=== PATIENT | male | born 1985 | race Caucasian/White ===

== ENCOUNTER 2016-11-11 21:36 | Emergency (ER) | payer OTHER ==
[~2016-11-11] VITALS: Ht 188 cm; Wt 77.1 kg
[~2016-11-11 21:36] MED LIST: ATIVAN 2 MG. TAB2 MG PO; ATIVAN1 M1 PO; ATIVAN1 MG PO; CHLORDIAZEPOXID25 M3 PO; CORGARD 40MG TA40 MG PO; DAILY VALUE1 EACH PO; ENULOSE 2020 GM/30 M PO; FOLIC ACID 1 MG PO; FOLIC ACID1 M1 PO; HUMALOG 100U100 U/ML; HUMALOG 100U100 U/ML SC; HYDROXYZINE HCL25 MG PO; INDERAL LA60 M1 PO; INDERAL PO; KEFLEX500 MG PO; LANTUS SOL100 UNIT/1 SC; LEVOTHYROXIN0.025 M1 PO; LEVOTHYROXINE25 MCG PO; LORAZEPAM1 MG PO; LYRICA50 MG PO; MAG-OX 400400 MG PO; MULTIVITAMIN1 TAB PO; NICOTINE T21 MG/24 H TOP; ONDANSETRON HYDR4 MG PO; PANTOPRAZOLE SO40 M1 PO; PANTOPRAZOLE SO40 MG PO; POTASSIUM CHLO10 MEQ PO; PRILOSEC 20MG C20 MG PO; PROPRANOLOL HCL60 MG PO; PROTONIX 20MG T20 MG PO; THIAMINE HCL100 M1 PO; THIAMINE-100100 MG PO; TRAZODO50 MG PO; TRAZODONE HCL100 M1 PO; Theragran Vitamins PO; VICODIN 300 MG-1 TAB PO; VICODIN5-300 PO; VITAMIN D250000 UNIT PO; XIFAXAN550 MG PO
--- NOTE | 2016-11-11 22:10 | ED PSYCHIATRIC COMPLAINT ---
History of Present Illness General Chief Complaint: ETOH/Drug Related Complaint Stated Complaint: +SI/ETOH Source: patient, old records Exam Limitations: intoxication Vital Signs & Intake/Output Vital Signs & Intake/Output Vital Signs Date Time Temp Pulse Resp B/P Pulse O2 O2 Flow FiO2 Ox Delivery Rate 11/12 0230 98.3 102 18 122/73 11/12 0229 98.3 102 18 122/73 99 Room Air 11/12 0021 97.8 96 18 101/67 11/12 0021 97.8 96 18 10167 96 Room Air 11/11 2213 100 Room Air 11/11 214 97.3 104 18 112/85 11/11 2146 97.3 104 18 94 Room Air ED Intake and Output 11/12 0000 11/11 1200 Intake Total Output Total Balance Patient 170 lb Weight Allergies Coded Allergies: NO KNOWN ALLERGIES (04/10/16) Reconcile Medications ERGOCALCIFEROL (VITAMIN D2) (Vitamin D2) 50,000 UNIT CAPSULE 50,000 IU PO Q30D VITAMIN D SUPPLEMENT (Reported) Folic Acid 1 MG TABLET 1 TAB PO DAILY ALCOHOL USE Insulin Glargine, Recombinan (Lantus) 100 U/ML SAMI 15 UNITS SC QAM DIABETES ( Reported) Insulin Lispro (Humalog) 100 UNIT/ML VIAL 1 UNITS SC TID AC/HS DIABETES Please dose your Humalog according to carbohydrates counting (one unit for every 15 grams of carbohydrates; insulin sensitivity 50 mg/dl; target of glucose 150 mg/dl) Levothyroxine Sodium 0.025 MG TAB 0.025 MG PO DAILY AC THYROID (Reported) Lorazepam (Ativan) 1 MG TABLET 1 TAB PO SEE ADMIN CRITERIA ETOH DETOX TAKE 1 TAB THREE TIME FOR 1 DAY 06/24 TAKE 1 TAB TWICE DAILY FOR 1 DAY 06/25 TAKE 1 TAB ONCE FOR 1 DAY THEN STOP 06/26. Multivitamin (Daily Value) 1 EACH TABLET 1 TAB PO DAILY OTHER Pantoprazole Sodium 40 MG TABLET.DR 1 TAB PO DAILY REFLUX (Reported) Pregabalin (Lyrica) 50 MG CAP 1 CAP PO BID PAIN (Reported) Propranolol LA (Inderal LA) 60 MG CAP.SA.24H 1 CAP PO DAILY LIVER (Reported) Thiamine HCl 100 MG TABLET 1 TAB PO DAILY OTHER Trazodone HCl 50 MG TABLET 2 TAB PO QPM SLEEP (Reported) Triage Note: RECEIVED 31 YO MALE WITH HX OF ETOH C/O "I HAVE A ALCOHOL PROBLEM AND I WANT TO STOP" PT REPORTS HX OF WITHDRAWL SEIZURES" PT REPORTS SI, STATES TO THIS RN "I WANT TO END MY LIFE" PT WITH HX OF PANCREATITIS, C/O ABDOMINAL AND BACK PAIN WITH VOMITING EVERY DAY. Triage Nurses Notes Reviewed? yes HPI: Patient presents for evaluation of chronic alcoholism with associated abdominal and back pain secondary to episodic pancreatitis. He wishes to be placed in an inpatient detox program where he can be "cared for". He states he needs "attention". He has had prior detox but seems to return to drinking. He states he has also been treated for pancreatitis and admits to liver disease as well. He states that if we were to check his labs that they would "be off the wall". Past History Travel History Traveled to [place] past 21 day No Medical History Any Pertinent Medical History? see below for history Neurological: delerium tremens EENT: NONE Cardiovascular: NONE Respiratory: NONE Gastrointestinal: L INGUINAL HERNIA REPAIR PANCREATITIS Hepatic: cholelithiasis, cirrhosis, hepatic encephalopathy (previously), jaundice, alcoholic liver disease Renal: NONE Musculoskeletal: 03/20/2014: L WRIST FX Psychiatric: alcohol dependence, anxiety, depression, substance abuse Endocrine: hypothyroidism, type 1 diabetes Blood Disorders: coagulopathy, pancytopenia Cancer(s): NONE LEG MAN/Reproductive: NONE History of MRSA: No History of VRE: No History of CDIFF: No Influenza Vaccine: 05/21/16 Surgical History Surgical History: hernia repair-inguinal (03/12/2007: Lap LIH with mesh), 2013: L wrist surgery Psychosocial History Who do you live with Family Services at Home None What is your primary language Austrian Tobacco Use: Current Daily Use Daily Tobacco Use Amount/Type: => 5 Cigarettes daily Family History Family History, If Any: FATHER (Stroke at the age of 47HTN). MOTHER (HTN). FH: alcoholism Hx Contributory? No Review of Systems Review of Systems Constitutional: Reports: no symptoms. EENTM: Reports: no symptoms. Respiratory: Reports: no symptoms. Cardiovascular: Reports: no symptoms. GI: Reports: no symptoms. Genitourinary: Reports: no symptoms. Musculoskeletal: Reports: no symptoms. Skin: Reports: no symptoms. Neurological/Psychological: Reports: see HPI. Hematologic/Endocrine: Reports: no symptoms. Immunologic/Allergic: Reports: no symptoms. All Other Systems: Reviewed and Negative Physical Exam Physical Exam General Appearance: SEE BELOW Neurological/Psychiatric: SEE BELOW Comments: General: Alert, calm, cooperative Head: Normocephalic, atraumatic Eyes: Normal inspection, no nystagmus, EOMI, sclera yellow Ears: Normal inspection Nose: Normal inspection Throat: Moist mucosa Neck: Supple, no goiter Heart: Regular rate and rhythm, no murmurs rubs or gallops Lungs: Clear to auscultation bilaterally with good air entry Abdomen: Soft nontender nondistended, normal bowel sounds Chest: Nontender Extremities: Normal range of motion grossly, mild tremors present, no cyanosis clubbing or edema of the upper extremities Neurologic: cranial nerves II through XII grossly intact, speech clear, gait normal Psychiatric: No apparent delusions or hallucinations, no pressured speech or thought blocking Skin: Jaundice present SAD PERSONS Done? patient not suicidal Progress Differential Diagnosis: drug intoxication, drug withdrawal, LIVER DISEASE Plan of Care: Orders Procedure Date/time Status [facility] 11/11 2208 Active URINE DRUGS OF ABUSE 11/11 2156 Complete LIPASE 11/11 2156 Complete ETHANOL 11/11 2156 Complete COMPREHENSIVE METABOLIC PANEL 11/11 2156 Complete CBC WITHOUT DIFFERENTIAL 11/11 2156 Complete AMYLASE 11/11 2156 Complete Laboratory Tests 11/12/16 0100: Urine Opiates Screen < 100.00, Methadone Screen < 40, Barbiturate Screen < 60, Ur Phencyclidine Scrn < 6.00, Amphetamines Screen < 100, U Benzodiazepines Scrn > 800 H, Urine Cocaine Screen < 50, Urine Cannabis Screen > 80.00 H 11/11/162257: Anion Gap 19 H, Estimated GFR > 60, BUN/Creatinine Ratio 12.9, Glucose 213 H, Calcium 9.2, Total Bilirubin 12.6 H, AST 322 H, ALT 72, Alkaline Phosphatase 243 H, Total Protein 7.1, Albumin 3.7, Globulin 3.4, Albumin/Globulin Ratio 1.1 , Amylase 76, Lipase 79, Serum Alcohol 319.0 11/11/162217: CBC w Diff MAN DIFF ORDERED, RBC 3.89 L, MCV 98.8 H, MCH 33.4 H, RDW 20.9 H, MPV 8.9, Gran % 61.6, Lymphocytes % 32.4, Monocytes % 5.9, Eosinophils % 0.1, Basophils % 0 L, Absolute Granulocytes 3.0, Segmented Neutrophils 66, Band Neutrophils 1, Absolute Lymphocytes 1.6, Lymphocytes 24, Monocytes 4, Absolute Monocytes 0.3, Eosinophils 2, Absolute Eosinophils 0, Basophils 3 H, Absolute Basophils 0, Platelet Estimate VERIFIED BY SMEAR, Poikilocytosis 2+, Anisocytosis 1+, Macrocytic Cells 1+, Target Cells 2+, PUBS MCHC 33.8, Fld Total RBCs Counted 100 Comments: 11/12/2016 3:21:18 AM I have had a lengthy discussion with Jerad regarding the [facility] emergency medicine alcohol detoxification protocol. He is unwilling to wait to fulfill the criteria of the protocol. He currently denies active suicide ideation. His mother has come to the emergency department and she is willing to take him home and watch him. His most recent CIWA score was 0. Departure Departure Disposition: HOME OR SELF CARE Condition: Stable Clinical Impression Primary Impression: Alcoholism Secondary Impressions: Liver failure Qualifiers: Liver failure chronicity: chronic Hepatic coma status: without hepatic coma Qualified Code: K72.10 - Chronic hepatic failure without coma Referrals: JOANNA SANCHEZ MD (PCP/Family) Additional Instructions: Slowly wean your alcohol intake. Follow-up with your primary care doctor on Monday. Consider an outpatient detox program. Return if any concerns or sudden worsening. Departure Forms: Customer Survey General Discharge Information
[2016-11-11 22:29] LABS: ABSOLUTE BASOPHIL COUNT 0 /CUMM (0.0-0.2); ABSOLUTE EOSINOPHIL COUNT 0 /CUMM (0.0-0.7); ABSOLUTE LYMPH COUNT 1.6 /CUMM (1.2-3.4); ABSOLUTE MONOCYTE COUNT 0.3 /CUMM (0.10-0.60); BASOPHIL % 0 % (0.0-2.0); EOSINOPHIL % 0.1 % (0-5); GRANULOCYTE % 61.6 % (42.2-75.2); HEMATOCRIT 38.4 % (42-52); MEAN CORPUSCULAR HGB 33.4 PG (27.0-31.0); MEAN CORPUSCULAR HGB CONC 33.8 G/DL (33.0-37.0); MEAN CORPUSCULAR VOLUME 98.8 FL (80.0-94.0); MEAN PLATELET VOLUME 8.9 FL (7.4-10.4); RBC DISTRIBUTION WIDTH 20.9 % (11.5-14.5); RED BLOOD CELL CT 3.89 /CUMM (4.70-6.10); WHITE BLOOD CELL COUNT 4.9 /CUMM (4.8-10.8)
[2016-11-11 22:45] LABS: PLATELET COUNT 43 /CUMM (130-400)
[2016-11-12 03:50] VITALS: BP 112/79
== END 2016-11-12 03:51 ==
LOC: ERH 21:36
PROVIDERS: Emergency Medicine
DX: F10.20 Alcohol dependence, uncomplicated (principal); K72.90 Hepatic failure, unspecified without coma
CPT/HCPCS: 80307; 96374; G0480

== ENCOUNTER 2017-01-09 10:49 | Emergency (ER) | payer OTHER ==
[~2017-01-09] VITALS: Ht 188 cm; Wt 79.4 kg
--- NOTE | 2017-01-09 11:27 | ED GI/GU/ABDOMINAL COMPLAINT ---
History of Present Illness General Chief Complaint: General Adult Stated Complaint: ABDOMINAL DISTENTION Source: patient, family, old records Exam Limitations: no limitations Vital Signs & Intake/Output Vital Signs & Intake/Output Vital Signs Date Time Temp Pulse Resp B/P B/P Pulse O2 O2 Flow FiO2 Mean Ox Delivery Rate 01/09 1909 60 99/52 01/09 1749 96.2 62 16 104/58 99 Room Air 01/09 1548 102/72 01/09 1546 96.7 66 18 92/54 97 Room Air 01/09 1340 98.0 68 20 105/64 98 Room Air 01/09 1056 97.9 76 20 110/68 95 Room Air Allergies Coded Allergies: NO KNOWN ALLERGIES (04/10/16) Reconcile Medications Ergocalciferol (Vitamin D2) (Vitamin D2) 50,000 UNIT CAPSULE 1 CAP PO Q 2 WEEKS VITAMIN SUPPORT (Reported) Folic Acid 1 MG TABLET 1 TAB PO DAILY ALCOHOL USE Furosemide 20 MG TABLET 1 TAB PO DAILY WATER PILL (Reported) Gabapentin 400 MG CAPSULE 2 CAP PO TID UNKNOWN (Reported) Hydromorphone HCl (Dilaudid) 2 MG TABLET 1 TAB PO BIDP PRN PAIN Insulin Glargine,Hum.rec.anlog (Lantus Solostar) 100 UNIT/ML (3 ML) INSULN.PEN 15 UNIT SC QPM DIABETES (Reported) Insulin Lispro (Humalog) (Unknown Strength) VIAL (Unknown Dose) SC SEE SLIDING SCALE DIABETES (Reported) Lactulose 10 GRAM/15 ML SOLUTION 30 ML PO TID PRN GI (Reported) Levothyroxine Sodium 25 MCG TABLET 1 TAB PO DAILY AC THYROID (Reported) Multivitamin (Daily Value) 1 EACH TABLET 1 TAB PO DAILY OTHER Pantoprazole Sodium 40 MG TABLET.DR 1 TAB PO DAILY REFLUX (Reported) Propranolol LA (Inderal LA) 60 MG CAP.SA.24H 1 CAP PO DAILY LIVER (Reported) Spironolactone 50 MG TABLET 1 TAB PO DAILY UNKNOWN (Reported) Thiamine HCl 100 MG TABLET 1 TAB PO DAILY OTHER Trazodone HCl 100 MG TABLET 2 TAB PO QPM SLEEP (Reported) Ursodiol 250 MG TABLET 1 TAB PO TID UNKNOWN (Reported) Vit B Cmplx 3/FA/Vit C/Biotin (Rebecca-Kate Rx Tablet) 1 MG-60 MG-300 MCG TABLET 1 TAB PO DAILY VITAMIN SUPPORT (Reported) Triage Note: PT C/O ABDOMINAL DISTENTION AND PAIN. PT WAS D/C FROM [facility] ON THE AND TAPPED AT THAT TIME. PT APPEARS JAUNDICED Triage Nurses Notes Reviewed? yes Onset: Gradual Duration: getting worse Timing: recent history Quality/Severity: severe, stabbing, throbbing Severity Numbers: 10 Location: generalized abdomen Radiation: no radiation HPI: patient is 31 y/o male with PMH of hypothyroidism, type 1 diabetes, cholelithiasis, cirrhosis, substance abuse,alcoholic liver disease, alcohol dependence, multiple failure alcohol detox program,anxiety, depression who presents emergency room with father in which they were recently admitted to [facility] and discharged 2 days ago for concerns of a ascites and abdominal pain where he states that he had a paracentesis performed with no concern of infection patient states that since his discharge he's been complaining of worsening abdominal pain and distention. Patient also complains of persistent nausea decreased appetite and by mouth intake no vomiting has occurred denies any fevers chest pain shortness of breath cough. Patient denies any recent alcohol use or illicit drug use. (CAROLINA AMADOR) Past History Travel History Traveled to [place] past 21 day No Medical History Any Pertinent Medical History? see below for history Neurological: delerium tremens EENT: NONE Cardiovascular: NONE Respiratory: NONE Gastrointestinal: L INGUINAL HERNIA REPAIR PANCREATITIS Hepatic: cholelithiasis, cirrhosis, hepatic encephalopathy (previously), jaundice, alcoholic liver disease Renal: NONE Musculoskeletal: 03/20/2014: L WRIST FX Psychiatric: alcohol dependence, anxiety, depression, substance abuse Endocrine: hypothyroidism, type 1 diabetes Blood Disorders: coagulopathy, pancytopenia Cancer(s): NONE RELAY MAN/Reproductive: NONE History of MRSA: No History of VRE: No History of CDIFF: No Surgical History Surgical History: hernia repair-inguinal (03/12/2007: Lap LIH with mesh), 2013: L wrist surgery Psychosocial History Who do you live with Family Services at Home None What is your primary language Hebrew Tobacco Use: Current Daily Use Daily Tobacco Use Amount/Type: => 5 Cigarettes daily ETOH Use: denies use Illicit Drug Use: denies illicit drug use Family History Family History, If Any: FATHER (Stroke at the age of 47HTN). MOTHER (HTN). FH: alcoholism Hx Contributory? No (CAROLINA AMADOR) Review of Systems Review of Systems Constitutional: Reports: see HPI, chills. EENTM: Reports: see HPI. Respiratory: Reports: see HPI. Cardiovascular: Reports: see HPI. GI: Reports: see HPI, abdominal pain, distention. Genitourinary: Reports: no symptoms. Musculoskeletal: Reports: no symptoms. Skin: Reports: see HPI. Neurological/Psychological: Reports: no symptoms. Hematologic/Endocrine: Reports: see HPI. Immunologic/Allergic: Reports: see HPI. All Other Systems: Reviewed and Negative (CAROLINA AMADOR) Physical Exam Physical Exam General Appearance: moderate distress Gastrointestinal: normal bowel sounds, distention, tenderness Comments: HEENT: Noted bilateral icterus extraocular motion intact, no nystagmus. Pupils equally round and reactive to light and accommodation. Nose is atraumatic. External auditory canal and Tympanic membranes clear. Pharynx normal. No swelling or edema. Neck: Supple, no lymphadenopathy, normal range of motion without pain or tenderness Back: Nontender, no CVA tenderness. Cardiovascular: Regular rate and rhythms no murmurs rubs or gallops, normal JVP Respiratory: Chest nontender. No respiratory distress.breath sounds clear to auscultation bilaterally Extremity: No edema, no calf tenderness to palpation, normal and equal pulses. Neuro: Alert oriented x3, motor sensory normal, Skin: Jaundiced noted skin is warm and dry. Psych: Mood and affect is normal, memory and judgment is normal. Core Measures ACS in differential dx? No Severe Sepsis Present: No Septic Shock Present: No (CAROILNA AMADOR) Progress Differential Diagnosis: AAA, AMI, appendicitis, biliary colic, bowel obstruction , colon cancer, cholecystitis, diverticulitis, esophageal varices, gastritis, hepatitis, hernia, hemorrhoids, ischemic bowel, inflamm bowel dis, Angelina-Juliana tear, orchitis, pancreatitis, prostatitis, peptic ulcer, PUD/GERD, perforated viscous, pyelonephritis, SBO, testicular torsion, ureterolithiasis, urinary retention, urethritis, UTI/pyelo, spontaneous bacterial peritonitis DKA Plan of Care: Orders Procedure Date/time Status Add-on Test (ER Only) 01/09 1309 Active DIRECT BILIRUBIN 01/09 1205 Complete EKG 01/09 1147 Active FingerStick- Glucose 01/09 1139 Active MIXED VENOUS BLOOD GAS (GEN) 01/09 1136 Complete URINE DRUG SCREEN FOR ER ONLY 01/09 1136 Complete THYROID STIMULATING HORMONE 01/09 113 Complete PARTIAL THROMBOPLASTIN TIME 01/09 113 Complete PROTHROMBIN TIME 01/09 113 Complete MAGNESIUM 01/10 1136 Complete LACTIC ACID 01/10 1136 Complete FREE T4 01/10 1136 Complete ETHANOL 01/10 1136 Complete COMPREHENSIVE METABOLIC PANEL 01/10 1136 Complete CBC WITHOUT DIFFERENTIAL 01/10 1136 Complete ACETONE 01/10 1136 Complete DIRECT ANTI-GLOBULIN TEST 01/10 1136 Complete Laboratory Tests 01/09/17 1540: Urine Opiates Screen < 700.00, Methadone Screen > 735 H, Barbiturate Screen < 60, Ur Phencyclidine Scrn < 6.00, Amphetamines Screen 103, U Benzodiazepines Scrn < 85, Urine Cocaine Screen < 50, Urine Cannabis Screen > 80.00 H 01/09/17 1436: Lactic Acid Cancelled 01/09/17 1210: Bicarbonate Actual 25, Mixed VBG pH 7.39, Mixed VBG pCO2 42, Mixed VBG O2 Saturation 24 L, P-50 (Temp Corrected) N, Carboxyhemoglobin 2.2, O2 Concentration % .21, Temperature 97.9, O2 Delivery Method RA, Phlebotomy Draw Site RAC 01/09/17 1205: Anion Gap 10, Estimated GFR > 60, BUN/Creatinine Ratio 22.2, Glucose 188 H, Lactic Acid 1.6, Calcium 8.3 L, Magnesium 1.4 L, Total Bilirubin 12.2 H, Direct Bilirubin 10.6 H, AST 113 H, ALT 35, Alkaline Phosphatase 147 H, Total Protein 6.6, Albumin 2.6 L, Globulin 4.0, Albumin/Globulin Ratio 0.7 L, TSH 5.080 H, Free T4 2.18, PT 20.2 H, INR 1.94 H, APTT 33, CBC w Diff MAN DIFF ORDERED, RBC 3.45 L, MCV 107.1 H, MCH 36.3 H, RDW 16.1 H, MPV 12.4 H, Segmented Neutrophils 67, Band Neutrophils 4, Lymphocytes 22, Monocytes 3, Eosinophils 3, Basophils 1, Platelet Estimate DECREASED, Poikilocytosis 2+, Anisocytosis 1+, Macrocytic Cells 2+, PUBS MCHC 33.9, Serum Alcohol < 10.0, Acetone Level NEGATIVE 01/09/17 1148: Magnesium Cancelled, TSH Cancelled, Free T4 Cancelled Deborah FIELDS PA-C from the [facility] liver specialist [phone] I discussed with patient's provider of patient's current lab values which she cross- reference this from previous admission at [facility] which there is no changes Patient at this time has no concerns of spontaneous bacterial peritonitis CT scan was remarkable for significant ascites and cirrhosis. Patient also has significant resolution of pain with medications administered in the emergency room. When discussing patient's disposition and plan with her liver specialist she agrees in which the plan will be to perform a therapeutic paracentesis which was performed with no complications patient has significant resolution of distention and symptoms upon presentation. I strongly advised patient to follow up with his liver specialist for routine therapeutic paracentesis. Upon discharge patient looks well no apparent distress and will comply with discharge instructions and had no questions Please note dictation for paracentesis. I discussed risks and benefits with patient and patient signed consent form. Using ultrasound to the left quadrant on the monitor there was noted significant ascites where using sterile technique I used 10 mL of 1% lidocaine for local anesthesia than placing a AMISH with the scalpel I then inserted the trocar and using before meals technique the peritoneal cavity was ascertained and total 5 L of ascites was removed without complications patient tolerated well had significant resolution of distention. Bandage was applied after trocar was safely removed. Patient tolerated well the procedure albumin 1 now be replenished UPON D/C PT LOOKS WELL NAD, AFEBRILE AND WAS ABLE TO TOLERATE PO. DISCUSSED DISPOSITION AND PLAN WITH DR HATCH WHO AGREES (BRIAN PALMA,[place]) Diagnostic Imaging: Viewed by Me: CT Scan. Radiology Impression: SEE COMMENTS Initial ED EKG: normal intervals, normal p-waves, normal QRS complex, SINUS RHYTHM NOTED AT 68 BPM Comments: PATIENT: EDY AVILES III PRESENT AGE: 31 PATIENT ACCOUNT NO: [id number] : 87 LOCATION: [facility] ORDERING PHYSICIAN: CAROLINA PALMA SERVICE DATE: 01/09/17 EXAM TYPE: CAT - CT ABD & PELVIS W IV CONTRAST EXAMINATION: CT ABDOMEN AND PELVIS WITH CONTRAST CLINICAL INFORMATION: 31-year-old male patient with abdominal pain and distention. COMPARISON: CT of the abdomen and pelvis on 07/01/2014. TECHNIQUE: Multidetector volumetric imaging was performed of the abdomen and pelvis before and after the IV administration of 95 mL of Optiray 320 intravenous contrast. Sagittal and coronal reformatted images were obtained on the technologist's workstation. DLP: 500 mGy-cm FINDINGS: DIRECTOR OF LEARNING: The significant volume of ascites is apparent on the plain film. The spleen is enlarged. LUNG BASES: Segmental consolidation is present in the right lower lobe and there is a small right pleural effusion. Esophageal varices are apparent. LIVER, GALLBLADDER, AND BILIARY TREE: The liver is grossly cirrhotic with extensive surface nodularity. Due to the diffuse heterogeneity of the liver parenchyma, it is difficult to exclude underlying neoplasm. Numerous gallstones are seen in the gallbladder which is otherwise normal. PANCREAS: Cystic alterations and punctate calcification are seen in the head of the pancreas. The rest of the pancreas is atrophic. One might suspect some degree of chronic calcific pancreatitis. SPLEEN: The spleen is quite large measuring 20.4 cm in oblique diameter. ADRENAL GLANDS: Unremarkable. KIDNEYS AND URETERS: The kidneys are normal in size, shape, and attenuation. No hydronephrosis, hydroureter, or calculi seen. No perinephric stranding. BLADDER: The bladder is compressed by the ascites and is otherwise normal. GASTROINTESTINAL TRACT: The small and large bowel are unremarkable. The appendix is unremarkable. There is prominent omental edema/infiltration in the anterior midline of the abdomen characteristic of an omental "cake". ABDOMINAL WALL: No significant hernia is appreciated. LYMPH NODES: Normal. VASCULAR: Perisplenic/retroperitoneal and esophageal varices are identified. The medical vein is recanalized. PELVIC VISCERA: Unremarkable. OSSEOUS STRUCTURES: Unremarkable. IMPRESSION: 1. Large volume ascites. Omental edema/infiltration. 2. Grossly cirrhotic liver. Difficult to exclude focal disease. 3. Splenomegaly and multiple portosystemic collaterals. 4. Right lower lobe segmental consolidation and a small right pleural effusion. 5. Cholelithiasis. 6. Focal chronic calcific pancreatitis. (BRIAN PALMA,[place]) Departure Departure Disposition: HOME OR SELF CARE Condition: Stable Clinical Impression Primary Impression: Ascites Secondary Impressions: Cirrhosis Referrals: DANIEL NERI,JOANNA Silver (PCP/Family) Additional Instructions: As discussed tomorrow please follow-up with your [facility] liver specialist to set up an appointment for outpatient paracentesis and for further evaluation symptoms. Begin the prescription of Dilaudid for breakthrough pain relief. Please continue to not drink alcohol. If symptoms worsen return to THE emergency room Departure Forms: Customer Survey General Discharge Information Prescriptions: Current Visit Scripts Hydromorphone HCl (Dilaudid) 1 TAB PO BIDP PRN PAIN #8 TAB (CAROLINA AMADOR) PA/CRA OFFICER Co-Sign Statement Statement: ED Attending supervision documentation- [X] I saw and evaluated the patient. I have also reviewed all the pertinent lab results and diagnostic results. I agree with the findings and the plan of care as documented in the PA's/CRA OFFICER's documentation. [X] I have reviewed the ED Record and agree with the PA's/CRA OFFICER's documentation. [] Additions or exceptions (if any) to the PAs/CRA OFFICER's note and plan are summarized below: [] (MAMIE NERI,WILLIS) Critical Care Note Critical Care Note Critical Care Time: 30-74 min (CAROLINA AMADOR)
[2017-01-09] MEDS ORDERED: SPIRONOLACTONE50 M1 PO (11:42)
[2017-01-09] MEDS ORDERED: GABAPENTIN400 M2 PO (11:43)
[2017-01-09] MEDS ORDERED: FUROSEMIDE20 M1 PO (11:43)
[2017-01-09] MEDS ORDERED: LACTULOSE10 GM/153 PO (11:45)
[2017-01-09] MEDS ORDERED: HUMALOG100 UNIT/2 SC (11:45)
[2017-01-09] MEDS ORDERED: RENA-VITE RX T1 EACH PO (11:47)
[2017-01-09] MEDS ORDERED: URSODIOL PO (11:49)
[2017-01-09 12:24] LABS: MEAN CORPUSCULAR HGB 36.3 PG (27.0-31.0); MEAN CORPUSCULAR HGB CONC 33.9 G/DL (33.0-37.0); MEAN CORPUSCULAR VOLUME 107.1 FL (80.0-94.0); MEAN PLATELET VOLUME 12.4 FL (7.4-10.4); PLATELET COUNT 63 /CUMM (130-400); RBC DISTRIBUTION WIDTH 16.1 % (11.5-14.5); RED BLOOD CELL CT 3.45 /CUMM (4.70-6.10); WHITE BLOOD CELL COUNT 3.2 /CUMM (4.8-10.8)
[2017-01-09 12:32] LABS: PT 20.2 SEC (9.4-12.5); PTT 33 SEC (25-37)
--- NOTE | 2017-01-09 15:06 | CT SCAN REPORT ---
EXAMINATION: CT ABDOMEN AND PELVIS WITH CONTRAST CLINICAL INFORMATION: 31-year-old male patient with abdominal pain and distention. COMPARISON: CT of the abdomen and pelvis on 07/01/2014. TECHNIQUE: Multidetector volumetric imaging was performed of the abdomen and pelvis before and after the IV administration of 95 mL of Optiray 320 intravenous contrast. Sagittal and coronal reformatted images were obtained on the technologist's workstation. DLP: 500 mGy-cm FINDINGS: CHERRY PITTER: The significant volume of ascites is apparent on the plain film. The spleen is enlarged. LUNG BASES: Segmental consolidation is present in the right lower lobe and there is a small right pleural effusion. Esophageal varices are apparent. LIVER, GALLBLADDER, AND BILIARY TREE: The liver is grossly cirrhotic with extensive surface nodularity. Due to the diffuse heterogeneity of the liver parenchyma, it is difficult to exclude underlying neoplasm. Numerous gallstones are seen in the gallbladder which is otherwise normal. PANCREAS: Cystic alterations and punctate calcification are seen in the head of the pancreas. The rest of the pancreas is atrophic. One might suspect some degree of chronic calcific pancreatitis. SPLEEN: The spleen is quite large measuring 20.4 cm in oblique diameter. ADRENAL GLANDS: Unremarkable. KIDNEYS AND URETERS: The kidneys are normal in size, shape, and attenuation. No hydronephrosis, hydroureter, or calculi seen. No perinephric stranding. BLADDER: The bladder is compressed by the ascites and is otherwise normal. GASTROINTESTINAL TRACT: The small and large bowel are unremarkable. The appendix is unremarkable. There is prominent omental edema/infiltration in the anterior midline of the abdomen characteristic of an omental "cake". ABDOMINAL WALL: No significant hernia is appreciated. LYMPH NODES: Normal. VASCULAR: Perisplenic/retroperitoneal and esophageal varices are identified. The medical vein is recanalized. PELVIC VISCERA: Unremarkable. OSSEOUS STRUCTURES: Unremarkable. IMPRESSION: 1. Large volume ascites. Omental edema/infiltration. 2. Grossly cirrhotic liver. Difficult to exclude focal disease. 3. Splenomegaly and multiple portosystemic collaterals. 4. Right lower lobe segmental consolidation and a small right pleural effusion. 5. Cholelithiasis. 6. Focal chronic calcific pancreatitis.
[2017-01-09] MEDS ORDERED: DILAUDID2 M1 PO (17:20)
[2017-01-09 19:09] VITALS: BP 99/52
== END 2017-01-09 19:13 ==
LOC: ERH 10:49
PROVIDERS: Physician Assistant
DX: R18.8 Other ascites (principal); K74.60 Unspecified cirrhosis of liver; F10.20 Alcohol dependence, uncomplicated; F19.10 Other psychoactive substance abuse, uncomplicated; E10.9 Type 1 diabetes mellitus without complications; E03.9 Hypothyroidism, unspecified
CPT/HCPCS: 74177; 80307; 93005; 93010; 96374; 96376; G0480; J3490; P9047

== ENCOUNTER 2017-01-16 22:57 | Emergency (ER) | payer OTHER ==
[~2017-01-16] VITALS: Ht 188 cm; Wt 77.1 kg
[~2017-01-16 22:57] MED LIST changes: +DILAUDID2 M1 PO; +FUROSEMIDE20 M1 PO; +GABAPENTIN400 M2 PO; +HUMALOG100 UNIT/2 SC; +LACTULOSE10 GM/153 PO; +RENA-VITE RX T1 EACH PO; +SPIRONOLACTONE50 M1 PO; +URSODIOL PO
[2017-01-16 23:48] LABS: ABSOLUTE BASOPHIL COUNT 0.1 /CUMM (0.0-0.2); ABSOLUTE EOSINOPHIL COUNT 0.1 /CUMM (0.0-0.7); ABSOLUTE GRANULOCYTE CT 1.9 /CUMM (1.4-6.5); ABSOLUTE MONOCYTE COUNT 0.2 /CUMM (0.10-0.60); BASOPHIL % 1.8 % (0.0-2.0); EOSINOPHIL % 1.9 % (0-5); HEMATOCRIT 37.6 % (42-52); MEAN CORPUSCULAR HGB 35.8 PG (27.0-31.0); MEAN CORPUSCULAR HGB CONC 33.4 G/DL (33.0-37.0); MEAN PLATELET VOLUME 12.1 FL (7.4-10.4); PLATELET COUNT 51 /CUMM (130-400); RBC DISTRIBUTION WIDTH 16.5 % (11.5-14.5); RED BLOOD CELL CT 3.51 /CUMM (4.70-6.10); WHITE BLOOD CELL COUNT 3.3 /CUMM (4.8-10.8)
--- NOTE | 2017-01-17 00:29 | ED GI/GU/ABDOMINAL COMPLAINT ---
History of Present Illness General Chief Complaint: Abdominal Pain/Flank Pain Stated Complaint: JAUNDANCE, PAIN/ABD DISTENTION Source: patient Exam Limitations: no limitations Vital Signs & Intake/Output Vital Signs & Intake/Output Vital Signs Date Time Temp Pulse Resp B/P B/P Pulse O2 O2 Flow FiO2 Mean Ox Delivery Rate 01/17 0527 95.8 66 18 80/44 94 Room Air 01/17 0206 88/52 01/17 0202 68 82/47 97 Room Air 01/16 2310 98.0 73 20 105/70 97 Room Air ED Intake and Output 01/17 0000 01/16 1200 Intake Total 0 Output Total Balance 0 Intake, Oral 0 Patient 170 lb Weight Weight Reported by Patient Measurement Method Allergies Coded Allergies: No Known Allergies (01/16/17) Reconcile Medications Ergocalciferol (Vitamin D2) (Vitamin D2) 50,000 UNIT CAPSULE 1 CAP PO Q 2 WEEKS VITAMIN SUPPORT (Reported) Folic Acid 1 MG TABLET 1 TAB PO DAILY ALCOHOL USE Furosemide 20 MG TABLET 1 TAB PO DAILY WATER PILL (Reported) Gabapentin 400 MG CAPSULE 2 CAP PO TID UNKNOWN (Reported) Hydromorphone HCl (Dilaudid) 2 MG TABLET 1 TAB PO BIDP PRN PAIN Insulin Glargine,Hum.rec.anlog (Lantus Solostar) 100 UNIT/ML (3 ML) INSULN.PEN 15 UNIT SC QPM DIABETES (Reported) Insulin Lispro (Humalog) (Unknown Strength) VIAL (Unknown Dose) SC SEE SLIDING SCALE DIABETES (Reported) Lactulose 10 GRAM/15 ML SOLUTION 30 ML PO TID PRN GI (Reported) Levothyroxine Sodium 25 MCG TABLET 1 TAB PO DAILY AC THYROID (Reported) Multivitamin (Daily Value) 1 EACH TABLET 1 TAB PO DAILY OTHER Oxycodone HCl 5 MG TABLET 1-2 TAB PO TID PRN pain eight...[id number] Pantoprazole Sodium 40 MG TABLET.DR 1 TAB PO DAILY REFLUX (Reported) Propranolol LA (Inderal LA) 60 MG CAP.SA.24H 1 CAP PO DAILY LIVER (Reported) Spironolactone 50 MG TABLET 1 TAB PO DAILY UNKNOWN (Reported) Thiamine HCl 100 MG TABLET 1 TAB PO DAILY OTHER Trazodone HCl 100 MG TABLET 2 TAB PO QPM SLEEP (Reported) Ursodiol 250 MG TABLET 1 TAB PO TID UNKNOWN (Reported) Vit B Cmplx 3/FA/Vit C/Biotin (Rebecca-Kate Rx Tablet) 1 MG-60 MG-300 MCG TABLET 1 TAB PO DAILY VITAMIN SUPPORT (Reported) Triage Note: TRIAGE: PT TO ER C/C PAIN TO BACK AND ABD SINCE "GETTING OUT OF THE HOSPITAL". HAS HX OF ASCITES REQUIRING PERICENTESIS. STATES HAD PERICENTESIS DONE WITH THAT LAST ADMISSION. IS UNSURE HOW LONG AGO HE WAS INPAITENT. -N/V. HAS DIARRHEA AT BASELINE R/T TAKING LACTULOSE. -URINARY S/S. Triage Nurses Notes Reviewed? yes Duration: day(s): Timing: recent history Quality/Severity: cramping Location: generalized abdomen Radiation: no radiation Activities at Onset: none Prior Abdominal Problems: similar symptoms Modifying Factors: Worsens With: palpation. Associated Symptoms: "I need to be tapped again." HPI: 31 yo gentleman h/o liver failure and ascites, presents with increased abdominal distension. My belly is swollen and I need it tapped." He notes no fever, chills, nausea, vomiting, fever. He is otherwise tolerating fluids. He denies alcohol or drugs. He is otherwise well. Past History Travel History Traveled to [place] past 21 day No Medical History Any Pertinent Medical History? 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 MOTHER (HTN). FH: alcoholism Hx Contributory? No Review of Systems Review of Systems Constitutional: Reports: no symptoms. EENTM: Reports: no symptoms. Respiratory: Reports: no symptoms. Cardiovascular: Reports: no symptoms. GI: Reports: no symptoms. Genitourinary: Reports: no symptoms. Musculoskeletal: Reports: no symptoms. Skin: Reports: no symptoms. Neurological/Psychological: Reports: no symptoms. Hematologic/Endocrine: Reports: no symptoms. Immunologic/Allergic: Reports: no symptoms. All Other Systems: Reviewed and Negative Physical Exam Physical Exam General Appearance: well developed/nourished, mild distress Head: atraumatic, normal appearance Eyes: Bilateral: normal appearance. Ears, Nose, Throat, Mouth: hearing grossly normal Neck: normal inspection Respiratory: normal breath sounds, chest non-tender Cardiovascular: regular rate/rhythm Gastrointestinal: tense ascites, minimal tenderness. Back: normal inspection Extremities: normal range of motion Neurologic/Psych: no motor/sensory deficits, awake, alert, oriented x 3 Core Measures ACS in differential dx? No Severe Sepsis Present: No Septic Shock Present: No Progress Differential Diagnosis: SBP versus ascites versus other Plan of Care: Orders Procedure Date/time Status CULTURE,BODY FLUID 01/17 0204 Active BODY FLUID TOTAL PROTEIN 01/17 0204 Complete BODY FLUID CELL COUNT 01/17 0204 Complete BODY FLUID ALBUMIN 01/17 0204 Complete TYPE & SCREEN (NOT X-MATCH) 01/17 0124 Complete LIPASE 01/16 2308 Complete DIRECT BILIRUBIN 01/16 2308 Complete COMPREHENSIVE METABOLIC PANEL 01/16 2308 Complete CBC WITHOUT DIFFERENTIAL 01/16 2308 Complete AMYLASE 01/16 2308 Complete Current Medications Sig/Jose Martin Start time Last Medication Dose Stop Time Status Admin Sodium Chloride 1,000 ML BOLUS ONE 01/17 0545 UNVr 01/17 (Normal Saline 0.9%) 01/17 0644 0539 Laboratory Tests 01/17/17 0250: Fluid WBC 57 H, Fld Mesothelial Cells 42, Fld Total RBCs Counted 920 H 01/17/17 0250: Lymphocytes 46, % Normal PMNs 11, Misc Hematology Test , Fluid Total Protein < 2.0, Fluid Albumin < 1.0 01/16/17 2329: Anion Gap 11, Estimated GFR > 60, BUN/Creatinine Ratio 19.0, Glucose 289 H, Calcium 8.6, Total Bilirubin 11.1 H, Direct Bilirubin 9.5 H, AST 101 H, ALT 42, Alkaline Phosphatase 114, Total Protein 6.5, Albumin 2.8 L, Globulin 3.7, Albumin/Globulin Ratio 0.8 L, Amylase 31, Lipase 40, CBC w Diff MAN DIFF ORDERED, RBC 3.51 L, MCV 107.0 H, MCH 35.8 H, RDW 16.5 H, MPV 12.1 H, Gran % 59.0, Lymphocytes % 31.3, Monocytes % 6.0, Eosinophils % 1.9, Basophils % 1.8, Absolute Granulocytes 1.9, Segmented Neutrophils 57, Band Neutrophils 8 H, Absolute Lymphocytes 1.0 L, Lymphocytes 26, Monocytes 6, Absolute Monocytes 0.2 , Eosinophils 3, Absolute Eosinophils 0.1, Absolute Basophils 0.1, Platelet Estimate DECREASED, Poikilocytosis 1+, Ovalocytes 1+, PUBS MCHC 33.4 Microbiology 01/17 250 BODY FLUID: Body Fluid Culture - RECD 01/17 250 BODY FLUID: Gram Stain - RECD Initial ED EKG: none Departure Departure Disposition: HOME OR SELF CARE Condition: Stable Clinical Impression Primary Impression: Ascites Referrals: DANIEL NERI,JOANNA Silver (PCP/Family) Departure Forms: Customer Survey General Discharge Information Prescriptions: Current Visit Scripts Oxycodone HCl 1-2 TAB PO TID PRN pain #8 TAB eight...[id number] Comments pt with alcohol induced liver failure, chronically elevated bilirubin. He is followed by the [facility]... close follow up encouraged. The paracentesis was successful. He has no sign of SBP. He is stable for discharge. Patient's blood pressure drifted low when he was sleeping. She was given 1 L nasal normal saline. His blood pressure has returned to baseline. She will follow up with his routine. Procedures Additional Procedures Additional Procedures: paracentesis Progress: given his tense ascites, with patient consent, paracentesis performed. 3 liters extracted of clear laura colored fluid. pt tolerated the procedure well.
[2017-01-17] MEDS ORDERED: OXYCODONE HCL5 M1 PO (04:43)
[2017-01-17 06:20] VITALS: BP 92/48
== END 2017-01-17 06:27 ==
LOC: ERH 22:57
PROVIDERS: Physician Assistant
DX: R18.8 Other ascites (principal)
CPT/HCPCS: 87075; 96361; 96374; P9047

== ENCOUNTER 2017-01-19 14:22 | Emergency (ER) | payer OTHER ==
[~2017-01-19] VITALS: Ht 188 cm; Wt 77.1 kg
[~2017-01-19 14:22] MED LIST changes: +OXYCODONE HCL5 M1 PO
--- NOTE | 2017-01-19 17:20 | ED GENERAL ADULT ---
History of Present Illness General Chief Complaint: Abdominal Pain/Flank Pain Stated Complaint: ABD SWELLING Source: patient Exam Limitations: no limitations Vital Signs & Intake/Output Vital Signs & Intake/Output Vital Signs Date Time Temp Pulse Resp B/P B/P Pulse O2 O2 Flow FiO2 Mean Ox Delivery Rate 01/19 1754 70 20 101/67 97 01/19 1433 97.5 80 18 99/63 95 Room Air Allergies Coded Allergies: No Known Allergies (01/16/17) Reconcile Medications Ergocalciferol (Vitamin D2) (Vitamin D2) 50,000 UNIT CAPSULE 1 CAP PO Q 2 WEEKS VITAMIN SUPPORT (Reported) Folic Acid 1 MG TABLET 1 TAB PO DAILY ALCOHOL USE Furosemide 20 MG TABLET 1 TAB PO DAILY WATER PILL (Reported) Gabapentin 400 MG CAPSULE 2 CAP PO TID UNKNOWN (Reported) Insulin Glargine,Hum.rec.anlog (Lantus Solostar) 100 UNIT/ML (3 ML) INSULN.PEN 15 UNIT SC QPM DIABETES (Reported) Insulin Lispro (Humalog) (Unknown Strength) VIAL (Unknown Dose) SC SEE SLIDING SCALE DIABETES (Reported) Lactulose 10 GRAM/15 ML SOLUTION 30 ML PO TID PRN GI (Reported) Levothyroxine Sodium 25 MCG TABLET 1 TAB PO DAILY AC THYROID (Reported) Multivitamin (Daily Value) 1 EACH TABLET 1 TAB PO DAILY OTHER Oxycodone HCl 5 MG TABLET 1-2 TAB PO TID PRN pain eight...[id number] Pantoprazole Sodium 40 MG TABLET.DR 1 TAB PO DAILY REFLUX (Reported) Propranolol LA (Inderal LA) 60 MG CAP.SA.24H 1 CAP PO DAILY LIVER (Reported) Spironolactone 50 MG TABLET 1 TAB PO DAILY UNKNOWN (Reported) Thiamine HCl 100 MG TABLET 1 TAB PO DAILY OTHER Trazodone HCl 100 MG TABLET 2 TAB PO QPM PRN SLEEP (Reported) Ursodiol 300 MG CAPSULE 1 CAP PO TID UNKNOWN (Reported) Vit B Cmplx 3/FA/Vit C/Biotin (Rebecca-Kate Rx Tablet) 1 MG-60 MG-300 MCG TABLET 1 TAB PO DAILY VITAMIN SUPPORT (Reported) Triage Note: PT STATES THAT HE HAS ASCITES AND THAT HE WAS SEEN HERE MONDAY AND DR FIGUEROA REMOVED 2 LITERS OF FLUID FROM HIS ABDOMEN AND SINCE THEN THE SITE HAS BEEN LEAKING SINCE, STATES THAT IT HAS BEEN LEAKING NON STOP, PT NOTED WITH SMALL PUNCTURE TO L SIDE ABD WITH YELLOW FLUID DRAINING FROM THE SITE. CLEAN DRESSING APPLIED AT THIS TIME Triage Nurses Notes Reviewed? yes Onset: Abrupt Duration: day(s): Timing: recent history HPI: 01/19/17 6 pm 31-year-old male presents to the emergency department for ascites leak from paracentesis site. The patient states that he had a paracentesis done on Monday. He says since that he's had an oozing of clear fluid from the site. There is no rash there is no fever there is no intensity of his chronic abdominal pain. The onset of the symptoms were abrupt, the duration has been since the paracentesis on Monday, the severity significant as he required to come to the emergency department for care Past History Travel History Traveled to [place] past 21 day No Medical History Any Pertinent Medical History? 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 MOTHER (HTN). FH: alcoholism Hx Contributory? No Review of Systems Review of Systems Constitutional: Denies: fever. EENTM: Reports: no symptoms. Respiratory: Reports: no symptoms. Cardiovascular: Reports: no symptoms. GI: Denies: abdominal pain. Genitourinary: Reports: no symptoms. Musculoskeletal: Reports: no symptoms. Skin: Denies: rash. Neurological/Psychological: Denies: headache. Hematologic/Endocrine: Denies: bleeding. Physical Exam Physical Exam General Appearance: alert, awake, anxious, mild distress Head: atraumatic, normal appearance Eyes: Bilateral: normal appearance, PERRL, EOMI, other (JAUNDICE). Ears, Nose, Throat: normal pharynx, normal ENT inspection Neck: normal inspection, supple, full range of motion Respiratory: normal breath sounds, chest non-tender, no respiratory distress Cardiovascular: regular rate/rhythm Gastrointestinal: soft, non-tender, OOZING OF CLEAR FLUID LEFT LOWER QUADRANT Back: normal inspection, normal range of motion Extremities: no edema Neurologic/Psych: no motor/sensory deficits, awake, alert, oriented x 3 Skin: jaundice Core Measures ACS in differential dx? No CVA/TIA Diagnosis: No Severe Sepsis Present: No Septic Shock Present: No Progress Differential Diagnoses I considered the following diagnoses in my evaluation of the patient: [ Cellulitis, peritonitis, abscess, procedure related ascites leak] Plan of Care: Procedure Area was cleaned with Chloraseptic. It was dried with gauze. He was put in Trendelenburg. The ascites leak was closed with Dermabond Initial ED EKG: none Departure Departure Disposition: STILL A PATIENT Condition: Stable Clinical Impression Primary Impression: Ascites due to alcoholic hepatitis Referrals: JOANNA SANCHEZ MD (PCP/Family) Departure Forms: Customer Survey General Discharge Information Comments 6:30 PM He was reevaluated. There was no leak at the Dermabond site he was ambulating without any discharge from the site. Sterile dressing was applied. He was instructed to remove the dressing and monitor the site otherwise he will follow- up with the [facility] on the seventh as scheduled Critical Care Note Critical Care Note Critical Care Time: non-applicable
[2017-01-19 17:54] VITALS: BP 101/67
[2017-01-19] MEDS ORDERED: URSODIOL300 M1 PO (18:05)
== END 2017-01-19 18:35 ==
LOC: ERH 14:22
DX: K70.11 Alcoholic hepatitis with ascites (principal)

== ENCOUNTER 2018-01-15 15:43 | Emergency (ER) | payer OTHER ==
[~2018-01-15 15:43] MED LIST changes: +ONDANSETRON HCL4 MG PO; +OXAYDO7.5 MG PO; +REQUIP0.25 MG PO; +ROXICODONE5 M1 PO; +URSODIOL300 M1 PO
--- NOTE | 2018-01-15 16:32 | ED PSYCHIATRIC COMPLAINT ---
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 Source: patient, old records, EMS Exam Limitations: confusion, intoxication Vital Signs & Intake/Output Vital Signs & Intake/Output Vital Signs Date Time Temp Pulse Resp B/P B/P Pulse O2 O2 Flow FiO2 Mean Ox Delivery Rate 01/16 1201 96.6 68 16 111/68 98 Room Air 01/16 0850 98.5 80 20 122/82 98 Room Air 01/15 2222 74 98 Room Air 01/15 2114 97.4 62 18 126/72 98 Room Air 01/15 1833 98.1 74 16 139/84 99 Room Air 01/15 1618 97.5 75 18 142/84 100 Room Air Room Air 01/15 1616 Room Air ED Intake and Output 01/16 0000 01/15 1200 Intake Total 180 Output Total Balance 180 Intake, Oral 180 Allergies Coded Allergies: No Known Allergies (03/23/17) Reconcile Medications Ergocalciferol (Vitamin D2) (Vitamin D2) 50,000 UNIT CAPSULE 1 CAP PO Q 2 WEEKS VITAMIN SUPPORT (Reported) Folic Acid 1 MG TABLET 1 TAB PO DAILY ALCOHOL USE Furosemide 20 MG TABLET 1 TAB PO DAILY WATER PILL (Reported) Gabapentin (Unknown Strength) CAPSULE 2 CAP PO TID UNKNOWN (Reported) Insulin Glargine,Hum.rec.anlog (Lantus Solostar) 100 UNIT/ML (3 ML) INSULN.PEN 15 UNIT SC QPM DIABETES (Reported) Insulin Lispro (Humalog) (Unknown Strength) VIAL (Unknown Dose) SC SEE SLIDING SCALE DIABETES (Reported) Lactulose 10 GRAM/15 ML SOLUTION 30 ML PO TID PRN GI (Reported) Levothyroxine Sodium 25 MCG TABLET 1 TAB PO DAILY AC THYROID (Reported) Multivitamin (Daily Value) 1 EACH TABLET 1 TAB PO DAILY OTHER Ondansetron HCl 4 MG TABLET 1 TAB PO PRN N/V (Reported) Oxycodone HCl (Oxaydo) 7.5 MG TABLET.ORL 1 TAB PO TID PRN ABDOMINAL PAIN Oxycodone HCl (Roxicodone) 5 MG TABLET 1-2 TAB PO Q8 PRN PAIN Pantoprazole Sodium 40 MG TABLET.DR 1 TAB PO DAILY REFLUX (Reported) Propranolol LA (Inderal LA) 60 MG CAP.SA.24H 1 CAP PO DAILY LIVER (Reported) Ropinirole Hydrochloride (Requip) (Unknown Strength) TABLET (Unknown Dose) PO QPM RLS (Reported) Spironolactone (Unknown Strength) TABLET (Unknown Dose) PO DAILY UNKNOWN ( Reported) Thiamine HCl 100 MG TABLET 1 TAB PO DAILY OTHER Trazodone HCl 100 MG TABLET 2 TAB PO QPM PRN SLEEP (Reported) Ursodiol 300 MG CAPSULE 1 CAP PO TID UNKNOWN (Reported) Vit B Cmplx 3/FA/Vit C/Biotin (Rebecca-Kate Rx Tablet) 1 MG-60 MG-300 MCG TABLET 1 TAB PO DAILY VITAMIN SUPPORT (Reported) Triage Note: PT BOYD FROM [facility] WITH PARANOIA. 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 ALL DAY WHEN HE BECAME AGITATED AND RAN FROM THE HOUSE SCREAMING THAT HE IS COVERED IN BUGS. PT EXTRRMELY AGITATED ON EMS ARRIVAL, REFUSING FULL ASSESMENT, REFUSING GLUCOSE TESTING. HYPERTENSIVE EN ROUTE. PT ARRIVES AGITATED, TEARFUL, YELLING THAT THERE ARE BUGS ON HIM. NONE SEEN BY ANY STAFF MEMBER. PT OFFERED SOWER IMMEDIATELY ON ARRIVAL Triage Nurses Notes Reviewed? 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 He subsequently became agitated confused running about the home setting bugs were crawling on his skin. He denies fever chills nausea vomiting diarrhea abdominal pain chest pain shortness breath headache dysuria rash bleeding suicidal ideation homicidal ideation. (Jose NERI,Elijah) Past History Travel History Traveled to [place] past 21 day No Medical History Any Pertinent Medical History? 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 MOTHER (HTN). FH: alcoholism Hx Contributory? No (Elijah Garcia MD) Review of Systems Review of Systems Constitutional: Reports: no symptoms. EENTM: Reports: no symptoms. Respiratory: Reports: no symptoms. Cardiovascular: Reports: no symptoms. GI: Reports: no symptoms. Genitourinary: Reports: no symptoms. Musculoskeletal: Reports: no symptoms. Skin: Reports: no symptoms. Neurological/Psychological: Reports: see HPI, anxiety, cognitive dysfunction, confusion. Hematologic/Endocrine: Reports: no symptoms. Immunologic/Allergic: Reports: no symptoms. All Other Systems: Reviewed and Negative (Elijah Garcia MD) Physical Exam Physical Exam General Appearance: well developed/nourished, mild distress Head: atraumatic Eyes: Bilateral: PERRL, EOMI. Ears, Nose, Throat: normal pharynx, normal ENT inspection, hearing grossly normal Neck: normal inspection, supple Respiratory: normal breath sounds Cardiovascular: regular rate/rhythm Gastrointestinal: soft, non-tender Extremities: normal range of motion Neurological/Psychiatric: no motor/sensory deficits, awake, agitated, alert, anxious, foil operator II-XII nml as tested, oriented x 3 Appearance/Memory/Insight: disheveled, impaired insight Behavoir/Eye Contact/Speech: cooperative Thoughts/Hallucinations: visual hallucinations Skin: intact, normal color, warm/dry SAD PERSONS Done? patient not suicidal (Elijah Garcia MD) Progress Differential Diagnosis: drug intoxication, drug overdose, drug withdrawal, electrolyte abnormality, hypoglycemia Plan of Care: Orders Procedure Date/time Status Regular Diet 01/16 B Active ED CRISIS PSYCH CONSULT 01/15 1829 Active Patient Safety Monitor 01/15 1615 Active URINE DRUG SCREEN FOR ER ONLY 01/15 1556 Complete ETHANOL 01/15 1556 Complete COMPREHENSIVE METABOLIC PANEL 01/15 1556 Complete CBC WITHOUT DIFFERENTIAL 01/15 1556 Complete Current Medications Sig/Jose Martin Start time Last Medication Dose Stop Time Status Admin Insulin Human Regular 0 TIDAC/HS 01/15 2100 AC 01/16 (NovoLIN R) 0819 Laboratory Tests 01/15/18 1739: Urine Opiates Screen < 100, Methadone Screen 209, Barbiturate Screen < 60, Ur Phencyclidine Scrn < 6.00, Amphetamines Screen < 100, U Benzodiazepines Scrn < 85, Urine Cocaine Screen < 50, Urine Cannabis Screen > 80.00 H 01/15/18 1630: Anion Gap 12, Estimated GFR > 60, BUN/Creatinine Ratio 12.5, Glucose 143 H, Calcium 8.6, Total Bilirubin 1.9 H, AST 30, ALT 22, Alkaline Phosphatase 90, Total Protein 6.0 L, Albumin 3.0 L, Globulin 3.0, Albumin/Globulin Ratio 1.0 L, CBC w Diff NO MAN DIFF REQ, RBC 3.21 L, MCV 94.5 H, MCH 32.0 H, MCHC 33.9, RDW 16.4 H, MPV 9.2, Gran % 69.6, Lymphocytes % 21.8, Monocytes % 7.2, Eosinophils % 0.7, Basophils % 0.7, Absolute Granulocytes 1.7, Absolute Lymphocytes 0.5 L, Absolute Monocytes 0.2, Absolute Eosinophils 0, Absolute Basophils 0, Serum Alcohol < 10.0 Hand-Off Endorsed To: Fracisco Hernnadez MD Endorsed Time: 1899 Pending: consult (Elijah Garcia MD) Comments: Patient has been seen and evaluated by light armored vehicle officer. Patient is stable for discharge. Patient has been given a list of detox facilities. (Chris Medina MD) Departure Departure Condition: Stable Clinical Impression Primary Impression: Substance abuse Secondary Impressions: Acute delirium Referrals: Johnny Espitia MD (PCP/Family) Departure Forms: Customer Survey General Discharge Information (Elijah Garcia MD) Departure Comments pt signed out to dr. medina, 01/16/18, 7am. awaiting crises (Fracisco Hernandez MD) Departure Disposition: HOME OR SELF CARE Additional Instructions: Follow-up with the detox facility. Return if symptoms worsen or for any concerns. Call 211 or return immediately to the emergency department for any thoughts of harming yourself or anyone else or for any other concerns. (Adam NERI,Chris Ulrich)
[2018-01-15 16:41] LABS: ABSOLUTE BASOPHIL COUNT 0 /CUMM (0.0-0.2); ABSOLUTE EOSINOPHIL COUNT 0 /CUMM (0.0-0.7); ABSOLUTE GRANULOCYTE CT 1.7 /CUMM (1.4-6.5); ABSOLUTE LYMPH COUNT 0.5 /CUMM (1.2-3.4); ABSOLUTE MONOCYTE COUNT 0.2 /CUMM (0.10-0.60); BASOPHIL % 0.7 % (0.0-2.0); EOSINOPHIL % 0.7 % (0-5); GRANULOCYTE % 69.6 % (42.2-75.2); HEMATOCRIT 30.3 % (42-52); MEAN CORPUSCULAR HGB CONC 33.9 G/DL (33.0-37.0); MEAN CORPUSCULAR VOLUME 94.5 FL (80.0-94.0); MEAN PLATELET VOLUME 9.2 FL (7.4-10.4); RBC DISTRIBUTION WIDTH 16.4 % (11.5-14.5); RED BLOOD CELL CT 3.21 /CUMM (4.70-6.10); WHITE BLOOD CELL COUNT 2.4 /CUMM (4.8-10.8)
[2018-01-15 16:48] LABS: PLATELET COUNT 38 /CUMM (130-400)
--- NOTE | 2018-01-15 20:14 | ED PSYCH CRISIS CONSULTATION ---
See Addendum Crisis Consult Basic Assessment Date of Consult: 01/15/18 Responsible Person/Accompanied By: Brought in by ambulance from home. Insurance Authorization: Insurance #1: Insurance name: AYUSH MOTT Policy number: [id number] ED Provider: Patient's ED Provider: Elijha Garcia MD Primary Care Physician: Patient's PCP: Johnny Espitia MD PCP's Current Psychiatrist: No current psychiatrist. Chief Complaint: ETOH/Drug Related Complaint Patient's Quote: "There's a bug outbreak in my house." Present Illness: Patient is a 32 year old male brought in by ambulance with primary concern of psychosis, likely induced by inhalant abuse. Patient was seen in the emergency department about a week ago after consuming several methadone pills which were prescribed to his father which required narcan intervention. Patient stated "Theres a bug outbreak in my house....felt like bugs on me." He denies this was an experience of a visual / tactile hallucination. Patient denies current or past auditory hallucinations. Patient denies chronic use of inhalants and contradicts mother's report of almost daily use over several weeks. Patient on arrival to the emergency department asked for a "decontamination shower." Patient denies suicidal / homicidal ideation. [place] Suicide Severity Rating Scale (C.-S.S.R.S.) is significant for substance abuse, agitation, and previous psychiatric treatment. Patient presents alert, oriented, with labile mood. Patient was tearful at times and was persistent on being discharged from the emergency department. Patient became agitated when advised about crisis protocol and the potential for being held for further reassessment. Patient has limited insight into the consequences of his inhalant abuse and the secondary risk of harm to himself. Mother, Mary Ann Carolina , stated "he's been huffing & can't stop huffing...he's been hallucinating likey crazy....thinks someone is drilling holes up to his floor from the cellar....ants are falling from the ceiling...bugs everywhere. He put tape across his windows." Mother reports patient has been abusing inhalants (keyboard spinning frame cleaner compressed air cans) for ~2 months. Mother is also concerned by patient's behavior - he fell off his bed recently after inhaling an air can and also punched a wall in his room. Mother states she is concerned about patient and she believes he a risk of harm to himself. Patient has past history of severe alcohol abuse which led to liver complications. Medical and psychiatric records from patient's past admissions note the following conditions: Diabetes mellitus, chronic alcohol abuse, severe liver cirrhosis, hyponatremia , hyperglycemia, jaundice, chronic thrombocytopenia, hypothyroidism, diabetic ketoacidosis, hypokalemia, esophageal varices, seizures, status post hernia repair, status post left wrist fracture and repair. Alcohol abuse, benzodiazepine abuse, opioid abuse, cannabis abuse. many presentations for alcohol detox, [facility] intensive outpatient psychaitric program (I.O.P. ) in 2011. Per ED crisis consultation on 07/2017 - patient had agitation, reported illicit use of street methadone and was agitated to the point of needed chemical sedation / restraints in the ED. Patient has in the past been prescribed psychotropic medications such as trazadone, remeron, and marinol. He denies being in psychiatric treatment currently with a psychiatric medication management provider or therapist. Patient's medication reconciliation history does indicate he may have been prescribed Trazadone in the past month by Dr. Johnny Good MD. Patient sees head greenskeeper Dr. Delmy Burnham who prescribes patient with insulin, Spironolactone, and Lyrica. It does not appear that patient has ever been admitted inpatient for psychiatry and has only had past detox admissions. Patient has achieved sobriety from alcohol for the past year per mother. Patient admits to use of marijuana several times a week. Patient's urine toxicology screening is positive for marijuana and negative for all other substances. Patient's blood alcohol level is zero. 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 Patient cites his mother and father are primary sources of support. He resides with them. He also lists several friends as supports. Patient's brother suddenly in 2012 from a motor vehicle accident. Patient's Address: [address] [place] [address] Who Do You Live With? Family (Mother and Father) Family/Informants Interviewed: Mother Mary Ann Carolina Allergies - Coded Allergies: No Known Allergies (03/23/17) Current Medications - Scheduled Medications Ergocalciferol (Vitamin D2) (Vitamin D2) 50,000 UNIT CAPSULE 1 CAP PO Q 2 WEEKS VITAMIN SUPPORT (Reported) Entered as Reported by Leilani Benavides on 12/23/14 2111 Folic Acid 1 MG TABLET 1 TAB PO DAILY ALCOHOL USE #30 TAB Prescribed by Christie Pineda MD on 05/02/16 Furosemide 20 MG TABLET 1 TAB PO DAILY WATER PILL (Reported) Entered as Reported by Abebe Francisco on 01/09/17 1143 Gabapentin (Unknown Strength) CAPSULE 2 CAP PO TID UNKNOWN #180 (Reported) Entered as Reported by Abebe Francisco on 01/09/17 1143 Insulin Glargine,Hum.rec.anlog (Lantus Solostar) 100 UNIT/ML (3 ML) INSULN.PEN 15 UNIT SC QPM DIABETES (Reported) Entered as Reported by Abebe Francisco on 03/18/14 1031 Insulin Lispro (Humalog) (Unknown Strength) VIAL (Unknown Dose) SC SEE SLIDING SCALE DIABETES (Reported) Entered as Reported by Abebe Francisco on 01/09/17 1145 Levothyroxine Sodium 25 MCG TABLET 1 TAB PO DAILY AC THYROID (Reported) Entered as Reported by Leilani Benavides on 12/23/14 2112 Multivitamin (Daily Value) 1 EACH TABLET 1 TAB PO DAILY OTHER #30 TAB Prescribed by Christie Pineda MD on 05/02/16 Pantoprazole Sodium 40 MG TABLET.DR 1 TAB PO DAILY REFLUX #30 (Reported) Entered as Reported by Katie Adams on 05/02/16 0550 Propranolol LA (Inderal LA) 60 MG CAP.SA.24H 1 CAP PO DAILY LIVER #30 ( Reported) Entered as Reported by Leilani Benavides on 06/21/16 1432 Ropinirole Hydrochloride (Requip) (Unknown Strength) TABLET (Unknown Dose) PO QPM RLS #30 (Reported) Entered as Reported by Leilani Benavides on 03/23/17 1407 Spironolactone (Unknown Strength) TABLET (Unknown Dose) PO DAILY UNKNOWN #180 (Reported) Entered as Reported by Abebe Francisco on 01/09/17 1142 Thiamine HCl 100 MG TABLET 1 TAB PO DAILY OTHER #30 Prescribed by Christie Pienda MD on 05/02/16 Ursodiol 300 MG CAPSULE 1 CAP PO TID UNKNOWN #42 (Reported) Entered as Reported by Leilani Benavides on 01/19/17 1805 Vit B Cmplx 3/FA/Vit C/Biotin (Rebecca-Kate Rx Tablet) 1 MG-60 MG-300 MCG TABLET 1 TAB PO DAILY VITAMIN SUPPORT (Reported) Entered as Reported by Abebe Francisco on 01/09/17 1147 Scheduled PRN Medications Lactulose 10 GRAM/15 ML SOLUTION 30 ML PO TID PRN GI #473 (Reported) Entered as Reported by Abebe Francisco on 01/09/17 1145 Ondansetron HCl 4 MG TABLET 1 TAB PO PRN N/V #12 (Reported) Entered as Reported by Leilani Benavides on 03/23/17 1406 Oxycodone HCl (Oxaydo) 7.5 MG TABLET.ORL 1 TAB PO TID PRN ABDOMINAL PAIN #16 TAB Prescribed by Leo Mondragon MD on 03/23/17 Oxycodone HCl (Roxicodone) 5 MG TABLET 1-2 TAB PO Q8 PRN PAIN #16 TAB Prescribed by Leo Mondragon MD on 03/23/17 Trazodone HCl 100 MG TABLET 2 TAB PO QPM PRN SLEEP (Reported) Entered as Reported by Katie Adams on 04/10/16 6214 Laboratory Results: Laboratory Tests 01/15/18 1739: Urine Opiates Screen < 100, Methadone Screen 209, Barbiturate Screen < 60, Ur Phencyclidine Scrn < 6.00, Amphetamines Screen < 100, U Benzodiazepines Scrn < 85, Urine Cocaine Screen < 50, Urine Cannabis Screen > 80.00 H 01/15/18 1630: Anion Gap 12, Estimated GFR > 60, BUN/Creatinine Ratio 12.5, Glucose 143 H, Calcium 8.6, Total Bilirubin 1.9 H, AST 30, ALT 22, Alkaline Phosphatase 90, Total Protein 6.0 L, Albumin 3.0 L, Globulin 3.0, Albumin/Globulin Ratio 1.0 L, CBC w Diff NO MAN DIFF REQ, RBC 3.21 L, MCV 94.5 H, MCH 32.0 H, MCHC 33.9, RDW 16.4 H, MPV 9.2, Gran % 69.6, Lymphocytes % 21.8, Monocytes % 7.2, Eosinophils % 0.7, Basophils % 0.7, Absolute Granulocytes 1.7, Absolute Lymphocytes 0.5 L, Absolute Monocytes 0.2, Absolute Eosinophils 0, Absolute Basophils 0, Serum Alcohol < 10.0 Past History Past Medical History Neurological: delerium tremens EENT: NONE Cardiovascular: NONE Respiratory: NONE Gastrointestinal: L INGUINAL HERNIA REPAIR PANCREATITIS Hepatic: cholelithiasis, cirrhosis, hepatic encephalopathy (previously), jaundice, alcoholic liver disease Renal: NONE Musculoskeletal: 03/20/2014: L WRIST FX Psychiatric: alcohol dependence, anxiety, depression, substance abuse Endocrine: hypothyroidism, type 1 diabetes Blood Disorders: coagulopathy, pancytopenia Cancer(s): NONE 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 Physical Limitations (Interventions): None identified. Psychiatric Treatment History Psych Treatment Psychiatric Treatment No Inpatient Treatment No Outpatient Treatment No Diagnosis by History: Alcohol use disorder benzodiazapine use disorder opioid agonist abuse Rule - outs for depressive disorder & anxiety disorder Substance Use/Abuse History Drug Use/Abuse 1 Substances Used/Abused Yes Substance Used/Abused Non-Prescribed Opiates (Methadone) First Use 07/2017 Last Used Last week How much used/taken Patient used methadone prescribed to his father How often Unknown For how long History of use at least twice in past year Route of use Ingestion Drug Use/Abuse 2 Substances Used/Abused Yes Substance Used/Abused Marijuana First Use Unknown Last Used Past week How much used/taken Patient states "a blunt here and there" How often Patient reports intermittent use. For how long Longstanding use Route of use Inhalation. Drug Use/Abuse 3 Substances Used/Abused Yes Substance Used/Abused Inhalants First Use ~2 months ago per mother Last Used Today per mother. Patient asserts last use was ~2 days ago. How much used/taken Per mother patient will dispense an entire can of "air" How often Mother indicates daily use. Patient asserts use only ~2 times ever. For how long Mother reports use chronically in the past 2 months. Pt. reports past week Route of use Inhalation Substance Abuse Treatment Substance Abuse Treatment Past Substance Abuse [place] Yes Inpatient Treatment Yes Outpatient Treatment Yes Location of Treatment [facility]. [place]? Reason for Treatment Alcohol dependence Dates of Treatment 2013 to present Response to Treatment patient was able to achieve sobriety from alcohol Comments: - Current Mental Status Mental Status Orientation: Person, Place, Situation Affect: Labile Speech: Evasive Neuro-vegetative: Sleep Disturbance Appearance Appearance- Dress/Hygiene: Patient dressed in hospital attire. Several visible tattoos on both arms. No remarkable features. Behaviors Thought Process: WNL Thought Content: Visual Hallucinations Memory: WNL Insight: Poor SI/HI Risk Assessment Past Suicidal Ideation/Attempts No (Patient denies) Current Suicidal Ideation/Att No (Patient denies) Past Homicidal Ideation/Att: No Current Homicidal Ideation/Attempts No Gravely Disabled: Lack of Insight, Poor Impulse Control, Poor Judgment Risk Factors: substance abuse, male PTSD Checklist PTSD Done? 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 Brina Mcdaniel M.D., Ph.D. Date Disposition Established: 01/15/18 Time Disposition Established: 2029 Plan for Disposition - Modality: Hold-over for reassessment Rationale for Disposition: Crisis evaluation reviewed with on-call psychiatrist Dr. Brina Mcdaniel MD, PhD. Patient's blood lab results revealed several out of range values - these were reviewed by Dr. Mcdaniel with attending physician Dr. Hernandez. Of note were low white blood cell count, leukocytosis, and anemia. Patient is experiencing visual hallucinations which have not completely resolved as patient continues to report tactile sensations of itchiness he attributes to "bugs." Patient also is moderately agitated and presents with labile mood. Patient will be held over in the emergency department for futher assessment to confirm psychosis symptoms have resolved and to assess stable mood. Patient may be considered for an inpatient psychiatric admission on crisis reassessment if those are not able to be assessed. There is risk of patient harming himself with potentially lethal medical consequences with continued abuse of inhalants - patient has poor insight and does not demonstrate outcome concern. Referrals Nupur NERI,Johnny Silver (PCP/Family)
[2018-01-16 12:01] VITALS: BP 111/68
== END 2018-01-16 12:34 ==
LOC: ERH 15:43
PROVIDERS: Emergency Medicine
DX: F15.150 Other stimulant abuse with stimulant-induced psychotic disorder with delusions (principal)
CPT/HCPCS: 80307; 96372; G0463; G0480; J1630

== ENCOUNTER 2018-01-30 21:22 | Inpatient (IN) | payer OTHER ==
[~2018-01-30] VITALS: Ht 188 cm; Wt 77.1 kg
[~2018-01-30 21:22] MED LIST changes: +HYDROXYZINE HCL50 M1 PO
--- NOTE | 2018-01-30 21:41 | ED INFLUENZA/URI COMPLAINT ---
History of Present Illness General Chief Complaint: General Adult Stated Complaint: 89 FEVER,R EYE SWOLLEN SHUT"BLOOD INFECTION" Source: patient Exam Limitations: no limitations Vital Signs & Intake/Output Vital Signs & Intake/Output Vital Signs Date Time Temp Pulse Resp B/P B/P Pulse O2 O2 Flow FiO2 Mean Ox Delivery Rate 01/31 0015 101.2 01/30 2358 101.2 104 16 145/90 97 Room Air 01/30 2126 100.8 103 21 151/95 95 Room Air ED Intake and Output 01/31 0000 01/30 1200 Intake Total 1000 Output Total Balance 1000 Intake, IV 1000 Allergies Coded Allergies: No Known Allergies (01/29/18) Reconcile Medications Ergocalciferol (Vitamin D2) (Vitamin D2) 50,000 UNIT CAPSULE 1 CAP PO Q 2 WEEKS VITAMIN SUPPORT (Reported) Folic Acid 1 MG TABLET 1 TAB PO DAILY ALCOHOL USE Furosemide 20 MG TABLET 1 TAB PO DAILY WATER PILL (Reported) Gabapentin (Unknown Strength) CAPSULE 2 CAP PO TID UNKNOWN (Reported) Hydroxyzine Hydrochloride (Atarax) 50 MG TAB 1 TAB PO QPM PRN anxiety Insulin Glargine,Hum.rec.anlog (Lantus Solostar) 100 UNIT/ML (3 ML) INSULN.PEN 15 UNIT SC QPM DIABETES (Reported) Insulin Lispro (Humalog) (Unknown Strength) VIAL (Unknown Dose) SC SEE SLIDING SCALE DIABETES (Reported) Lactulose 10 GRAM/15 ML SOLUTION 30 ML PO TID PRN GI (Reported) Levothyroxine Sodium 25 MCG TABLET 1 TAB PO DAILY AC THYROID (Reported) LORazepam (Ativan) 1 MG TAB 1 TAB PO BID PRN ANXIETY FOUR... [id number] Multivitamin (Daily Value) 1 EACH TABLET 1 TAB PO DAILY OTHER Ondansetron HCl 4 MG TABLET 1 TAB PO PRN N/V (Reported) Oxycodone HCl (Oxaydo) 7.5 MG TABLET.ORL 1 TAB PO TID PRN ABDOMINAL PAIN Oxycodone HCl (Roxicodone) 5 MG TABLET 1-2 TAB PO Q8 PRN PAIN Pantoprazole Sodium 40 MG TABLET.DR 1 TAB PO DAILY REFLUX (Reported) Propranolol LA (Inderal LA) 60 MG CAP.SA.24H 1 CAP PO DAILY LIVER (Reported) Ropinirole Hydrochloride (Requip) (Unknown Strength) TABLET (Unknown Dose) PO QPM RLS (Reported) Spironolactone (Unknown Strength) TABLET (Unknown Dose) PO DAILY UNKNOWN ( Reported) Thiamine HCl 100 MG TABLET 1 TAB PO DAILY OTHER Trazodone HCl 100 MG TABLET 2 TAB PO QPM PRN SLEEP (Reported) Ursodiol 300 MG CAPSULE 1 CAP PO TID UNKNOWN (Reported) Vit B Cmplx 3/FA/Vit C/Biotin (Rebecca-Kate Rx Tablet) 1 MG-60 MG-300 MCG TABLET 1 TAB PO DAILY VITAMIN SUPPORT (Reported) Triage Note: PT TO ED STATING, "I HAVE A BLOOD INFECTION." STATES "I THINK IT WAS AN INGROWN HAIR." REDNESS, OPEN WOUND NOTED TO RIGHT TEMPORAL REGION. RIGHT EYE COMPLETLEY SWOLLEN SHUT. REPORTS FEVER 103 AT HOME. PT EATING ICE AT TRIAGE, TYMPANIC TEMP 100.8. Triage Nurses Notes Reviewed? yes HPI: Patient presents for evaluation of right facial pain swelling and redness. Patient is unable to state how or when symptoms began. He is not sure if there has been any antecedent trauma. He admits to inhalant abuse so his memory is poor of recent events. 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 MOTHER (HTN). FH: alcoholism (Alanna NERI,Leo Lazo) Medical History Any Pertinent Medical History? see below for history Family History Hx Contributory? No (David NERI,Fracisco Peter) Review of Systems Review of Systems Constitutional: Denies: see HPI. (David NERI,Fracisco Peter) Physical Exam Physical Exam Ears, Nose, Throat: SEE BELOW Comments: Gen.: Well-nourished, well-developed, no acute respiratory distress. Head: Normocephalic, atraumatic. Swelling and erythema surrounding the right eye (the eyelids are swollen shut). There is erythema and swelling tracking up over the right roman catholic and down towards the right ear. Eyes: Left eye normal inspection Ears: Normal inspection bilaterally Nose: Normal inspection Throat/mouth : Moist mucosa Neck: Supple, full range of motion, no goiter Lungs: Quiet respirations Back: Normal range of motion Extremities: Normal range of motion grossly, no cyanosis clubbing or edema of the upper extremities Neurologic: Cranial nerves grossly intact, speech is clear Skin: warm and dry Psychiatric: Calm, cooperative, no apparent delusions or hallucinations (Alanna NERI,Leo Lazo) Core Measures Sepsis Present: Yes Sepsis Focused Exam Completed? Yes (David NERI,Fracisco Peter) Progress Differential Diagnosis: CELLULITIS, ABSCESS, TRAUMA, PERIORBITAL CELLULITIS, ORBITAL CELLULITIS Plan of Care: Orders Procedure Date/time Status Regular Diet 01/31 B Active Patient Data 01/31 0102 Active Saline Lock 01/31 0039 Active ED Holding Orders 01/31 0039 Active Admit to inpatient 01/31 0039 Active Vital Signs 01/31 0039 Active Code Status 01/31 0039 Active Intake & Output 01/30 2358 Active BLOOD CULTURE 01/30 2141 Active URINALYSIS 01/30 2141 Active COMPREHENSIVE METABOLIC PANEL 01/30 2141 Complete CBC WITHOUT DIFFERENTIAL 01/30 2141 Complete Current Medications Sig/Jose Martin Start time Last Medication Dose Stop Time Status Admin Acetaminophen 1,000 MG ONCE ONE 01/31 2345 CAN (Ofirmev) 01/31 235 N/A 1 UNIT (No Carrier) Ketorolac 30 MG ONCE ONE 01/31 2345 CAN Tromethamine 01/31 2346 (Toradol) Laboratory Tests 01/30/18 2210: Anion Gap 14, Estimated GFR > 60, BUN/Creatinine Ratio 13.3, Glucose 79, Calcium 9.2, Total Bilirubin 2.7 H, AST 53, ALT 18 L, Alkaline Phosphatase 141 H, Total Protein 6.8, Albumin 3.5, Globulin 3.3, Albumin/Globulin Ratio 1.1, CBC w Diff NO MAN DIFF REQ, RBC 3.60 L, MCV 92.7, MCH 31.3 H, MCHC 33.8, RDW 17.9 H , MPV 9.1, Gran % 92.3 H, Lymphocytes % 4.1 L, Monocytes % 2.9, Eosinophils % 0.5, Basophils % 0.2, Absolute Granulocytes 9.2 H, Absolute Lymphocytes 0.4 L, Absolute Monocytes 0.3, Absolute Eosinophils 0.1, Absolute Basophils 0 Microbiology 01/30 2205 BLOOD: Blood Culture - RECD 01/30 2141 BLOOD: Blood Culture - ORD Initial ED EKG: none Comments: 01/30/2018 11:37:31 PM 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 (Alanna NERI,Leo Lazo) Diagnostic Imaging: Viewed by Me: CT Scan. Discussed w/RAD: CT Scan. Radiology Impression: PATIENT: EDY AVILES III PRESENT AGE: 32 PATIENT ACCOUNT NO: [id number] : 87 LOCATION: [facility] ORDERING PHYSICIAN: Leo Mondragon MD SERVICE DATE: 01/30/18 EXAM TYPE : CAT - CT MAXILLOFACIAL W CONT EXAMINATION: CT MAXILLOFACIAL WITH CONTRAST CLINICAL INFORMATION: Right temporal and periorbital swelling/erythema COMPARISON: Head CT 01/10/2010 TECHNIQUE: Multidetector helical imaging was performed in the axial plane with generation of coronal and sagittal reformatted images. The examination was performed after the administration of 95 mL of Optiray 320 intravenous contrast DLP: 664.21 mGy-cm FINDINGS: There is moderately extensive right facial soft tissue swelling involving the periorbital , maxillary, and zygomatic regions, as well as extending inferiorly along the right mandible. No post septal extension into the orbit is seen. No discrete fluid collection is seen in the soft tissues to suggest focal abscess formation. There is some thickening of the right platysma muscle on the inferior extent of inflammation. There is mild asymmetric prominence of several upper right cervical lymph nodes, presumably reactive. The globes are intact, and there are no suspicious findings to suggest retrobulbar hemorrhage or inflammation. There is trace mucosal thickening of the maxillary sinuses inferiorly, left greater than right. The bilateral sphenoid, ethmoid, and frontal sinuses are well aerated bilaterally. There is slight mucosal thickening along the bilateral infundibula. There is mild leftward deviation of the nasal septum. No acute maxillofacial fractures are seen. The mandibular condyles are well-seated in the condylar fossa. Visualized portions of the brain parenchyma are unremarkable. IMPRESSION: Moderately extensive right facial soft tissue swelling involving the periorbital, maxillary, and zygomatic regions with extension inferiorly along the right platysma muscle. Appearance is consistent with a cellulitis in the proper clinical setting. No post septal orbital extension is seen. No focal abscess identified in the soft tissues. DICTATED BY: Yong Ramos MD DATE/ TIME DICTATED:01/31/18 TRANSITION NURSE:DEX DATE/TIME TRANSCRIBED: 01/31/18 CONFIDENTIAL, DO NOT COPY WITHOUT APPROPRIATE AUTHORIZATION. < Electronically signed in Other Vendor System> SIGNED BY: Yong Ramos MD 01/31/18 0014 (Fracisco Hernandez MD) Departure Departure Disposition: STILL A PATIENT Condition: Stable Referrals: Johnny Espitia MD (PCP/Family) Departure Forms: Customer Survey General Discharge Information (Alanna NERI,Leo Lazo) Departure Clinical Impression Primary Impression: Cellulitis of face Secondary Impressions: Sepsis Admission Note Spoke With: Katie Freeman MD Documentation of Exam: Documentation of any treatments & extenuating circumstances including Concerns Regarding Discharge (functional status, medication knowledge or non-compliance, living conditions, etc.) that warrant an admission rather than observation: pt with facial cellulitis, fever, meets criteria for sepsis... merits iv abx, serial exams. (David NERI,Fracisco Peter)
[2018-01-30 22:16] LABS: ABSOLUTE BASOPHIL COUNT 0 /CUMM (0.0-0.2); ABSOLUTE EOSINOPHIL COUNT 0.1 /CUMM (0.0-0.7); ABSOLUTE GRANULOCYTE CT 9.2 /CUMM (1.4-6.5); ABSOLUTE LYMPH COUNT 0.4 /CUMM (1.2-3.4); ABSOLUTE MONOCYTE COUNT 0.3 /CUMM (0.10-0.60); BASOPHIL % 0.2 % (0.0-2.0); EOSINOPHIL % 0.5 % (0-5); HEMATOCRIT 33.3 % (42-52); MEAN CORPUSCULAR HGB 31.3 PG (27.0-31.0); MEAN CORPUSCULAR HGB CONC 33.8 G/DL (33.0-37.0); MEAN CORPUSCULAR VOLUME 92.7 FL (80.0-94.0); MEAN PLATELET VOLUME 9.1 FL (7.4-10.4); PLATELET COUNT 77 /CUMM (130-400); RBC DISTRIBUTION WIDTH 17.9 % (11.5-14.5)
[2018-01-30 22:29] LABS: GRANULOCYTE % 92.3 % (42.2-75.2)
--- NOTE | 2018-01-31 00:14 | CT SCAN REPORT ---
EXAMINATION: CT MAXILLOFACIAL WITH CONTRAST CLINICAL INFORMATION: Right temporal and periorbital swelling/erythema COMPARISON: Head CT 01/10/2010 TECHNIQUE: Multidetector helical imaging was performed in the axial plane with generation of coronal and sagittal reformatted images. The examination was performed after the administration of 95 mL of Optiray 320 intravenous contrast DLP: 664.21 mGy-cm FINDINGS: There is moderately extensive right facial soft tissue swelling involving the periorbital, maxillary, and zygomatic regions, as well as extending inferiorly along the right mandible. No post septal extension into the orbit is seen. No discrete fluid collection is seen in the soft tissues to suggest focal abscess formation. There is some thickening of the right platysma muscle on the inferior extent of inflammation. There is mild asymmetric prominence of several upper right cervical lymph nodes, presumably reactive. The globes are intact, and there are no suspicious findings to suggest retrobulbar hemorrhage or inflammation. There is trace mucosal thickening of the maxillary sinuses inferiorly, left greater than right. The bilateral sphenoid, ethmoid, and frontal sinuses are well aerated bilaterally. There is slight mucosal thickening along the bilateral infundibula. There is mild leftward deviation of the nasal septum. No acute maxillofacial fractures are seen. The mandibular condyles are well-seated in the condylar fossa. Visualized portions of the brain parenchyma are unremarkable. IMPRESSION: Moderately extensive right facial soft tissue swelling involving the periorbital, maxillary, and zygomatic regions with extension inferiorly along the right platysma muscle. Appearance is consistent with a cellulitis in the proper clinical setting. No post septal orbital extension is seen. No focal abscess identified in the soft tissues.
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
[2018-01-31 03:00] VITALS: BP 98/56
[2018-01-31] MEDS ORDERED: LYRICA150 M1 PO (05:18)
[2018-01-31] MEDS ORDERED: PROPRANOLOL HCL80 M2 PO (05:19)
[2018-01-31 05:47] VITALS: BP 102/60
--- NOTE | 2018-01-31 06:28 | Admission Certification ---
Admission Certification Certification Statement - As attending physician, I certify that at the time of - admission, based on clinical presentation, severity of - symptoms, need for further diagnostic testing and - therapeutic interventions, and risk of adverse outcomes - without in-hospital treatment, in my clinical assessment, - this patient requires an acute hospital stay for a minimum - of two nights or longer. I have also considered psychsocial - factors such as support system, advanced age, financial - issues, cognitive issues, and failed out-patient treatments, - past re-admission history, safety of patient, and lack of - compliance as applicable. Specific rationale supporting this admission is: Right periOrbital cellulitis
--- NOTE | 2018-01-31 07:31 | PN- Housestaff ---
See Addendum Subjective Follow-up For: preseptal cellulitis Subjective: was febrile on admission, tmax 101.2 patient is complaining of pain around his right eye and forehead and says he is anxious he is very emotional mother reports that he has been using inhalants with alot of falls and loss of conscious causing alot of conflict in the home Review of Systems Constitutional: Reports: see HPI. Objective Last 24 Hrs of Vital Signs/I&O Vital Signs Date Time Temp Pulse Resp B/P B/P Pulse O2 O2 Flow FiO2 Mean Ox Delivery Rate 01/31 1401 98.2 78 18 98/48 99 Room Air 01/31 0803 76 102/60 01/31 0547 98.5 76 18 102/60 96 Room Air 01/31 0300 98.7 85 18 98/56 97 Room Air 01/31 0155 99.9 106 20 100/51 95 Room Air 01/31 0015 101.2 01/30 2358 101.2 104 16 145/90 97 Room Air 01/30 2126 100.8 103 21 151/95 95 Room Air Intake & Output 01/31 1600 01/31 0800 01/31 0000 Intake Total 7694 202 7611 Output Total Balance 8263 156 4968 Intake, IV 641 347 5940 Intake, Oral 620 240 Number 0 Bowel Movements Patient 77.111 kg Weight Weight Reported by Patient Measurement Method Physical Exam General Appearance: Alert, Oriented X3, Cooperative, No Acute Distress Cardiovascular: Regular Rate, Normal S1, Normal S2, No Murmurs Lungs: Clear to Auscultation, Normal Air Movement Abdomen: Normal Bowel Sounds, Soft, No Tenderness, No Masses Extremities: No Clubbing, No Cyanosis, No Edema, Normal Pulses, numerous cuts, scrapes and bruises on his extremities Other Physical Findings: right>left periorbital edema, unable to open his right eye to see and overlying erythema with tenderness on palpation, sclera not injected with painless eye movements Current Medications: Current Medications Sig/Jose Martin Start time Last Medication Dose Route Stop Time Status Admin Acetaminophen 1,000 MG ONCE ONE 01/31 2345 CAN N/A 1 UNIT IV 01/31 2359 Acetaminophen 1,000 MG ONCE ONE 01/31 0030 DC 01/31 N/A 1 UNIT IV 01/31 0044 0015 Acetaminophen 0 .STK-MED ONE 01/31 0012 DC IV Ampicillin Sodium/ 0 .STK-MED ONE 01/31 0002 DC Sulbactam Sodium .ROUTE Ampicillin Sodium/ 3,000 MG ONCE ONE 01/30 2330 DC 01/30 Sulbactam Sodium IV 01/30 2359 2358 Sodium Chloride 100 ML Ceftriaxone Sodium 1,000 MG DAILY 02/01 0900 AC IV Ceftriaxone Sodium 1,000 MG DAILY 01/31 0900 DC 01/31 IV 0800 Clindamycin 600 MG IQ8 01/31 0400 DC 01/31 Dextrose/Water 50 ML IV 0801 Enoxaparin Sodium 40 MG DAILY 01/31 0900 AC 01/31 SC 0800 Folic Acid 1 MG DAILY 01/31 0900 AC 01/31 PO 0758 Furosemide 20 MG DAILY 01/31 0900 AC 01/31 PO 0758 Gabapentin 600 MG BID 01/31 0900 AC 01/31 PO 0757 Hydroxyzine HCl 50 MG QPM PRN 01/31 0400 AC PO Ibuprofen 400 MG Q6P PRN 01/31 0400 AC PO Insulin Aspart 0 TIDAC/HS 01/31 0812 AC 01/31 SC 1651 Insulin Aspart 0 TIDAC 01/31 0800 DC SC Insulin Aspart 8 UNITS ONCE ONE 01/31 0415 DC 01/31 SC 01/31 0416 0443 Insulin Detemir 10 UNITS BID 01/31 0900 AC 01/31 SC 0825 Ketorolac 30 MG ONCE ONE 01/31 2345 CAN Tromethamine IV 01/31 2346 Ketorolac 30 MG ONCE ONE 01/31 0030 DC 01/31 Tromethamine IV 01/31 0031 0015 Ketorolac 0 .STK-MED ONE 01/31 0013 DC Tromethamine .ROUTE Levothyroxine Sodium 0.025 MG DAILY AC 01/31 0700 AC 01/31 PO 0634 Metronidazole 500 MG IQ8 01/31 1600 AC 01/31 N/A 1 UNIT IV 1652 Morphine Sulfate 2 MG ONCE ONE 01/31 0430 DC 01/31 IV 01/31 0431 0444 Morphine Sulfate 0 .STK-MED ONE 01/30 2225 DC .ROUTE Morphine Sulfate 4 MG ONCE ONE 01/30 2215 DC 01/30 IV 01/30 2216 2218 Multivitamins 1 TAB DAILY 01/31 0900 AC 01/31 Therapeutic PO 0758 Omeprazole 40 MG DAILY AC 01/31 0700 AC 01/31 PO 0634 Oxycodone HCl 5 MG Q6 PRN 01/31 0400 AC 01/31 PO 1320 Pregabalin 150 MG BID 01/31 0900 AC 01/31 PO 0807 Propranolol HCl 60 MG DAILY 01/31 0900 CAN PO Propranolol HCl 80 MG DAILY 01/31 0900 AC 01/31 PO 0803 Sodium Chloride 1,000 ML Q8H 01/31 1230 AC 01/31 IV 01/31 2029 1311 Sodium Chloride 1,000 ML Q13H 01/31 0500 DC 01/31 IV 01/31 1459 0500 Sodium Chloride 1,000 ML BOLUS ONE 01/30 2145 DC 01/30 IV 01/30 2344 2218 Spironolactone 12.5 MG DAILY 01/31 09 AC 01/31 PO 0804 Thiamine HCl 100 MG DAILY 01/31 09 AC 01/31 PO 0759 Tramadol HCl 50 MG Q6 PRN 01/31 0400 AC 01/31 PO 1655 Trazodone HCl 200 MG QPM PRN 01/31 0400 AC PO Vancomycin HCl 1,000 MG Q12 01/31 1437 AC 01/31 Sodium Chloride 250 ML IV 1648 Last 24 Hrs of Lab/Tray Results Last 24 Hrs of Labs/Mics: Laboratory Tests 01/31/18 0725: Anion Gap 7, Estimated GFR > 60, BUN/Creatinine Ratio 15.0, Lactic Acid 2.8 H, Total Bilirubin 1.9 H, Direct Bilirubin 0.9 H, AST 28, ALT 19 L, Alkaline Phosphatase 102, Total Protein 4.7 L, Albumin 2.2 L, CBC w Diff NO MAN DIFF REQ, RBC 2.84 L, MCV 93.1, MCH 31.2 H, MCHC 33.5, RDW 17.9 H, MPV 9.6, Gran % 80.1 H, Lymphocytes % 11.0 L, Monocytes % 8.3, Eosinophils % 0.5, Basophils % 0.1, Absolute Granulocytes 4.6, Absolute Lymphocytes 0.6 L, Absolute Monocytes 0.5, Absolute Eosinophils 0, Absolute Basophils 0 01/31/18 0350: Hepatitis C Antibody Cancelled 01/31/18 034: Lactic Acid 2.0 01/31/18 034: Magnesium 1.1 L, Total Bilirubin 2.8 H, Direct Bilirubin 1.2 H, Troponin I < 0.01, TSH 0.510, Hepatitis A IgM Ab NONREACTIVE, Hep Bs Antigen NONREACTIVE, Hep B Core IgM Ab Conf NONREACTIVE, Hepatitis C Antibody NONREACTIVE, HIV 1&2 Ab Western Blot NONREACTIVE 01/31/18 0156: Urine Opiates Screen 3335.00 H, Methadone Screen 78, Barbiturate Screen < 60, Ur Phencyclidine Scrn < 6.00, Amphetamines Screen < 100, U Benzodiazepines Scrn < 85, Urine Cocaine Screen < 50, Urine Cannabis Screen > 80.00 H, Urine Color YEL, Urine Clarity CLEAR, Urine pH 7.0, Ur Specific [place] <= 1.005, Urine Protein NEG, Urine Ketones NEG, Urine Nitrite NEG, Urine Bilirubin NEG, Urine Urobilinogen 1.0, Ur Leukocyte Esterase NEG, Ur Microscopic EXAM NOT REQUIRED, Urine Hemoglobin NEG, Urine Glucose NEG 01/30/18 2210: Anion Gap 14, Estimated GFR > 60, BUN/Creatinine Ratio 13.3, Glucose 79, Calcium 9.2, Total Bilirubin 2.7 H, AST 53, ALT 18 L, Alkaline Phosphatase 141 H, Total Protein 6.8, Albumin 3.5, Globulin 3.3, Albumin/Globulin Ratio 1.1, CBC w Diff NO MAN DIFF REQ, RBC 3.60 L, MCV 92.7, MCH 31.3 H, MCHC 33.8, RDW 17.9 H , MPV 9.1, Gran % 92.3 H, Lymphocytes % 4.1 L, Monocytes % 2.9, Eosinophils % 0.5, Basophils % 0.2, Absolute Granulocytes 9.2 H, Absolute Lymphocytes 0.4 L, Absolute Monocytes 0.3, Absolute Eosinophils 0.1, Absolute Basophils 0, Serum Alcohol < 10.0 Microbiology 01/31 1702 HEAD/NECK: Head/Neck Culture - ORD 01/31 1702 HEAD/NECK: Gram Stain - ORD 01/31 1544 UPPER RESP: Surveillance Culture - COLB 01/31 1538 BODY FLUID: Body Fluid Culture - COLB 01/31 1538 BODY FLUID: Gram Stain - COLB 01/31 0527 STOOL: Clostridium difficile Toxin A & B - ORD 01/31 0345 BLOOD: Blood Culture - RECD 01/30 2205 BLOOD: Blood Culture - RES Assessment/Plan Assessment: 32 year old male with a PMH significant for type 1 diabetes mellitus, diabetic neuropathy, hypothyroidism, alcoholic liver cirrhosis, alcohol/polysubstance abuse presents with bilateral R>L eye swelling, erythema, and cellulitis with possible trauma to the face and multiple skin cuts and contusions probably related to fighting and huffing with frequent falls. He was febrile on admission and is being treated for preseptal cellulitis in consultation with infectious disease. Sepsis secondary to periorbital cellulitis: meets SIRS criteria with tachycardia and fever Received IV clindamycin and IV ceftriaxone Infectious disease consultation, appreciate recommendations Currently on ceftriaxone, flagyl, and vancomycin Analgesia with oxycodone, tramadol CT Moderately extensive right facial soft tissue swelling involving the periorbital, maxillary, and zygomatic regions with extension inferiorly along the right platysma muscle. Appearance is consistent with a cellulitis in the proper clinical setting. No post septal orbital extension is seen. No focal abscess identified in the soft tissues. Sclera are clear and no pain with eye movements Check nares for MRSA and aspirate and culture right forehead furuncle Type 1 diabetes mellitus: Continue levemir 10 units bid Novolog sliding scale insulin Accuchecks TIDAC/HS Endocrinology consulted, appreciate recommendations Hypothyroidism: Continue synthroid Alcoholic liver disease/cirrhosis Patient reportedly was admitted at [facility] with pancreatitis Reports current abstinence from alcohol Reportedly negative EGD for varices History of substance abuse: Utox positive for MJ, possibly opioids (received morphine in ED) Social work consult History of inhalant use recently and resultant family conflict Hepatitis panel and HIV screening Diabetic diet DVT ppx-heparin subcutaneous and ALPs Full code Problem List: 1. Alcohol abuse 2. History of - hypothyroidism 3. Diabetes mellitus type 1 4. Periorbital cellulitis of right eye Pain Ratin Pain Location: right eye Pain Goal: Pain 4 or less Pain Plan: prn Tomorrow's Labs & Rationales: cbc, bep
--- NOTE | 2018-01-31 08:15 | Cons- Endocrinology ---
General Information and HPI Consulting Request Date of Consult: 01/31/18 Requested By: medical team Reason for Consult: management of uncontrolled DM type 1 Source of Information: patient, old records Exam Limitations: no limitations History of Present Illness: 32-year-old male with PMH significant for diabetes mellitus type 1, diabetic neuropathy, hypothyroidism, alcoholic liver cirrhosis, hx of alcohol abuse, who presented to the [facility] ED for fever, right eyelid swelling and erythema. Now he is on iv antibiotics. At home, he was on Lantus 20 units daily and Humalog coverage before meals. In hospital, he was put on Levemir 10 units twice a day and Novolog coverage before meals. His FSGs were 250, 390 and 347. Allergies/Medications Allergies: Coded Allergies: No Known Allergies (01/29/18) Home Med List: Ergocalciferol (Vitamin D2) (Vitamin D2) 50,000 UNIT CAPSULE 1 CAP PO Q 2 WEEKS VITAMIN SUPPORT (Reported) Folic Acid 1 MG TABLET 1 TAB PO DAILY ALCOHOL USE Furosemide 20 MG TABLET 1 TAB PO DAILY WATER PILL (Reported) Gabapentin (Unknown Strength) CAPSULE 2 CAP PO BID NEUROPATHY (Reported) Hydroxyzine Hydrochloride (Atarax) 50 MG TAB 1 TAB PO QPM PRN anxiety Insulin Glargine,Hum.rec.anlog (Lantus Solostar) 100 UNIT/ML (3 ML) INSULN.PEN 15 UNIT SC QPM DIABETES (Reported) Insulin Lispro (Humalog) (Unknown Strength) VIAL (Unknown Dose) SC SEE SLIDING SCALE DIABETES (Reported) Lactulose 10 GRAM/15 ML SOLUTION 30 ML PO TID PRN GI (Reported) Levothyroxine Sodium 25 MCG TABLET 1 TAB PO DAILY AC THYROID (Reported) Multivitamin (Daily Value) 1 EACH TABLET 1 TAB PO DAILY OTHER Ondansetron HCl 4 MG TABLET 1 TAB PO PRN N/V (Reported) Pantoprazole Sodium 40 MG TABLET.DR 1 TAB PO DAILY REFLUX (Reported) Pregabalin (Lyrica) 150 MG CAPSULE 1 CAP PO BID neuropathy (Reported) Propranolol HCl (Propranolol HCl ER) 80 MG CAP.SA.24H 1 CAP PO DAILY gi bleed (Reported) Spironolactone (Unknown Strength) TABLET (Unknown Dose) PO DAILY UNKNOWN ( Reported) Thiamine HCl 100 MG TABLET 1 TAB PO DAILY OTHER Trazodone HCl 100 MG TABLET 2 TAB PO QPM PRN SLEEP (Reported) Ursodiol 300 MG CAPSULE 1 CAP PO TID UNKNOWN (Reported) Vit B Cmplx 3/FA/Vit C/Biotin (Rebecca-Kate Rx Tablet) 1 MG-60 MG-300 MCG TABLET 1 TAB PO DAILY VITAMIN SUPPORT (Reported) Review of Systems Review of Systems Constitutional: Reports: see HPI. Cardiovascular: Denies: chest pain. Respiratory: Denies: short of breath. GI: Denies: abdominal pain. Skin: Reports: see HPI, erythema (eyelids). Hematologic/Endocrine: Denies: polyuria, polydipsia. Past History Travel History Traveled to [place] past 21 day No Medical History Blood Transfusion Hx: Yes Neurological: delerium tremens EENT: allergies Cardiovascular: NONE Respiratory: NONE Gastrointestinal: L INGUINAL HERNIA REPAIR PANCREATITIS Hepatic: cholelithiasis, hepatitis C, hepatic encephalopathy (previously), jaundice, alcoholic liver disease Renal: NONE Musculoskeletal: 03/20/2014: L WRIST FX Psychiatric: alcohol dependence, anxiety, depression, substance abuse Endocrine: hypothyroidism, type 1 diabetes Blood Disorders: coagulopathy, pancytopenia Cancer(s): NONE LIGHT ADJUSTER/Reproductive: NONE Surgical History Surgical History: hernia repair-inguinal (03/12/2007: Lap LIH with mesh), 2013: L wrist surgery Family History Relations & Conditions If Any: FATHER (Stroke at the age of 47HTN). MOTHER (HTN). FH: alcoholism Psychosocial History Where Do You Live? Home Who Do You Live With? parent Services at Home: None Primary Language: Croatian Smoking Status: Current Everyday Smoker ETOH Use: former alcohol abuse, not used in 2 years Illicit Drug Use: cocaine (remote use), marijuana Living Will? unknown Power of Physics Faculty Member/HCP? unknown Functional Ability ADLs Independent: dressing, eating, toileting, bathing. Ambulation: independent IADLs Independent: shopping, housework, finances, food prep, telephone, transportation , medication admin. Exam & Diagnostic Data Last 24 Hrs of Vital Signs/I&O Vital Signs Date Time Temp Pulse Resp B/P B/P Pulse O2 O2 Flow FiO2 Mean Ox Delivery Rate 01/31 0803 76 102/60 01/31 0547 98.5 76 18 102/60 96 Room Air 01/31 0300 98.7 85 18 98/56 97 Room Air 01/31 0155 99.9 106 20 100/51 95 Room Air 01/31 0015 101.2 01/30 2358 101.2 104 16 145/90 97 Room Air 01/30 2126 100.8 103 21 151/95 95 Room Air Intake & Output 01/31 1600 01/31 0800 01/31 0000 Intake Total 480 1000 Output Total Balance 480 1000 Intake, IV 240 1000 Intake, Oral 240 Patient 170 lb Weight Weight Reported by Patient Measurement Method Physical Exam General Appearance: no apparent distress Eyes: Left: lid inflammation. Respiratory: lungs clear Cardiovascular: regular rate/rhythm Extremities: no edema Labs/Tray Results: Laboratory Tests 01/31 01/31 01/31 01/31 0725 0350 0349 0349 Chemistry Sodium Pending Potassium Pending Chloride Pending Carbon Dioxide Pending Anion Gap Pending BUN Pending Creatinine Pending BUN/Creatinine Ratio Pending Lactic Acid (0.7 - 2.1 mmol/L) Pending 2.0 Magnesium (1.6 - 2.3 mg/dL) 1.1 L Total Bilirubin (0.2 - 1.3 mg/dL) Pending 2.8 H Direct Bilirubin (< 0.4 mg/dL) Pending 1.2 H AST Pending ALT Pending Alkaline Phosphatase Pending Troponin I (<0.11 ng/ml) < 0.01 Total Protein Pending Albumin Pending TSH (0.270 - 4.200 uIU/mL) 0.510 Hematology CBC w Diff Pending WBC Pending RBC Pending Hgb Pending Hct Pending MCV Pending MCH Pending MCHC Pending RDW Pending Plt Count Pending MPV Pending Serology Hepatitis A IgM Ab (NONREACTIVE) Pending Hep Bs Antigen (NONREACTIVE) Pending Hep B Core IgM Ab Conf (NONREACTIVE) Pending Hepatitis C Antibody (NONREACTIVE) Cancelled Pending HIV 1&2 Ab Western Blot (NONREACTIVE) Pending 01/31 01/30 0151 2210 Chemistry Sodium (137 - 145 mmol/L) 136 L Potassium (3.5 - 5.1 mmol/L) 3.7 Chloride (98 - 107 mmol/L) 99 Carbon Dioxide (22 - 30 mmol/L) 22 Anion Gap (5 - 16) 14 BUN (9 - 20 mg/dL) 12 Creatinine (0.7 - 1.2 mg/dL) 0.9 Estimated GFR (>60 ml/min) > 60 BUN/Creatinine Ratio (7 - 25 %) 13.3 Glucose (65 - 99 mg/dL) 79 Calcium (8.4 - 10.2 mg/dL) 9.2 Total Bilirubin (0.2 - 1.3 mg/dL) 2.7 H AST (17 - 59 U/L) 53 ALT (21 - 72 U/L) 18 L Alkaline Phosphatase (< 127 U/L) 141 H Total Protein (6.3 - 8.2 g/dL) 6.8 Albumin (3.5 - 5.0 g/dL) 3.5 Globulin (1.9 - 4.2 gm/dL) 3.3 Albumin/Globulin Ratio (1.1 - 2.2 %) 1.1 Hematology CBC w Diff NO MAN DIFF REQ WBC (4.8 - 10.8 /CUMM) 10.0 RBC (4.70 - 6.10 /CUMM) 3.60 L Hgb (14.0 - 18.0 G/DL) 11.3 L Hct (42 - 52 %) 33.3 L MCV (80.0 - 94.0 FL) 92.7 MCH (27.0 - 31.0 PG) 31.3 H MCHC (33.0 - 37.0 G/DL) 33.8 RDW (11.5 - 14.5 %) 17.9 H Plt Count (130 - 400 /CUMM) 77 L MPV (7.4 - 10.4 FL) 9.1 Gran % (42.2 - 75.2 %) 92.3 H Lymphocytes % (20.5 - 51.1 %) 4.1 L Monocytes % (1.7 - 9.3 %) 2.9 Eosinophils % (0 - 5 %) 0.5 Basophils % (0.0 - 2.0 %) 0.2 Absolute Granulocytes (1.4 - 6.5 /CUMM) 9.2 H Absolute Lymphocytes (1.2 - 3.4 /CUMM) 0.4 L Absolute Monocytes (0.10 - 0.60 /CUMM) 0.3 Absolute Eosinophils (0.0 - 0.7 /CUMM) 0.1 Absolute Basophils (0.0 - 0.2 /CUMM) 0 Toxicology Urine Opiates Screen (>2000 NG/ML) 3335.00 H Methadone Screen (>300 NG/ML) 78 Barbiturate Screen (>200 NG/ML) < 60 Ur Phencyclidine Scrn (>25 NG/ML) < 6.00 Amphetamines Screen (>1000 NG/ML) < 100 U Benzodiazepines Scrn (>200 NG/ML) < 85 Urine Cocaine Screen (>300 NG/ML) < 50 Urine Cannabis Screen (>50 NG/ML) > 80.00 H Serum Alcohol (<10 MG/DL) < 10.0 Urines Urine Color (YEL,AMB,STR) YEL Urine Clarity (CLEAR) CLEAR Urine pH (5.0 - 8.0) 7.0 Ur Specific [place] (1.001 - 1.035) <= 1.005 Urine Protein (NEG,<30 MG/DL) NEG Urine Ketones (NEG) NEG Urine Nitrite (NEG) NEG Urine Bilirubin (NEG) NEG Urine Urobilinogen (0.1 - 1.0 EU/dl) 1.0 Ur Leukocyte Esterase (NEG) NEG Ur Microscopic EXAM NOT REQUIRED Urine Hemoglobin (NEG) NEG Urine Glucose (N MG/DL) NEG Assessment/Plan Assessment/Plan 32-year-old male with PMH significant for diabetes mellitus type 1, diabetic neuropathy, hypothyroidism, alcoholic liver cirrhosis, hx of alcohol abuse, who was admitted for periorbital cellulitis. DM management: 1. continue Levemir 10 units twice a day; 2. adjust Novolog coverage before meals and add another Novolog coverage at bedtime; detail see the inpatient DM order; 3. monitor FSGs. will follow. Inpatient Diabetes Orders Before Each Meal: Bolus Insulin: Novolog < 80 mg/dl: no coverage 80-100 mg/dl: 5 units 101-120 mg/dl: 5 units 121-150 mg/dl: 5 units 151-200 mg/dl: 6 units 201-250 mg/dl: 8 units 251-300 mg/dl: 10 units 301-350 mg/dl: 12 units 351-400 mg/dl: 14 units > 400 mg/dl: 16 units Bedtime: Bolus Insulin: Novolog < 80 mg/dl: no coverage 80-100 mg/dl: no coverage 101-120 mg/dl: no coverage 121-150 mg/dl: no coverage 151-200 mg/dl: no coverage 201-250 mg/dl: no coverage 251-300 mg/dl: 2 units 301-350 mg/dl: 3 units 351-400 mg/dl: 4 units > 400 mg/dl: 5 units Consult Acknowledgment - Thank you for your consult request.
[2018-01-31 08:16] LABS: ABSOLUTE BASOPHIL COUNT 0 /CUMM (0.0-0.2); ABSOLUTE EOSINOPHIL COUNT 0 /CUMM (0.0-0.7); ABSOLUTE LYMPH COUNT 0.6 /CUMM (1.2-3.4); ABSOLUTE MONOCYTE COUNT 0.5 /CUMM (0.10-0.60); MEAN PLATELET VOLUME 9.6 FL (7.4-10.4); RBC DISTRIBUTION WIDTH 17.9 % (11.5-14.5); WHITE BLOOD CELL COUNT 5.8 /CUMM (4.8-10.8)
[2018-01-31 08:36] LABS: ABSOLUTE GRANULOCYTE CT 4.6 /CUMM (1.4-6.5); BASOPHIL % 0.1 % (0.0-2.0); EOSINOPHIL % 0.5 % (0-5); GRANULOCYTE % 80.1 % (42.2-75.2); MEAN CORPUSCULAR HGB 31.2 PG (27.0-31.0); MEAN CORPUSCULAR HGB CONC 33.5 G/DL (33.0-37.0); MEAN CORPUSCULAR VOLUME 93.1 FL (80.0-94.0); RED BLOOD CELL CT 2.84 /CUMM (4.70-6.10)
[2018-01-31 08:40] LABS: HEMATOCRIT 26.4 % (42-52)
[2018-01-31 09:31] LABS: PLATELET COUNT 47 /CUMM (130-400)
[2018-01-31 14:01] VITALS: BP 98/48
--- NOTE | 2018-01-31 14:22 | Cons- Infect Disease ---
General Information and HPI Consulting Request Date of Consult: 01/31/18 Requested By: Katie Freeman MD Reason for Consult: Periorbital cellulitis Source of Information: patient, old records History of Present Illness: This is a 32-year-old man with a history of diabetes, hypothyroidism, alcohol induced liver cirrhosis, with chronic thrombocytopenia, and polysubstance abuse, seen in the emergency room 4 times in the past 4 days for various complaints including nausea and vomiting after huffing keyboard block cleaner and hematemesis, admitted on January 30 after returning to the emergency room with right periorbital swelling, erythema and pain, with a vague history of trauma, and a fever to 103, associated with a "cyst" over the right forehead and mild swelling around the left eye. On admission he was febrile to 101.2. Laboratory data revealed a white blood cell count of 10,000, platelets 77,000, BUN/creatinine 12 and 0.9, bilirubin 2.7, alkaline phosphatase 141 serum alcohol level less than 10. Urinalysis negative. CT of the maxillofacial area revealed moderately extensive right facial soft tissue swelling involving the periorbital, maxillary and zygomatic regions and extending inferiorly along the right mandible, with no extension into the orbit and with no discrete fluid collection; trace mucosal thickening of the maxillary sinuses inferiorly, left greater than right. He was given a dose of Unasyn and then begun on Clindamycin and Ceftriaxone. He appears to have defervesced overnight but reports continued pain and swelling around the right eye. Allergies/Medications Allergies: Coded Allergies: No Known Allergies (01/29/18) Home Med List: Ergocalciferol (Vitamin D2) (Vitamin D2) 50,000 UNIT CAPSULE 1 CAP PO Q 2 WEEKS VITAMIN SUPPORT (Reported) Folic Acid 1 MG TABLET 1 TAB PO DAILY ALCOHOL USE Furosemide 20 MG TABLET 1 TAB PO DAILY WATER PILL (Reported) Gabapentin (Unknown Strength) CAPSULE 2 CAP PO BID NEUROPATHY (Reported) Hydroxyzine Hydrochloride (Atarax) 50 MG TAB 1 TAB PO QPM PRN anxiety Insulin Glargine,Hum.rec.anlog (Lantus Solostar) 100 UNIT/ML (3 ML) INSULN.PEN 15 UNIT SC QPM DIABETES (Reported) Insulin Lispro (Humalog) (Unknown Strength) VIAL (Unknown Dose) SC SEE SLIDING SCALE DIABETES (Reported) Lactulose 10 GRAM/15 ML SOLUTION 30 ML PO TID PRN GI (Reported) Levothyroxine Sodium 25 MCG TABLET 1 TAB PO DAILY AC THYROID (Reported) Multivitamin (Daily Value) 1 EACH TABLET 1 TAB PO DAILY OTHER Ondansetron HCl 4 MG TABLET 1 TAB PO PRN N/V (Reported) Pantoprazole Sodium 40 MG TABLET.DR 1 TAB PO DAILY REFLUX (Reported) Pregabalin (Lyrica) 150 MG CAPSULE 1 CAP PO BID neuropathy (Reported) Propranolol HCl (Propranolol HCl ER) 80 MG CAP.SA.24H 1 CAP PO DAILY gi bleed (Reported) Spironolactone (Unknown Strength) TABLET (Unknown Dose) PO DAILY UNKNOWN ( Reported) Thiamine HCl 100 MG TABLET 1 TAB PO DAILY OTHER Trazodone HCl 100 MG TABLET 2 TAB PO QPM PRN SLEEP (Reported) Ursodiol 300 MG CAPSULE 1 CAP PO TID UNKNOWN (Reported) Vit B Cmplx 3/FA/Vit C/Biotin (Rebecca-Kate Rx Tablet) 1 MG-60 MG-300 MCG TABLET 1 TAB PO DAILY VITAMIN SUPPORT (Reported) Past History Travel History Traveled to [place] past 21 day No Medical History Blood Transfusion Hx: Yes Neurological: delerium tremens EENT: allergies Cardiovascular: NONE Respiratory: NONE Gastrointestinal: L INGUINAL HERNIA REPAIR PANCREATITIS Hepatic: cholelithiasis, hepatitis C, hepatic encephalopathy (previously), jaundice, alcoholic liver disease Renal: NONE Musculoskeletal: 03/20/2014: L WRIST FX Psychiatric: alcohol dependence, anxiety, depression, substance abuse Endocrine: hypothyroidism, type 1 diabetes Blood Disorders: coagulopathy, pancytopenia Cancer(s): NONE 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 MOTHER (HTN). FH: alcoholism Psychosocial History Where Do You Live? Home Who Do You Live With? parent Services at Home: None Primary Language: Georgian Smoking Status: Current Everyday Smoker ETOH Use: former alcohol abuse, not used in 2 years Illicit Drug Use: cocaine (remote use), marijuana Living Will? 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 Ambulation: independent IADLs Independent: shopping, housework, finances, food prep, telephone, transportation , medication admin. Review of Systems Review of Systems All Other Systems: Reviewed and Negative Exam & Diagnostic Data Last 24 Hrs of Vital Signs/I&O Vital Signs Date Time Temp Pulse Resp B/P B/P Pulse O2 O2 Flow FiO2 Mean Ox Delivery Rate 01/31 1401 98.2 78 18 98/48 99 Room Air 01/31 0803 76 102/60 01/31 0547 98.5 76 18 102/60 96 Room Air 01/31 0300 98.7 85 18 98/56 97 Room Air 01/31 0155 99.9 106 20 100/51 95 Room Air 01/31 0015 101.2 01/30 2358 101.2 104 16 145/90 97 Room Air 01/30 2126 100.8 103 21 151/95 95 Room Air Intake & Output 01/31 1600 01/31 0800 01/31 0000 Intake Total 480 1000 Output Total Balance 480 1000 Intake, IV 240 1000 Intake, Oral 240 Patient 170 lb Weight Weight Reported by Patient Measurement Method Physical Exam Other Physical Findings: He is awake and alert in no acute distress. T-max 101.2. Skin reveals multiple ecchymoses and excoriations; right parietal scalp furuncles. HEENT exam marked right periorbital edema, with his eye closed shut, and mild erythema, tender to palpation; mild left periorbital edema; no obvious limitation to his eye movements and no conjunctival injection. Neck is supple with no adenopathy. Lungs are clear. Heart regular rhythm with no murmur. Abdomen is soft, nontender with positive bowel sounds. Back no CVA tenderness. Extremities no cyanosis, clubbing or edema. Neuro is without focality. Last 24 Hours of Lab Results: Laboratory Tests 01/31 01/31 01/31 0725 0350 0349 Chemistry Sodium (137 - 145 mmol/L) 132 L Potassium (3.5 - 5.1 mmol/L) 3.9 Chloride (98 - 107 mmol/L) 100 Carbon Dioxide (22 - 30 mmol/L) 25 Anion Gap (5 - 16) 7 BUN (9 - 20 mg/dL) 15 Creatinine (0.7 - 1.2 mg/dL) 1.0 Estimated GFR (>60 ml/min) > 60 BUN/Creatinine Ratio (7 - 25 %) 15.0 Lactic Acid (0.7 - 2.1 mmol/L) 2.8 H 2.0 Total Bilirubin (0.2 - 1.3 mg/dL) 1.9 H Direct Bilirubin (< 0.4 mg/dL) 0.9 H AST (17 - 59 U/L) 28 ALT (21 - 72 U/L) 19 L Alkaline Phosphatase (< 127 U/L) 102 Total Protein (6.3 - 8.2 g/dL) 4.7 L Albumin (3.5 - 5.0 g/dL) 2.2 L Hematology CBC w Diff NO MAN DIFF REQ WBC (4.8 - 10.8 /CUMM) 5.8 RBC (4.70 - 6.10 /CUMM) 2.84 L Hgb (14.0 - 18.0 G/DL) 8.9 L Hct (42 - 52 %) 26.4 L MCV (80.0 - 94.0 FL) 93.1 MCH (27.0 - 31.0 PG) 31.2 H MCHC (33.0 - 37.0 G/DL) 33.5 RDW (11.5 - 14.5 %) 17.9 H Plt Count (130 - 400 /CUMM) 47 L MPV (7.4 - 10.4 FL) 9.6 Gran % (42.2 - 75.2 %) 80.1 H Lymphocytes % (20.5 - 51.1 %) 11.0 L Monocytes % (1.7 - 9.3 %) 8.3 Eosinophils % (0 - 5 %) 0.5 Basophils % (0.0 - 2.0 %) 0.1 Absolute Granulocytes (1.4 - 6.5 /CUMM) 4.6 Absolute Lymphocytes (1.2 - 3.4 /CUMM) 0.6 L Absolute Monocytes (0.10 - 0.60 /CUMM) 0.5 Absolute Eosinophils (0.0 - 0.7 /CUMM) 0 Absolute Basophils (0.0 - 0.2 /CUMM) 0 Serology Hepatitis C Antibody Cancelled 01/31 01/31 0349 0156 Chemistry Magnesium (1.6 - 2.3 mg/dL) 1.1 L Total Bilirubin (0.2 - 1.3 mg/dL) 2.8 H Direct Bilirubin (< 0.4 mg/dL) 1.2 H Troponin I (<0.11 ng/ml) < 0.01 TSH (0.270 - 4.200 uIU/mL) 0.510 Serology Hepatitis A IgM Ab (NONREACTIVE) NONREACTIVE Hep Bs Antigen (NONREACTIVE) NONREACTIVE Hep B Core IgM Ab Conf (NONREACTIVE) NONREACTIVE Hepatitis C Antibody (NONREACTIVE) NONREACTIVE HIV 1&2 Ab Western Blot (NONREACTIVE) NONREACTIVE Toxicology Urine Opiates Screen (>2000 NG/ML) 3335.00 H Methadone Screen (>300 NG/ML) 78 Barbiturate Screen (>200 NG/ML) < 60 Ur Phencyclidine Scrn (>25 NG/ML) < 6.00 Amphetamines Screen (>1000 NG/ML) < 100 U Benzodiazepines Scrn (>200 NG/ML) < 85 Urine Cocaine Screen (>300 NG/ML) < 50 Urine Cannabis Screen (>50 NG/ML) > 80.00 H Urines Urine Color (YEL,AMB,STR) YEL Urine Clarity (CLEAR) CLEAR Urine pH (5.0 - 8.0) 7.0 Ur Specific [place] (1.001 - 1.035) <= 1.005 Urine Protein (NEG,<30 MG/DL) NEG Urine Ketones (NEG) NEG Urine Nitrite (NEG) NEG Urine Bilirubin (NEG) NEG Urine Urobilinogen (0.1 - 1.0 EU/dl) 1.0 Ur Leukocyte Esterase (NEG) NEG Ur Microscopic EXAM NOT REQUIRED Urine Hemoglobin (NEG) NEG Urine Glucose (N MG/DL) NEG 01/30 2210 Chemistry Sodium (137 - 145 mmol/L) 136 L Potassium (3.5 - 5.1 mmol/L) 3.7 Chloride (98 - 107 mmol/L) 99 Carbon Dioxide (22 - 30 mmol/L) 22 Anion Gap (5 - 16) 14 BUN (9 - 20 mg/dL) 12 Creatinine (0.7 - 1.2 mg/dL) 0.9 Estimated GFR (>60 ml/min) > 60 BUN/Creatinine Ratio (7 - 25 %) 13.3 Glucose (65 - 99 mg/dL) 79 Calcium (8.4 - 10.2 mg/dL) 9.2 Total Bilirubin (0.2 - 1.3 mg/dL) 2.7 H AST (17 - 59 U/L) 53 ALT (21 - 72 U/L) 18 L Alkaline Phosphatase (< 127 U/L) 141 H Total Protein (6.3 - 8.2 g/dL) 6.8 Albumin (3.5 - 5.0 g/dL) 3.5 Globulin (1.9 - 4.2 gm/dL) 3.3 Albumin/Globulin Ratio (1.1 - 2.2 %) 1.1 Hematology CBC w Diff NO MAN DIFF REQ WBC (4.8 - 10.8 /CUMM) 10.0 RBC (4.70 - 6.10 /CUMM) 3.60 L Hgb (14.0 - 18.0 G/DL) 11.3 L Hct (42 - 52 %) 33.3 L MCV (80.0 - 94.0 FL) 92.7 MCH (27.0 - 31.0 PG) 31.3 H MCHC (33.0 - 37.0 G/DL) 33.8 RDW (11.5 - 14.5 %) 17.9 H Plt Count (130 - 400 /CUMM) 77 L MPV (7.4 - 10.4 FL) 9.1 Gran % (42.2 - 75.2 %) 92.3 H Lymphocytes % (20.5 - 51.1 %) 4.1 L Monocytes % (1.7 - 9.3 %) 2.9 Eosinophils % (0 - 5 %) 0.5 Basophils % (0.0 - 2.0 %) 0.2 Absolute Granulocytes (1.4 - 6.5 /CUMM) 9.2 H Absolute Lymphocytes (1.2 - 3.4 /CUMM) 0.4 L Absolute Monocytes (0.10 - 0.60 /CUMM) 0.3 Absolute Eosinophils (0.0 - 0.7 /CUMM) 0.1 Absolute Basophils (0.0 - 0.2 /CUMM) 0 Toxicology Serum Alcohol (<10 MG/DL) < 10.0 Last 24 Hours of Tray Results: Blood cultures 2 January 30January 31 negative Diagnostic Data Recent Imaging Findings: CT of the maxillofacial area revealed moderately extensive right facial soft tissue swelling involving the periorbital, maxillary and zygomatic regions and extending inferiorly along the right mandible, with no extension into the orbit and with no discrete fluid collection; trace mucosal thickening of the maxillary sinuses inferiorly, left greater than right. Assessment/Plan Assessment/Plan Impression: This is a 32-year-old man with a history of diabetes, alcohol induced liver cirrhosis, with chronic thrombocytopenia, and polysubstance abuse, with several recent ER visits for inhaling various agents, admitted on January 30 with right periorbital swelling, erythema and pain, with a vague history of trauma, fever and mild left periorbital inflammation, found to be febrile with a normal white blood cell count and with a CT of the maxillofacial area negative for any orbital involvement or collection. His clinical presentation is consistent with a preseptal cellulitis. The etiology is unclear. Most cases of preseptal cellulitis are secondary to sinusitis but, in this individual with a history of polysubstance abuse, a report of trauma and evidence of furuncles on the right forehead and scalp, suspect a skin source. The organisms of most concern include Staph aureus, including MRSA, given his history of diabetes and substance abuse, as well as strep pneumoniae and other (beta-hemolytic) streptococci, with anaerobes and Haemophilus influenzae (which are of more concern with underlying sinusitis) also possible, and his antibiotic regimen should include coverage for these organisms. He appears to have some involvement of the left periorbital area, raising concern for a possible cavernous sinus process, though his CT scan was negative for any orbital involvement, and, if he does not improve, further evaluation will be necessary. Suggestion: 1. Would attempt aspiration of the furuncle on his right forehead 2. Follow-up recent blood cultures 3. Discontinue Clindamycin 4. Begin Vancomycin 1 g IV every 12 hours and Flagyl 500 mg IV every 8 hours 5. Continue Ceftriaxone Consult Acknowledgment - Thank you for your consult request.
[2018-01-31 21:54] VITALS: BP 108/58
[2018-02-01 06:59] VITALS: BP 102/56
--- NOTE | 2018-02-01 07:09 | PN- Housestaff ---
See Addendum Te Guevara MD 02/01/18 0708: Subjective Follow-up For: preseptal cellulitis polysubstance abuse Subjective: febrile overnight tmax 101.1, repeat blood cultures drawn and given tylenol/ ibuprofen patient is complaining of pain related to swelling, mostly on the right side of his face no new complaints patient remains hyperglycemic and has been eating snacks and food brought in by his mother Review of Systems Constitutional: Reports: see HPI. Objective Last 24 Hrs of Vital Signs/I&O Vital Signs Date Time Temp Pulse Resp B/P B/P Pulse O2 O2 Flow FiO2 Mean Ox Delivery Rate 02/01 0659 98.6 82 18 102/56 95 Room Air 02/01 0621 99.9 02/01 0415 99.9 02/01 0202 101.1 02/01 0123 101.1 02/01 0116 101.1 01/31 2359 100.8 01/31 2154 100.8 88 18 108/58 98 Room Air 01/31 1401 98.2 78 18 98/48 99 Room Air Intake & Output 02/01 1600 02/01 0800 02/01 0000 Intake Total 1420 855 Output Total Balance 1420 855 Intake, IV 700 375 Intake, Oral 720 480 Number 1 1 Bowel Movements Physical Exam General Appearance: Alert, Oriented X3, Cooperative, No Acute Distress Cardiovascular: Regular Rate, Normal S1, Normal S2, No Murmurs Lungs: Clear to Auscultation, Normal Air Movement Abdomen: Normal Bowel Sounds, Soft, No Tenderness, No Masses Extremities: No Clubbing, No Cyanosis, No Edema, Normal Pulses, multiple excoriations on all extremities Other Physical Findings: right>left periorbital edema, unable to open his right eye to see and overlying erythema with tenderness on palpation, sclera not injected with painless eye movements Current Medications: Current Medications Sig/Jose Martin Start time Last Medication Dose Route Stop Time Status Admin Acetaminophen 500 MG ONCE ONE 01/31 2330 DC 01/31 PO 01/31 2331 2359 Ceftriaxone Sodium 1,000 MG DAILY 02/01 09 AC IV Ceftriaxone Sodium 1,000 MG DAILY 01/31 09 DC 01/31 IV 0800 Clindamycin 600 MG IQ8 01/31 0400 DC 01/31 Dextrose/Water 50 ML IV 0801 Enoxaparin Sodium 40 MG DAILY 01/31 0900 AC 01/31 SC 0800 Folic Acid 1 MG DAILY 01/31 0900 AC 01/31 PO 0758 Furosemide 20 MG DAILY 01/31 0900 DC 01/31 PO 0758 Gabapentin 600 MG BID 01/31 0900 AC 01/31 PO 210 Hydroxyzine HCl 50 MG QPM PRN 01/31 0400 AC PO Ibuprofen 800 MG ONCE ONE 02/01 0145 DC 02/01 PO 02/01 0146 0202 Ibuprofen 400 MG Q6P PRN 01/31 0400 AC PO Insulin Aspart 0 TIDAC/HS 01/31 0812 AC 01/31 SC 1651 Insulin Detemir 12 UNITS BID 02/01 0900 AC SC Insulin Detemir 10 UNITS BID 01/31 0900 DC 01/31 SC 2106 Levothyroxine Sodium 0.025 MG DAILY AC 01/31 0700 AC 02/01 PO 0613 Magnesium Oxide 400 MG ONE ONE 02/01 0830 AC PO 02/01 0831 Magnesium Sulfate 1 GM ONCE ONE 01/31 2045 DC 02/01 Dextrose/Water 100 ML IV 02/01 0044 0030 Metronidazole 500 MG IQ8 01/31 1600 AC 01/31 N/A 1 UNIT IV 2337 Morphine Sulfate 2 MG ONCE ONE 02/01 0130 DC 02/01 IV 02/01 0131 0142 Multivitamins 1 TAB DAILY 01/31 0900 AC 01/31 Therapeutic PO 0758 Omeprazole 40 MG DAILY AC 01/31 0700 AC 02/01 PO 0613 Oxycodone HCl 5 MG ONCE ONE 01/31 1715 DC 01/31 PO 01/31 1716 1717 Oxycodone HCl 5 MG Q6 PRN 01/31 0400 AC 02/01 PO 06 Pregabalin 150 MG BID 01/31 0900 AC 01/31 PO 210 Propranolol HCl 80 MG DAILY 01/31 0900 AC 01/31 PO 0803 Sodium Chloride 1,000 ML Q8H 02/01 0715 AC IV 02/01 2314 Sodium Chloride 1,000 ML Q8H 01/31 1230 DC 01/31 IV 01/31 2029 1311 Sodium Chloride 1,000 ML Q13H 01/31 0500 DC 01/31 IV 01/31 1459 0500 Spironolactone 12.5 MG DAILY 01/31 0900 AC 01/31 PO 0804 Thiamine HCl 100 MG DAILY 01/31 0900 AC 01/31 PO 0759 Tramadol HCl 50 MG Q6 PRN 01/31 0400 AC 01/31 PO 2337 Trazodone HCl 200 MG .STK-MED ONE 01/31 2342 DC PO 01/31 2343 Trazodone HCl 200 MG QPM PRN 01/31 0400 AC 01/31 PO 2343 Vancomycin HCl 1,000 MG Q12 01/31 1437 AC 01/31 Sodium Chloride 250 ML IV 2106 Last 24 Hrs of Lab/Tray Results Last 24 Hrs of Labs/Mics: Laboratory Tests 02/01/18 0700: Anion Gap 8, Estimated GFR > 60, BUN/Creatinine Ratio 20.0, Magnesium 1.6, CBC w Diff Pending, WBC Pending, RBC Pending, Hgb Pending, Hct Pending, MCV Pending, MCH Pending, MCHC Pending, RDW Pending, Plt Count Pending, MPV Pending Microbiology 02/01 0225 BLOOD: Blood Culture - RECD 02/01 0205 BLOOD: Blood Culture - RECD 01/31 2342 STOOL: Clostridium difficile Toxin A & B - RECD 01/31 1707 UPPER RESP: Surveillance Culture - RECD 01/31 1545 HEAD/NECK: Head/Neck Culture - RECD 01/31 1545 HEAD/NECK: Gram Stain - RECD 01/31 1538 BODY FLUID: Body Fluid Culture - CAN Cancelled: Cancelled via OE: Error 01/31 1538 BODY FLUID: Gram Stain - CAN Cancelled: Cancelled via OE: Error Assessment/Plan Assessment: 32 year old male with a PMH significant for type 1 diabetes mellitus, diabetic neuropathy, hypothyroidism, alcoholic liver cirrhosis, alcohol/polysubstance abuse presents with bilateral R>L eye swelling, erythema, and cellulitis with possible trauma to the face and multiple skin cuts and contusions probably related to fighting and huffing with frequent falls. He was febrile on admission and is being treated for preseptal cellulitis in consultation with infectious disease. Sepsis secondary to preseptal cellulitis: meets SIRS criteria with tachycardia and fever Infectious disease consultation, appreciate recommendations Currently on ceftriaxone, flagyl, and vancomycin intravenously Analgesia with oxycodone prn CT Moderately extensive right facial soft tissue swelling involving the periorbital, maxillary, and zygomatic regions with extension inferiorly along the right platysma muscle. Appearance is consistent with a cellulitis in the proper clinical setting. No post septal orbital extension is seen. No focal abscess identified in the soft tissues. Sclera are clear and no pain with eye movements Aspiration of furuncle on right forehead growth of staph, sensitivities pending Contact precautions for possible MRSA Type 1 diabetes mellitus: Levemir increased to 12 units bid Novolog sliding scale insulin increased Accuchecks TIDAC/HS, 214-346 last 24 hours Endocrinology consulted, appreciate recommendations Hypothyroidism: Continue synthroid TSH wnl Alcoholic liver disease/cirrhosis with varices Patient reportedly was admitted at [facility] with pancreatitis Reports current abstinence from alcohol Continue lasix, aldactone and propanolol History of substance abuse: Utox positive for MJ, possibly opioids (received morphine in ED) History of inhalant use recently and resultant family conflict Hepatitis panel and HIV negative Diabetic diet DVT ppx-heparin subcutaneous and ALPs Full code Problem List: 1. Periorbital cellulitis of right eye 2. Sepsis 3. Inhalant abuse Pain Ratin Pain Location: right face Pain Goal: Pain 4 or less Pain Plan: oxycodone Tomorrow's Labs & Rationales: none Cyndi Flaherty MD 02/01/18 1148: Attending MD Review Statement Attending Statement Attending MD Statement: examined this patient, discuss w/resident/PA/DIGITAL MARKETING OFFICER, agreed w/resident/PA/DIGITAL MARKETING OFFICER, reviewed EMR data (avail), discussed with nursing, discussed with case mgmt, amended to note Attending Assessment/Plan: Patient seen and examined. No issues overnight. Remains febrile with temperature 101.1 this morning. Hemodynamically stable. Still has bilateral eye swelling more significantly more in the right eye compared to the left but improved compared to presentation. Collection on the right forehead was drained yesterday. Culture sample was sent. He is able to open the right eye bleed very slightly today but this is an improvement compared to yesterday. He does complain of pain with movement of the eye. We are unable to assess vision of the right eye due to the significant edema. Glucose level are uncontrolled. Patient is noncompliant with diet regimen. Endocrinology follow-up appreciated. Insulin regimen has been adjusted. We will continue patient on current antibiotic therapy. Once he shows significant improvement of his eye swelling and is afebrile we may transition to oral antibiotic therapy. He is hyponatremic this morning. He does have underlying history of cirrhosis. Recommend discontinuation of fluids and resuming his outpatient diuretic regimen. Clinically he appears euvolemic.
[2018-02-01 08:00] LABS: ABSOLUTE BASOPHIL COUNT 0 /CUMM (0.0-0.2); ABSOLUTE EOSINOPHIL COUNT 0 /CUMM (0.0-0.7); ABSOLUTE LYMPH COUNT 0.6 /CUMM (1.2-3.4); ABSOLUTE MONOCYTE COUNT 0.5 /CUMM (0.10-0.60); RBC DISTRIBUTION WIDTH 18.2 % (11.5-14.5); WHITE BLOOD CELL COUNT 5.2 /CUMM (4.8-10.8)
--- NOTE | 2018-02-01 08:24 | PN- Diabetes ---
Assessment/Plan Diabetes Assessment: 32-year-old male with PMH significant for diabetes mellitus type 1, diabetic neuropathy, hypothyroidism, alcoholic liver cirrhosis, hx of alcohol abuse, who presented to the [facility] ED for fever, right eyelid swelling and erythema. Now he is on iv antibiotics. At home, he was on Lantus 20 units daily and Humalog coverage before meals. In hospital, he was put on Levemir 10 units twice a day, Novolog coverage before meals ( FSG 80-150, 7 units; 151-200, 8 units; 201-250, 10 units, etc). He had fever of 101 last night. He hasn't been compliance with the diet. His FSGs were 347, 468, 254, 213 and 346. Plan: 1. encourage patient to be compliance with the diet; 2. increase Levemir to 12 units twice a day; 3. adjust Novolog coverage before meals; detail see the inpatient DM order; 4. continue the current Novolog coverage at bedtime; 5. monitor FSGs. will follow. Inpatient Diabetes Orders Before Each Meal: Bolus Insulin: Novolog < 80 mg/dl: no coverage 80-100 mg/dl: 7 units 101-120 mg/dl: 7 units 121-150 mg/dl: 7 units 151-200 mg/dl: 8 units 201-250 mg/dl: 10 units 251-300 mg/dl: 12 units 301-350 mg/dl: 14 units 351-400 mg/dl: 16 units > 400 mg/dl: 18 units Subjective Subjective: His facial swelling has been worse. Objective Last 24 Hrs of Vital Signs/I&O Vital Signs Date Time Temp Pulse Resp B/P B/P Pulse O2 O2 Flow FiO2 Mean Ox Delivery Rate 02/01 0659 98.6 82 18 102/56 95 Room Air 02/01 0621 99.9 02/01 0415 99.9 02/01 0202 101.1 02/01 0123 101.1 02/01 0116 101.1 01/31 2359 100.8 01/31 2154 100.8 88 18 108/58 98 Room Air 01/31 1401 98.2 78 18 98/48 99 Room Air Intake & Output 02/01 1600 02/01 0800 02/01 0000 Intake Total 1420 855 Output Total Balance 1420 855 Intake, IV 700 375 Intake, Oral 720 480 Number 1 1 Bowel Movements Findings Pertinent Lab/Tray Results: Laboratory Tests 02/01 0700 Chemistry Sodium (137 - 145 mmol/L) 131 L Potassium (3.5 - 5.1 mmol/L) 4.2 Chloride (98 - 107 mmol/L) 100 Carbon Dioxide (22 - 30 mmol/L) 23 Anion Gap (5 - 16) 8 BUN (9 - 20 mg/dL) 18 Creatinine (0.7 - 1.2 mg/dL) 0.9 Estimated GFR (>60 ml/min) > 60 BUN/Creatinine Ratio (7 - 25 %) 20.0 Magnesium (1.6 - 2.3 mg/dL) 1.6 Hematology CBC w Diff Pending WBC Pending RBC Pending Hgb Pending Hct Pending MCV Pending MCH Pending MCHC Pending RDW Pending Plt Count Pending MPV Pending
[2018-02-01 08:43] LABS: ABSOLUTE GRANULOCYTE CT 4.1 /CUMM (1.4-6.5); BASOPHIL % 0.3 % (0.0-2.0); EOSINOPHIL % 0.6 % (0-5); MEAN CORPUSCULAR HGB 30.7 PG (27.0-31.0); MEAN CORPUSCULAR HGB CONC 32.8 G/DL (33.0-37.0); MEAN CORPUSCULAR VOLUME 93.6 FL (80.0-94.0); MEAN PLATELET VOLUME 9.1 FL (7.4-10.4); RED BLOOD CELL CT 2.67 /CUMM (4.70-6.10)
[2018-02-01 09:46] LABS: PLATELET COUNT 39 /CUMM (130-400)
--- NOTE | 2018-02-01 10:34 | RADIOLOGY REPORT ---
EXAMINATION: XR PORTABLE CHEST CLINICAL INFORMATION: Fever. Presumptive diagnosis of pneumonia. COMPARISON: Prior chest x-rays, most recent of which is dated 01/27/2018. TECHNIQUE: Portable AP semierect view of the chest was obtained. FINDINGS: The cardiomediastinal silhouette is within normal limits in size. Low lung volumes are seen with mild linear subsegmental atelectasis in the left lung base. There is indistinctness of the left CP angle, perhaps due to a trace pleural effusion. No focal consolidation or pneumothorax is seen. Bony structures are unremarkable. IMPRESSION: Low lung volumes with mild left basilar subsegmental atelectasis and possible trace pleural effusion. No focal pneumonia.
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
[2018-02-01 14:13] VITALS: BP 106/56
[2018-02-01] MEDS ORDERED: ALDACTONE100 M1 PO (15:02)
[2018-02-01 21:59] VITALS: BP 94/60
[2018-02-02 06:29] VITALS: BP 104/60
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
--- NOTE | 2018-02-02 08:20 | PN- Infect Dx ---
Subjective Subjective: Afebrile. He continues to complain of severe pain in the right periorbital area. Objective Last 24 Hrs of Vital Signs/I&O Vital Signs Date Time Temp Pulse Resp B/P B/P Pulse O2 O2 Flow FiO2 Mean Ox Delivery Rate 02/02 0803 85 104/60 02/02 0629 99.4 85 16 104/60 95 Room Air 02/01 2159 97.4 78 12 94/60 100 Room Air 02/01 1413 98.2 76 20 106/56 97 Room Air 02/01 0858 82 102/56 Intake & Output 02/02 1600 02/02 0800 02/02 0000 Intake Total 120 240 Output Total Balance 120 240 Intake, Oral 120 240 Physical Exam Other Physical Findings: He appears well in no acute distress HEENT marked decrease in the right and left periorbital edema; indurated/ possibly fluctuant right forehead lesion, tender to palpation Results Last 24 Hours of Lab Results: No labs from today Last 24 Hours of Tray Results: Right forehead furuncle aspiration January 31 positive for MRSA Blood cultures 2 February 01 negative Blood cultures x2 January 30January 31 negative Stool C. difficile January 31 negative Assessment/Plan ID Impression: Improving, with marked improvement in his right (and left) periorbital inflammation and with his temperatures and white blood cell count normal on Vancomycin, Flagyl and Ceftriaxone, Day 2 of treatment for a right preseptal cellulitis secondary to MRSA, suggesting the skin as the source of his infection. He appears to have a prominent furuncle on the right forehead and, if it does not respond to antibiotics, it may require drainage. Suggestion: 1. Warm compresses to the right forehead lesions 2. Consider need for drainage of his right forehead lesion if it does not improve 3. Discontinue Ceftriaxone and Flagyl 4. Continue Vancomycin
--- NOTE | 2018-02-02 10:10 | PN- Diabetes ---
Assessment/Plan Diabetes Assessment: 32-year-old male with PMH significant for diabetes mellitus type 1, diabetic neuropathy, hypothyroidism, alcoholic liver cirrhosis, hx of alcohol abuse, who presented to the [facility] ED for fever, right eyelid swelling and erythema. Now he is on iv antibiotics. At home, he was on Lantus 20 units daily and Humalog coverage before meals. In hospital, he was put on Levemir 12 units twice a day, Novolog coverage before meals ( FSG 80-150, 8 units; 151-200, 10 units; 201-250, 12 units, etc). He hasn 't been compliance with the diet. His FSGs were 347, 468, 254, 213 and 346. Plan: 1. increase levemir to 16 units twice a day; 2. adjust Novolog coverage before meals; detail see the inpatient DM order; 3. continue the current Novolog coverage at bedtime; 4. monitor FSGs. will follow. Inpatient Diabetes Orders Before Each Meal: Bolus Insulin: Novolog < 80 mg/dl: no coverage 80-100 mg/dl: 10 units 101-120 mg/dl: 10 units 121-150 mg/dl: 10 units 151-200 mg/dl: 12 units 201-250 mg/dl: 14 units 251-300 mg/dl: 16 units 301-350 mg/dl: 18 units 351-400 mg/dl: 20 units > 400 mg/dl: 22 units Subjective Subjective: His glucose levels were not controlled. Objective Last 24 Hrs of Vital Signs/I&O Vital Signs Date Time Temp Pulse Resp B/P B/P Pulse O2 O2 Flow FiO2 Mean Ox Delivery Rate 02/02 0803 85 104/60 02/02 0629 99.4 85 16 104/60 95 Room Air 02/01 2159 97.4 78 12 94/60 100 Room Air 02/01 1413 98.2 76 20 106/56 97 Room Air Intake & Output 02/02 1600 02/02 0800 02/02 0000 Intake Total 120 240 Output Total Balance 120 240 Intake, Oral 120 240
--- NOTE | 2018-02-02 10:34 | Patient Discharge Instructions ---
Discharge Instructions General Discharge Information You were seen/treated for: MRSA cellulitis Special Instructions: Continue your antibiotics as prescribed. Follow up with your primary care physician and real time trader. Acute Coronary Syndrome Inclusion Criteria At DC or during hospital stay patient has or had the following: ACS DIAGNOSIS No Discharge Core Measures Meds if any: Prescribed or Continued at Discharge Meds if any: NOT Prescribed or Continued at Discharge Congestive Heart Failure Inclusion Criteria At DC or during hospital stay patient has or had the following: CHF DIAGNOSIS No Discharge Core Measures Meds if any: Prescribed or Continued at Discharge Meds if any: NOT Prescribed or Continued at Discharge Cerebrovascular accident Inclusion Criteria At DC or during hospital stay patient has or had the following: CVA/TIA Diagnosis No Discharge Core Measures Meds if any: Prescribed or Continued at Discharge Meds if any: NOT Prescribed or Continued at Discharge Venous thromboembolism Inclusion Criteria VTE Diagnosis No VTE Type NONE VTE Confirmed by (Test) NONE Discharge Core Measures - Per Current guidelines, there needs to be overlap - treatment for the first 5 days of Warfarin therapy. - If discharged on Warfarin prior to 5 days of - overlap therapy, the patient will need to be - assessed for post discharge needs including - *Post discharge parental anticoagulation - *Warfarin and/or parental anticoagulation education - *Follow up date to check INR post discharge At least 5 days overlap therapy as Inpatient No Meds if any: Prescribed or Continued at Discharge Note: Overlap Therapy is Warfarin and Anticoagulant Meds if any: NOT Prescribed or Continued at Discharge
--- NOTE | 2018-02-02 10:35 | Discharge Summary ---
Visit Information Visit Dates Admission Date: 01/31/18 Discharge Date: 02/05/18 Hospital Course Course Attending Physician: Cyndi Flaherty MD Primary Care Physician: Johnny Espitia MD Hospital Course: 32 year old male with a past medical history significant for diabetes mellitus type 1, diabetic neuropathy, hypothyroidism, alcoholic liver cirrhosis and esophageal varices, and history of polysubstance abuse presented with fever, right eyelid swelling, and erythema. On presentation the patient met sepsis criteria with tachycardia and fever of 101.2 without leukocytosis and a periorbital cellulitis. CT imaging of the maxillofacial area was performed and revealed extensive right facial soft tissue swelling involving the periorbital, maxillary, and zygomatic regions extending inferiorly, with no extension into the orbit and no discrete fluid collection. Ophthalmological consultation and intervention was not required. The patient was given a dose of Unasyn and started on ceftriaxone and clindamycin. Infectious disease was consulted and antibiotic coverage was changed to vancomycin, ceftriaxone, and flagyl to cover broadly because the majority of preseptal cellulitis is due to sinusitis and nasopharyngeal organisms. The patient's periorbital swelling improved and a right forehead collection was aspirated and sent for culture, which ultimately grew MRSA. Antibiotic coverage was then narrowed to vancomycin only in consultation with infectious disease. Endocrinology was consulted for hyperglycemia in the setting of infection and increased both his long acting insulin and sliding scale coverage. General surgery was consulted for possible I+D of the wound but didn't think that was necessary given his improvement on intravenous antibiotics. The patient's cellulitis gradually improved and he was discharged on Bactrim BID to complete a total ten day course of antibiotics. Of note, the patient complained of significant pain during his hospital course requiring frequent dosing of oxycodone and additional intravenous opioids. The patient has a history of substance abuse with recent history of multiple ED visits huffing inhalants. The patient was discharged with ten tablets of oxycodone 5mg q6h prn. Allergies: Coded Allergies: No Known Allergies (01/29/18) Significant Procedures: EXAM TYPE: CAT - CT MAXILLOFACIAL W CONT 01/30/18 EXAMINATION: CT MAXILLOFACIAL WITH CONTRAST CLINICAL INFORMATION: Right temporal and periorbital swelling/erythema COMPARISON: Head CT 01/10/2010 TECHNIQUE: Multidetector helical imaging was performed in the axial plane with generation of coronal and sagittal reformatted images. The examination was performed after the administration of 95 mL of Optiray 320 intravenous contrast DLP: 664.21 mGy-cm FINDINGS: There is moderately extensive right facial soft tissue swelling involving the periorbital, maxillary, and zygomatic regions, as well as extending inferiorly along the right mandible. No post septal extension into the orbit is seen. No discrete fluid collection is seen in the soft tissues to suggest focal abscess formation. There is some thickening of the right platysma muscle on the inferior extent of inflammation. There is mild asymmetric prominence of several upper right cervical lymph nodes, presumably reactive. The globes are intact, and there are no suspicious findings to suggest retrobulbar hemorrhage or inflammation. There is trace mucosal thickening of the maxillary sinuses inferiorly, left greater than right. The bilateral sphenoid, ethmoid, and frontal sinuses are well aerated bilaterally. There is slight mucosal thickening along the bilateral infundibula. There is mild leftward deviation of the nasal septum. No acute maxillofacial fractures are seen. The mandibular condyles are well-seated in the condylar fossa. Visualized portions of the brain parenchyma are unremarkable. IMPRESSION: Moderately extensive right facial soft tissue swelling involving the periorbital, maxillary, and zygomatic regions with extension inferiorly along the right platysma muscle. Appearance is consistent with a cellulitis in the proper clinical setting. No post septal orbital extension is seen. No focal abscess identified in the soft tissues. Disposition Summary Disposition Principal Diagnosis: Sepsis secondary to preseptal cellulitis from MRSA Hyperglycemia and type I diabetes mellitus Additional Diagnosis: Diabetes mellitus type 1 Diabetic neuropathy Hypothyroidism Alcoholic liver cirrhosis and esophageal varices Polysubstance abuse Discharge Disposition: home or self care Discharge Instructions General Discharge Information Code Status: Full Code Patient's Diet: Diabetic diet Patient's Activity: As tolerated Follow-Up Instructions/Appts: Please follow up with your primary care physician and merchandise director after discharge. Medications at Discharge Discharge Medications: Stop taking the following medications: Spironolactone (Aldactone) 100 MG TABLET ORAL DAILY Qty = 30 Continue taking these medications: Ergocalciferol (Vitamin D2) (Vitamin D2) 50,000 UNIT CAPSULE 1 Capsule ORAL EVERY 2 WEEKS Comments: NOT GIVEN IN HOSPITAL Levothyroxine Sodium (Levothyroxine Sodium) 25 MCG TABLET 1 Tablet ORAL DAILY BEFORE BREAKFAST Comments: Last Taken: 02/05/18 Time: 0500 AM Trazodone HCl (Trazodone HCl) 100 MG TABLET 2 Tablet ORAL Every night as needed for SLEEP Comments: Last Taken: 01/31/18 Time: 11:45 PM Pantoprazole Sodium (Pantoprazole Sodium) 40 MG TABLET.DR 1 Tablet ORAL DAILY Qty = 30 Comments: NOT GIVEN IN HOSPITAL Multivitamin (Daily Value) 1 EACH TABLET 1 Tablet ORAL DAILY Qty = 30 Comments: Last Taken: 02/05/18 Time: 0845 AM Folic Acid (Folic Acid) 1 MG TABLET 1 Tablet ORAL DAILY Qty = 30 Comments: Last Taken: 02/05/18 Time: 0845 AM Thiamine HCl (Thiamine HCl) 100 MG TABLET 1 Tablet ORAL DAILY Qty = 30 Comments: Last Taken: 02/05/18 Time: 0845 AM Furosemide (Furosemide) 20 MG TABLET 1 Tablet ORAL DAILY Comments: Last Taken: 02/05/18 Time: 0845 AM Gabapentin (Gabapentin) (Unknown Strength) CAPSULE 2 Capsule ORAL TWICE DAILY Qty = 180 Comments: Last Taken: 02/05/18 Time: 0845 AM Insulin Lispro (Humalog) (Unknown Strength) VIAL Unknown Dose Inject into fatty tissue SEE SLIDING SCALE Instructions: 80-150=8 units 151-200=10 units 201-250=12 units 251-300=14 units 301-350=16 units 351-400=18 units 401+ = 20 units Comments: NOT GIVEN IN HOSPITAL Lactulose (Lactulose) 10 GRAM/15 ML SOLUTION 30 Milliliters ORAL THREE TIMES DAILY as needed for GI Qty = 473 Comments: NOT GIVEN IN HOSPITAL Vit B Cmplx 3/FA/Vit C/Biotin (Rebecca-Kate Rx Tablet) 1 MG-60 MG-300 MCG TABLET 1 Tablet ORAL DAILY Comments: NOT GIVEN IN HOSPITAL Ursodiol (Ursodiol) 300 MG CAPSULE 1 Capsule ORAL THREE TIMES DAILY Qty = 42 Comments: NOT GIVEN IN HOSPITAL Ondansetron HCl (Ondansetron HCl) 4 MG TABLET 1 Tablet ORAL as needed for N/V Qty = 12 Comments: NOT GIVEN IN HOSPITAL Hydroxyzine Hydrochloride (Atarax) 50 MG TAB 1 Tablet ORAL Every night as needed for anxiety Qty = 15 Comments: Last Taken: 02/04/18 Time: 0400 AM Pregabalin (Lyrica) 150 MG CAPSULE 1 Capsule ORAL TWICE DAILY Qty = 60 Comments: Last Taken: 02/05/18 Time: 0845 AM Propranolol HCl (Propranolol HCl ER) 80 MG CAP.SA.24H 1 Capsule ORAL DAILY Qty = 90 Comments: Last Taken: 02/05/18 Time: 0845 AM Start taking the following new medications: Sulfamethoxazole/Trimethoprim (Bactrim Ds Tablet) 800 MG-160 MG TABLET 1 Tablet ORAL TWICE DAILY Qty = 10 No Refills Instructions: . Comments: NOT GIVEN IN HOSPITAL; IV VANCO GIVEN IN HOSPITAL Last Taken: 02/05/18 Time: 0845 AM Spironolactone (Aldactone) 25 MG TABLET 1 Tablet ORAL DAILY Qty = 30 No Refills Instructions: . Comments: Last Taken: 02/05/18 Time: 0845 AM Oxycodone HCl (Oxycodone HCl) 5 MG TABLET 1 Tablet ORAL EVERY SIX HOURS NEEDED as needed for PAIN Qty = 10 No Refills Comments: Last Taken: 02/05/18 Time: 0500 AM The following medications have been changed: Old: Insulin Glargine,Hum.rec.anlog (Lantus Solostar) 100 UNIT/ML (3 ML) INSULN.PEN 20 Unit Inject into fatty tissue Every night New: Insulin Glargine,Hum.rec.anlog (Lantus Solostar) 100 UNIT/ML (3 ML) INSULN.PEN 30 Unit Inject into fatty tissue Every night Qty = 1 Comments: NOT GIVEN IN HOSPITAL INSULIN LEVEMIR GIVEN Last Taken: 02/05/18 Time: 0845 AM Copies To: Tej NERI,Delmy; Nupur NERI,Johnny Perales MD Review Statement Documenting Attending: Cyndi Flaherty MD Other Findings: Medically stable to be discharged home.
[2018-02-02] MEDS ORDERED: BACTRIM DS TAB1 EACH PO (11:36)
[2018-02-02] MEDS ORDERED: ALDACTONE25 MG PO (11:36)
[2018-02-02 14:36] VITALS: BP 106/58
--- NOTE | 2018-02-02 17:15 | Cons- Ophthalmology ---
General Information and HPI Consulting Request Date of Consult: 02/02/18 Requested By: Cyndi Flaherty MD Reason for Consult: Eyelid swelling and eye pain History of Present Illness: 32 year old man with day history of facial and neck cellulitis (growing Staph) with 1 day episode of pain with eye movement, now feeling better. Denies any changes in vision, diplopia, redness or discharge. Has no eye complaints at this time. Allergies/Medications Allergies: Coded Allergies: No Known Allergies (01/29/18) Home Med List: Ergocalciferol (Vitamin D2) (Vitamin D2) 50,000 UNIT CAPSULE 1 CAP PO Q 2 WEEKS VITAMIN SUPPORT (Reported) Folic Acid 1 MG TABLET 1 TAB PO DAILY ALCOHOL USE Furosemide 20 MG TABLET 1 TAB PO DAILY WATER PILL (Reported) Gabapentin (Unknown Strength) CAPSULE 2 CAP PO BID NEUROPATHY (Reported) Hydroxyzine Hydrochloride (Atarax) 50 MG TAB 1 TAB PO QPM PRN anxiety Insulin Glargine,Hum.rec.anlog (Lantus Solostar) 100 UNIT/ML (3 ML) INSULN.PEN 15 UNIT SC QPM DIABETES (Reported) Insulin Lispro (Humalog) (Unknown Strength) VIAL (Unknown Dose) SC SEE SLIDING SCALE DIABETES (Reported) Lactulose 10 GRAM/15 ML SOLUTION 30 ML PO TID PRN GI (Reported) Levothyroxine Sodium 25 MCG TABLET 1 TAB PO DAILY AC THYROID (Reported) Multivitamin (Daily Value) 1 EACH TABLET 1 TAB PO DAILY OTHER Ondansetron HCl 4 MG TABLET 1 TAB PO PRN N/V (Reported) Pantoprazole Sodium 40 MG TABLET.DR 1 TAB PO DAILY REFLUX (Reported) Pregabalin (Lyrica) 150 MG CAPSULE 1 CAP PO BID neuropathy (Reported) Propranolol HCl (Propranolol HCl ER) 80 MG CAP.SA.24H 1 CAP PO DAILY gi bleed (Reported) Spironolactone (Aldactone) 100 MG TABLET 1 TAB PO DAILY CIRRHOSIS (Reported) Spironolactone (Aldactone) 25 MG TABLET 1 TAB PO DAILY cirrhosis Sulfamethoxazole/Trimethoprim (Bactrim Ds Tablet) 800 MG-160 MG TABLET 1 TAB PO BID cellulitis Thiamine HCl 100 MG TABLET 1 TAB PO DAILY OTHER Trazodone HCl 100 MG TABLET 2 TAB PO QPM PRN SLEEP (Reported) Ursodiol 300 MG CAPSULE 1 CAP PO TID UNKNOWN (Reported) Vit B Cmplx 3/FA/Vit C/Biotin (Rebecca-Kate Rx Tablet) 1 MG-60 MG-300 MCG TABLET 1 TAB PO DAILY VITAMIN SUPPORT (Reported) Past History Medical History Blood Transfusion Hx: Yes Neurological: delerium tremens EENT: allergies Cardiovascular: NONE Respiratory: NONE Gastrointestinal: L INGUINAL HERNIA REPAIR PANCREATITIS Hepatic: cholelithiasis, hepatitis C, hepatic encephalopathy (previously), jaundice, alcoholic liver disease Renal: NONE Musculoskeletal: 03/20/2014: L WRIST FX Psychiatric: alcohol dependence, anxiety, depression, substance abuse Endocrine: hypothyroidism, type 1 diabetes Blood Disorders: coagulopathy, pancytopenia Cancer(s): 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 MOTHER (HTN). FH: alcoholism Psychosocial History Where Do You Live? Home Who Do You Live With? parent Services at Home: None Primary Language: Trinidadian Smoking Status: Current Everyday Smoker ETOH Use: former alcohol abuse, not used in 2 years Illicit Drug Use: cocaine (remote use), marijuana Living Will? 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 unknown Functional Ability ADLs Independent: dressing, eating, toileting, bathing. Ambulation: independent IADLs Independent: shopping, housework, finances, food prep, telephone, transportation , medication admin. Exam & Diagnostic Data Vital Signs and I&O Vital Signs Date Time Temp Pulse Resp B/P B/P Pulse O2 O2 Flow FiO2 Mean Ox Delivery Rate 02/02 1436 98.6 78 20 106/58 98 Room Air 02/02 0803 85 104/60 02/02 0629 99.4 85 16 104/60 95 Room Air 02/01 2159 97.4 78 12 94/60 100 Room Air Intake & Output 02/02 1600 02/02 0800 02/02 0000 02/01 1600 02/01 0802/01 0000 Intake Total 800 120 395 711 6318 855 Output Total Balance 800 120 088 055 2117 855 Intake, IV 375 700 375 Intake, Oral 800 120 240 240 720 480 Number 1 1 Bowel Movements Patient 170 lb Weight Physical Exam: VA 20/20 OU EOM full and ortho in primary gaze Confrontation visual cornelius grossly intact No RAPD Penlight exam: Facial swelling right side worse than left. Nidus appears to be at right mosque. + Moderate eyelid edema right worse than left. Conjunctiva and sclera white and quiet, corneas clear, anterior chambers deep, iris and pupil round and reactive. Assessment/Plan Assessment/Plan Improving facial cellulitis with component of preseptal eyelid cellulitis with no sign of ocular or orbital pathology. Continue systemic antiobiotic management. F/u as outpatient as needed. Sundar Tucker M.D. [facility] O [phone] Consult Acknowledgment - Thank you for your consult request.
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
[2018-02-02 21:40] VITALS: BP 118/58
[2018-02-03 06:30] VITALS: BP 121/76
[2018-02-03 08:17] LABS: ABSOLUTE BASOPHIL COUNT 0 /CUMM (0.0-0.2); ABSOLUTE EOSINOPHIL COUNT 0.1 /CUMM (0.0-0.7); ABSOLUTE GRANULOCYTE CT 2.2 /CUMM (1.4-6.5); ABSOLUTE MONOCYTE COUNT 0.4 /CUMM (0.10-0.60); RED BLOOD CELL CT 3.03 /CUMM (4.70-6.10); WHITE BLOOD CELL COUNT 3.7 /CUMM (4.8-10.8)
[2018-02-03 08:48] LABS: BASOPHIL % 0.7 % (0.0-2.0); EOSINOPHIL % 2.2 % (0-5); GRANULOCYTE % 60.6 % (42.2-75.2); HEMATOCRIT 27.7 % (42-52); MEAN CORPUSCULAR HGB CONC 33.9 G/DL (33.0-37.0); MEAN CORPUSCULAR VOLUME 91.4 FL (80.0-94.0); MEAN PLATELET VOLUME 9.4 FL (7.4-10.4); RBC DISTRIBUTION WIDTH 18.6 % (11.5-14.5)
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
[2018-02-03 09:07] LABS: PLATELET COUNT 64 /CUMM (130-400)
--- NOTE | 2018-02-03 13:10 | PN- Diabetes ---
Assessment/Plan Diabetes Assessment: 32-year-old male with PMH significant for diabetes mellitus type 1, diabetic neuropathy, hypothyroidism, alcoholic liver cirrhosis, hx of alcohol abuse, who presented to the [facility] ED for fever, right eyelid swelling and erythema. Now he is on iv antibiotics. At home, he was on Lantus 20 units daily and Humalog coverage before meals. In hospital, he was put on Levemir 12 units twice a day, Novolog coverage before meals ( FSG 80-150, 8 units; 151-200, 10 units; 201-250, 12 units, etc). He hasn 't been compliance with the diet. His FSGs were in the 200s and 300s. Then Levemir was increased to 16 units twice a day; Novolog coverage before meals was adjusted. Before Each Meal: Bolus Insulin: Novolog < 80 mg/dl: no coverage 80-100 mg/dl: 10 units 101-120 mg/dl: 10 units 121-150 mg/dl: 10 units 151-200 mg/dl: 12 units 201-250 mg/dl: 14 units 251-300 mg/dl: 16 units 301-350 mg/dl: 18 units 351-400 mg/dl: 20 units > 400 mg/dl: 22 units His FSGs were 293, 136, 53, 138 and 213. He didn't have enough carbohydrates last night for dinner and his glucose level was low. Plan: 1. changed the diet to consistent carbohydrates 2 diet; 2. continue the current insulin regimen for now; 3. monitor FSGs. will follow. Subjective Subjective: The facial swelling has been much better. Objective Last 24 Hrs of Vital Signs/I&O Vital Signs Date Time Temp Pulse Resp B/P B/P Pulse O2 O2 Flow FiO2 Mean Ox Delivery Rate 02/03 0630 98.3 80 20 121/76 100 Room Air 02/02 2140 98.3 78 118/58 100 Room Air 02/02 1436 98.6 78 20 106/58 98 Room Air Intake & Output 02/03 1600 02/03 0800 02/03 0000 Intake Total 480 Output Total Balance 480 Intake, Oral 480 Findings Pertinent Lab/Tray Results: Laboratory Tests 02/03 02/03 1300 0712 Chemistry Sodium (137 - 145 mmol/L) 137 Potassium (3.5 - 5.1 mmol/L) 3.5 Chloride (98 - 107 mmol/L) 100 Carbon Dioxide (22 - 30 mmol/L) 28 Anion Gap (5 - 16) 8 BUN (9 - 20 mg/dL) 9 Creatinine (0.7 - 1.2 mg/dL) 0.7 Estimated GFR (>60 ml/min) > 60 BUN/Creatinine Ratio (7 - 25 %) 12.9 Magnesium (1.6 - 2.3 mg/dL) 1.5 L Total Bilirubin (0.2 - 1.3 mg/dL) 1.6 H Direct Bilirubin (< 0.4 mg/dL) 0.9 H AST (17 - 59 U/L) 40 ALT (21 - 72 U/L) 19 L Alkaline Phosphatase (< 127 U/L) 123 Total Protein (6.3 - 8.2 g/dL) 5.6 L Albumin (3.5 - 5.0 g/dL) 2.6 L Coagulation APTT Cancelled Hematology CBC w Diff NO MAN DIFF REQ WBC (4.8 - 10.8 /CUMM) 3.7 L RBC (4.70 - 6.10 /CUMM) 3.03 L Hgb (14.0 - 18.0 G/DL) 9.4 L Hct (42 - 52 %) 27.7 L MCV (80.0 - 94.0 FL) 91.4 MCH (27.0 - 31.0 PG) 31.0 MCHC (33.0 - 37.0 G/DL) 33.9 RDW (11.5 - 14.5 %) 18.6 H Plt Count (130 - 400 /CUMM) 64 L MPV (7.4 - 10.4 FL) 9.4 Gran % (42.2 - 75.2 %) 60.6 Lymphocytes % (20.5 - 51.1 %) 26.1 Monocytes % (1.7 - 9.3 %) 10.4 H Eosinophils % (0 - 5 %) 2.2 Basophils % (0.0 - 2.0 %) 0.7 Absolute Granulocytes (1.4 - 6.5 /CUMM) 2.2 Absolute Lymphocytes (1.2 - 3.4 /CUMM) 1.0 L Absolute Monocytes (0.10 - 0.60 /CUMM) 0.4 Absolute Eosinophils (0.0 - 0.7 /CUMM) 0.1 Absolute Basophils (0.0 - 0.2 /CUMM) 0
[2018-02-03 20:47] VITALS: BP 110/74
[2018-02-04 06:13] VITALS: BP 102/62
--- NOTE | 2018-02-04 07:53 | PN- Infect Dx ---
Subjective Subjective: Afebrile. He feels improved though still complains of pain Objective Last 24 Hrs of Vital Signs/I&O Vital Signs Date Time Temp Pulse Resp B/P B/P Pulse O2 O2 Flow FiO2 Mean Ox Delivery Rate 02/04 613 98.4 75 20 102/62 100 02/03 2047 97.9 80 16 110/74 100 Room Air 02/03 1600 Room Air Intake & Output 02/04 0800 02/04 0000 02/03 1600 Intake Total 250 2150 Output Total Balance 250 2150 Intake, IV 250 250 Intake, Oral 1900 Number 0 Bowel Movements Physical Exam Other Physical Findings: He appears comfortable in no acute distress HEENT marked improvement in his right periorbital edema with resolution of his left periorbital edema; right temporal induration improved, with no fluctuance and minimal erythema/tenderness Results Last 24 Hours of Lab Results: Laboratory Tests 02/03 1300 Coagulation APTT Cancelled Last 24 Hours of Tray Results: Blood cultures February 01 negative Assessment/Plan ID Impression: Marked improvement in his right periorbital cellulitis, presently secondary to a skin source, with MRSA isolated from the aspiration of his right scalp furuncle, with his temperatures remaining normal now on Vancomycin alone, Day 4 of treatment. His white blood cell count yesterday was slightly decreased, possibly secondary to the Vancomycin. The right forehead i furuncle/carbuncle appears to be improving, with spontaneous drainage reported. His IV access is apparently an issue and, at this point, he should be able to be switched to oral antibiotics. Suggestion: 1. Warm compresses to his right forehead lesion 2. Continue Vancomycin but, if he continues to improve and IV access is an issue, would change to Bactrim DS 1 p.o. every 12 hours for 1 week
--- NOTE | 2018-02-04 08:18 | PN- Housestaff ---
See Addendum Subjective Follow-up For: sepsis secondary to MRSA facial cellulitis Subjective: patient continues of to complain of pain on the right face afebrile on antibiotics no overnight issues Review of Systems Constitutional: Reports: see HPI. Objective Last 24 Hrs of Vital Signs/I&O Vital Signs Date Time Temp Pulse Resp B/P B/P Pulse O2 O2 Flow FiO2 Mean Ox Delivery Rate 02/04 613 98.4 75 20 102/62 100 02/03 2047 97.9 80 16 110/74 100 Room Air 02/03 1600 Room Air Intake & Output 02/04 1600 02/04 0800 02/04 0000 Intake Total 250 Output Total Balance 250 Intake, IV 250 Physical Exam General Appearance: Alert, Oriented X3, Cooperative, No Acute Distress HEENT: right facial collection, continues to drain, erythema improving, periorbital cellulitis and edema resolving Cardiovascular: Regular Rate, Normal S1, Normal S2, No Murmurs Lungs: Clear to Auscultation, Normal Air Movement Abdomen: Normal Bowel Sounds, Soft, No Tenderness, No Masses Extremities: No Clubbing, No Cyanosis, No Edema, Normal Pulses Current Medications: Current Medications Sig/Jose Martin Start time Last Medication Dose Route Stop Time Status Admin Enoxaparin Sodium 40 MG DAILY 01/31 09 02/03 SC 0826 Folic Acid 1 MG DAILY 01/31 09 AC 02/03 PO 0826 Furosemide 20 MG DAILY 02/01 1148 02/03 PO 0826 Gabapentin 600 MG BID 01/31 0900 AC 02/03 PO 205 Hydroxyzine HCl 50 MG QPM PRN 01/31 0400 02/04 PO 0401 Insulin Aspart 0 TIDAC/HS 01/31 0812 02/03 AL 1230 Insulin Detemir 16 UNITS BID 02/02 0900 02/03 SC 205 Levothyroxine Sodium 0.025 MG DAILY AC 01/31 0700 02/04 PO 0501 Magnesium Oxide 400 MG ONE ONE 02/03 1715 DC 02/03 PO 02/03 1716 1810 Magnesium Oxide 400 MG ONE ONE 02/03 0945 PR 02/03 PO 02/03 0946 1113 Morphine Sulfate 4 MG Q6-PRN PRN 02/03 1000 AC 02/04 IV 0206 Morphine Sulfate 2 MG Q6-PRN PRN 02/02 0900 DC 02/03 IV 0919 Multivitamins 1 TAB DAILY 01/31 0900 AC 02/03 Therapeutic PO 0826 Omeprazole 40 MG DAILY AC 01/31 0700 AC 02/04 PO 0501 Oxycodone HCl 10 MG Q4P PRN 02/02 09 AC 02/04 PO 0500 Oxycodone HCl 5 MG Q6 PRN 01/31 0400 AC 02/02 PO 0620 Potassium Chloride 40 MEQ ONCE ONE 02/03 0930 DC 02/03 PO 02/03 0931 1113 Pregabalin 150 MG BID 01/31 09 AC 02/03 PO 2056 Propranolol HCl 80 MG DAILY 01/31 09 AC 02/03 PO 0826 Spironolactone 12.5 MG DAILY 01/31 0900 AC 02/03 PO 0826 Thiamine HCl 100 MG DAILY 01/31 09 AC 02/03 PO 0826 Tramadol HCl 50 MG Q6 PRN 01/31 0400 AC 02/04 PO 0401 Trazodone HCl 200 MG QPM PRN 01/31 0400 AC 01/31 PO 2343 Vancomycin HCl 1,000 MG Q12 01/31 1437 AC 02/03 Sodium Chloride 250 ML IV 2056 Last 24 Hrs of Lab/Tray Results Last 24 Hrs of Labs/Mics: Laboratory Tests 02/04/18 0750: Sodium Pending, Potassium Pending, Chloride Pending, Carbon Dioxide Pending, Anion Gap Pending, BUN Pending, Creatinine Pending, BUN/Creatinine Ratio Pending , Magnesium Pending, Total Bilirubin Pending, Direct Bilirubin Pending, AST Pending, ALT Pending, Alkaline Phosphatase Pending, Total Protein Pending, Albumin Pending, CBC w Diff Pending, WBC Pending, RBC Pending, Hgb Pending, Hct Pending, MCV Pending, MCH Pending, MCHC Pending, RDW Pending, Plt Count Pending, MPV Pending 02/03/18 1300: APTT Cancelled Assessment/Plan Assessment: 32 year old male with a PMH significant for type 1 diabetes mellitus, diabetic neuropathy, hypothyroidism, alcoholic liver cirrhosis, alcohol/polysubstance abuse presents with bilateral R>L eye swelling, erythema, and cellulitis with possible trauma to the face and multiple skin cuts and contusions probably related to fighting and huffing with frequent falls. He was febrile on admission and is being treated for preseptal cellulitis likely MRSA in consultation with infectious disease. Sepsis secondary to preseptal cellulitis: tachycardia and fever, resolved CT scan no post septal extension Infectious disease consultation, appreciate recommendations Continue vancomycin, plan to change to Bactrim x 1 week Analgesia with oxycodone, and tramadol Aspiration of furuncle on right forehead growth of MRSA Contact precautions General surgery consulted, continue antibiotics, no surgical intervention at this time Improving on IV Vancomycin Type 1 diabetes mellitus: Levemir increased to 16 units bid Novolog sliding scale insulin increased Accuchecks TIDAC/HS, 130-220 last 24 hours Endocrinology consulted, appreciate recommendations Hemoglobin a1c 7.4 Continue current insulin regimen Hypothyroidism: Continue synthroid TSH wnl Alcoholic liver disease/cirrhosis with varices Patient reportedly was admitted at [facility] with pancreatitis Reports current abstinence from alcohol Continue lasix, aldactone and propanolol Repeat electrolye panel and liver function tests tomorrow History of substance abuse: Utox positive for MJ History of inhalant use recently and resultant family conflict Hepatitis panel and HIV negative Diabetic diet DVT ppx-lovenox subcutaneous and ALPs Full code Problem List: 1. Sepsis 2. Periorbital cellulitis of right eye Pain Ratin Pain Location: right face Pain Goal: Pain 4 or less Pain Plan: prn Tomorrow's Labs & Rationales: none
[2018-02-04 08:55] LABS: ABSOLUTE BASOPHIL COUNT 0 /CUMM (0.0-0.2); ABSOLUTE EOSINOPHIL COUNT 0 /CUMM (0.0-0.7); ABSOLUTE GRANULOCYTE CT 1.4 /CUMM (1.4-6.5); ABSOLUTE LYMPH COUNT 0.6 /CUMM (1.2-3.4); ABSOLUTE MONOCYTE COUNT 0.2 /CUMM (0.10-0.60); BASOPHIL % 0.8 % (0.0-2.0); EOSINOPHIL % 2.1 % (0-5); GRANULOCYTE % 61.8 % (42.2-75.2); HEMATOCRIT 25.4 % (42-52); MEAN CORPUSCULAR HGB 30.7 PG (27.0-31.0); MEAN CORPUSCULAR HGB CONC 33.5 G/DL (33.0-37.0); MEAN CORPUSCULAR VOLUME 91.6 FL (80.0-94.0); MEAN PLATELET VOLUME 8.9 FL (7.4-10.4); PLATELET COUNT 50 /CUMM (130-400); RBC DISTRIBUTION WIDTH 18.2 % (11.5-14.5); RED BLOOD CELL CT 2.77 /CUMM (4.70-6.10); WHITE BLOOD CELL COUNT 2.3 /CUMM (4.8-10.8)
--- NOTE | 2018-02-04 11:04 | PN- Diabetes ---
Assessment/Plan Diabetes Assessment: 32-year-old male with PMH significant for diabetes mellitus type 1, diabetic neuropathy, hypothyroidism, alcoholic liver cirrhosis, hx of alcohol abuse, who presented to the [facility] ED for fever, right eyelid swelling and erythema. Now he is on iv antibiotics. At home, he was on Lantus 20 units daily and Humalog coverage before meals. In hospital, he was put on Levemir 16 units twice a day, Novolog coverage before meals ( FSG 80-150, 10 units; 151-200, 12 units; 201-250, 14 units, etc). He hasn't been compliance with the diet. His FSGs were 213, 263, 58, 207 and 263. Plan: 1. continue Levemir 16 units twice a day; 2. decrease Novolog coverage before meals Before Each Meal: Bolus Insulin: Novolog < 80 mg/dl: no coverage 80-100 mg/dl: 8 units 101-120 mg/dl: 8 units 121-150 mg/dl: 8 units 151-200 mg/dl: 10 units 201-250 mg/dl: 12 units 251-300 mg/dl: 14 units 301-350 mg/dl: 16 units 351-400 mg/dl: 18 units > 400 mg/dl: 20 units 3. continue the current Novolog coverage at bedtime; 4. monitor FSGs. will follow. Subjective Subjective: His facial swelling continues improving. Objective Last 24 Hrs of Vital Signs/I&O Vital Signs Date Time Temp Pulse Resp B/P B/P Pulse O2 O2 Flow FiO2 Mean Ox Delivery Rate 02/04 613 98.4 75 20 102/62 100 02/03 2047 97.9 80 16 110/74 100 Room Air 02/03 1600 Room Air Intake & Output 02/04 1600 02/04 0800 02/04 0000 Intake Total 250 Output Total Balance 250 Intake, IV 250 Findings Pertinent Lab/Tray Results: Laboratory Tests 02/04 02/03 0750 1300 Chemistry Sodium (137 - 145 mmol/L) 134 L Potassium (3.5 - 5.1 mmol/L) 3.8 Chloride (98 - 107 mmol/L) 98 Carbon Dioxide (22 - 30 mmol/L) 28 Anion Gap (5 - 16) 7 BUN (9 - 20 mg/dL) 8 L Creatinine (0.7 - 1.2 mg/dL) 0.7 Estimated GFR (>60 ml/min) > 60 BUN/Creatinine Ratio (7 - 25 %) 11.4 Magnesium (1.6 - 2.3 mg/dL) 1.4 L Total Bilirubin (0.2 - 1.3 mg/dL) 1.4 H Direct Bilirubin (< 0.4 mg/dL) 0.8 H AST (17 - 59 U/L) 39 ALT (21 - 72 U/L) 23 Alkaline Phosphatase (< 127 U/L) 126 Total Protein (6.3 - 8.2 g/dL) 5.2 L Albumin (3.5 - 5.0 g/dL) 2.4 L Coagulation APTT Cancelled Hematology CBC w Diff NO MAN DIFF REQ WBC (4.8 - 10.8 /CUMM) 2.3 L RBC (4.70 - 6.10 /CUMM) 2.77 L Hgb (14.0 - 18.0 G/DL) 8.5 L Hct (42 - 52 %) 25.4 L MCV (80.0 - 94.0 FL) 91.6 MCH (27.0 - 31.0 PG) 30.7 MCHC (33.0 - 37.0 G/DL) 33.5 RDW (11.5 - 14.5 %) 18.2 H Plt Count (130 - 400 /CUMM) 50 L MPV (7.4 - 10.4 FL) 8.9 Gran % (42.2 - 75.2 %) 61.8 Lymphocytes % (20.5 - 51.1 %) 24.6 Monocytes % (1.7 - 9.3 %) 10.7 H Eosinophils % (0 - 5 %) 2.1 Basophils % (0.0 - 2.0 %) 0.8 Absolute Granulocytes (1.4 - 6.5 /CUMM) 1.4 Absolute Lymphocytes (1.2 - 3.4 /CUMM) 0.6 L Absolute Monocytes (0.10 - 0.60 /CUMM) 0.2 Absolute Eosinophils (0.0 - 0.7 /CUMM) 0 Absolute Basophils (0.0 - 0.2 /CUMM) 0
[2018-02-04 14:35] VITALS: BP 120/60
[2018-02-04 22:19] VITALS: BP 120/80
[2018-02-05 06:03] VITALS: BP 110/60
--- NOTE | 2018-02-05 07:18 | PN- Housestaff ---
See Addendum Subjective Follow-up For: right facial MRSA cellulitis and preseptal cellulitis Subjective: patient is anxious to be discharged, afebrile overnight pain and erythema improved, but continuing drainage Review of Systems Constitutional: Reports: see HPI. Objective Last 24 Hrs of Vital Signs/I&O Vital Signs Date Time Temp Pulse Resp B/P B/P Pulse O2 O2 Flow FiO2 Mean Ox Delivery Rate 02/05 0603 98.5 78 20 110/60 96 02/04 2219 97.6 80 16 120/80 99 Room Air 02/04 1435 98.3 80 20 120/60 98 Room Air Intake & Output 02/05 1600 02/05 0800 02/05 0000 Intake Total 480 1200 Output Total Balance 480 1200 Intake, IV 250 Intake, Oral 480 950 Physical Exam General Appearance: Alert, Oriented X3, Cooperative, No Acute Distress HEENT: right face erythema improving, still with residual drainage Cardiovascular: Regular Rate, Normal S1, Normal S2, No Murmurs Lungs: Clear to Auscultation, Normal Air Movement Abdomen: Normal Bowel Sounds, Soft, No Tenderness, No Masses Extremities: No Clubbing, No Cyanosis, No Edema, Normal Pulses Current Medications: Current Medications Sig/Jose Martin Start time Last Medication Dose Route Stop Time Status Admin Enoxaparin Sodium 40 MG DAILY 01/31 09 AC 02/05 SC 0844 Folic Acid 1 MG DAILY 01/31 09 AC 02/05 PO 0844 Furosemide 20 MG DAILY 02/01 1148 AC 02/05 PO 0844 Gabapentin 600 MG BID 01/31 09 AC 02/05 PO 0844 Hydroxyzine HCl 50 MG QPM PRN 01/31 0400 AC 02/04 PO 0401 Insulin Aspart 0 TIDAC/HS 01/31 0812 AC 02/05 SC 0844 Insulin Detemir 16 UNITS BID 02/02 0900 AC 02/05 SC 0844 Levothyroxine Sodium 0.025 MG DAILY AC 01/31 07 AC 02/05 PO 0458 Magnesium Oxide 400 MG ONE ONE 02/04 1100 DC 02/04 PO 02/04 1101 1318 Morphine Sulfate 4 MG Q6-PRN PRN 02/03 1000 DC 02/04 IV 02/04 2200 2048 Multivitamins 1 TAB DAILY 01/31 09 AC 02/05 Therapeutic PO 0844 Omeprazole 40 MG DAILY AC 01/31 0700 AC 02/05 PO 0458 Oxycodone HCl 10 MG Q6 02/04 1800 AC 02/05 PO 0458 Oxycodone HCl 10 MG Q4P PRN 02/02 0900 DC 02/04 PO 0835 Oxycodone HCl 5 MG Q6 PRN 01/31 0400 AC 02/04 PO 1318 Pregabalin 150 MG BID 01/31 09 AC 02/05 PO 0845 Propranolol HCl 80 MG DAILY 01/31 09 AC 02/05 PO 0844 Spironolactone 12.5 MG DAILY 01/31 0900 AC 02/05 PO 0844 Thiamine HCl 100 MG DAILY 01/31 0900 AC 02/05 PO 0844 Tramadol HCl 50 MG Q6 PRN 01/31 0400 AC 02/04 PO 2237 Trazodone HCl 200 MG QPM PRN 01/31 0400 AC 01/31 PO 2343 Vancomycin HCl 1,000 MG Q12 01/31 1437 AC 02/05 Sodium Chloride 250 ML IV 0844 Last 24 Hrs of Lab/Tray Results Last 24 Hrs of Labs/Mics: Laboratory Tests 02/05/18 0725: Anion Gap 7, Estimated GFR > 60, BUN/Creatinine Ratio 8.6, Magnesium 1.5 L Assessment/Plan Assessment: 32 year old male with a PMH significant for type 1 diabetes mellitus, diabetic neuropathy, hypothyroidism, alcoholic liver cirrhosis, alcohol/polysubstance abuse presents with bilateral R>L eye swelling, erythema, and cellulitis with possible trauma to the face and multiple skin cuts and contusions probably related to fighting and huffing with frequent falls. He was febrile on admission and is being treated for preseptal cellulitis likely MRSA in consultation with infectious disease. Sepsis secondary to preseptal cellulitis: tachycardia and fever, resolved CT scan no post septal extension Infectious disease consultation, appreciate recommendations Continue vancomycin, plan to change to Bactrim x 1 week Analgesia with oxycodone, and tramadol Aspiration of furuncle on right forehead growth of MRSA Contact precautions General surgery consulted, continue antibiotics, no surgical intervention at this time Improving on IV Vancomycin Type 1 diabetes mellitus: Levemir increased to 16 units bid Novolog sliding scale insulin increased Accuchecks TIDAC/HS, 130-220 last 24 hours Endocrinology consulted, appreciate recommendations Hemoglobin a1c 7.4 Continue current insulin regimen Hypothyroidism: Continue synthroid TSH wnl Alcoholic liver disease/cirrhosis with varices Patient reportedly was admitted at [place] with pancreatitis Reports current abstinence from alcohol Continue lasix, aldactone and propanolol Repeat electrolye panel and liver function tests tomorrow History of substance abuse: Utox positive for MJ History of inhalant use recently and resultant family conflict Hepatitis panel and HIV negative Diabetic diet DVT ppx-lovenox subcutaneous and ALPs Full code Stable for discharge today with five days of Bactrim 875mg po bid Problem List: 1. Periorbital cellulitis of right eye 2. Sepsis Pain Ratin Pain Location: right face Pain Goal: Pain 4 or less Pain Plan: prn oxycodone Tomorrow's Labs & Rationales: none
[2018-02-05] MEDS ORDERED: LANTUS SOL100 UNIT/1 SC (07:28)
[2018-02-05] MEDS ORDERED: BACTRIM DS TAB1 EACH PO (09:06)
[2018-02-05] MEDS ORDERED: ALDACTONE25 MG PO (09:06)
[2018-02-05] MEDS ORDERED: OXYCODONE HCL5 M1 PO (09:47)
--- NOTE | 2018-02-05 11:56 | PN- Infect Dx ---
Subjective Subjective: Afebrile. He feels well but does note persistent drainage from the right temporal wound Objective Last 24 Hrs of Vital Signs/I&O Vital Signs Date Time Temp Pulse Resp B/P B/P Pulse O2 O2 Flow FiO2 Mean Ox Delivery Rate 02/05 0603 98.5 78 20 110/60 96 02/04 2219 97.6 80 16 120/80 99 Room Air 02/04 1435 98.3 80 20 120/60 98 Room Air Intake & Output 02/05 1600 02/05 0800 02/05 0000 Intake Total 480 1200 Output Total Balance 480 1200 Intake, IV 250 Intake, Oral 480 950 Physical Exam Other Physical Findings: He appears comfortable in no acute distress HEENT mild swelling in the right temporal area, with resolution of his right and left periorbital edema and erythema Results Last 24 Hours of Lab Results: Laboratory Tests 02/05 0725 Chemistry Sodium (137 - 145 mmol/L) 137 Potassium (3.5 - 5.1 mmol/L) 3.5 Chloride (98 - 107 mmol/L) 100 Carbon Dioxide (22 - 30 mmol/L) 29 Anion Gap (5 - 16) 7 BUN (9 - 20 mg/dL) 6 L Creatinine (0.7 - 1.2 mg/dL) 0.7 Estimated GFR (>60 ml/min) > 60 BUN/Creatinine Ratio (7 - 25 %) 8.6 Magnesium (1.6 - 2.3 mg/dL) 1.5 L Last 24 Hours of Tray Results: Blood cultures February 01 negative Assessment/Plan ID Impression: Doing well, with temperatures remaining normal, on Vancomycin, Day 5 of treatment for a bilateral, right greater than left, preseptal cellulitis secondary to MRSA, presumably from a skin source, with several furuncles over his right temporal and scalp area. His white blood cell count continues to decrease, possibly secondary to Vancomycin, though previous white blood cell counts have been low and, with his, throbocytopenia, suspect this is secondary to hypersplenism from his alcohol induced cirrhosis. Suggestion: 1. Discontinue Vancomycin and begin Bactrim DS 1 p.o. every 12 hours for 5 more days
--- NOTE | 2018-02-05 13:00 | PN- Diabetes ---
Assessment/Plan Diabetes Assessment: 32-year-old male with PMH significant for diabetes mellitus type 1, diabetic neuropathy, hypothyroidism, alcoholic liver cirrhosis, hx of alcohol abuse, who presented to the [facility] ED for fever, right eyelid swelling and erythema. Now he is on iv antibiotics. At home, he was on Lantus 20 units daily and Humalog coverage before meals. In hospital, he was put on Levemir 16 units twice a day, Novolog coverage before meals ( FSG 80-150, 8 units; 151-200, 10 units; 201-250, 12 units, etc). His FSGs were 263, 243, 173 and 156. Plan: continue the current insulin regimen for now; monitor FSGs. will follow. Subjective Subjective: Facial swelling continues improving. Objective Last 24 Hrs of Vital Signs/I&O Vital Signs Date Time Temp Pulse Resp B/P B/P Pulse O2 O2 Flow FiO2 Mean Ox Delivery Rate 02/05 0603 98.5 78 20 110/60 96 02/04 2219 97.6 80 16 120/80 99 Room Air 02/04 1435 98.3 80 20 120/60 98 Room Air Intake & Output 02/05 1600 02/05 0800 02/05 0000 Intake Total 480 1200 Output Total Balance 480 1200 Intake, IV 250 Intake, Oral 480 950 Findings Pertinent Lab/Tray Results: Laboratory Tests 02/05 0725 Chemistry Sodium (137 - 145 mmol/L) 137 Potassium (3.5 - 5.1 mmol/L) 3.5 Chloride (98 - 107 mmol/L) 100 Carbon Dioxide (22 - 30 mmol/L) 29 Anion Gap (5 - 16) 7 BUN (9 - 20 mg/dL) 6 L Creatinine (0.7 - 1.2 mg/dL) 0.7 Estimated GFR (>60 ml/min) > 60 BUN/Creatinine Ratio (7 - 25 %) 8.6 Magnesium (1.6 - 2.3 mg/dL) 1.5 L
== END 2018-02-05 10:57 | DRG 720 ==
LOC: ERH 21:22 → 2NB 01-31 00:39 → ERHI 01-31 00:39 → ENRESERV 01-31 01:57 → 2NB 01-31 02:58 → ENPENDDIS 02-05 09:15 → 2NB 02-05 10:57
PROVIDERS: Emergency Medicine; Preventive Medicine Public Health & General Preventive Medicine; Student in an Organized Health Care Education/Training Program
DX: A41.9 Sepsis, unspecified organism (principal); L03.211 Cellulitis of face; F12.10 Cannabis abuse, uncomplicated; F11.10 Opioid abuse, uncomplicated; D69.6 Thrombocytopenia, unspecified; K70.30 Alcoholic cirrhosis of liver without ascites; E10.40 Type 1 diabetes mellitus with diabetic neuropathy, unspecified; Z79.4 Long term (current) use of insulin; F32.9 Major depressive disorder, single episode, unspecified; F41.9 Anxiety disorder, unspecified; F17.210 Nicotine dependence, cigarettes, uncomplicated; L02.02 Furuncle of face; B95.62 Methicillin resistant Staphylococcus aureus infection as the cause of diseases classified elsewhere; F18.90 Inhalant use, unspecified, uncomplicated
CPT/HCPCS: 2NBP; 2NBSP; 87075; 87184; 36415; 36592; 71045; 80307; 81003; 82436; 86803; 87040; 87070; 87147; 87389; 93005; 93010; 96361; 96374; 96375; G0480; J0131; J0696; J1650; J1815; J1885; J3370; J3490; J7040

== ENCOUNTER 2018-02-15 03:49 | Inpatient (IN) | payer OTHER ==
[~2018-02-15] VITALS: Ht 188 cm; Wt 89.9 kg
[~2018-02-15 03:49] MED LIST changes: +ALDACTONE100 M1 PO; +ALDACTONE25 MG PO; +BACTRIM DS TAB1 EACH PO; +LYRICA150 M1 PO; +PROPRANOLOL HCL80 M2 PO
--- NOTE | 2018-02-15 04:02 | ED AMS/SEIZURE/WEAK/DIZZY ---
See Addendum History of Present Illness General Chief Complaint: Altered Mental Status Stated Complaint: AMS? Source: patient, old records, EMS Exam Limitations: no limitations Vital Signs & Intake/Output Vital Signs & Intake/Output Vital Signs Date Time Temp Pulse Resp B/P B/P Pulse O2 O2 Flow FiO2 Mean Ox Delivery Rate 02/15 1621 100.3 86 16 120/73 91 Room Air 02/15 1422 98.6 88 17 130/78 98 Room Air 02/15 1212 99.8 86 14 125/70 98 Room Air 02/15 0824 98.2 78 20 122/68 97 Room Air 02/15 0613 98.0 89 18 109/58 98 Room Air 02/15 0400 98.0 97 20 130/79 97 Room Air . Allergies Coded Allergies: No Known Allergies (01/29/18) Reconcile Medications Ergocalciferol (Vitamin D2) (Vitamin D2) 50,000 UNIT CAPSULE 1 CAP PO Q 2 WEEKS VITAMIN SUPPORT (Reported) Folic Acid 1 MG TABLET 1 TAB PO DAILY ALCOHOL USE Furosemide 20 MG TABLET 1 TAB PO DAILY WATER PILL (Reported) Gabapentin (Unknown Strength) CAPSULE 2 CAP PO BID NEUROPATHY (Reported) Hydroxyzine Hydrochloride (Atarax) 50 MG TAB 1 TAB PO QPM PRN anxiety Insulin Glargine,Hum.rec.anlog (Lantus Solostar) 100 UNIT/ML (3 ML) INSULN.PEN 30 UNIT SC QPM DIABETES Insulin Lispro (Humalog) (Unknown Strength) VIAL (Unknown Dose) SC SEE SLIDING SCALE DIABETES (Reported) 80-150=8 units 151-200=10 units 201-250=12 units 251-300=14 units 301-350=16 units 351-400=18 units 401+ = 20 units Lactulose 10 GRAM/15 ML SOLUTION 30 ML PO TID PRN GI (Reported) Levothyroxine Sodium 25 MCG TABLET 1 TAB PO DAILY AC THYROID (Reported) Multivitamin (Daily Value) 1 EACH TABLET 1 TAB PO DAILY OTHER Ondansetron HCl 4 MG TABLET 1 TAB PO PRN N/V (Reported) Oxycodone HCl 5 MG TABLET 1 TAB PO Q6P PRN PAIN Pantoprazole Sodium 40 MG TABLET.DR 1 TAB PO DAILY REFLUX (Reported) Pregabalin (Lyrica) 150 MG CAPSULE 1 CAP PO BID neuropathy (Reported) Propranolol HCl (Propranolol HCl ER) 80 MG CAP.SA.24H 1 CAP PO DAILY gi bleed (Reported) Spironolactone (Aldactone) 25 MG TABLET 1 TAB PO DAILY cirrhosis . Sulfamethoxazole/Trimethoprim (Bactrim Ds Tablet) 800 MG-160 MG TABLET 1 TAB PO BID cellulitis . Thiamine HCl 100 MG TABLET 1 TAB PO DAILY OTHER Trazodone HCl 100 MG TABLET 2 TAB PO QPM PRN SLEEP (Reported) Ursodiol 300 MG CAPSULE 1 CAP PO TID UNKNOWN (Reported) Vit B Cmplx 3/FA/Vit C/Biotin (Rebecca-Kate Rx Tablet) 1 MG-60 MG-300 MCG TABLET 1 TAB PO DAILY VITAMIN SUPPORT (Reported) Triage Nurses Notes Reviewed? yes Onset: Just prior to arrival Duration: minute(s):, constant, continues in ED Timing: single episode today Injury Environment: home Severity: severe Modifying Factors: Improves With: other (narcan, dextrose). HPI: The patient admits to taking 8, 10 mg methadone tablets in the morning. He reports fall asleep on the couch. His family found him unresponsive. EMS called. EMS found his blood sugar to be 50 administered glucose without effect. After 0.8 mg of Narcan the patient awoke. Currently he complains of chills and feeling cold body pain. He denies fever nausea vomiting diarrhea abdominal pain chest pain cough shortness of breath dysuria rash bleeding. (Jose NERI,Elijah) Past History Travel History Traveled to [place] past 21 day No Medical History Any Pertinent Medical History? see below for history Neurological: delerium tremens EENT: allergies Cardiovascular: NONE Respiratory: NONE Gastrointestinal: L INGUINAL HERNIA REPAIR PANCREATITIS Hepatic: cholelithiasis, hepatitis C, hepatic encephalopathy (previously), jaundice, alcoholic liver disease Renal: NONE Musculoskeletal: 03/20/2014: L WRIST FX Psychiatric: alcohol dependence, anxiety, depression, substance abuse Endocrine: hypothyroidism, type 1 diabetes Blood Disorders: coagulopathy, pancytopenia Cancer(s): NONE YOUTH PASTOR/Reproductive: NONE History of MRSA: Yes History of VRE: No History of CDIFF: No Tetanus Vaccine: 10/20/19 Surgical History Surgical History: hernia repair-inguinal (03/12/2007: Lap LIH with mesh), 2013: L wrist surgery Psychosocial History Who do you live with Family Services at Home None What is your primary language Macanese Family History Family History, If Any: FATHER (Stroke at the age of 47HTN). MOTHER (HTN). FH: alcoholism Hx Contributory? No (Elijah Garcia MD) Review of Systems Review of Systems Constitutional: Reports: see HPI, weakness. EENTM: Reports: no symptoms. Respiratory: Reports: see HPI. Cardiovascular: Reports: no symptoms. GI: Reports: no symptoms. Genitourinary: Reports: no symptoms. Musculoskeletal: Reports: no symptoms. Skin: Reports: no symptoms. Neurological/Psychological: Reports: see HPI, weakness. Hematologic/Endocrine: Reports: no symptoms. Immunologic/Allergic: Reports: no symptoms. All Other Systems: Reviewed and Negative (Elijah Garcia MD) Physical Exam Physical Exam General Appearance: well developed/nourished, alert, awake, anxious, mild distress Head: atraumatic, normal appearance Eyes: Bilateral: normal appearance, PERRL, EOMI. Ears, Nose, Throat: normal pharynx, normal ENT inspection, hearing grossly normal Neck: normal inspection, supple, full range of motion, no midline tenderness Respiratory: normal breath sounds, chest non-tender, no respiratory distress, quiet respiration, lungs clear Cardiovascular: regular rate/rhythm, normal peripheral pulses, norml femoral pulses equa Peripheral Pulses: 4+ carotid (R), 4+ carotid (L) Gastrointestinal: normal bowel sounds, soft, non-tender, no organomegaly Back: normal inspection, normal range of motion Extremities: normal range of motion, no ligament instability Neurologic/Psych: no motor/sensory deficits, awake, alert, oriented x 3, normal gait, normal mood/affect, bill distributor II-XII nml as tested Reflexes: 2+: bicep (R), bicep (L). Skin: intact, normal color, warm/dry Lymphatic: no anterior cervical liana Core Measures ACS in differential dx? No CVA/TIA Diagnosis No Sepsis Present: No Sepsis Focused Exam Completed? No (Elijah Garcia MD) Progress Differential Diagnosis: drug intoxication, electrolyte imbalance Plan of Care: Orders Procedure Date/time Status Consistent Carbohydrate 2 02/15 B Active Continuous Observation Monitor 02/15 0729 Active ED CRISIS PSYCH CONSULT 02/15 0456 Active URINE DRUG SCREEN FOR ER ONLY 02/15 0400 Complete COMPREHENSIVE METABOLIC PANEL 02/15 040 Complete CBC WITHOUT DIFFERENTIAL 02/15 040 Complete Laboratory Tests 02/15/18 0748: Urine Opiates Screen 355, Methadone Screen > 735 H, Barbiturate Screen < 60, Ur Phencyclidine Scrn < 6.00, Amphetamines Screen < 100, U Benzodiazepines Scrn < 85, Urine Cocaine Screen < 50, Urine Cannabis Screen 79.70 H 02/15/18 0407: Anion Gap 14, Estimated GFR 55 L, BUN/Creatinine Ratio 15.3, Glucose 76, Calcium 8.1 L, Total Bilirubin 1.3, AST 47, ALT 26, Alkaline Phosphatase 124, Total Protein 6.7, Albumin 3.4 L, Globulin 3.3, Albumin/Globulin Ratio 1.0 L, CBC w Diff MAN DIFF ORDERED, RBC 2.85 L, MCV 90.3, MCH 29.1, MCHC 32.2 L, RDW 17.8 H, MPV 9.8, Gran % 69.9, Lymphocytes % 18.9 L, Monocytes % 10.1 H, Eosinophils % 1.1, Basophils % 0, Absolute Granulocytes 1.9, Segmented Neutrophils 70, Band Neutrophils 5, Absolute Lymphocytes 0.5 L, Lymphocytes 19 L, Monocytes 5, Absolute Monocytes 0.2, Eosinophils 1, Absolute Eosinophils 0, Absolute Basophils 0, Platelet Estimate DECREASED, Polychromasia 1+, Hypochromic -Microcytic 2+, Poikilocytosis 2+, Basophilic Stippling RARE, Elliptocytes 1+, Schistocytes 1+, Fld Total RBCs Counted 100 Initial ED EKG: none Rhythm Strip: normal sinus rhythm Hand-Off Endorsed To: Leo Rodriguez DO Endorsed Time: 0700 Pending: consult, labs (Elijah Garcia MD) Departure Departure Disposition: STILL A PATIENT Condition: Stable Clinical Impression Primary Impression: Accidental methadone overdose Secondary Impressions: Acute prerenal azotemia, Hypoglycemia Referrals: Johnny Espitia MD (PCP/Family) Departure Forms: Customer Survey General Discharge Information (Elijah Garcia MD) Departure Comments 02/10/18 6 PM The patient was signed out to me by Dr. Garcia at 7 AM. He is and disposition by crisis (Leo Rodriguez DO)
[2018-02-15 04:21] LABS: ABSOLUTE BASOPHIL COUNT 0 /CUMM (0.0-0.2); ABSOLUTE EOSINOPHIL COUNT 0 /CUMM (0.0-0.7); ABSOLUTE GRANULOCYTE CT 1.9 /CUMM (1.4-6.5); ABSOLUTE LYMPH COUNT 0.5 /CUMM (1.2-3.4); BASOPHIL % 0 % (0.0-2.0); EOSINOPHIL % 1.1 % (0-5); GRANULOCYTE % 69.9 % (42.2-75.2); WHITE BLOOD CELL COUNT 2.7 /CUMM (4.8-10.8)
[2018-02-15 04:23] LABS: ABSOLUTE MONOCYTE COUNT 0.2 /CUMM (0.10-0.60); HEMATOCRIT 25.8 % (42-52); MEAN CORPUSCULAR HGB 29.1 PG (27.0-31.0); MEAN CORPUSCULAR HGB CONC 32.2 G/DL (33.0-37.0); MEAN CORPUSCULAR VOLUME 90.3 FL (80.0-94.0); MEAN PLATELET VOLUME 9.8 FL (7.4-10.4); PLATELET COUNT 62 /CUMM (130-400); RBC DISTRIBUTION WIDTH 17.8 % (11.5-14.5); RED BLOOD CELL CT 2.85 /CUMM (4.70-6.10)
--- NOTE | 2018-02-15 18:44 | ED PSYCH CRISIS CONSULTATION ---
See Addendum Crisis Consult Basic Assessment Date of Consult: 02/15/18 Responsible Person/Accompanied By: Brought in by EMS Insurance Authorization: Insurance #1: Insurance name: AYUSH MOTT Phone number: Policy number: [id number] Group number: Authorization number: ED Provider: Patient's ED Provider: Elijah Garcia MD Primary Care Physician: Patient's PCP: Johnny Espitia MD PCP's Current Psychiatrist: None Chief Complaint: Psychiatric Related Complaint Patient's Quote: " I took too many prescription pills." Present Illness: The patient is a 32 year old, single male presenting to the ED, via EMS after being found unresponsive by his mother. The patient presents somewhat lethargic with irritable mood and was crying during the evaluation. He states that he took too many Methadone pills to "get high." He states that he has a long history of substance abuse issues and is currently using Methadone and Marijuana. He states that he is using the Methadone "whenever he can get it," noting about 1 x a month and the marijuana daily. He reports feeling depressed, rating it a 7 out of 10, anxious rating it a 20 out of 10, 10 being the most severe. He states that he has never been suicidal and does not feel that way now , however then states "maybe you can save my life." He has a history of severe alcohol abuse, however reports being sober for 1.5 years. He states that he is currently at [facility] in [place]. He was not able to state any previous treatment episodes, however per records has been at [facility] briefly in the past. He is unsure if he feels helpless or hopeless. He reports decreased sleep, decreased appetite, decreased motivation, decreased concentration and decreased energy. He graduated high school, resides with his parents and is not currently working. He states that he is not currently in a relationship with anyone and does not have any children. He is unable to state any particular stressors and just states "life is stressful," while crying. He is not sure what would be helpful at this time. SW spoke to his mother, Mary Ann Carolina ([phone]), for collateral information. Mary Ann states that the patient has "had a little substance abuse issue," and is currently a recovering alcoholic. She states that he is on the transplant list for a new liver, secondary to the damage done by alcohol. Mary Ann reports that she found him unresponsive earlier today and called the ambulance. She believes that he is depressed and notes his brother , a number of years ago. She does not think that he would intentionally hurt himself, however she is concerned about the substance use. She reports that whether or not he goes into treatment is up to him, but that if he does not stay in the hospital that he can come home. Patient's Address: [address] [place] [address] Other Phone Number: Who Do You Live With? Family Family/Informants Interviewed: Mother- Mary Ann Carolina- [phone] Allergies - Coded Allergies: No Known Allergies (01/29/18) Current Medications - Scheduled Medications Ergocalciferol (Vitamin D2) (Vitamin D2) 50,000 UNIT CAPSULE 1 CAP PO Q 2 WEEKS VITAMIN SUPPORT (Reported) Entered as Reported by Leilani Benavides on 12/23/142110 Folic Acid 1 MG TABLET 1 TAB PO DAILY ALCOHOL USE #30 TAB Prescribed by Christie Pineda MD on 05/02/16 Furosemide 20 MG TABLET 1 TAB PO DAILY WATER PILL (Reported) Entered as Reported by Abebe Francisco on 01/09/17 114 Last Taken: 02/14/18 Gabapentin (Unknown Strength) CAPSULE 2 CAP PO BID NEUROPATHY #180 (Reported) Entered as Reported by Abebe Francisco on 01/09/17 114 Last Taken: 02/14/18 Insulin Glargine,Hum.rec.anlog (Lantus Solostar) 100 UNIT/ML (3 ML) INSULN.PEN 30 UNIT SC QPM DIABETES #1 VIAL Prescribed by Te Guevara MD on 02/05/18 Last Taken: 02/14/18 Insulin Lispro (Humalog) (Unknown Strength) VIAL (Unknown Dose) SC SEE SLIDING SCALE DIABETES (Reported) Entered as Reported by Abebe Francisco on 01/09/17 114 Levothyroxine Sodium 25 MCG TABLET 1 TAB PO DAILY AC THYROID (Reported) Entered as Reported by Leilani Benavides on 12/23/142111 Last Taken: 02/14/18 Multivitamin (Daily Value) 1 EACH TABLET 1 TAB PO DAILY OTHER #30 TAB Prescribed by Christie Pineda MD on 05/02/16 Pantoprazole Sodium 40 MG TABLET.DR 1 TAB PO DAILY REFLUX #30 (Reported) Entered as Reported by Katie Adams on 05/02/16 0550 Pregabalin (Lyrica) 150 MG CAPSULE 1 CAP PO BID neuropathy #60 (Reported) Entered as Reported by Washington James MD on 01/31/18517 Last Taken: 02/14/18 Propranolol HCl (Propranolol HCl ER) 80 MG CAP.SA.24H 1 CAP PO DAILY gi bleed #90 (Reported) Entered as Reported by Washington James MD on 01/31/18518 Last Taken: 02/14/18 Spironolactone (Aldactone) 25 MG TABLET 1 TAB PO DAILY cirrhosis #30 TAB Prescribed by Te Guevara MD on 02/05/18 Sulfamethoxazole/Trimethoprim (Bactrim Ds Tablet) 800 MG-160 MG TABLET 1 TAB PO BID cellulitis #10 TAB Prescribed by Te Guevara MD on 02/05/18 Thiamine HCl 100 MG TABLET 1 TAB PO DAILY OTHER #30 Prescribed by Christie Pineda MD on 05/02/16 Last Taken: 02/14/18 Ursodiol 300 MG CAPSULE 1 CAP PO TID UNKNOWN #42 (Reported) Entered as Reported by Leilani Benavides on 01/19/171804 Last Taken: 02/14/18 Vit B Cmplx 3/FA/Vit C/Biotin (Rebecca-Kate Rx Tablet) 1 MG-60 MG-300 MCG TABLET 1 TAB PO DAILY VITAMIN SUPPORT (Reported) Entered as Reported by Abebe Francisco on 01/09/17 1147 Scheduled PRN Medications Hydroxyzine Hydrochloride (Atarax) 50 MG TAB 1 TAB PO QPM PRN anxiety #15 TAB Prescribed by Mariaelena Houser on 01/29/18 Last Taken: 02/14/18 Lactulose 10 GRAM/15 ML SOLUTION 30 ML PO TID PRN GI #473 (Reported) Entered as Reported by Abebe Francisco on 01/09/17 1145 Ondansetron HCl 4 MG TABLET 1 TAB PO PRN N/V #12 (Reported) Entered as Reported by Leilani Benavides on 03/23/17 1406 Oxycodone HCl 5 MG TABLET 1 TAB PO Q6P PRN PAIN #10 TAB Prescribed by Te Guevara MD on 02/05/18 Trazodone HCl 100 MG TABLET 2 TAB PO QPM PRN SLEEP (Reported) Entered as Reported by Katie Adams on 04/10/16 3189 Last Taken: 02/14/18 Laboratory Results: Laboratory Tests 02/15/18 0748: Urine Opiates Screen 355, Methadone Screen > 735 H, Barbiturate Screen < 60, Ur Phencyclidine Scrn < 6.00, Amphetamines Screen < 100, U Benzodiazepines Scrn < 85, Urine Cocaine Screen < 50, Urine Cannabis Screen 79.70 H 02/15/18 0407: Anion Gap 14, Estimated GFR 55 L, BUN/Creatinine Ratio 15.3, Glucose 76, Calcium 8.1 L, Total Bilirubin 1.3, AST 47, ALT 26, Alkaline Phosphatase 124, Total Protein 6.7, Albumin 3.4 L, Globulin 3.3, Albumin/Globulin Ratio 1.0 L, CBC w Diff MAN DIFF ORDERED, RBC 2.85 L, MCV 90.3, MCH 29.1, MCHC 32.2 L, RDW 17.8 H, MPV 9.8, Gran % 69.9, Lymphocytes % 18.9 L, Monocytes % 10.1 H, Eosinophils % 1.1, Basophils % 0, Absolute Granulocytes 1.9, Segmented Neutrophils 70, Band Neutrophils 5, Absolute Lymphocytes 0.5 L, Lymphocytes 19 L, Monocytes 5, Absolute Monocytes 0.2, Eosinophils 1, Absolute Eosinophils 0, Absolute Basophils 0, Platelet Estimate DECREASED, Polychromasia 1+, Hypochromic -Microcytic 2+, Poikilocytosis 2+, Basophilic Stippling RARE, Elliptocytes 1+, Schistocytes 1+, Fld Total RBCs Counted 100 Past History Past Medical History Neurological: delerium tremens EENT: allergies Cardiovascular: NONE Respiratory: NONE Gastrointestinal: L INGUINAL HERNIA REPAIR PANCREATITIS Hepatic: cholelithiasis, hepatitis C, hepatic encephalopathy (previously), jaundice, alcoholic liver disease Renal: NONE Musculoskeletal: 03/20/2014: L WRIST FX Psychiatric: alcohol dependence, anxiety, depression, substance abuse Endocrine: hypothyroidism, type 1 diabetes Blood Disorders: coagulopathy, pancytopenia Cancer(s): NONE 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 Physical Limitations (Interventions): None noted Psychiatric Treatment History Psych Treatment Psychiatric Treatment Yes Inpatient Treatment No Outpatient Treatment Yes Location of Treatment [facility] Reason for Treatment Dual Diagnosis Dates of Treatment 2009 Response to Treatment unclear Diagnosis by History: Per history- Alcohol use disorder benzodiazapine use disorder opioid agonist abuse Rule - outs for depressive disorder & anxiety disorder Substance Use/Abuse History Drug Use/Abuse 1 Substances Used/Abused Yes Substance Used/Abused Marijuana First Use unclear Last Used "24 hours ago." How much used/taken Unclear How often Daily For how long Unclear Route of use Inhalation Drug Use/Abuse 2 Substances Used/Abused Yes Substance Used/Abused Other (list in comments) (Methadone) First Use Unclear Last Used Last night/ early this AM How much used/taken The patient was not clear, he states "enough." How often 1x monthly For how long Unclear Route of use Unclear Substance Abuse Treatment Substance Abuse Treatment Past Substance Abuse [place] Yes Inpatient Treatment Yes Outpatient Treatment Yes Location of Treatment [facility] "[facility]," in [place] Reason for Treatment unclear.. He was treated on the medical floors for alcohol abuse many times in the past. Dates of Treatment Multiple dates, currently in treatment at [facility] Comments: N/A Current Mental Status Mental Status Orientation: Person, Place, Situation Affect: Labile (Crying and irritable) Speech: WNL Neuro-vegetative: Appetite Decreased, Concentration Poor, Energy Decreased, Sleep Disturbance, Decreased motivation Appearance Appearance- Dress/Hygiene: The patient was lying in bed, in hospital attire, with multiple visible tattoos on arms and was crying at multiple points during the evaluation. Behaviors Thought Process: WNL Thought Content: WNL, He has a history of having hallucinations, per records, however states that he does not remember ever having them . Memory: Impaired (Difficulty remembering Hx.) Insight: Fair SI/HI Risk Assessment Past Suicidal Ideation/Attempts No Current Suicidal Ideation/Att No Past Homicidal Ideation/Att: No Current Homicidal Ideation/Attempts No Degree of Intent: He denies any current suicidal or homicidal ideations, however then states "maybe you can save my life." Danger To: Self Risk Factors: SA/MH hospitalized, substance abuse, male, limited support Lethality Ratin PTSD Checklist PTSD Done? pt unable to participate (Somewhat lethargic & Irritable) ED Management Sitter: Yes Restraints: No DSM5/PS Stressors/Medical Prob Diagnosis' (DSM 5, Stressors, Medical): F32.9 Unspecified Depressive Disorder F12.20 Cannabis Use Disorder F11.20 Opioid Use Disorder F10.20 Alcohol Use Disorder, in remission for 1.5 years. Medical: Per records: Diabetes, status post hernia repair, pancytopenic, hypothyroidism, esophageal varices, seizures and status post left wrist fracture and repair. Stressors: Unemployment Current GAF: 30 Comments: N/A Departure Disposition Psych Medical Clearance Date: 02/15/18 Medically Cleared at: 1730 Time Started: 1729 Time Ended: 1814 Psychiatrist Consulted: Dr. Mcdaniel Date Disposition Established: 02/15/18 Time Disposition Established: 1909 Plan for Disposition - Modality: Hold over for reassessment Contact: N/A Telephone: N/A Rationale for Disposition: The patient presents to the ED after he was found unresponsive by his parents. He states that he was taking Methadone to get high. He denies any current suicidal ideations, however states "maybe you can save my life." He reports decreased concentration, energy, motivation, sleep and appetite. The case was discussed with Dr. Mcdaniel and she would like to hold him over for a reassessment in the AM. It is unclear if the patient requires an inpatient admission at this time, however given current presentation Dr. Mcdaniel would like to watch him over night. Additional Instructions: N/A Referrals Nupur NERI,Johnny Silver (PCP/Family)
--- NOTE | 2018-02-15 22:00 | RADIOLOGY REPORT ---
EXAMINATION: XR PORTABLE CHEST CLINICAL INFORMATION: Fever. Overdose COMPARISON: 02/01/18 TECHNIQUE: Portable frontal view of the chest was obtained. FINDINGS: Mild rotation toward the right. Artifact superimposes over the right upper mediastinum. Cardiac size and the ward are within normal limits. There is hypoinflation. Moderate sized poorly defined opacity in the right midlung. No pneumothorax or pleural fluid. IMPRESSION: Moderate opacity right midlung could represent pneumonia and was not present on 02/01/18
--- NOTE | 2018-02-15 23:58 | History & Physical ---
Imelda Lind MD 02/15/18 4777: General Information and HPI MD Statement: I have seen and personally examined EDY AVILES III and documented this H&P. The patient is a 32 year old M who presented with a patient stated chief complaint of unresponsive episode, bloody vomiting, likely aspiration pneumonia, myalgias, chills Source of Information: patient, old records, EMS Exam Limitations: unable to give history History of Present Illness: Patient is a 32-year-old male with a past medical history significant for multi- substance abuse, previous delirium tremens, pancreatitis, left inguinal hernia repair, cholelithiasis, hepatitis C, previous hepatic encephalopathy, hypothyroidism, diabetes that is brought in by ambulance after an episode of unresponsiveness at home. Most of the history was taken from EMS records and patient's triage/ER report as the patient was very lethargic and refused to answer most of our questions at the time of interview. According to EMS records , the patient had taken 8, 10 mg methadone tabs. His family found him on the couch unresponsive and called EMS. Once they are EMS found his blood sugar to be 50. They gave him 1 amp of dextrose which did nothing to revive the patient. They gave him 0.8 of Narcan and the patient did revive. Once in the ED, the patient complained to the nurse of chills and generalized myalgias. He denied fever, nausea, vomiting, diarrhea, constipation, abdominal pain, chest pain, cough, shortness of breath, rash, dysuria. The patient was recently discharged on February 02 for sepsis secondary to periorbital cellulitis. He was treated with Vanco, ceftriaxone, Flagyl, seen by ID, found to be positive for MRSA and discharged on Bactrim for a total 10 days of treatment. Gen. surgery was contacted at the time and stated no need for I&D. the patient was seen by Dr. Zhou in 2016 while in the hospital and found to have esophageal varices. The patient has a history of multi-substance abuse including opiates, alcohol, inhalants. On interview, the patient had an episode of bloody vomitus. He stated that he last had bloody vomitus a couple months ago. Allergies/Medications Allergies: Coded Allergies: No Known Allergies (01/29/18) Home Med list Ergocalciferol (Vitamin D2) (Vitamin D2) 50,000 UNIT CAPSULE 1 CAP PO Q 2 WEEKS VITAMIN SUPPORT (Reported) Folic Acid 1 MG TABLET 1 TAB PO DAILY ALCOHOL USE Furosemide 20 MG TABLET 1 TAB PO DAILY WATER PILL (Reported) Gabapentin (Unknown Strength) CAPSULE 2 CAP PO BID NEUROPATHY (Reported) Hydroxyzine Hydrochloride (Atarax) 50 MG TAB 1 TAB PO QPM PRN anxiety Insulin Glargine,Hum.rec.anlog (Lantus Solostar) 100 UNIT/ML (3 ML) INSULN.PEN 30 UNIT SC QPM DIABETES Insulin Lispro (Humalog) (Unknown Strength) VIAL (Unknown Dose) SC SEE SLIDING SCALE DIABETES (Reported) 80-150=8 units 151-200=10 units 201-250=12 units 251-300=14 units 301-350=16 units 351-400=18 units 401+ = 20 units Lactulose 10 GRAM/15 ML SOLUTION 30 ML PO TID PRN GI (Reported) Levothyroxine Sodium 25 MCG TABLET 1 TAB PO DAILY AC THYROID (Reported) Multivitamin (Daily Value) 1 EACH TABLET 1 TAB PO DAILY OTHER Ondansetron HCl 4 MG TABLET 1 TAB PO PRN N/V (Reported) Oxycodone HCl 5 MG TABLET 1 TAB PO Q6P PRN PAIN Pantoprazole Sodium 40 MG TABLET.DR 1 TAB PO DAILY REFLUX (Reported) Pregabalin (Lyrica) 150 MG CAPSULE 1 CAP PO BID neuropathy (Reported) Propranolol HCl (Propranolol HCl ER) 80 MG CAP.SA.24H 1 CAP PO DAILY gi bleed (Reported) Spironolactone (Aldactone) 25 MG TABLET 1 TAB PO DAILY cirrhosis . Sulfamethoxazole/Trimethoprim (Bactrim Ds Tablet) 800 MG-160 MG TABLET 1 TAB PO BID cellulitis . Thiamine HCl 100 MG TABLET 1 TAB PO DAILY OTHER Trazodone HCl 100 MG TABLET 2 TAB PO QPM PRN SLEEP (Reported) Ursodiol 300 MG CAPSULE 1 CAP PO TID UNKNOWN (Reported) Vit B Cmplx 3/FA/Vit C/Biotin (Rebecca-Kate Rx Tablet) 1 MG-60 MG-300 MCG TABLET 1 TAB PO DAILY VITAMIN SUPPORT (Reported) Compliance With Home Meds: POOR Past History Travel History Traveled to [place] past 21 day No Medical History Neurological: delerium tremens EENT: allergies Cardiovascular: NONE Respiratory: NONE Gastrointestinal: L INGUINAL HERNIA REPAIR PANCREATITIS Hepatic: cholelithiasis, hepatitis C, hepatic encephalopathy (previously), jaundice, alcoholic liver disease Renal: NONE Musculoskeletal: 03/20/2014: L WRIST FX Psychiatric: alcohol dependence, anxiety, depression, substance abuse Endocrine: hypothyroidism, type 1 diabetes Blood Disorders: coagulopathy, pancytopenia Cancer(s): NONE 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 Psychosocial History Who Do You Live With? parent Services at Home: None Primary Language: Yakut Living Will? unknown Power of Prosthetist/HCP? unknown Functional Ability ADLs Independent: dressing, eating, toileting, bathing. Ambulation: independent IADLs Independent: shopping, housework, finances, food prep, telephone, transportation , medication admin. Review of Systems Review of Systems Constitutional: Reports: chills, malaise, weakness. EENTM: Reports: no symptoms. Cardiovascular: Reports: no symptoms. Respiratory: Reports: no symptoms. GI: Reports: abdominal pain, bloating, nausea, bloody stool, vomiting. Genitourinary: Reports: no symptoms. Musculoskeletal: Reports: no symptoms. Skin: Reports: no symptoms. Neurological/Psychological: Reports: confusion. Hematologic/Endocrine: Reports: no symptoms. Immunologic/Allergic: Reports: no symptoms. Exam & Diagnostic Data Last 24 Hrs of Vital Signs/I&O Vital Signs Date Time Temp Pulse Resp B/P B/P Pulse O2 O2 Flow FiO2 Mean Ox Delivery Rate 02/16 0400 99.2 81 10 99/57 02/16 0400 94 Nasal 2.0L Cannula 02/16 0200 98.7 84 15 101/69 02/16 0130 98.7 82 12 110/64 02/16 0130 94 Nasal 2.0L Cannula 02/16 0130 98.7 82 12 110/64 95 Nasal 2.0L Cannula 02/16 0100 85 20 108/53 93 Nasal 2.0L Cannula 02/16 0000 100.7 101 20 109/56 90 Room Air Room Air 02/15 2311 101.5 100 20 116/68 92 Room Air 02/15 2039 100.2 96 20 94/55 94 02/15 1940 101.0 90 16 113/44 02/15 1940 101.0 90 16 113/44 02/15 1812 101.0 90 16 113/44 91 Room Air 02/15 1621 100.3 86 16 120/73 91 Room Air 02/15 1422 98.6 88 17 130/78 98 Room Air 02/15 1212 99.8 86 14 125/70 98 Room Air 02/15 0824 98.2 78 20 122/68 97 Room Air 02/15 0613 98.0 89 18 109/58 98 Room Air Intake & Output 02/16 0800 02/16 0000 02/15 1600 Intake Total 1000 2000 Output Total 300 Balance 700 2000 Intake, IV 1000 2000 Number 1 Bowel Movements Output, 300 Emesis Patient 200 lb Weight Weight Bed scale Measurement Method Physical Exam General Appearance Oriented X3, Mild Distress Skin No Rashes, No Breakdown, No Significant Lesion, Skin appears pale and clammy. Skin Temp/Moisture Exam: Warm/Dry Sepsis Skin Exam (color): Normal for Ethnicity HEENT Atraumatic, PERRLA, EOMI, slight swelling of both eyelids noted Neck Supple, No JVD Cardiovascular Regular Rate, Normal S1, Normal S2, No Murmurs Lungs Clear to Auscultation, Normal Air Movement Abdomen Normal Bowel Sounds, No Masses, abdomen is tense and pain elicited on palpation throughout Neurological Normal Speech Extremities No Clubbing, No Cyanosis, No Edema, Normal Pulses, No Tenderness/ Swelling Vascular Normal Pulses, Pulses Symmetrical Last 24 Hrs of Labs/Tray: Laboratory Tests 02/16/18 0010: PT 21.3 H, INR 1.94 H, CBC w Diff MAN DIFF ORDERED, RBC 1.97 L, MCV 89.9, MCH 29.7, MCHC 33.0, RDW 17.7 H, MPV 9.2, Gran % 80.4 H, Lymphocytes % 13.0 L, Monocytes % 6.2, Eosinophils % 0.3, Basophils % 0.1, Absolute Granulocytes 2.7, Segmented Neutrophils 85 H, Band Neutrophils 2, Absolute Lymphocytes 0.4 L, Lymphocytes 9 L, Monocytes 1 L, Absolute Monocytes 0.2, Eosinophils 1, Absolute Eosinophils 0, Basophils 2, Absolute Basophils 0, Platelet Estimate DECREASED, Polychromasia 1+, Poikilocytosis 1+, Basophilic Stippling 1+, Ovalocytes 1+, Elliptocytes FEW, Fld Total RBCs Counted 100 02/15/18 1937: Anion Gap 9, Estimated GFR > 60, BUN/Creatinine Ratio 20.0, Glucose 235 H, Calcium 7.6 L, Total Bilirubin 1.6 H, AST 49, ALT 20 L, Alkaline Phosphatase 123, Ammonia 22, Total Protein 5.7 L, Albumin 2.7 L, Globulin 3.0, Albumin/ Globulin Ratio 0.9 L, Serum Alcohol < 10.0 02/15/18 0748: Urine Opiates Screen 355, Methadone Screen > 735 H, Barbiturate Screen < 60, Ur Phencyclidine Scrn < 6.00, Amphetamines Screen < 100, U Benzodiazepines Scrn < 85, Urine Cocaine Screen < 50, Urine Cannabis Screen 79.70 H, Urine Color YEL, Urine Clarity CLEAR, Urine pH 6.0, Ur Specific [place] 1.025, Urine Protein NEG, Urine Ketones NEG, Urine Nitrite NEG, Urine Bilirubin NEG, Urine Urobilinogen 0.2, Ur Leukocyte Esterase NEG, Ur Microscopic EXAM NOT REQUIRED, Urine Hemoglobin NEG, Urine Glucose NEG Microbiology 02/16 0150 UPPER RESP: Surveillance Culture - RECD 02/16 0004 LOWER RESP: Respiratory Culture - COLB 02/16 0004 LOWER RESP: Gram Stain - COLB 02/15 2235 BLOOD: Blood Culture - RECD 02/15 2225 BLOOD: Blood Culture - RECD Assessment/Plan Assessment: Patient is a 32-year-old male with a past medical history significant for multi- substance abuse including opiates, inhalants, alcohol, previous delirium tremens , pancreatitis, left inguinal hernia repair, cholelithiasis, hepatitis C, previous hepatic encephalopathy, hypothyroidism, diabetes that is brought in by ambulance after an episode of unresponsiveness at home. During the episode of unresponsiveness, the patient responded to Narcan. The patient was recently admitted for periorbital cellulitis treated with antibiotics for MRSA. The patient has a history of esophageal varices found in 2016. The patient was unable to be interviewed but ER report stated no chest pain, cough, shortness of breath. Patient was found physical exam to be cold and clammy and he had one episode of bloody vomitus. It was reported with the nocturnal set the patient had a further episode of bloody vomitus and bloody BMs. In the ED, temperature 90.8 which increased to 101.0, heart rate 97 which increased to 101, respiratory rate 20, blood pressure 130/79 which decreased to 94/55 lowest, 97% oxygen saturation on room air. EKG showed normal sinus rhythm rate of 92 with a QTc of 411 down from previous QTC of 508 Labs showed WBC 2.7 down from baseline of 3-4, hemoglobin 8.3 down from baseline of 11, SUBSEQUENT HB 5.9, platelets 62 SUBSEQUENT 44, baseline 60-100, sodium 135 which dropped to 129 on subsequent drop, potassium 5.1, BUN 23, creatinine 1.5 with baseline of 1.0, glucose 235, calcium normal, bilirubin 1.6, ammonia level 22, INR 1.94, tox screen showing methadone and cannabis. Chest x-ray showed moderate right lung opacity new sense his last admission on . In the ED, the patient received Fortaz 1 g, azithromycin 500 mg, normal saline 2 bags, Zofran, PPI. Assessment -Likely aspiration pneumonia secondary to hematemesis in the setting of established esophageal varices secondary to cirrhosis. The bili also exists for healthcare acquired pneumonia as patient was recently discharged, coverage for Pseudomonas necessary. -Acute blood loss anemia -Episode of unresponsiveness status post overdose of methadone -History of polysubstance abuse including opiates, alcohol, inhalants -Diabetes and hypothyroidism Plan -Admit patient to ICU for evaluation and treatment of likely aspiration pneumonia, acute blood loss anemia, methadone overdose -Stat GI consult for acute blood loss anemia -Propranolol 80 mg daily -Follow up CBC -Transfusion of 2 units of PRBCs -Abdominal ultrasound in the morning. -Hold patient's antihypertensives -Vancomycin 1 g daily and Unasyn 1.5 mg every 6 -Protonix 40 mg IV daily -Dicyclomine for abdominal pain 20 mg every 6 when necessary and Zofran 4 mg every 6 -Continue patient's Atarax 50 mg every night as needed -Octreotide drip -Multivitamins, folic acid, thiamine -Levemir 10 units twice a day with sliding scale coverage and Accu-Cheks -Start patient's Synthroid 0.025 mg daily -Follow blood cultures 2 -Psych consult and consider Patient is full code By mouth DVT prophylaxis with only Alps As Ranked By This Provider Problem List: 1. Acute prerenal azotemia 2. Accidental methadone overdose 3. Esophageal varices 4. Pneumonia Core Measures/Misc (05/07) Acute Coronary Syndrome ACS Diagnosis: No Congestive Heart Failure Congestive Heart Failure Diagnosis No Cerebrovascular Accident CVA/TIA Diagnosis: No VTE (View Protocol) VTE Risk Factors Acute Medical Illness No Mechanical VTE Prophylaxis d/t N/A MechProphylax Ordered No VTE Pharm Prophylaxis d/t Bleeding (Active) Sepsis (View protocol) Sepsis Present: Yes If YES complete Sepsis Event Note If YES complete Sepsis Event Note Lenore Armendariz 02/16/18 0222: Core Measures/Misc (05/07) Sepsis (View protocol) If YES complete Sepsis Event Note If YES complete Sepsis Event Note Resident Review Statement Other Findings: Patient is 32-year-old male with past medical history of alcohol-induced liver cirrhosis, nonbleeding esophageal varices diagnosed on EGD in 2015, history of hepatic encephalopathy, delirium tremors, was brought in by family on 02/15/2018 at 4 AM after being found unresponsive. In ER patient was found to have ordered mental status, and upon further questioning he revealed that he took increased dose of methadone as he was trying to get high. This information was obtained from ER note, at the time of examination by the medical team, patient was very drowsy and had to be woken up repeatedly during the interview. Patient states that he is having abdominal pain, and had one episode of hemoptysis in front of us in ER of bright red blood with clots. Later the patient also had one episode of fresh blood in stool. Patient was recently discharged from [facility] on 02/05 after being treated for preseptal cellulitis of right eye. He was discharged on by mouth Bactrim for 5 more days. Patient was alert and oriented 3 however Medical team was unable to obtain review of systems as the patient was not answering to the questions. CXR obtained in ER today was significant for right midlung opacity. Patient was already given ceftaz exam and azithromycin in ER and patient had MAXIMUM TEMPERATURE of 101 in ER. Labs and vitals as above Assessment and plan The patient was admitted to critical care unit, his repeat CBC showed a hemoglobin of 5.9 from 8.3 earlier, he was started on IV Protonix, given his history of esophageal varices was started on octreotide drip, patient will be transfused with 2 units of packed RBCs. Dr. Knott was consulted and he plans to do EGD today. Recheck cbc at 4pm s/p transfusion. For PNA, patient is started on unasyn to cover anaerobes and Vanco to cover MRSA given his hx of MRSA. Patient is kept NPO, will dec his levemir from 16 bid to 10 bid for now, novolog SS same as presecribed by Dr. mcknight on his previous admission. USG abdomen in am as patient reports of abdominal pain and it appears tenths on examination to evaluate for any ascites given his history of liver cirrhosis. Repeat LFTs in morning. Will hold patients psyc meds for now. DVT prophylaxis Alps Patient is full code. Katie Freeman 02/16/18 0508: Core Measures/Misc (05/07) Sepsis (View protocol) If YES complete Sepsis Event Note If YES complete Sepsis Event Note Attending MD Review Statement Attending Statement Attending MD Statement: examined this patient, discuss w/resident/PA/RECOVERER, agreed w/resident/PA/RECOVERER, reviewed EMR data (avail), reviewed images, amended to note Attending Assessment/Plan: CC: fever PMH: Insulin-dependent diabetes, alcoholic cirrhosis, anxiety, depression, substance abuse, neuropathy, hypothyroidism . Use of "Dusters" History is mostly obtained from patient's chart, ED notes. Patient is not cooperative to provide any details. He was recently admitted from January 31 - February 05 for extensive periaortic vitals cellulitis, discharged on by mouth Bactrim. Patient was brought in ER on February 15 at 3:50 AM for being found unresponsive by family with abdominal respiration and blood glucose of 50. EMS was called who administered the 10, blood glucose improved but patient remained unresponsive, so Narcan was given for which patient responded. By the time he came to ER he was alert oriented but was complaining of multiple aches and pains. Eventually patient admitted taking 6-8 pieces of the milligrams of methadone intentionally. When I asked how much he says "looks like not enough", this appearing to be suicidal. He was observed in ER for clinical improvement and psychiatry crisis evaluation. Patient had breakfast appropriately. But then was sleepy later part of the day. At 18:12 patient spikes fever of 101.0, he was found to have pneumonia and fever called for admission. When we went to see him Patient had 2 episodes of bloody vomiting, first at 23:45 than at 00:30. At 00:30 he also had bloody diarrhea approximately 500 mL. Patient is not cooperative, does not provide any details, ROS and limited. Vitals: Tmax 101.0, pulse 88, RR 16, blood pressure 120/73, 1 reading dropped to 94/55, saturating 94% on room air On exam: A O 3, sleepy but arousable verbally, no acute distress, slow RR, neck supple, JVD normal, no lymphadenopathy, neurological examination could not be done, no dependent edema, no obvious skin rashes or inflammation, multiple tattoos CVS: S1-S2, RRR. RS: Crackles on the right side. Abdomen: Soft, NT, ND, bowel sounds present. CXR: Moderate opacity right midlung could represent pneumonia and was not present on 02/01/18 Assessment and plan 32-year-old male with extensive past medical history, presented in ER after what appears to be suicidal ideation, with overdose of methadone, was found unresponsive, agonally breathing, hypoglycemic, responded after Narcan. Patient was observed in ER for clinical improvement followed by psychiatry crisis evaluation. While in ER patient spiked fever of 101, further evaluated with chest x-ray and was found to have pneumonia. He appears to have aspiration pneumonia in the setting of overdose. He has recent MRSA history. Will cover with IV Unasyn and vancomycin. When we went to see him Patient had 2 episodes of bloody vomiting, first at 23:45 than at 00:30. At 00:30 he also had bloody diarrhea approximately 500 mL. patient has history of alcoholic cirrhosis, esophageal varices, and this appears to be where variceal bleeding. He had previous episode of bloody vomitings approximately 2 years back according to patient. Patient did not have recurrent vomiting since morning which exclude any Angelina Edgardo tears. Patient appears to be appropriate for ICU given the volume of blood loss. Repeat CBC was obtained which showed drop in H&H from 8.3 to 5.9. IV Protonix was given, octreotide drip was started, called GI stat who agreed with the plan and would want to scope him overnight if he gets hemodynamically unstable or further bleeding or else scope in a.m. Will continue sitter + Acute blood loss anemia + Hematemesis and hematochezia secondary to suspected variceal bleed + Intentional overdose of methadone with suicidal ideation + Aspiration pneumonia + History of Insulin-dependent diabetes, alcoholic cirrhosis, anxiety, depression, substance abuse, neuropathy, hypothyroidism . 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
[2018-02-16] VITALS (9 sets, daily range): BP systolic 92–113; BP diastolic 55–71
[2018-02-16 00:22] LABS: ABSOLUTE BASOPHIL COUNT 0 /CUMM (0.0-0.2); ABSOLUTE EOSINOPHIL COUNT 0 /CUMM (0.0-0.7); ABSOLUTE GRANULOCYTE CT 2.7 /CUMM (1.4-6.5); ABSOLUTE LYMPH COUNT 0.4 /CUMM (1.2-3.4); ABSOLUTE MONOCYTE COUNT 0.2 /CUMM (0.10-0.60); BASOPHIL % 0.1 % (0.0-2.0); EOSINOPHIL % 0.3 % (0-5); GRANULOCYTE % 80.4 % (42.2-75.2); MEAN CORPUSCULAR HGB 29.7 PG (27.0-31.0); MEAN CORPUSCULAR VOLUME 89.9 FL (80.0-94.0); MEAN PLATELET VOLUME 9.2 FL (7.4-10.4); PLATELET COUNT 44 /CUMM (130-400); RBC DISTRIBUTION WIDTH 17.7 % (11.5-14.5); WHITE BLOOD CELL COUNT 3.4 /CUMM (4.8-10.8)
[2018-02-16 00:30] LABS: PT 21.3 SEC (9.4-12.5)
[2018-02-16 00:44] LABS: RED BLOOD CELL CT 1.97 /CUMM (4.70-6.10)
[2018-02-16 00:46] LABS: HEMATOCRIT 17.7 % (42-52)
--- NOTE | 2018-02-16 01:45 | Cons- Gastroenterology ---
General Information and HPI Consulting Request Date of Consult: 02/16/18 Requested By: Mikayla Ken MD Reason for Consult: Hematemesis in a pt with a history of etoh cirrhosis with varices. Anemia. Hematochezia. Source of Information: patient, family, old records Exam Limitations: clinical condition History of Present Illness: Mr. Carolina is a 32 year old male with a history of etoh cirrhosis with known varices on an EGD in 2016 and PSA who presented to in the yeast tender hours of after being found unresponsive by his mother. He was recently discharged from the hospital for periorbital cellulitis treated with IV abx. He apparently had been using methadone and marijuna in an effort to get high and his mother found him yesterday morning unresponsive and she called EMS who gave him dextrose for a blood sugar of 50 and narcan with improvement in his mental status. In the ER he was found to have a possible infiltrate on xray for which he was given IV ceftaz and IV azithromycin. He has also been seen by the crisis management team who was awaiting his medical disposition before deciding on placement. He remained in the ER throughout the day yesterday and then late last night he had gross hematemesis with vomiting of clots and this was accompanied by passage of brbpr. He had one more episode of hematemesis at about 12:30 this morning and has had nothing else since. He has not had any significant drops in his blood pressure with the vomiting. A stat CBC was checked and he was noted to have a drop in his hgb to 5.9 from his admission value at 8.3. He was transferred to the ICU, started on IV protonix and IV octreotide and was transfused with 2 units of PRBCs overnight with improvement in his hgb to 7.4 this am. He notes that he has had similar vomiting like this about a month ago, but he didn't seek medical attention for it. He denies any recent etoh use. He is also currently without any abdominal pain. Allergies/Medications Allergies: Coded Allergies: No Known Allergies (01/29/18) Home Med List: Ergocalciferol (Vitamin D2) (Vitamin D2) 50,000 UNIT CAPSULE 1 CAP PO Q 2 WEEKS VITAMIN SUPPORT (Reported) Folic Acid 1 MG TABLET 1 TAB PO DAILY ALCOHOL USE Furosemide 20 MG TABLET 1 TAB PO DAILY WATER PILL (Reported) Gabapentin (Unknown Strength) CAPSULE 2 CAP PO BID NEUROPATHY (Reported) Hydroxyzine Hydrochloride (Atarax) 50 MG TAB 1 TAB PO QPM PRN anxiety Insulin Glargine,Hum.rec.anlog (Lantus Solostar) 100 UNIT/ML (3 ML) INSULN.PEN 30 UNIT SC QPM DIABETES Insulin Lispro (Humalog) (Unknown Strength) VIAL (Unknown Dose) SC SEE SLIDING SCALE DIABETES (Reported) 80-150=8 units 151-200=10 units 201-250=12 units 251-300=14 units 301-350=16 units 351-400=18 units 401+ = 20 units Lactulose 10 GRAM/15 ML SOLUTION 30 ML PO TID PRN GI (Reported) Levothyroxine Sodium 25 MCG TABLET 1 TAB PO DAILY AC THYROID (Reported) Multivitamin (Daily Value) 1 EACH TABLET 1 TAB PO DAILY OTHER Ondansetron HCl 4 MG TABLET 1 TAB PO PRN N/V (Reported) Oxycodone HCl 5 MG TABLET 1 TAB PO Q6P PRN PAIN Pantoprazole Sodium 40 MG TABLET.DR 1 TAB PO DAILY REFLUX (Reported) Pregabalin (Lyrica) 150 MG CAPSULE 1 CAP PO BID neuropathy (Reported) Propranolol HCl (Propranolol HCl ER) 80 MG CAP.SA.24H 1 CAP PO DAILY gi bleed (Reported) Spironolactone (Aldactone) 25 MG TABLET 1 TAB PO DAILY cirrhosis . Sulfamethoxazole/Trimethoprim (Bactrim Ds Tablet) 800 MG-160 MG TABLET 1 TAB PO BID cellulitis . Thiamine HCl 100 MG TABLET 1 TAB PO DAILY OTHER Trazodone HCl 100 MG TABLET 2 TAB PO QPM PRN SLEEP (Reported) Ursodiol 300 MG CAPSULE 1 CAP PO TID UNKNOWN (Reported) Vit B Cmplx 3/FA/Vit C/Biotin (Rebecca-Kate Rx Tablet) 1 MG-60 MG-300 MCG TABLET 1 TAB PO DAILY VITAMIN SUPPORT (Reported) Current Medications: Current Medications Sig/Jose Martin Start time Last Medication Dose Route Stop Time Status Admin Ampicillin Sodium/ 1,500 MG Q6 02/16 0142 AC 02/16 Sulbactam Sodium IV 0454 Sodium Chloride 100 ML Azithromycin 500 MG ONCE ONE 02/15 2230 DC 02/15 Sodium Chloride 250 ML IV 02/153 2315 Ceftazidime 0 .STK-MED ONE 06/28 2302 DC .ROUTE Ceftazidime 1,000 MG ONCE ONE 02/15 2230 DC 02/15 IV 02/15 2231 2315 Clonidine 0.1 MG TID 02/15 2100 AC 02/15 PO 1940 Clonidine 0 .STK-MED ONE 02/15 2009 DC PO Dicyclomine HCl 20 MG 4 TIMES/DAY PRN 02/15 2330 AC PO Dicyclomine HCl 20 MG 4 TIMES/DAY PRN 02/15 1945 DC PO Folic Acid 0 .STK-MED ONE 02/15 2010 DC PO Folic Acid 1 MG DAILY 02/15 1931 AC 02/15 PO 1940 Hydroxyzine HCl 50 MG QPM PRN 02/15 1945 AC PO Insulin Aspart 0 TIDAC 02/16 08 AC SC Insulin Detemir 10 UNITS BID 02/16 09 AC SC Insulin Detemir 16 UNITS BID 02/16 0015 DC 02/16 SC 0025 Insulin Human Isoph/ 30 UNITS ONCE ONE 02/15 1945 DC 02/15 Insulin Regular SC 02/15 194 1940 Levothyroxine Sodium 0.025 MG DAILY AC 02/16 0700 AC PO Loperamide HCl 2 MG Q6P PRN 02/15 1945 DC PO Multivitamins 0 .STK-MED ONE 02/15 2010 DC PO Multivitamins 1 TAB DAILY 02/15 1933 AC 02/15 Therapeutic PO 1940 Naloxone HCl 0.4 MG ONCE PRN 02/16 0215 AC IV Octreotide Acetate 500 MCG Q10H 02/16 0045 AC 02/16 Sodium Chloride 500 ML IV 0117 Omeprazole 40 MG DAILY AC 02/16 0700 CAN PO Ondansetron HCl 0 .STK-MED ONE 02/15 2011 DC PO Ondansetron HCl 0 .STK-MED ONE 02/15 2009 DC .ROUTE Ondansetron HCl 4 MG Q6 PRN 02/15 1945 AC 02/15 PO 1940 Pantoprazole Sodium 40 MG DAILY 02/16 09 DC IV Pantoprazole Sodium 40 MG BID 02/16 09 AC IV Pantoprazole Sodium 0 .STK-MED ONE 02/16 0028 DC IV Pantoprazole Sodium 40 MG ONCE ONE 02/16 0015 DC 02/16 IV 02/16 0016 0025 Pregabalin 0 .STK-MED ONE 02/15 2010 DC PO Pregabalin 150 MG ONCE ONE 02/15 1945 DC 02/15 PO 02/15 Propranolol HCl 80 MG DAILY 02/15 1935 AC 02/15 PO 194 Sodium Chloride 1,000 ML BOLUS ONE 02/15 2100 DC 02/15 IV 02/15 Sodium Chloride 1,000 ML BOLUS ONE 02/15 2100 DC 02/15 IV 02/15 2159 221 Thiamine HCl 0 .STK-MED ONE 02/15 2010 DC PO Thiamine HCl 100 MG DAILY 02/15 1935 AC 02/15 PO 194 Trazodone HCl 200 MG QPM PRN 02/15 1945 DC PO Vancomycin HCl 1,000 MG 0330,1530 02/16 0330 AC Sodium Chloride 250 ML IV Vancomycin HCl 1,000 MG BID 02/16 0142 DC 02/16 Sodium Chloride 250 ML IV 0337 Past History Travel History Traveled to [place] past 21 day No Medical History Neurological: delerium tremens EENT: allergies Cardiovascular: NONE Respiratory: NONE Gastrointestinal: L INGUINAL HERNIA REPAIR PANCREATITIS Hepatic: cholelithiasis, hepatitis C, hepatic encephalopathy (previously), jaundice, alcoholic liver disease Renal: NONE Musculoskeletal: 03/20/2014: L WRIST FX Psychiatric: alcohol dependence, anxiety, depression, substance abuse Endocrine: hypothyroidism, type 1 diabetes Blood Disorders: coagulopathy, pancytopenia Cancer(s): NONE 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 MOTHER (HTN). FH: alcoholism Psychosocial History Who Do You Live With? parent Services at Home: None Primary Language: Kazakh Living Will? 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 Ambulation: independent IADLs Independent: shopping, housework, finances, food prep, telephone, transportation , medication admin. Review of Systems Review of Systems: Due to lethargy a full 12 point review of systems was not able to be obtained. Exam & Diagnostic Data Vital Signs and I&O Vital Signs Date Time Temp Pulse Resp B/P B/P Pulse O2 O2 Flow FiO2 Mean Ox Delivery Rate 02/16 0100 85 20 108/53 93 Nasal 2.0L Cannula 02/16 0000 100.7 101 20 109/56 90 Room Air Room Air 02/15 2311 101.5 100 20 116/68 92 Room Air 02/15 2039 100.2 96 20 94/55 94 02/15 1940 101.0 90 16 113/44 02/15 1940 101.0 90 16 113/44 02/15 1812 101.0 90 16 113/44 91 Room Air 02/15 1621 100.3 86 16 120/73 91 Room Air 02/15 1422 98.6 88 17 130/78 98 Room Air 02/15 1212 99.8 86 14 125/70 98 Room Air 02/15 0824 98.2 78 20 122/68 97 Room Air 02/15 0613 98.0 89 18 109/58 98 Room Air 02/15 0400 98.0 97 20 130/79 97 Room Air Intake & Output 02/16 0400 02/15 1600 02/15 0400 02/14 1600 02/14 0400 02/13 1600 Intake Total 1000 2000 Output Total 300 Balance 700 2000 Intake, IV 1000 2000 Intake, Oral 0 Number 1 Bowel Movements Output, 300 Emesis Patient 175 lb Weight Weight Reported by Patient Measurement Method Physical Exam General Appearance: no apparent distress, lethargic Head: atraumatic, normal appearance Eyes: Bilateral: pale conjunctivae. Ears, Nose, Throat: dried blood on mucous membranes Neck: normal inspection, supple Respiratory: normal breath sounds, decreased breath sounds Cardiovascular: regular rate/rhythm Gastrointestinal: normal bowel sounds, soft, non-tender, distention Rectal: deferred Back: normal inspection, normal range of motion Extremities: no edema Neurologic/Psych: awake Skin: intact, pallor Results Pertinent Lab Results: Laboratory Tests 02/16 02/15 0010 1937 Chemistry Sodium (137 - 145 mmol/L) 129 L Potassium (3.5 - 5.1 mmol/L) 4.3 Chloride (98 - 107 mmol/L) 98 Carbon Dioxide (22 - 30 mmol/L) 22 Anion Gap (5 - 16) 9 BUN (9 - 20 mg/dL) 20 Creatinine (0.7 - 1.2 mg/dL) 1.0 Estimated GFR (>60 ml/min) > 60 BUN/Creatinine Ratio (7 - 25 %) 20.0 Glucose (65 - 99 mg/dL) 235 H Calcium (8.4 - 10.2 mg/dL) 7.6 L Total Bilirubin (0.2 - 1.3 mg/dL) 1.6 H AST (17 - 59 U/L) 49 ALT (21 - 72 U/L) 20 L Alkaline Phosphatase (< 127 U/L) 123 Ammonia (9 - 30 umol/L) 22 Total Protein (6.3 - 8.2 g/dL) 5.7 L Albumin (3.5 - 5.0 g/dL) 2.7 L Globulin (1.9 - 4.2 gm/dL) 3.0 Albumin/Globulin Ratio (1.1 - 2.2 %) 0.9 L Coagulation PT (9.4 - 12.5 SEC) 21.3 H INR (0.90 - 1.17) 1.94 H Hematology CBC w Diff MAN DIFF ORDERED WBC (4.8 - 10.8 /CUMM) 3.4 L RBC (4.70 - 6.10 /CUMM) 1.97 L Hgb (14.0 - 18.0 G/DL) 5.9 *L Hct (42 - 52 %) 17.7 *L MCV (80.0 - 94.0 FL) 89.9 MCH (27.0 - 31.0 PG) 29.7 MCHC (33.0 - 37.0 G/DL) 33.0 RDW (11.5 - 14.5 %) 17.7 H Plt Count (130 - 400 /CUMM) 44 L MPV (7.4 - 10.4 FL) 9.2 Gran % (42.2 - 75.2 %) 80.4 H Lymphocytes % (20.5 - 51.1 %) 13.0 L Monocytes % (1.7 - 9.3 %) 6.2 Eosinophils % (0 - 5 %) 0.3 Basophils % (0.0 - 2.0 %) 0.1 Absolute Granulocytes (1.4 - 6.5 /CUMM) 2.7 Segmented Neutrophils (42.2 - 75.2 %) 85 H Band Neutrophils (0.0 - 5.0 %) 2 Absolute Lymphocytes (1.2 - 3.4 /CUMM) 0.4 L Lymphocytes (20.5 - 51.1 %) 9 L Monocytes (1.7 - 9.3 %) 1 L Absolute Monocytes (0.10 - 0.60 /CUMM) 0.2 Eosinophils (0 - 5.0 %) 1 Absolute Eosinophils (0.0 - 0.7 /CUMM) 0 Basophils (0.0 - 2.0 %) 2 Absolute Basophils (0.0 - 0.2 /CUMM) 0 Platelet Estimate (ADEQUATE) DECREASED Polychromasia 1+ Poikilocytosis 1+ Basophilic Stippling 1+ Ovalocytes 1+ Elliptocytes FEW Other Body Source Fld Total RBCs Counted (%) 100 Toxicology Serum Alcohol (<10 MG/DL) < 10.0 02/15 02/15 0748 0407 Chemistry Sodium (137 - 145 mmol/L) 135 L Potassium (3.5 - 5.1 mmol/L) 5.1 Chloride (98 - 107 mmol/L) 99 Carbon Dioxide (22 - 30 mmol/L) 23 Anion Gap (5 - 16) 14 BUN (9 - 20 mg/dL) 23 H Creatinine (0.7 - 1.2 mg/dL) 1.5 H Estimated GFR (>60 ml/min) 55 L BUN/Creatinine Ratio (7 - 25 %) 15.3 Glucose (65 - 99 mg/dL) 76 Calcium (8.4 - 10.2 mg/dL) 8.1 L Total Bilirubin (0.2 - 1.3 mg/dL) 1.3 AST (17 - 59 U/L) 47 ALT (21 - 72 U/L) 26 Alkaline Phosphatase (< 127 U/L) 124 Total Protein (6.3 - 8.2 g/dL) 6.7 Albumin (3.5 - 5.0 g/dL) 3.4 L Globulin (1.9 - 4.2 gm/dL) 3.3 Albumin/Globulin Ratio (1.1 - 2.2 %) 1.0 L Hematology CBC w Diff MAN DIFF ORDERED WBC (4.8 - 10.8 /CUMM) 2.7 L RBC (4.70 - 6.10 /CUMM) 2.85 L Hgb (14.0 - 18.0 G/DL) 8.3 L Hct (42 - 52 %) 25.8 L MCV (80.0 - 94.0 FL) 90.3 MCH (27.0 - 31.0 PG) 29.1 MCHC (33.0 - 37.0 G/DL) 32.2 L RDW (11.5 - 14.5 %) 17.8 H Plt Count (130 - 400 /CUMM) 62 L MPV (7.4 - 10.4 FL) 9.8 Gran % (42.2 - 75.2 %) 69.9 Lymphocytes % (20.5 - 51.1 %) 18.9 L Monocytes % (1.7 - 9.3 %) 10.1 H Eosinophils % (0 - 5 %) 1.1 Basophils % (0.0 - 2.0 %) 0 Absolute Granulocytes (1.4 - 6.5 /CUMM) 1.9 Segmented Neutrophils (42.2 - 75.2 %) 70 Band Neutrophils (0.0 - 5.0 %) 5 Absolute Lymphocytes (1.2 - 3.4 /CUMM) 0.5 L Lymphocytes (20.5 - 51.1 %) 19 L Monocytes (1.7 - 9.3 %) 5 Absolute Monocytes (0.10 - 0.60 /CUMM) 0.2 Eosinophils (0 - 5.0 %) 1 Absolute Eosinophils (0.0 - 0.7 /CUMM) 0 Absolute Basophils (0.0 - 0.2 /CUMM) 0 Platelet Estimate (ADEQUATE) DECREASED Polychromasia 1+ Hypochromic-Microcytic 2+ Poikilocytosis 2+ Basophilic Stippling RARE Elliptocytes 1+ Schistocytes 1+ Other Body Source Fld Total RBCs Counted (%) 100 Toxicology Urine Opiates Screen (>2000 NG/ML) 355 Methadone Screen (>300 NG/ML) > 735 H Barbiturate Screen (>200 NG/ML) < 60 Ur Phencyclidine Scrn (>25 NG/ML) < 6.00 Amphetamines Screen (>1000 NG/ML) < 100 U Benzodiazepines Scrn (>200 NG/ML) < 85 Urine Cocaine Screen (>300 NG/ML) < 50 Urine Cannabis Screen (>50 NG/ML) 79.70 H Urines Urine Color (YEL,AMB,STR) YEL Urine Clarity (CLEAR) CLEAR Urine pH (5.0 - 8.0) 6.0 Ur Specific Bromide (1.001 - 1.035) 1.025 Urine Protein (NEG,<30 MG/DL) NEG Urine Ketones (NEG) NEG Urine Nitrite (NEG) NEG Urine Bilirubin (NEG) NEG Urine Urobilinogen (0.1 - 1.0 EU/dl) 0.2 Ur Leukocyte Esterase (NEG) NEG Ur Microscopic EXAM NOT REQUIRED Urine Hemoglobin (NEG) NEG Urine Glucose (N MG/DL) NEG Imaging/Other Studies: 01/12/16 EGD/Colonoscopy: Impression: 1. 2-3 columns of 1-2+ nonbleeding esophageal varices, starting at 25 cm, patchy in distribution, extending down to the Z line at 41 cm, without any signs of recent or active bleeding, left intact. No red oskar sign. 2. Nonbleeding questionable junctional varix versus thickened fold gastric cardia just below Z line, left intact. Otherwise no gastric varices or portal gastropathy seen. 3. No active peptic ulcer disease. 4. Random small bowel biopsy 4 of normal-appearing second and third portions of the duodenum: (Specimen A- rule out malabsorption and/or celiac sprue; serologies pending). 5. Normal colonoscopy to the cecum. Unable to enter terminal ileum. SERVICE DATE: 02/15/18 EXAM TYPE: RAD - XRY-PORTABLE CHEST XRAY EXAMINATION: XR PORTABLE CHEST CLINICAL INFORMATION: Fever. Overdose COMPARISON: 02/01/18 TECHNIQUE: Portable frontal view of the chest was obtained. FINDINGS: Mild rotation toward the right. Artifact superimposes over the right upper mediastinum. Cardiac size and the ward are within normal limits. There is hypoinflation. Moderate sized poorly defined opacity in the right midlung. No pneumothorax or pleural fluid. IMPRESSION: Moderate opacity right midlung could represent pneumonia and was not present on 02/01/18 Assessment/Plan Assessment/Recommendations: Assessment: Mr. Carolina is a 32 year old male with a history of PSA and etoh cirrhosis with known varices on an EGD in 2016 who presents with altered mental status secondary to an accidental methadone overdose who has begun vomiting blood associated with a 2.5 grm hgb drop concerning for a variceal bleed. He has not had any further vomiting since last night and his hgb has responded appropriately to transfusion so it appears as though he has stopped bleeding at present. He should have an endoscopy now though to assess for active bleeding and also to determine the etiology of the bleeding and his risk to rebleed so I will arrange to do that now. If the bleeding is variceal in etiology and cannot be controlled endoscopically it may then be reasonable to pursue a TIPSs. He also will ultimately require a liver transplant for terminal superintendent survival and he apparently has been evaluated at [facility] in the past for this, but his substance abuse may be a limiting factor in him getting a new liver. Recommendations: 1. Continue ICU monitoring. 2. Continue octreotide drip and IV ppi for now 3. Follow cbc q8hrs and transfuse as neeeded to maintain hgb > 7 taking care not to over transfuse. 4. Continue IV antibiotics for now. 5. Continue non-selective beta mame as blood pressure tolerates. 6. Avoid nsaids 7. Social service consult/follow up. 8. Will arrange for a diagnostic/therapeutic EGD now at the bedside in the ICU. I will continue to follow this patient and make further recommendations based on the results of the EGD and his clinical course. Problem List: 1. Alcoholic cirrhosis 2. Accidental methadone overdose 3. Esophageal varices 4. History of ascites Consult Acknowledgment - Thank you for your consult request.
--- NOTE | 2018-02-16 05:09 | Admission Certification ---
Admission Certification Certification Statement - As attending physician, I certify that at the time of - admission, based on clinical presentation, severity of - symptoms, need for further diagnostic testing and - therapeutic interventions, and risk of adverse outcomes - without in-hospital treatment, in my clinical assessment, - this patient requires an acute hospital stay for a minimum - of two nights or longer. I have also considered psychsocial - factors such as support system, advanced age, financial - issues, cognitive issues, and failed out-patient treatments, - past re-admission history, safety of patient, and lack of - compliance as applicable. Specific rationale supporting this admission is: overdose, suicidal, Aspiration Pneumonia, GI bleed
[2018-02-16 06:35] LABS: ABSOLUTE BASOPHIL COUNT 0 /CUMM (0.0-0.2); ABSOLUTE EOSINOPHIL COUNT 0 /CUMM (0.0-0.7); ABSOLUTE GRANULOCYTE CT 2.9 /CUMM (1.4-6.5); ABSOLUTE LYMPH COUNT 0.5 /CUMM (1.2-3.4); ABSOLUTE MONOCYTE COUNT 0.3 /CUMM (0.10-0.60); BASOPHIL % 0.3 % (0.0-2.0); EOSINOPHIL % 0.5 % (0-5); GRANULOCYTE % 78.8 % (42.2-75.2); MEAN CORPUSCULAR HGB 28.9 PG (27.0-31.0); MEAN CORPUSCULAR HGB CONC 32.2 G/DL (33.0-37.0); MEAN CORPUSCULAR VOLUME 89.8 FL (80.0-94.0); MEAN PLATELET VOLUME 9.4 FL (7.4-10.4); RBC DISTRIBUTION WIDTH 17.4 % (11.5-14.5); WHITE BLOOD CELL COUNT 3.7 /CUMM (4.8-10.8)
[2018-02-16 06:39] LABS: RED BLOOD CELL CT 2.55 /CUMM (4.70-6.10)
[2018-02-16 06:40] LABS: HEMATOCRIT 22.9 % (42-52)
[2018-02-16 06:49] LABS: PLATELET COUNT 45 /CUMM (130-400)
--- NOTE | 2018-02-16 07:29 | Cons- CRCU ---
Sharita Cramer 02/16/18 0726: General Information and HPI Consulting Request Date of Consult: 02/16/18 Requested By: Michael Enamorado Source of Information: patient, family, old records Exam Limitations: clinical condition History of Present Illness: Mr. Carolina is a 32/M with PMHx of IDDM (T1), diabetic neuropathy, hypothyroidism, cholelithiasis, alcoholic liver cirrhosis, hx of multiple drug abuse (methadone plus marijuana), methadone dependence, poor historian, presented with chief complaint of fever, however history of breast mostly obtained from patient's chart/PT notes, as patient was not cooperative on providing any history is. Patient was recently admitted for preorbital cellulitis from 01/31- and discharged on by mouth Bactrim however was culture positive for MRSA. 02/15 morning patient was brought in after being found unresponsive by family members (mother) with abdominal respiration, and hypoglycemia of 50. EMS on site provided Narcan and dextrose that patient immediately responded, arrived in ER alert and oriented, however complaining of multiple pains in the body. Patient was admitted to taking 6-9 "pieces" of milligrams of methadone was intentionally, and per night floating, patient says "looks like not enough" which are appearing to be patient's suicidal ideations. Crisis was on board in ER however patient denies suicidal but stated that "may be considered my life". Patient also stated that he has history of severe alcohol abuse, however had been sober for 1.5 years. Patient said he is currently at the [facility] in [place]. Crisis, patient reported decreased sleep/ appetite/motivation/concentrating/energy, and was feeling depressed and anxious. During ER observation, patient had sudden onset of a fever T-max 101.0, was found to have a pneumonia on CXR with moderate opacity on the right middle lung. But had inpatient admitting evaluate the patient, patient had 2 episodes of bloody vomiting, first episode at 23: 45, and second episode at 00: 30, while the second episode was accompanied by bloody diarrhea of approximately 500 cc. Again patient was not being cooperative and did not provide any history is with limited ROS. site worker spoke to his mother, Mary Ann Carolina ([phone]), for collateral information. Mary Ann states that the patient has "had a little substance abuse issue," and is currently a recovering alcoholic. She states that he is on the transplant list for a new liver, secondary to the damage. done by alcohol. Discussed with father at bedside, who endorsed that patient was huffing canned air "duster" recently, however denied any IVDU and stated that patient's arm trackmark was mostly from AccuChek punctures. The father did not know where patient was getting the methadone. He also endorsed that patient had not been drink for a year. Allergies/Medications Allergies: Coded Allergies: No Known Allergies (01/29/18) Home Med List: Ergocalciferol (Vitamin D2) (Vitamin D2) 50,000 UNIT CAPSULE 1 CAP PO Q 2 WEEKS VITAMIN SUPPORT (Reported) Folic Acid 1 MG TABLET 1 TAB PO DAILY ALCOHOL USE Furosemide 20 MG TABLET 1 TAB PO DAILY WATER PILL (Reported) Gabapentin (Unknown Strength) CAPSULE 2 CAP PO BID NEUROPATHY (Reported) Hydroxyzine Hydrochloride (Atarax) 50 MG TAB 1 TAB PO QPM PRN anxiety Insulin Glargine,Hum.rec.anlog (Lantus Solostar) 100 UNIT/ML (3 ML) INSULN.PEN 30 UNIT SC QPM DIABETES Insulin Lispro (Humalog) (Unknown Strength) VIAL (Unknown Dose) SC SEE SLIDING SCALE DIABETES (Reported) 80-150=8 units 151-200=10 units 201-250=12 units 251-300=14 units 301-350=16 units 351-400=18 units 401+ = 20 units Lactulose 10 GRAM/15 ML SOLUTION 30 ML PO TID PRN GI (Reported) Levothyroxine Sodium 25 MCG TABLET 1 TAB PO DAILY AC THYROID (Reported) Multivitamin (Daily Value) 1 EACH TABLET 1 TAB PO DAILY OTHER Ondansetron HCl 4 MG TABLET 1 TAB PO PRN N/V (Reported) Oxycodone HCl 5 MG TABLET 1 TAB PO Q6P PRN PAIN Pantoprazole Sodium 40 MG TABLET.DR 1 TAB PO DAILY REFLUX (Reported) Pregabalin (Lyrica) 150 MG CAPSULE 1 CAP PO BID neuropathy (Reported) Propranolol HCl (Propranolol HCl ER) 80 MG CAP.SA.24H 1 CAP PO DAILY gi bleed (Reported) Spironolactone (Aldactone) 25 MG TABLET 1 TAB PO DAILY cirrhosis . Sulfamethoxazole/Trimethoprim (Bactrim Ds Tablet) 800 MG-160 MG TABLET 1 TAB PO BID cellulitis . Thiamine HCl 100 MG TABLET 1 TAB PO DAILY OTHER Trazodone HCl 100 MG TABLET 2 TAB PO QPM PRN SLEEP (Reported) Ursodiol 300 MG CAPSULE 1 CAP PO TID UNKNOWN (Reported) Vit B Cmplx 3/FA/Vit C/Biotin (Rebecca-Kate Rx Tablet) 1 MG-60 MG-300 MCG TABLET 1 TAB PO DAILY VITAMIN SUPPORT (Reported) Review of Systems Review of Systems Constitutional: Reports: see HPI. 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 MOTHER (HTN). FH: alcoholism Psychosocial History Where Do You Live? Home Who Do You Live With? parent Services at Home: None Primary Language: Turkmen Smoking Status: Current Everyday Smoker Living Will? 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 unknown Functional Ability ADLs Independent: dressing, eating, toileting, bathing. Ambulation: independent IADLs Independent: shopping, housework, finances, food prep, telephone, transportation , medication admin. Exam & Diagnostic Data Last 24 Hrs of Vital Signs/I&O Vital Signs Date Time Temp Pulse Resp B/P B/P Pulse O2 O2 Flow FiO2 Mean Ox Delivery Rate 02/16 0632 95 Nasal 2.0L Cannula 02/16 0600 99.5 78 12 113/60 02/16 0400 99.2 81 10 99/57 02/16 0400 94 Nasal 2.0L Cannula 02/16 0200 98.7 84 15 101/69 02/16 0130 98.7 82 12 110/64 02/16 0130 94 Nasal 2.0L Cannula 02/16 013 98.7 82 12 110/64 95 Nasal 2.0L Cannula 02/16 0100 85 20 108/53 93 Nasal 2.0L Cannula 02/16 0000 100.7 101 20 109/56 90 Room Air Room Air 02/15 2311 101.5 100 20 116/68 92 Room Air 02/15 2039 100.2 96 20 94/55 94 02/15 1940 101.0 90 16 113/44 02/15 1940 101.0 90 16 113/44 02/15 1812 101.0 90 16 113/44 91 Room Air 02/15 1621 100.3 86 16 120/73 91 Room Air 02/15 1422 98.6 88 17 130/78 98 Room Air 02/15 1212 99.8 86 14 125/70 98 Room Air 02/15 0824 98.2 78 20 122/68 97 Room Air Intake & Output 02/16 0800 02/16 0000 02/15 1600 Intake Total 2195 2000 Output Total 300 Balance 1895 2000 Intake, Blood 700 Product Intake, IV 1495 1999 Number 1 Bowel Movements Output, 300 Emesis Patient 90.492 kg Weight Weight Bed scale Measurement Method Physical Exam General Appearance: lethargic, sleeping Head: atraumatic, normal appearance Respiratory: chest non-tender, no respiratory distress, On Ventimask 45% Cardiovascular: regular rate/rhythm Extremities: no edema, on ALPS Skin: trackmarks on BUE Last 48 Hrs of Labs/Tray: Laboratory Tests 02/16/18 0620: Anion Gap 6, Estimated GFR > 60, BUN/Creatinine Ratio 24.0, CBC w Diff NO MAN DIFF REQ, RBC 2.55 L, MCV 89.8, MCH 28.9, MCHC 32.2 L, RDW 17.4 H, MPV 9.4, Gran % 78.8 H, Lymphocytes % 13.4 L, Monocytes % 7.0, Eosinophils % 0.5, Basophils % 0.3, Absolute Granulocytes 2.9, Absolute Lymphocytes 0.5 L, Absolute Monocytes 0.3, Absolute Eosinophils 0, Absolute Basophils 0 02/16/18 0010: PT 21.3 H, INR 1.94 H, CBC w Diff MAN DIFF ORDERED, RBC 1.97 L, MCV 89.9, MCH 29.7, MCHC 33.0, RDW 17.7 H, MPV 9.2, Gran % 80.4 H, Lymphocytes % 13.0 L, Monocytes % 6.2, Eosinophils % 0.3, Basophils % 0.1, Absolute Granulocytes 2.7, Segmented Neutrophils 85 H, Band Neutrophils 2, Absolute Lymphocytes 0.4 L, Lymphocytes 9 L, Monocytes 1 L, Absolute Monocytes 0.2, Eosinophils 1, Absolute Eosinophils 0, Basophils 2, Absolute Basophils 0, Platelet Estimate DECREASED, Polychromasia 1+, Poikilocytosis 1+, Basophilic Stippling 1+, Ovalocytes 1+, Elliptocytes FEW, Fld Total RBCs Counted 100 02/15/18 1937: Anion Gap 9, Estimated GFR > 60, BUN/Creatinine Ratio 20.0, Glucose 235 H, Calcium 7.6 L, Total Bilirubin 1.6 H, AST 49, ALT 20 L, Alkaline Phosphatase 123, Ammonia 22, Total Protein 5.7 L, Albumin 2.7 L, Globulin 3.0, Albumin/ Globulin Ratio 0.9 L, Serum Alcohol < 10.0 02/15/18 0748: Urine Opiates Screen 355, Methadone Screen > 735 H, Barbiturate Screen < 60, Ur Phencyclidine Scrn < 6.00, Amphetamines Screen < 100, U Benzodiazepines Scrn < 85, Urine Cocaine Screen < 50, Urine Cannabis Screen 79.70 H, Urine Color YEL, Urine Clarity CLEAR, Urine pH 6.0, Ur Specific [place] 1.025, Urine Protein NEG, Urine Ketones NEG, Urine Nitrite NEG, Urine Bilirubin NEG, Urine Urobilinogen 0.2, Ur Leukocyte Esterase NEG, Ur Microscopic EXAM NOT REQUIRED, Urine Hemoglobin NEG, Urine Glucose NEG 02/15/18 0407: Anion Gap 14, Estimated GFR 55 L, BUN/Creatinine Ratio 15.3, Glucose 76, Calcium 8.1 L, Total Bilirubin 1.3, AST 47, ALT 26, Alkaline Phosphatase 124, Total Protein 6.7, Albumin 3.4 L, Globulin 3.3, Albumin/Globulin Ratio 1.0 L, CBC w Diff MAN DIFF ORDERED, RBC 2.85 L, MCV 90.3, MCH 29.1, MCHC 32.2 L, RDW 17.8 H, MPV 9.8, Gran % 69.9, Lymphocytes % 18.9 L, Monocytes % 10.1 H, Eosinophils % 1.1, Basophils % 0, Absolute Granulocytes 1.9, Segmented Neutrophils 70, Band Neutrophils 5, Absolute Lymphocytes 0.5 L, Lymphocytes 19 L, Monocytes 5, Absolute Monocytes 0.2, Eosinophils 1, Absolute Eosinophils 0, Absolute Basophils 0, Platelet Estimate DECREASED, Polychromasia 1+, Hypochromic -Microcytic 2+, Poikilocytosis 2+, Basophilic Stippling RARE, Elliptocytes 1+, Schistocytes 1+, Fld Total RBCs Counted 100 Assessment/Plan CRCU Impression/Plan: VS: Tmax 101.5, currently stable VSS afebrile Sedation: Anethesia during EGD Vent Setting: None [id number]: NGTD, however had wound culture of MRSA back in 01/31/2018 Problem list #Acute blood loss anemia, S/P PRBC transfusion #Hematemesis and melena 2/2 suspected upper GI variceal bleed #Aspiration pneumonia #History of MRSA infection #Intentional overdose of methadone #questionable suicidal ideation #Elevated creatinine likely ASKI 2/2 bolus/dehydration #Elevated PT/INR #PMH of IDDM (T1), diabetic neuropathy, hypothyroidism, cholelithiasis, alcoholic liver cirrhosis, hx of multiple drug abuse (methadone plus marijuana), methadone dependence. Respiratory: On admission, patient's x-ray showed right middle lung opacity, and was a concern of patient was being unresponsive recently being admitted in hospital for preorbital cellulitis culture positive for MRSA, patient should at this point being treated for possible aspiration pneumonia with MRSA coverage - Cont Vanco + Unasyn for possible aspirational PNA w/ hx of MRSA - TRC/Neb + 2LNC and tailor per clinical condition - Narcan PRN for resp depression/Apnea/increased confusion Infection: - As above. Continue monitor vitals per protocol Cardio: - No issue at this point. Will cont monitor Hem: - Hgb trended from 8.3 -> 5.9 -> 7.4 s/p 2U PRBC, pending 2 more Units on hold - Keep between Hgb 7 - 8 2/2 esophageal varices - PT/INR elevated to 21.3/1.94 likely due to severe loss of liver function, w/ no elevation of AST/ALT Metabolism: - Mild hyponatremia 135 -> 129 -> 132 - Possible XIOMY 2/2 dehydration/blood loss Cr 1.5 -> 1.0 on fluid/PRBC -Continue IV octreotide drip, and will stop propranolol as BP tolerates. Alimentary: - NPO pending GI procedures - Cont Novolin R SS/Levemir 10U BID/AccuChek - Advance diet per GI Neuro/Psych: -Pending psychiatry consult follow-up on floor. require Narcan home kit on discharge planning. -CTPMP checked without any prescription of methadone in file. -Patient may require psych rehab. DVT prophylaxis: ALPS NPO IV Access: Peripheral IV Full Code Consult Acknowledgment - Thank you for your consult request. Michael Garza MD 02/16/18 0849: Assessment/Plan CRCU Consult Acknowledgment - Thank you for your consult request. Attending MD Review Statement Attending Statement Attending MD Statement: examined this patient, discuss w/resident/PA/LINE INSPECTOR, agreed w/resident/PA/LINE INSPECTOR, discussed with family, reviewed EMR data (avail), discussed w/ nursing, discussed w/case mgmt, reviewed images, amended to note Attending Assessment/Plan: Impression 32 year old man * etoh cirrhosis * varices * acute blood loss anemia - gi bleed - grade 3 esophageal varices * thrombocytopenia - etoh induced * drug dependence - methadone overdose * hyponatremia * pre-renal azotemia resolved * Right midlugn opacification - consistent with aspiration pneumonia Plan Respiratory/ID -continue unasyn -mrsa nares screen - if negative stop vancomycin -pt during sleep is intermittently apneic, he removes o2 supplementation and is non-adherent to o2 therapy - will try to maintain a facemask [facility] -hemodynamic monitoring -propranolol if hemodynamics allow Heme -s/p prbcs, monitor cbcs -NPO -GI consultation is appreciated -s/p EGD - grade 3 esophageal varices, s/p banding -IV PPI -IV Octreotide Metabolic -creatinine normalized -cirrhosis -monitor electrolytes -continue insulin/finger stick monitoring -synthroid -mvi, folate, thiamine Alimentary -NPO Neuro -s/p brief intubation, anesthesia for EGD DVT prophylaxis - ALPS TTS 40 min
--- NOTE | 2018-02-16 08:04 | Proc Note Endoscopy ---
Endoscopy Procedure Medical History: unchanged (see meditech consult) Mental Status: alert/oriented Heart/Lung Eval Prior to Sedation: within normal limits Candidate for Sedation? Yes Procedure Date: 02/16/18 Procedure Type: EGD with banding of varices. Granite Sandblaster Apprentice: Norberto Knott MD ASA Classification: III Indications: Hematemesis in a patient with a history of cirrhosis with known varices from an endoscopy in 2016. Instrument: diagnostic gastroscope Meds Received: MAC Patient's Tolerance: good Complications: none Extent Reached: second part of duodenum Procedure: After getting telephone consent from the patients father he was prophylactically intubated and was then placed in the left lateral decubitus position with pulse oximetry, cardiac monitoring, and supplemental oxygen given. A bite block was inserted and IV sedation was given until the desired effect was achieved. A high definition upper Olympus endoscope was then inserted into the mouth and advanced to the second portion of the duodenum with little difficulty. Retroflexed views and photodocumentation was obtained. After inspection of the upper GI tract as described above the scope was removed from the patient and a 7 shooter [employer] banding device was then attached to the end of the scope and reintroduced into the patient's mouth to the GE junction at which point suction was applied to the visible varices and 5 bands were successfully deployed onto the varices without any significant bleeding ensuing. The scope was then removed from the patients mouth and the procedure was terminated. Findings: Esophagus: The upper esophageal mucosa was grossly normal appearance. Starting approximately 30 cm from the incisors were several columns of prominent, large varices with a few red well markings and a hematocystic spot, but there was no active bleeding. The varices extended to the GE junction at approximatly 40 cm from the incisors. As stated in the procedure section of this report 5 bands were successfully deployed onto the varices without any significant bleeding ensuing. Stomach: The visualized gastric mucosa was grossly normal in appearance. There were no ulcers, erosions, or masses appreciated. Retroflexed views revealed a large pool of blood that was not able to be completely cleared through the endoscope, but there were no obvious gastric varices or masses appreciated. It didn't appear to be a subtle snake skin appearance of the fundus. Was no active bleeding appreciated within the stomach. Duodenum: The duodenal bulb, sweep, and folds were grossly normal in appearance. Impression: 1. Grade 3 esophageal varices with stigmata of recent hemorrhage status post banding. 2. Mild portal hypertensive gastropathy. 3. Old blood appreciated in the fundus, but no active bleeding appreciated. Recommendations: 1. Continue IV octreotide drip. 2. Continue IV antibiotics for 3 days after the bleeding has stopped or longer if indicated for other infectious causes. 3. Would restart propanolol as blood pressure tolerates with a goal heart rate of 55-60. 4. Notify GI for signs of recurrent overt GI bleeding. 5. Follow CBCs every 8 hours and transfuse as needed to maintain his hemoglobin greater than 7. 6. Avoid NSAIDs. 7. When he is more alert would advance to a full liquid diet later today and if he has no further bleeding would then advance his diet further tomorrow. CC: Nupur NERI,Johnny Silver
--- NOTE | 2018-02-16 14:14 | ULTRASOUND REPORT ---
EXAMINATION: US ABDOMEN LIMITED CLINICAL INFORMATION: Upper GI bleed. Alcoholic cirrhosis. Assess for ascites.. COMPARISON: Abdominal ultrasound 11/08/2017. TECHNIQUE: Real-time imaging of the bilateral upper and lower segments of the abdomen was performed. FINDINGS: There is mild ascites, most prominent in the perihepatic region. The right lower quadrant was poorly assessed due to overlying bowel gas. The ascites appears more prominent compared to the prior study. IMPRESSION: 1. There is ascites, most prominent in the perihepatic region.
--- NOTE | 2018-02-16 14:56 | Cons- Psychiatry ---
Psychiatric Consult Date of Consult: 02/16/18 Reason for Consult: Asked to evaluate this 32-year-old male regarding his capacity to sign out AGAINST MEDICAL ADVICE. History of Present Illness: The patient was uncooperative and history was therefore obtained from his records. This is the patient's eighth visit to the emergency room in the last month. He was brought to the emergency room yesterday having been found unresponsive by his mother. He had taken excessive methadone in an attempt to "get high". Urine drug screen was positive for methadone and cannabis. Medical history is significant for esophageal varices, hepatitis C, type 1 diabetes, hypothyroidism, pancreatitis, delirium tremens. The patient was recently discharged following treatment of preorbital cellulitis with MRSA. In the emergency room he was noted to have possible infiltrate on x- ray and was treated with IV antibiotics. In the emergency room he had gross hematemesis. The patient has a history of cirrhosis with known varices. The patient had an OGD and the varices were banded. The patient was seen by crisis for assessment of depression and anxiety. Notes were reviewed and I spoke with the shoe worker. The patient's denies that his overdose was a suicide attempt. However he endorsed depression and anxiety. He reported reduced sleep, reduced appetite, reduced motivation he was tearful and distressed. He denied suicidal ideation but reports that "maybe you can save my life". Allergies: Coded Allergies: No Known Allergies (01/29/18) Past History Past Medical History Any Pertinent Medical History? 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 Physical Limitations (Interventions): None noted Psychiatric Treatment History Psych Treatment Psychiatric Treatment Yes Inpatient Treatment No Outpatient Treatment Yes Location of Treatment [facility] Reason for Treatment Dual Diagnosis Dates of Treatment 2009 Response to Treatment unclear Diagnosis: Per history- Alcohol use disorder benzodiazapine use disorder opioid agonist abuse Rule - outs for depressive disorder & anxiety disorder Risk Factors: SA/MH hospitalized, substance abuse, male, limited support Substance Use/Abuse History Drug Use/Abuse Substances Used/Abused Yes Substance Used/Abused Other (list in comments) (Methadone) First Use Unclear Last Used Last night/ early this AM How much used/taken The patient was not clear, he states "enough." How often 1x monthly For how long Unclear Route of use Unclear Substance Abuse Treatment Substance Abuse Treatment Past Substance Abuse [place] Yes Inpatient Treatment Yes Outpatient Treatment Yes Location of Treatment [facility] and "[facility]," in [place] Reason for Treatment unclear.. He was treated on the medical floors for alcohol abuse many times in the past. Dates of Treatment Multiple dates, currently in treatment at [facility] Assessment/Plan Mental Status Orientation: Person, Place, Situation Mental Status Exam: The patient was alert and oriented. He was somewhat agitated. He was loudly requesting water and when it was brought him requested apple juice. He was on able/unwilling to participate in interview. Eye contact was poor. Speech was normal in rate, rhythm, volume and tone. Patient's affect as mentioned was agitated. There was no perceptual abnormality noted. Attention and concentration were poor. Thought process was normal in form, stream and tempo. There were no delusions are obsessions noted. Patient's insight is poor. At the time of interview he was not requesting discharge AGAINST MEDICAL ADVICE. He was unable/unwilling to discuss his perception of his physical health and the risks/benefits of leaving hospital. Lab Results: Lab ALT 20 U/L L 02/15/181936 AST 49 U/L 02/15/181936 Alkaline Phosphatase 123 U/L 02/15/181936 Ammonia 22 umol/L 02/15/181936 Anion Gap 6 02/16/18619 BUN 24 mg/dL H 02/16/1820 Carbon Dioxide 24 mmol/L 02/16/18 0620 Chloride 103 mmol/L 02/16/18 0620 Creatinine 1.0 mg/dL 02/16/1820 Potassium 5.3 mmol/L H 02/16/18 0620 Sodium 132 mmol/L L 02/16/18619 Hct 22.9 % L 02/16/1820 Hgb 7.4 G/DL*L 02/16/18619 MCHC 32.2 G/DL L 02/16/18619 Plt Count 45 /CUMM L 02/16/18619 RBC 2.55 /CUMM L 02/16/1820 RDW 17.4 % H 02/16/18619 WBC 3.7 /CUMM L 02/16/18619 Methadone Screen > 735 NG/ML H 02/15/1848 Urine Cannabis Screen 79.70 NG/ML H 02/15/1848 Impression: Patient is agitated. He is unable/unwilling to participate in interview. He is agitated and somewhat histrionic and monitor. He is unable/unwilling to discuss his perception of his physical health , risk of rebleed etc. Patient is labile and overreactive. As such he should not be allowed to leave hospital AGAINST MEDICAL ADVICE at this time. He will be assessed by psychiatry in the morning. Thank you for consulting us on this patient.
[2018-02-16 15:42] LABS: ABSOLUTE BASOPHIL COUNT 0 /CUMM (0.0-0.2); ABSOLUTE EOSINOPHIL COUNT 0 /CUMM (0.0-0.7); ABSOLUTE GRANULOCYTE CT 4.8 /CUMM (1.4-6.5); ABSOLUTE LYMPH COUNT 0.5 /CUMM (1.2-3.4); ABSOLUTE MONOCYTE COUNT 0.4 /CUMM (0.10-0.60); BASOPHIL % 0.3 % (0.0-2.0); EOSINOPHIL % 0.6 % (0-5); GRANULOCYTE % 82.7 % (42.2-75.2); HEMATOCRIT 21.8 % (42-52); MEAN CORPUSCULAR HGB 29.3 PG (27.0-31.0); MEAN CORPUSCULAR VOLUME 88.8 FL (80.0-94.0); MEAN PLATELET VOLUME 9.4 FL (7.4-10.4); PLATELET COUNT 61 /CUMM (130-400); RBC DISTRIBUTION WIDTH 17.3 % (11.5-14.5); RED BLOOD CELL CT 2.45 /CUMM (4.70-6.10)
[2018-02-16 15:50] LABS: WHITE BLOOD CELL COUNT 5.8 /CUMM (4.8-10.8)
[2018-02-16 23:13] LABS: ABSOLUTE BASOPHIL COUNT 0 /CUMM (0.0-0.2); ABSOLUTE EOSINOPHIL COUNT 0 /CUMM (0.0-0.7); ABSOLUTE LYMPH COUNT 0.5 /CUMM (1.2-3.4); ABSOLUTE MONOCYTE COUNT 0.3 /CUMM (0.10-0.60); BASOPHIL % 0 % (0.0-2.0); EOSINOPHIL % 0.8 % (0-5); GRANULOCYTE % 79.5 % (42.2-75.2); HEMATOCRIT 25.3 % (42-52); MEAN CORPUSCULAR HGB 29.1 PG (27.0-31.0); MEAN CORPUSCULAR HGB CONC 32.8 G/DL (33.0-37.0); MEAN CORPUSCULAR VOLUME 88.7 FL (80.0-94.0); PLATELET COUNT 58 /CUMM (130-400); RBC DISTRIBUTION WIDTH 18.2 % (11.5-14.5); RED BLOOD CELL CT 2.85 /CUMM (4.70-6.10); WHITE BLOOD CELL COUNT 3.8 /CUMM (4.8-10.8)
[2018-02-17] VITALS (11 sets, daily range): BP systolic 86–125; BP diastolic 44–71
[2018-02-17 05:38] LABS: ABSOLUTE BASOPHIL COUNT 0 /CUMM (0.0-0.2); ABSOLUTE EOSINOPHIL COUNT 0 /CUMM (0.0-0.7); ABSOLUTE GRANULOCYTE CT 1.2 /CUMM (1.4-6.5); ABSOLUTE LYMPH COUNT 0.4 /CUMM (1.2-3.4); ABSOLUTE MONOCYTE COUNT 0.2 /CUMM (0.10-0.60); MEAN CORPUSCULAR VOLUME 88.7 FL (80.0-94.0)
[2018-02-17 06:07] LABS: WHITE BLOOD CELL COUNT 1.8 /CUMM (4.8-10.8)
[2018-02-17 06:11] LABS: BASOPHIL % 0.3 % (0.0-2.0); EOSINOPHIL % 0.5 % (0-5); GRANULOCYTE % 67.5 % (42.2-75.2); HEMATOCRIT 21.4 % (42-52); MEAN CORPUSCULAR HGB CONC 32.6 G/DL (33.0-37.0); MEAN PLATELET VOLUME 9.4 FL (7.4-10.4); PLATELET COUNT 46 /CUMM (130-400); RBC DISTRIBUTION WIDTH 17.9 % (11.5-14.5); RED BLOOD CELL CT 2.41 /CUMM (4.70-6.10)
--- NOTE | 2018-02-17 08:27 | PN- Resident CRCU ---
Subjective HPI/CRCU Issues: Patient had Tmax 101 around noon yesterday and resolved spontaneously. Patient had been stable overnight however not really intaking much of the food. He appeared lethargic this morning and while being asked to identify the place, he replied "I am in [place]". Had no BM overnight. Objective Vital Signs & I&O Last 8 Hrs of Vitals and I&O: Intake & Output 02/17 1600 02/17 0800 02/17 0000 Intake Total 807 790 Output Total 0 Balance 807 790 Intake, IV 567 470 Intake, Oral 240 320 Number 0 2 Bowel Movements Output, Urine 0 Exam General Appearance: alert, awake, lethargic Head: atraumatic, normal appearance Respiratory: normal breath sounds, chest non-tender Cardiovascular: regular rate/rhythm Gastrointestinal: normal bowel sounds, soft, non-tender Extremities: normal inspection, no edema Current Medications: Current Medications Sig/Jose Martin Start time Last Medication Dose Route Stop Time Status Admin Ampicillin Sodium/ 1,500 MG Q6 02/16 0142 AC 02/17 Sulbactam Sodium IV 0616 Sodium Chloride 100 ML Clonidine 0.1 MG TID 02/15 2100 DC 02/15 PO 1940 Dextrose 25 GM ONCE ONE 02/16 2130 DC 02/16 IV 02/16 213 2125 Dicyclomine HCl 20 MG 4 TIMES/DAY PRN 02/15 2330 AC 02/16 PO 2247 Folic Acid 1 MG DAILY 02/15 193 AC 02/17 PO 0848 Hydroxyzine HCl 50 MG QPM PRN 02/15 194 DC PO Insulin Aspart 0 TIDAC 02/16 08 AC 02/16 SC 0801 Insulin Detemir 10 UNITS BID 02/16 09 AC 02/16 SC 0801 Levothyroxine Sodium 0.025 MG DAILY AC 02/16 0700 AC 02/17 PO 0620 Multivitamins 1 TAB DAILY 02/15 193 AC 02/17 Therapeutic PO 0848 Naloxone HCl 0.4 MG ONCE PRN 02/16 0215 AC IV Octreotide Acetate 500 MCG Q10H 02/16 0045 AC 02/16 Sodium Chloride 500 ML IV 2321 Ondansetron HCl 4 MG Q6 PRN 02/15 1945 AC 02/15 PO 1940 Pantoprazole Sodium 40 MG BID 02/16 09 AC 02/17 IV 0844 Propranolol HCl 80 MG DAILY 02/15 1935 AC 02/15 PO 1940 Thiamine HCl 100 MG DAILY 02/15 1935 AC 02/17 PO 0848 Vancomycin HCl 1,000 MG 0330,1530 02/16 0330 DC Sodium Chloride 250 ML IV Impression/Plan Impression/Problem List Impression: VS: Stable afebrile now, BP 88/48 on mannual cuff, breathing under RA w/ intermittent low RR Sedation: none Vent Setting: None [id number]: NGTD, however had culture of MRSA back in 01/31/2018 Problem list #Acute blood loss anemia, S/P PRBC transfusion #Hematemesis and melena 2/2 suspected upper GI variceal bleed #Aspiration pneumonia #History of MRSA infection #Intentional overdose of methadone #questionable suicidal ideation #Elevated creatinine likely ASKI 2/2 bolus/dehydration #Elevated PT/INR #PMH of IDDM (T1), diabetic neuropathy, hypothyroidism, cholelithiasis, alcoholic liver cirrhosis, hx of multiple drug abuse (methadone plus marijuana), methadone dependence. Respiratory: On admission, patient's x-ray showed right middle lung opacity, and was a concern of patient was being unresponsive recently being admitted in hospital for preorbital cellulitis culture positive for MRSA, patient should at this point being treated for possible aspiration pneumonia with MRSA coverage - Cont Unasyn for possible aspirational PNA, Despite hx of MRSA, patient's MRSA surveilance showed negative. Will hold vanco. - BC x 2 if fever again. - TRC/Neb PRN, now under RA - Narcan PRN for resp depression/Apnea/increased confusion - During last admission, patient had been asking for pain meds frequently. Will be very cautious regarding pain med administration. Infection: - As above. Continue monitor vitals per protocol Cardio: - Intermittent hypotension however patient remained awake and alert and answered all questions when being checked. - Due to the nature of patient's cirrhosis, would be cautious on fluid administration. Hem: - Hgb trended from 8.3 -> 5.9 -> 7.4 -> 8.3 s/p 2U PRBC, overnight Hgb dropped again to 7.0. Will transfuse 1U PRBC this AM and cont monitor. No active bleeding was identified. - Keep between Hgb 7 - 8 2/2 esophageal varices - PT/INR elevated to 21.3/1.94 likely due to severe loss of liver function, w/ no elevation of AST/ALT - WBC trended down 5.8 -> 3.8 -> 1.8, with band increased to 10%. No other signs of SIRS, yet would recheck CBC stat, and lactate acidosis if any. Metabolism: - Mild hyponatremia 135 -> 129 -> 132 - Possible XIOMY 2/2 dehydration/blood loss Cr 1.5 -> 1.0 on fluid/PRBC - Continue IV octreotide drip, and will stop propranolol as BP tolerates. - Ammonia 22 -> 65. Ab U/S showed mary-hepatic ascites. Will cont monitor mental status. Alimentary: - Advanced to full liquid diet, however patient's intake had been poor overnight. - Cont Novolog R SS/Levemir 10U BID/AccuChek. - Pt received one dextrose push overnight w/ hypoglycemia of 50. AM FSG is now 141. Will hold morning dose of levemir and recheck during the day. If stable, will restart again. - Advance diet as tolerated Neuro/Psych: -Pending psychiatry consult follow-up on floor. require Narcan home kit on discharge planning. -CTPMP checked without any prescription of methadone in file. -Patient may require psych rehab. DVT prophylaxis: ALPS Full liquid IV Access: Peripheral IV Full Code Problem List: 1. Methadone overdose 2. Inhalant abuse Pain Ratin Tomorrow's Labs & Rationales: ICu/CBC Plan DVT/Prophylaxis: mechanical
[2018-02-17 09:19] LABS: ABSOLUTE BASOPHIL COUNT 0 /CUMM (0.0-0.2); ABSOLUTE EOSINOPHIL COUNT 0 /CUMM (0.0-0.7); ABSOLUTE GRANULOCYTE CT 0.9 /CUMM (1.4-6.5); ABSOLUTE LYMPH COUNT 0.6 /CUMM (1.2-3.4); ABSOLUTE MONOCYTE COUNT 0.2 /CUMM (0.10-0.60); BASOPHIL % 0 % (0.0-2.0); EOSINOPHIL % 1.2 % (0-5); GRANULOCYTE % 53.5 % (42.2-75.2); HEMATOCRIT 20.8 % (42-52); MEAN CORPUSCULAR HGB 29.4 PG (27.0-31.0); MEAN CORPUSCULAR HGB CONC 33.3 G/DL (33.0-37.0); MEAN CORPUSCULAR VOLUME 88.3 FL (80.0-94.0); MEAN PLATELET VOLUME 9.2 FL (7.4-10.4); RBC DISTRIBUTION WIDTH 17.4 % (11.5-14.5); RED BLOOD CELL CT 2.36 /CUMM (4.70-6.10); WHITE BLOOD CELL COUNT 1.7 /CUMM (4.8-10.8)
[2018-02-17 09:45] LABS: PLATELET COUNT 46 /CUMM (130-400)
--- NOTE | 2018-02-17 10:41 | PN- CRCU ---
Subjective HPI/Critical Care Issues: Oxygen saturations on room air preserved Patient is awake and alert to be transfused 1 unit of packed cells Objective Current Medications: Current Medications Sig/Jose Martin Start time Last Medication Dose Route Stop Time Status Admin Ampicillin Sodium/ 1,500 MG Q6 02/16 0142 AC 02/17 Sulbactam Sodium IV 0616 Sodium Chloride 100 ML Dextrose 25 GM ONCE ONE 02/16 2130 DC 02/16 IV 02/16 Dicyclomine HCl 20 MG 4 TIMES/DAY PRN 02/15 2330 AC 02/16 PO 2247 Folic Acid 1 MG DAILY 02/15 193 AC 02/17 PO 0848 Insulin Aspart 0 TIDAC 02/16 08 AC 02/16 SC 0801 Insulin Detemir 10 UNITS BID 02/16 09 AC 02/16 SC 0801 Levothyroxine Sodium 0.025 MG DAILY AC 02/16 0700 AC 02/17 PO 0620 Multivitamins 1 TAB DAILY 02/15 193 AC 02/17 Therapeutic PO 0848 Naloxone HCl 0.4 MG ONCE PRN 02/16 0215 IV Octreotide Acetate 500 MCG Q10H 02/16 0045 AC 02/17 Sodium Chloride 500 ML IV 0923 Ondansetron HCl 4 MG Q6 PRN 02/15 1945 AC 02/15 PO 1940 Pantoprazole Sodium 40 MG BID 02/16 0900 AC 02/17 IV 0844 Propranolol HCl 80 MG DAILY 02/15 193 AC 02/15 PO 1940 Thiamine HCl 100 MG DAILY 02/15 193 AC 02/17 PO 0848 Vital Signs & I&O Last 24 Hrs of Vitals and I&O: Vital Signs Date Time Temp Pulse Resp B/P B/P Pulse O2 O2 Flow FiO2 Mean Ox Delivery Rate 02/17 0844 64 86/44 02/17 0813 98.1 68 16 86/44 93 Room Air 02/17 0800 98.1 68 16 86/44 02/17 0800 93 Room Air 02/17 0600 68 14 94/50 02/17 0400 Room Air Room Air 02/17 0400 63 10 106/64 02/17 0200 68 18 96/54 02/17 0000 97.5 68 10 100/60 02/17 0000 96 Room Air Room Air 02/16 2300 97.5 67 16 100/60 96 Room Air Room Air 02/16 2200 67 16 93/65 06/29 2000 98.6 72 10 100/71 02/17 2000 94 Room Air Room Air 02/16 1600 93 Room Air 02/17 1600 99.1 75 10 92/58 93 Room Air 02/16 1215 95 Nasal 5.0L Cannula 02/16 1200 101.0 02/16 1200 94 Nasal 5.0L Cannula Intake & Output 02/17 1600 02/17 0800 02/17 0000 Intake Total 807 790 Output Total 0 Balance 807 790 Intake, IV 567 470 Intake, Oral 240 320 Number 0 2 Bowel Movements Output, Urine 0 Room oxygen saturation 94% blood pressure is 94 systolic exam of his chest shows occasional rhonchi cardiac exam shows a regular S1 and S2 abdomen is slightly distended Impression/Plan Impression/Plan Impression/Plan: 32-year-old admitted with opiate overdose aspiration pneumonia GI bleed. His hematocrit has trended down and he will be transfused 1 unit. He has coagulopathy and worsening leukopenia Recommendations: Continue vitamin K. Transfuse 1 unit packed cells. If hematocrit continues to trend down follow-up GI evaluation. Complete course of antibiotics
--- NOTE | 2018-02-17 15:37 | PN- Gastroenterology ---
Assessment/Plan GI Assessment/Recommendations: Patient is a 32-year-old male with a history of alcoholic cirrhosis admitted with hematemesis. Underwent an EGD with banding of grade 3 esophageal varices. Patient is currently being managed and addition with octreotide and beta blockers. Patient has been stable with no evidence of post banding bleeding. Cirrhosis related issues such as hepatic encephalopathy, infection, renal failure, ascites have not been an issue. Patient also does not have evidence of acute alcoholic hepatitis. Risk of acute bleeding post-banding is highest in the first 2-3 days. Will reassess tomorrow about appropriateness of moving out of ICU. Subjective Subjective: x Objective Vital Signs and I&Os Vital Signs Date Time Temp Pulse Resp B/P B/P Pulse O2 O2 Flow FiO2 Mean Ox Delivery Rate 02/17 1218 97.8 62 15 104/52 97 Room Air 02/17 1200 97.8 62 15 104/52 02/17 1200 97 Room Air 02/17 0844 64 86/44 02/17 0813 98.1 68 16 86/44 93 Room Air 02/17 0800 98.1 68 16 86/44 02/17 0800 93 Room Air 02/17 0600 68 14 94/50 02/17 0400 Room Air Room Air 02/17 0400 63 10 106/64 02/17 0200 68 18 96/54 02/17 0000 97.5 68 10 100/60 02/17 0000 96 Room Air Room Air 02/16 2300 97.5 67 16 100/60 96 Room Air Room Air 02/16 2200 67 16 93/65 02/16 2000 98.6 72 10 100/71 02/16 2000 94 Room Air Room Air 02/16 1600 93 Room Air 02/16 1600 99.1 75 10 92/58 93 Room Air Intake & Output 02/17 1600 02/17 0400 02/16 1600 02/16 0400 02/15 1600 02/15 0400 Intake Total 726 770 8542 1000 2000 Output Total 0 300 Balance 183 992 9708 700 1999 Intake, Blood 700 Product Intake, IV 124 806 6854 1000 1999 Intake, Oral 240 320 300 0 Number 0 2 2 1 Bowel Movements Output, 300 Emesis Output, Urine 0 Patient 200 lb 200 lb 175 lb Weight Weight Bed scale Bed scale Reported by Patient Measurement Method Results Pertinent Lab Results: Laboratory Tests 02/17 02/17 1000 0850 Chemistry Lactic Acid (0.7 - 2.1 mmol/L) 1.0 Hematology CBC w Diff Cancelled NO MAN DIFF REQ WBC (4.8 - 10.8 /CUMM) Cancelled 1.7 L RBC (4.70 - 6.10 /CUMM) Cancelled 2.36 L Hgb (14.0 - 18.0 G/DL) Cancelled 6.9 *L Hct (42 - 52 %) Cancelled 20.8 L MCV (80.0 - 94.0 FL) Cancelled 88.3 MCH (27.0 - 31.0 PG) Cancelled 29.4 MCHC (33.0 - 37.0 G/DL) Cancelled 33.3 RDW (11.5 - 14.5 %) Cancelled 17.4 H Plt Count (130 - 400 /CUMM) Cancelled 46 L MPV (7.4 - 10.4 FL) Cancelled 9.2 Gran % (42.2 - 75.2 %) 53.5 Lymphocytes % (20.5 - 51.1 %) 32.6 Monocytes % (1.7 - 9.3 %) 12.7 H Eosinophils % (0 - 5 %) 1.2 Basophils % (0.0 - 2.0 %) 0 Absolute Granulocytes (1.4 - 6.5 /CUMM) 0.9 L Absolute Lymphocytes (1.2 - 3.4 /CUMM) 0.6 L Absolute Monocytes (0.10 - 0.60 /CUMM) 0.2 Absolute Eosinophils (0.0 - 0.7 /CUMM) 0 Absolute Basophils (0.0 - 0.2 /CUMM) 0 02/17 02/16 7326 1439 Chemistry Sodium (137 - 145 mmol/L) 135 L Potassium (3.5 - 5.1 mmol/L) 4.4 Chloride (98 - 107 mmol/L) 105 Carbon Dioxide (22 - 30 mmol/L) 26 Anion Gap (5 - 16) 4 L BUN (9 - 20 mg/dL) 19 Creatinine (0.7 - 1.2 mg/dL) 0.9 Estimated GFR (>60 ml/min) > 60 Glucose (65 - 99 mg/dL) 107 H Calcium (8.4 - 10.2 mg/dL) 7.7 L Phosphorus (2.5 - 4.5 mg/dL) 2.9 Magnesium (1.6 - 2.3 mg/dL) 1.8 Total Bilirubin (0.2 - 1.3 mg/dL) 1.6 H AST (17 - 59 U/L) 44 ALT (21 - 72 U/L) 27 Albumin (3.5 - 5.0 g/dL) 2.3 L Hematology CBC w Diff MAN DIFF ORDERED NO MAN DIFF REQ WBC (4.8 - 10.8 /CUMM) 1.8 L 3.8 L RBC (4.70 - 6.10 /CUMM) 2.41 L 2.85 L Hgb (14.0 - 18.0 G/DL) 7.0 *L 8.3 L Hct (42 - 52 %) 21.4 L 25.3 L MCV (80.0 - 94.0 FL) 88.7 88.7 MCH (27.0 - 31.0 PG) 29.0 29.1 MCHC (33.0 - 37.0 G/DL) 32.6 L 32.8 L RDW (11.5 - 14.5 %) 17.9 H 18.2 H Plt Count (130 - 400 /CUMM) 46 L 58 L MPV (7.4 - 10.4 FL) 9.4 9.0 Gran % (42.2 - 75.2 %) 67.5 79.5 H Lymphocytes % (20.5 - 51.1 %) 21.4 11.9 L Monocytes % (1.7 - 9.3 %) 10.3 H 7.8 Eosinophils % (0 - 5 %) 0.5 0.8 Basophils % (0.0 - 2.0 %) 0.3 0 Absolute Granulocytes (1.4 - 6.5 /CUMM) 1.2 L 3.0 Segmented Neutrophils (42.2 - 75.2 %) 62 Band Neutrophils (0.0 - 5.0 %) 10 H Absolute Lymphocytes (1.2 - 3.4 /CUMM) 0.4 L 0.5 L Lymphocytes (20.5 - 51.1 %) 20 L Monocytes (1.7 - 9.3 %) 6 Absolute Monocytes (0.10 - 0.60 /CUMM) 0.2 0.3 Eosinophils (0 - 5.0 %) 2 Absolute Eosinophils (0.0 - 0.7 /CUMM) 0 0 Absolute Basophils (0.0 - 0.2 /CUMM) 0 0 Platelet Estimate (ADEQUATE) DECREASED Polychromasia 1+ Hypochromic-Microcytic 1+ Poikilocytosis 1+ 02/16 02/16 1516 1427 Chemistry Ammonia (9 - 30 umol/L) 65 H Hematology CBC w Diff NO MAN DIFF REQ WBC (4.8 - 10.8 /CUMM) 5.8 RBC (4.70 - 6.10 /CUMM) 2.45 L Hgb (14.0 - 18.0 G/DL) 7.2 *L Hct (42 - 52 %) 21.8 L MCV (80.0 - 94.0 FL) 88.8 MCH (27.0 - 31.0 PG) 29.3 MCHC (33.0 - 37.0 G/DL) 33.0 RDW (11.5 - 14.5 %) 17.3 H Plt Count (130 - 400 /CUMM) 61 L MPV (7.4 - 10.4 FL) 9.4 Gran % (42.2 - 75.2 %) 82.7 H Lymphocytes % (20.5 - 51.1 %) 9.3 L Monocytes % (1.7 - 9.3 %) 7.1 Eosinophils % (0 - 5 %) 0.6 Basophils % (0.0 - 2.0 %) 0.3 Absolute Granulocytes (1.4 - 6.5 /CUMM) 4.8 Absolute Lymphocytes (1.2 - 3.4 /CUMM) 0.5 L Absolute Monocytes (0.10 - 0.60 /CUMM) 0.4 Absolute Eosinophils (0.0 - 0.7 /CUMM) 0 Absolute Basophils (0.0 - 0.2 /CUMM) 0 02/16 02/16 0620 0010 Chemistry Sodium (137 - 145 mmol/L) 132 L Potassium (3.5 - 5.1 mmol/L) 5.3 H Chloride (98 - 107 mmol/L) 103 Carbon Dioxide (22 - 30 mmol/L) 24 Anion Gap (5 - 16) 6 BUN (9 - 20 mg/dL) 24 H Creatinine (0.7 - 1.2 mg/dL) 1.0 Estimated GFR (>60 ml/min) > 60 BUN/Creatinine Ratio (7 - 25 %) 24.0 Coagulation PT (9.4 - 12.5 SEC) 21.3 H INR (0.90 - 1.17) 1.94 H Hematology CBC w Diff NO MAN DIFF REQ MAN DIFF ORDERED WBC (4.8 - 10.8 /CUMM) 3.7 L 3.4 L RBC (4.70 - 6.10 /CUMM) 2.55 L 1.97 L Hgb (14.0 - 18.0 G/DL) 7.4 *L 5.9 *L Hct (42 - 52 %) 22.9 L 17.7 *L MCV (80.0 - 94.0 FL) 89.8 89.9 MCH (27.0 - 31.0 PG) 28.9 29.7 MCHC (33.0 - 37.0 G/DL) 32.2 L 33.0 RDW (11.5 - 14.5 %) 17.4 H 17.7 H Plt Count (130 - 400 /CUMM) 45 L 44 L MPV (7.4 - 10.4 FL) 9.4 9.2 Gran % (42.2 - 75.2 %) 78.8 H 80.4 H Lymphocytes % (20.5 - 51.1 %) 13.4 L 13.0 L Monocytes % (1.7 - 9.3 %) 7.0 6.2 Eosinophils % (0 - 5 %) 0.5 0.3 Basophils % (0.0 - 2.0 %) 0.3 0.1 Absolute Granulocytes (1.4 - 6.5 /CUMM) 2.9 2.7 Segmented Neutrophils (42.2 - 75.2 %) 85 H Band Neutrophils (0.0 - 5.0 %) 2 Absolute Lymphocytes (1.2 - 3.4 /CUMM) 0.5 L 0.4 L Lymphocytes (20.5 - 51.1 %) 9 L Monocytes (1.7 - 9.3 %) 1 L Absolute Monocytes (0.10 - 0.60 /CUMM) 0.3 0.2 Eosinophils (0 - 5.0 %) 1 Absolute Eosinophils (0.0 - 0.7 /CUMM) 0 0 Basophils (0.0 - 2.0 %) 2 Absolute Basophils (0.0 - 0.2 /CUMM) 0 0 Platelet Estimate (ADEQUATE) DECREASED Polychromasia 1+ Poikilocytosis 1+ Basophilic Stippling 1+ Ovalocytes 1+ Elliptocytes FEW Other Body Source Fld Total RBCs Counted (%) 100 02/15 02/15 193 0748 Chemistry Sodium (137 - 145 mmol/L) 129 L Potassium (3.5 - 5.1 mmol/L) 4.3 Chloride (98 - 107 mmol/L) 98 Carbon Dioxide (22 - 30 mmol/L) 22 Anion Gap (5 - 16) 9 BUN (9 - 20 mg/dL) 20 Creatinine (0.7 - 1.2 mg/dL) 1.0 Estimated GFR (>60 ml/min) > 60 BUN/Creatinine Ratio (7 - 25 %) 20.0 Glucose (65 - 99 mg/dL) 235 H Calcium (8.4 - 10.2 mg/dL) 7.6 L Total Bilirubin (0.2 - 1.3 mg/dL) 1.6 H AST (17 - 59 U/L) 49 ALT (21 - 72 U/L) 20 L Alkaline Phosphatase (< 127 U/L) 123 Ammonia (9 - 30 umol/L) 22 Total Protein (6.3 - 8.2 g/dL) 5.7 L Albumin (3.5 - 5.0 g/dL) 2.7 L Globulin (1.9 - 4.2 gm/dL) 3.0 Albumin/Globulin Ratio (1.1 - 2.2 %) 0.9 L Toxicology Urine Opiates Screen (>2000 NG/ML) 355 Methadone Screen (>300 NG/ML) > 735 H Barbiturate Screen (>200 NG/ML) < 60 Ur Phencyclidine Scrn (>25 NG/ML) < 6.00 Amphetamines Screen (>1000 NG/ML) < 100 U Benzodiazepines Scrn (>200 NG/ML) < 85 Urine Cocaine Screen (>300 NG/ML) < 50 Urine Cannabis Screen (>50 NG/ML) 79.70 H Serum Alcohol (<10 MG/DL) < 10.0 Urines Urine Color (YEL,AMB,STR) YEL Urine Clarity (CLEAR) CLEAR Urine pH (5.0 - 8.0) 6.0 Ur Specific [place] (1.001 - 1.035) 1.025 Urine Protein (NEG,<30 MG/DL) NEG Urine Ketones (NEG) NEG Urine Nitrite (NEG) NEG Urine Bilirubin (NEG) NEG Urine Urobilinogen (0.1 - 1.0 EU/dl) 0.2 Ur Leukocyte Esterase (NEG) NEG Ur Microscopic EXAM NOT REQUIRED Urine Hemoglobin (NEG) NEG Urine Glucose (N MG/DL) NEG 02/15 0407 Chemistry Sodium (137 - 145 mmol/L) 135 L Potassium (3.5 - 5.1 mmol/L) 5.1 Chloride (98 - 107 mmol/L) 99 Carbon Dioxide (22 - 30 mmol/L) 23 Anion Gap (5 - 16) 14 BUN (9 - 20 mg/dL) 23 H Creatinine (0.7 - 1.2 mg/dL) 1.5 H Estimated GFR (>60 ml/min) 55 L BUN/Creatinine Ratio (7 - 25 %) 15.3 Glucose (65 - 99 mg/dL) 76 Calcium (8.4 - 10.2 mg/dL) 8.1 L Total Bilirubin (0.2 - 1.3 mg/dL) 1.3 AST (17 - 59 U/L) 47 ALT (21 - 72 U/L) 26 Alkaline Phosphatase (< 127 U/L) 124 Total Protein (6.3 - 8.2 g/dL) 6.7 Albumin (3.5 - 5.0 g/dL) 3.4 L Globulin (1.9 - 4.2 gm/dL) 3.3 Albumin/Globulin Ratio (1.1 - 2.2 %) 1.0 L Hematology CBC w Diff MAN DIFF ORDERED WBC (4.8 - 10.8 /CUMM) 2.7 L RBC (4.70 - 6.10 /CUMM) 2.85 L Hgb (14.0 - 18.0 G/DL) 8.3 L Hct (42 - 52 %) 25.8 L MCV (80.0 - 94.0 FL) 90.3 MCH (27.0 - 31.0 PG) 29.1 MCHC (33.0 - 37.0 G/DL) 32.2 L RDW (11.5 - 14.5 %) 17.8 H Plt Count (130 - 400 /CUMM) 62 L MPV (7.4 - 10.4 FL) 9.8 Gran % (42.2 - 75.2 %) 69.9 Lymphocytes % (20.5 - 51.1 %) 18.9 L Monocytes % (1.7 - 9.3 %) 10.1 H Eosinophils % (0 - 5 %) 1.1 Basophils % (0.0 - 2.0 %) 0 Absolute Granulocytes (1.4 - 6.5 /CUMM) 1.9 Segmented Neutrophils (42.2 - 75.2 %) 70 Band Neutrophils (0.0 - 5.0 %) 5 Absolute Lymphocytes (1.2 - 3.4 /CUMM) 0.5 L Lymphocytes (20.5 - 51.1 %) 19 L Monocytes (1.7 - 9.3 %) 5 Absolute Monocytes (0.10 - 0.60 /CUMM) 0.2 Eosinophils (0 - 5.0 %) 1 Absolute Eosinophils (0.0 - 0.7 /CUMM) 0 Absolute Basophils (0.0 - 0.2 /CUMM) 0 Platelet Estimate (ADEQUATE) DECREASED Polychromasia 1+ Hypochromic-Microcytic 2+ Poikilocytosis 2+ Basophilic Stippling RARE Elliptocytes 1+ Schistocytes 1+ Other Body Source Fld Total RBCs Counted (%) 100
[2018-02-17 21:04] LABS: ABSOLUTE BASOPHIL COUNT 0 /CUMM (0.0-0.2); ABSOLUTE EOSINOPHIL COUNT 0.1 /CUMM (0.0-0.7); ABSOLUTE GRANULOCYTE CT 1.2 /CUMM (1.4-6.5); ABSOLUTE LYMPH COUNT 0.7 /CUMM (1.2-3.4); ABSOLUTE MONOCYTE COUNT 0.2 /CUMM (0.10-0.60); BASOPHIL % 0.7 % (0.0-2.0); EOSINOPHIL % 3.6 % (0-5); GRANULOCYTE % 53.6 % (42.2-75.2); HEMATOCRIT 24.3 % (42-52); MEAN CORPUSCULAR HGB 29.1 PG (27.0-31.0); MEAN CORPUSCULAR HGB CONC 32.5 G/DL (33.0-37.0); MEAN CORPUSCULAR VOLUME 89.3 FL (80.0-94.0); MEAN PLATELET VOLUME 8.9 FL (7.4-10.4); RBC DISTRIBUTION WIDTH 17.2 % (11.5-14.5); RED BLOOD CELL CT 2.72 /CUMM (4.70-6.10); WHITE BLOOD CELL COUNT 2.2 /CUMM (4.8-10.8)
[2018-02-17 21:27] LABS: PLATELET COUNT 47 /CUMM (130-400)
[2018-02-18] VITALS (10 sets, daily range): BP systolic 85–118; BP diastolic 47–72
[2018-02-18 06:00] LABS: ABSOLUTE BASOPHIL COUNT 0.1 /CUMM (0.0-0.2); ABSOLUTE EOSINOPHIL COUNT 0.2 /CUMM (0.0-0.7); ABSOLUTE GRANULOCYTE CT 2.2 /CUMM (1.4-6.5); ABSOLUTE LYMPH COUNT 1.6 /CUMM (1.2-3.4); ABSOLUTE MONOCYTE COUNT 0.4 /CUMM (0.10-0.60); BASOPHIL % 1.2 % (0.0-2.0); EOSINOPHIL % 3.6 % (0-5); GRANULOCYTE % 50.3 % (42.2-75.2); HEMATOCRIT 28.5 % (42-52); MEAN CORPUSCULAR HGB 29.3 PG (27.0-31.0); MEAN CORPUSCULAR HGB CONC 32.9 G/DL (33.0-37.0); MEAN PLATELET VOLUME 9.4 FL (7.4-10.4); RBC DISTRIBUTION WIDTH 17.8 % (11.5-14.5)
[2018-02-18 06:11] LABS: PT 17.3 SEC (9.4-12.5)
[2018-02-18 06:13] LABS: WHITE BLOOD CELL COUNT 4.4 /CUMM (4.8-10.8)
[2018-02-18 06:36] LABS: PLATELET COUNT 76 /CUMM (130-400)
--- NOTE | 2018-02-18 08:17 | PN- Resident CRCU ---
Subjective HPI/CRCU Issues: Opiate Overdose GI Bleeding Pt seen and examined at bedside. Pt has flat affect with one word answers to questioning. Alert and oriented to self and place but no to time. Pt complaining of abdominal pain described as an ache all over the abdomen rated 20/10 on inquiry. 24 Hour Events: Pt had an episode of hypoglycemia (36 mg/dL), levemir held and D50 given. Next glucose 107 mg/dL. Had one episode of hemoptysis. Pt was agitated during the night, 2.5 mg olanzapine given. No other events overnight. Objective Vital Signs & I&O Last 8 Hrs of Vitals and I&O: Vital Signs Date Time Temp Pulse Resp B/P B/P Pulse O2 O2 Flow FiO2 Mean Ox Delivery Rate 02/18 1000 65 15 103/65 02/18 0800 Room Air 02/18 0800 97.7 61 16 102/52 / 0800 97.7 61 16 102/52 99 Room Air 02/18 0746 55 102/66 02/18 0600 97.1 57 16 104/64 02/18 0400 97.9 63 18 85/47 07/ 0200 97.9 63 16 87/55 07/01 0000 97.9 64 18 104/57 07/01 0000 97.9 64 18 104/57 95 Room Air 02/17 2200 98.6 64 18 125/71 02/17 2000 98.6 70 20 112/64 02/17 1600 Room Air 02/17 1600 98.0 63 16 104/62 / 1600 98.0 62 18 104/62 94 Room Air 02/17 1218 97.8 62 15 104/52 97 Room Air 02/17 1200 97.8 62 15 104/52 /30 1200 97 Room Air Intake & Output 02/18 1600 01 0800 07 0000 Intake Total 1100 820 Output Total 700 Balance 400 820 Intake, IV 1000 820 Intake, Oral 100 Output, Urine 700 Patient 198 lb Weight Weight Bed scale Measurement Method Intake & Output 02/18 1600 Intake Total Output Total Balance Patient 198 lb Weight Weight Bed scale Measurement Method Exam General Appearance: alert, awake Head: atraumatic, normal appearance Neck: normal inspection Respiratory: normal breath sounds, no respiratory distress, lungs clear Cardiovascular: regular rate/rhythm Gastrointestinal: normal bowel sounds, soft, distention, tenderness Extremities: normal inspection, no edema Skin: intact, normal color Sepsis Skin Exam (color): Normal for Ethnicity Current Medications: Current Medications Sig/Jose Martin Start time Last Medication Dose Route Stop Time Status Admin Acetaminophen 1,000 MG ONCE ONE 02/18 0845 DC 02/18 N/A 1 UNIT IV 02/18 0859 0830 Ampicillin Sodium/ 1,500 MG Q6 02/16 0142 02/18 Sulbactam Sodium IV 0525 Sodium Chloride 100 ML Dextrose 12.5 GM ONCE ONE 02/18 0800 DC 02/18 IV 02/18 0801 0803 Dextrose 25 GM ONCE ONE 02/18 0530 DC 02/18 IV 02/18 0531 0515 Dextrose/Water 1,000 ML .Q20H 02/17 1815 AC 02/17 IV 02/18 1414 1831 Dicyclomine HCl 20 MG 4 TIMES/DAY PRN 02/15 2330 AC 02/18 PO 0954 Folic Acid 1 MG DAILY 02/15 1931 AC 02/18 PO 0745 Haloperidol 5 MG .STK-MED ONE 02/17 1400 DC IM 02/17 1401 Insulin Aspart 0 Q6 02/17 1800 AC 02/17 SC 2356 Insulin Aspart 0 TIDAC 02/16 0800 DC 02/16 SC 0801 Insulin Detemir 10 UNITS BID 02/16 0900 02/17 SC 2038 Levothyroxine Sodium 0.025 MG DAILY AC 02/16 0700 AC 02/18 PO 0746 Multivitamins 1 TAB DAILY 02/15 1933 AC 02/18 Therapeutic PO 0745 Naloxone HCl 0.4 MG ONCE PRN 02/16 0215 IV Octreotide Acetate 500 MCG Q10H 02/16 0045 02/18 Sodium Chloride 500 ML IV 0307 Olanzapine 2.5 MG ONCE ONE 02/17 2215 DC 02/17 IM 02/17 2216 2350 Olanzapine 5 MG ONCE ONE 02/17 1415 DC 02/17 IM 02/17 1416 1409 Olanzapine 2.5 MG Q6PRN PRN 02/17 1400 AC 02/17 IM 1835 Ondansetron HCl 4 MG Q6 PRN 02/15 1945 AC 02/15 PO 1940 Pantoprazole Sodium 40 MG BID 02/16 0900 AC 02/18 IV 0746 Phytonadione 10 MG DAILY 02/17 1130 AC 02/18 PO 02/19 0901 0745 Phytonadione 5 MG DAILY 02/17 1100 DC PO Propranolol HCl 80 MG DAILY 02/15 1935 AC 02/15 PO 1940 Thiamine HCl 100 MG DAILY 02/15 1935 AC 02/18 PO 0745 CXR Findings: EXAMINATION: XR CHEST CLINICAL INFORMATION: Chest pain. COMPARISON: None TECHNIQUE: 2 views of the chest were obtained. FINDINGS: No significant abnormality is noted involving the heart, lungs, mediastinum, bony thorax or soft tissues. IMPRESSION: No acute pulmonary pathology demonstrated. CT Scan Findings: EXAMINATION: CT ANGIOGRAM CHEST, ABDOMEN AND PELVIS CLINICAL INFORMATION: Chest pain. Recent travel. Positive troponin. COMPARISON: Chest x-ray 02/16/2018 TECHNIQUE: Noncontrast axial images obtained through the chest. Multiple axial images were obtained through the chest abdomen and pelvis following the administration of 95 mL of Optiray 320 intravenous contrast. Coronal and sagittal reformatted images performed at CT scanner. No 3-D imaging. DLP: 1229.06 mGy-cm. FINDINGS: VASCULAR: The thoracic aorta is normal. There is no dissection. There is no aneurysm. There is mild atherosclerotic vascular wall calcifications of the abdominal aorta. There is normal enhancement of the major branch vessels at the thoracic aortic arch as well as in the abdomen and pelvis. The pulmonary arteries are well opacified. No evidence of central pulmonary embolism. There are coronary artery calcifications. CT CHEST: MEDIASTINUM: No mediastinal mass. No significant lymphadenopathy. There is no pericardial effusion. LUNGS: The lungs are clear. No nodule or infiltrate. Central bronchial airways open. FLUID: There is no pericardial effusion. There is no pleural effusion. AXILLA: No significant lymphadenopathy. CT SCAN ABDOMEN PELVIS: LIVER, GALLBLADDER, AND BILIARY TREE: The liver is normal in size, shape, and attenuation. No focal hepatic lesion or biliary ductal dilatation is present. The gallbladder is unremarkable with no evidence of radiopaque gallstones, gallbladder wall thickening, or obvious pericholecystic inflammatory changes. PANCREAS: Unremarkable. SPLEEN: Unremarkable. ADRENAL GLANDS: 1.6 cm fatty adrenal adenoma involving the right adrenal gland. Left adrenal gland is normal. KIDNEYS AND URETERS: The kidneys are normal in size, shape, and attenuation. No hydronephrosis, hydroureter, or calculi seen. No perinephric stranding. BLADDER: Unremarkable. GASTROINTESTINAL TRACT: The small and large bowel are unremarkable. The appendix is unremarkable. ABDOMINAL WALL: No significant hernia is appreciated. LYMPH NODES: Normal. PELVIC VISCERA: Unremarkable. OSSEOUS STRUCTURES: Unremarkable. IMPRESSION: Normal CT scan of the chest, abdomen pelvis. Normal aorta. Impression/Plan Impression/Problem List Impression: Pt is a 32 y/o M poor narrator with a flat affect and a significant PMH of multisubstance abuse (opiods, alcohol, inhalants), IDDM, hypothyroidism, hepatitis C with previous episodes of hepatic encephalopathy and suicidal ideation that was lethargic on ED arrival. Had a prior admit on 02/02 for MRSA+ periorbital cellulitis discharged on PO bactrim. Assessment and Plan Respiratory: Pt CXR on admit showed right middle lung opacity, concerning for aspiration pneumonia. Had prior admit on 02/02 for MRSA+ preorbital cellulitis. -Continue vancomycin and unasyn for possible aspiration PNA with h/o MRSA -Narcan PRN if respiratory depression, apnea or confusion Infection: See above. Tmax 101 on 02/16, temperature trending down, afebrile since 02/16 @ 20.00/ Will continue to monitor for infection signs. Cardiac: -Continue to monitor hemodynamics. Pt with unfrequent voiding. -In/Out last 24h: Hematology: -Hb trend: 6.9 -> 7.9 -> 9.4. Decreased Hb due to variceal bleeding. -s/p EGD: grade 3 esophageal varices, s/p banding -s/p 3U PRBC, last one 02/16 - IV PPI - IV Octeotride until GI consult - Continue to monitor CBCs Metabolic: - Creatinine on admit 1.5 -> 0.8 (02/18), normalized - Cirrhosis, low albumin (2.3L), AST/ALT (44/27), hyperbillirubinemia (1.6) - Continue monitoring electrolytes - Continue insulin/finger stick monitoring - Synthroid - Mvi, folate, thiamine Alimentary: -NPO Neurological: -Pt awake, alert. Flat affect with one word answers. Oriented to self and place, not time. Problem List: 1. Methadone overdose 2. Opiate abuse, continuous 3. Esophageal varices Pain Ratin (pt states his abdominal pain i) Pain Location: abdomen Tomorrow's Labs & Rationales: CBC/ICU Bundle Plan DVT/Prophylaxis: mechanical
--- NOTE | 2018-02-18 10:03 | PN- CRCU ---
Subjective HPI/Critical Care Issues: Patient is awake alert hemodynamics improved urine output is adequate Objective Current Medications: Current Medications Sig/Jose Martin Start time Last Medication Dose Route Stop Time Status Admin Acetaminophen 1,000 MG ONCE ONE 02/18 0845 DC 02/18 N/A 1 UNIT IV 02/18 0859 0830 Ampicillin Sodium/ 1,500 MG Q6 02/16 0142 02/18 Sulbactam Sodium IV 0525 Sodium Chloride 100 ML Dextrose 12.5 GM ONCE ONE 02/18 0800 DC 02/18 IV 02/18 0801 0803 Dextrose 25 GM ONCE ONE 02/18 0530 DC 02/18 IV 02/18 0531 0515 Dextrose/Water 1,000 ML .Q20H 02/17 1815 AC 02/17 IV 02/18 1414 1831 Dicyclomine HCl 20 MG 4 TIMES/DAY PRN 02/15 2330 AC 02/18 PO 0954 Folic Acid 1 MG DAILY 02/15 1931 AC 02/18 PO 0745 Haloperidol 5 MG .STK-MED ONE 02/17 1400 DC IM 02/17 1401 Insulin Aspart 0 Q6 02/17 1800 AC 02/17 SC 2356 Insulin Aspart 0 TIDAC 02/16 0800 FL 02/16 SC 0801 Insulin Detemir 10 UNITS BID 02/16 0900 02/17 SC 2038 Levothyroxine Sodium 0.025 MG DAILY AC 02/16 0700 AC 02/18 PO 0746 Multivitamins 1 TAB DAILY 02/15 1933 AC 02/18 Therapeutic PO 0745 Naloxone HCl 0.4 MG ONCE PRN 02/16 0215 IV Octreotide Acetate 500 MCG Q10H 02/16 0045 02/18 Sodium Chloride 500 ML IV 0307 Olanzapine 2.5 MG ONCE ONE 02/17 2215 DC 02/17 IM 02/17 2216 2350 Olanzapine 5 MG ONCE ONE 02/17 1415 DC 02/17 IM 02/17 1416 1409 Olanzapine 2.5 MG Q6PRN PRN 02/17 1400 AC 02/17 IM 1835 Ondansetron HCl 4 MG Q6 PRN 02/15 1945 AC 02/15 PO 1940 Pantoprazole Sodium 40 MG BID 02/16 0900 AC 02/18 IV 0746 Phytonadione 10 MG DAILY 02/17 1130 AC 02/18 PO 02/19 0901 0745 Phytonadione 5 MG DAILY 02/17 1100 DC PO Propranolol HCl 80 MG DAILY 02/15 1935 AC 02/15 PO 1940 Thiamine HCl 100 MG DAILY 02/15 1935 AC 02/18 PO 0745 Vital Signs & I&O Last 24 Hrs of Vitals and I&O: Vital Signs Date Time Temp Pulse Resp B/P B/P Pulse O2 O2 Flow FiO2 Mean Ox Delivery Rate 02/18 0800 Room Air 02/18 0800 97.7 61 16 102/52 02/18 0800 97.7 61 16 102/52 99 Room Air 02/18 0746 55 102/66 02/18 0600 97.1 57 16 104/64 07 0400 97.9 63 18 85/47 02/18 0200 97.9 63 16 87/55 07/ 0000 97.9 64 18 104/57 07/ 0000 97.9 64 18 104/57 95 Room Air 02/17 2200 98.6 64 18 125/71 02/17 2000 98.6 70 20 112/64 02/17 1600 Room Air 02/17 1600 98.0 63 16 104/62 02/17 1600 98.0 62 18 104/62 94 Room Air 02/17 1218 97.8 62 15 104/52 97 Room Air 02/17 1200 97.8 62 15 104/52 02/17 1200 97 Room Air Intake & Output 02/18 1600 02/18 0800 02/18 0000 Intake Total 1100 820 Output Total 700 Balance 400 820 Intake, IV 1000 820 Intake, Oral 100 Output, Urine 700 Patient 198 lb Weight Weight Bed scale Measurement Method Oximetry 99% exam of his chest shows clear lung cornelius cardiac exam shows regular S1 and S2 without murmurs abdomen soft nontender Impression/Plan Impression/Plan Impression/Plan: 32-year-old admitted with opiate overdose complicated by cirrhosis and variceal bleeding status post banding. Hemodynamics are improved Recommendations: Continue to monitor CBCs. Psychiatric follow-up. Await GI determination on discontinuation of octreotide
--- NOTE | 2018-02-18 10:19 | PN- Psychiatry ---
See Addendum Assessment/Plan Impression: Jerad is a 32-year-old male with a longstanding hx of alcohol use disorder and opioid/cannabis use disorder who was found unresponsive by his mother after overdosed on methadone in an attempt to "get high". The patient requesting to leave AMA despite being in the ICU with recent GI bleed. He has no insight into the consequences of his drinking neither to his recent overdose and possible if was not found by his mother. He remains medical;y unclear for discharge nor stepdown level of care. Suggestion: start Olanzapine 2.5 mg IV/IM/PO Q4-6hr PRN for agitation/aggression hold for low BP or elevated QTC reviewed QTC 411 Subjective Subjective: Date of follow up: 02/17/2018 Jerad is a 32-year-old male with a longstanding hx of alcohol use disorder and opioid/cannabis use disorder who was found unresponsive by his mother after overdosed on methadone in an attempt to "get high". Medical history is significant for esophageal varices, hepatitis C, and cirrhosis on liver transplant waiting list, type 1 diabetes, hypothyroidism, pancreatitis, and delirium tremens. Hx of preorbital cellulitis with MRSA. In the ED the patient had gross hematemesis had an OGD and found to have esophageal varices which were banded. On 02/17/2018 I was called by the ICU team for agitation/aggression and to reevaluate capacity for leaving AGAINST MEDICAL ADVICE. The patient was seen lying in ICU bed, uncooperative, yelling and loud asking to leave AMA, he denies having suicidal/homicidal ideations. However, he appeared agitated, demanding on leaving, refuses to answer questions, using profanity and calling names, and irritable. Objective Last 24 Hrs of Vital Signs/I&O Vital Signs Date Time Temp Pulse Resp B/P B/P Pulse O2 O2 Flow FiO2 Mean Ox Delivery Rate 02/18 08 Room Air 02/18 0800 97.7 61 16 102/52 02/18 0800 97.7 61 16 102/52 99 Room Air 02/18 0746 55 102/66 02/18 0600 97.1 57 16 104/64 07/ 0400 97.9 63 18 85/47 07/ 0200 97.9 63 16 87/55 07/01 0000 97.9 64 18 104/57 07/01 0000 97.9 64 18 104/57 95 Room Air 02/17 2200 98.6 64 18 125/71 02/17 2000 98.6 70 20 112/64 02/17 1600 Room Air 02/17 1600 98.0 63 16 104/62 02/17 1600 98.0 62 18 104/62 94 Room Air 02/17 1218 97.8 62 15 104/52 97 Room Air 02/17 1200 97.8 62 15 104/52 02/17 1200 97 Room Air Intake & Output 02/18 1600 02/18 0800 02/18 0000 Intake Total 1100 820 Output Total 700 Balance 400 820 Intake, IV 1000 820 Intake, Oral 100 Output, Urine 700 Patient 89.925 kg Weight Weight Bed scale Measurement Method Mental Status Examination Appearance: appears stated age, lying in bed Behavior: guarded, resistant and largely uncooperative A&Ox1, alert, oriented to place, person and time not to situation Eye contact: avoid to intense when starring Speech: clear when he speaks, but monotonous Motor Activity: no abnormal movements, psychomotor agitation noticed Mood: dysphoric Affect: constricted to irritable with reactivity Perceptual disturbances: denies hallucinations Thought Process: organized, Thought Content: agitated, verbally aggressive, irritable, preoccupied with leaving AMA, denies suciidal/homciidal ideations at present, no delusions elicited/verbalized at the time of interview Insight/Judgment: poor, poor Attention/Concentration: distractible and impaired
--- NOTE | 2018-02-18 13:41 | PN- Gastroenterology ---
Assessment/Plan GI Assessment/Recommendations: No evidence of rebleeding following banding 2 days ago. No nausea vomiting abdominal pain melena. Patient taking little by mouth but please keep on full liquids for another 24 hours. Please give by mouth iron and subcutaneous vitamin K. No evidence of usual liver decompensation such as ascites, encephalopathy, renal failure, volume overload, LFT abnormalities, alcoholic hepatitis or bacterial infection. Subjective Subjective: x Objective Vital Signs and I&Os Vital Signs Date Time Temp Pulse Resp B/P B/P Pulse O2 O2 Flow FiO2 Mean Ox Delivery Rate 02/18 1200 98.6 63 16 112/64 02/18 1200 99 Room Air 02/18 1000 65 15 103/65 02/18 0800 Room Air 02/18 0800 97.7 61 16 102/52 02/18 0800 97.7 61 16 102/52 99 Room Air 02/18 0746 55 102/66 / 0600 97.1 57 16 104/64 02/18 0400 97.9 63 18 85/47 / 0200 97.9 63 16 87/55 07/01 0000 97.9 64 18 104/57 07/01 0000 97.9 64 18 104/57 95 Room Air 02/17 2200 98.6 64 18 125/71 02/17 2000 98.6 70 20 112/64 02/17 1600 Room Air 02/17 1600 98.0 63 16 104/62 02/17 1600 98.0 62 18 104/62 94 Room Air Intake & Output 02/18 1600 02/18 0400 02/17 1600 02/17 0400 02/16 1600 02/16 0400 Intake Total 5160 071 7436 790 2465 1000 Output Total 700 0 300 Balance 061 314 9842 790 2465 700 Intake, Blood 350 700 Product Intake, IV 9042 948 6610 470 1465 1000 Intake, Oral 100 720 320 300 Number 1 2 2 1 Bowel Movements Output, 300 Emesis Output, Urine 700 0 Patient 198 lb 200 lb 200 lb Weight Weight Bed scale Bed scale Bed scale Measurement Method Results Pertinent Lab Results: x Laboratory Tests 02/18 Chemistry Sodium (137 - 145 mmol/L) 137 Potassium (3.5 - 5.1 mmol/L) 3.8 Chloride (98 - 107 mmol/L) 106 Carbon Dioxide (22 - 30 mmol/L) 26 Anion Gap (5 - 16) 5 BUN (9 - 20 mg/dL) 15 Creatinine (0.7 - 1.2 mg/dL) 0.8 Estimated GFR (>60 ml/min) > 60 Glucose (65 - 99 mg/dL) 36 *L Calcium (8.4 - 10.2 mg/dL) 8.1 L Phosphorus (2.5 - 4.5 mg/dL) 2.2 L Magnesium (1.6 - 2.3 mg/dL) 1.8 Total Bilirubin (0.2 - 1.3 mg/dL) 1.5 H AST (17 - 59 U/L) 47 ALT (21 - 72 U/L) 21 Albumin (3.5 - 5.0 g/dL) 2.3 L Coagulation PT (9.4 - 12.5 SEC) 17.3 H INR (0.90 - 1.17) 1.58 H Hematology CBC w Diff NO MAN DIFF REQ NO MAN DIFF REQ WBC (4.8 - 10.8 /CUMM) 4.4 L 2.2 L RBC (4.70 - 6.10 /CUMM) 3.20 L 2.72 L Hgb (14.0 - 18.0 G/DL) 9.4 L 7.9 L Hct (42 - 52 %) 28.5 L 24.3 L MCV (80.0 - 94.0 FL) 89.0 89.3 MCH (27.0 - 31.0 PG) 29.3 29.1 MCHC (33.0 - 37.0 G/DL) 32.9 L 32.5 L RDW (11.5 - 14.5 %) 17.8 H 17.2 H Plt Count (130 - 400 /CUMM) 76 L 47 L MPV (7.4 - 10.4 FL) 9.4 8.9 Gran % (42.2 - 75.2 %) 50.3 53.6 Lymphocytes % (20.5 - 51.1 %) 36.5 33.9 Monocytes % (1.7 - 9.3 %) 8.4 8.2 Eosinophils % (0 - 5 %) 3.6 3.6 Basophils % (0.0 - 2.0 %) 1.2 0.7 Absolute Granulocytes (1.4 - 6.5 /CUMM) 2.2 1.2 L Absolute Lymphocytes (1.2 - 3.4 /CUMM) 1.6 0.7 L Absolute Monocytes (0.10 - 0.60 /CUMM) 0.4 0.2 Absolute Eosinophils (0.0 - 0.7 /CUMM) 0.2 0.1 Absolute Basophils (0.0 - 0.2 /CUMM) 0.1 0 02/17 02/17 1000 0850 Chemistry Lactic Acid (0.7 - 2.1 mmol/L) 1.0 Hematology CBC w Diff Cancelled NO MAN DIFF REQ WBC (4.8 - 10.8 /CUMM) Cancelled 1.7 L RBC (4.70 - 6.10 /CUMM) Cancelled 2.36 L Hgb (14.0 - 18.0 G/DL) Cancelled 6.9 *L Hct (42 - 52 %) Cancelled 20.8 L MCV (80.0 - 94.0 FL) Cancelled 88.3 MCH (27.0 - 31.0 PG) Cancelled 29.4 MCHC (33.0 - 37.0 G/DL) Cancelled 33.3 RDW (11.5 - 14.5 %) Cancelled 17.4 H Plt Count (130 - 400 /CUMM) Cancelled 46 L MPV (7.4 - 10.4 FL) Cancelled 9.2 Gran % (42.2 - 75.2 %) 53.5 Lymphocytes % (20.5 - 51.1 %) 32.6 Monocytes % (1.7 - 9.3 %) 12.7 H Eosinophils % (0 - 5 %) 1.2 Basophils % (0.0 - 2.0 %) 0 Absolute Granulocytes (1.4 - 6.5 /CUMM) 0.9 L Absolute Lymphocytes (1.2 - 3.4 /CUMM) 0.6 L Absolute Monocytes (0.10 - 0.60 /CUMM) 0.2 Absolute Eosinophils (0.0 - 0.7 /CUMM) 0 Absolute Basophils (0.0 - 0.2 /CUMM) 0 02/17 02/16 0522 2259 Chemistry Sodium (137 - 145 mmol/L) 135 L Potassium (3.5 - 5.1 mmol/L) 4.4 Chloride (98 - 107 mmol/L) 105 Carbon Dioxide (22 - 30 mmol/L) 26 Anion Gap (5 - 16) 4 L BUN (9 - 20 mg/dL) 19 Creatinine (0.7 - 1.2 mg/dL) 0.9 Estimated GFR (>60 ml/min) > 60 Glucose (65 - 99 mg/dL) 107 H Calcium (8.4 - 10.2 mg/dL) 7.7 L Phosphorus (2.5 - 4.5 mg/dL) 2.9 Magnesium (1.6 - 2.3 mg/dL) 1.8 Total Bilirubin (0.2 - 1.3 mg/dL) 1.6 H AST (17 - 59 U/L) 44 ALT (21 - 72 U/L) 27 Albumin (3.5 - 5.0 g/dL) 2.3 L Hematology CBC w Diff MAN DIFF ORDERED NO MAN DIFF REQ WBC (4.8 - 10.8 /CUMM) 1.8 L 3.8 L RBC (4.70 - 6.10 /CUMM) 2.41 L 2.85 L Hgb (14.0 - 18.0 G/DL) 7.0 *L 8.3 L Hct (42 - 52 %) 21.4 L 25.3 L MCV (80.0 - 94.0 FL) 88.7 88.7 MCH (27.0 - 31.0 PG) 29.0 29.1 MCHC (33.0 - 37.0 G/DL) 32.6 L 32.8 L RDW (11.5 - 14.5 %) 17.9 H 18.2 H Plt Count (130 - 400 /CUMM) 46 L 58 L MPV (7.4 - 10.4 FL) 9.4 9.0 Gran % (42.2 - 75.2 %) 67.5 79.5 H Lymphocytes % (20.5 - 51.1 %) 21.4 11.9 L Monocytes % (1.7 - 9.3 %) 10.3 H 7.8 Eosinophils % (0 - 5 %) 0.5 0.8 Basophils % (0.0 - 2.0 %) 0.3 0 Absolute Granulocytes (1.4 - 6.5 /CUMM) 1.2 L 3.0 Segmented Neutrophils (42.2 - 75.2 %) 62 Band Neutrophils (0.0 - 5.0 %) 10 H Absolute Lymphocytes (1.2 - 3.4 /CUMM) 0.4 L 0.5 L Lymphocytes (20.5 - 51.1 %) 20 L Monocytes (1.7 - 9.3 %) 6 Absolute Monocytes (0.10 - 0.60 /CUMM) 0.2 0.3 Eosinophils (0 - 5.0 %) 2 Absolute Eosinophils (0.0 - 0.7 /CUMM) 0 0 Absolute Basophils (0.0 - 0.2 /CUMM) 0 0 Platelet Estimate (ADEQUATE) DECREASED Polychromasia 1+ Hypochromic-Microcytic 1+ Poikilocytosis 1+ 02/16 02/16 1516 1427 Chemistry Ammonia (9 - 30 umol/L) 65 H Hematology CBC w Diff NO MAN DIFF REQ WBC (4.8 - 10.8 /CUMM) 5.8 RBC (4.70 - 6.10 /CUMM) 2.45 L Hgb (14.0 - 18.0 G/DL) 7.2 *L Hct (42 - 52 %) 21.8 L MCV (80.0 - 94.0 FL) 88.8 MCH (27.0 - 31.0 PG) 29.3 MCHC (33.0 - 37.0 G/DL) 33.0 RDW (11.5 - 14.5 %) 17.3 H Plt Count (130 - 400 /CUMM) 61 L MPV (7.4 - 10.4 FL) 9.4 Gran % (42.2 - 75.2 %) 82.7 H Lymphocytes % (20.5 - 51.1 %) 9.3 L Monocytes % (1.7 - 9.3 %) 7.1 Eosinophils % (0 - 5 %) 0.6 Basophils % (0.0 - 2.0 %) 0.3 Absolute Granulocytes (1.4 - 6.5 /CUMM) 4.8 Absolute Lymphocytes (1.2 - 3.4 /CUMM) 0.5 L Absolute Monocytes (0.10 - 0.60 /CUMM) 0.4 Absolute Eosinophils (0.0 - 0.7 /CUMM) 0 Absolute Basophils (0.0 - 0.2 /CUMM) 0 02/16 02/16 0620 0010 Chemistry Sodium (137 - 145 mmol/L) 132 L Potassium (3.5 - 5.1 mmol/L) 5.3 H Chloride (98 - 107 mmol/L) 103 Carbon Dioxide (22 - 30 mmol/L) 24 Anion Gap (5 - 16) 6 BUN (9 - 20 mg/dL) 24 H Creatinine (0.7 - 1.2 mg/dL) 1.0 Estimated GFR (>60 ml/min) > 60 BUN/Creatinine Ratio (7 - 25 %) 24.0 Coagulation PT (9.4 - 12.5 SEC) 21.3 H INR (0.90 - 1.17) 1.94 H Hematology CBC w Diff NO MAN DIFF REQ MAN DIFF ORDERED WBC (4.8 - 10.8 /CUMM) 3.7 L 3.4 L RBC (4.70 - 6.10 /CUMM) 2.55 L 1.97 L Hgb (14.0 - 18.0 G/DL) 7.4 *L 5.9 *L Hct (42 - 52 %) 22.9 L 17.7 *L MCV (80.0 - 94.0 FL) 89.8 89.9 MCH (27.0 - 31.0 PG) 28.9 29.7 MCHC (33.0 - 37.0 G/DL) 32.2 L 33.0 RDW (11.5 - 14.5 %) 17.4 H 17.7 H Plt Count (130 - 400 /CUMM) 45 L 44 L MPV (7.4 - 10.4 FL) 9.4 9.2 Gran % (42.2 - 75.2 %) 78.8 H 80.4 H Lymphocytes % (20.5 - 51.1 %) 13.4 L 13.0 L Monocytes % (1.7 - 9.3 %) 7.0 6.2 Eosinophils % (0 - 5 %) 0.5 0.3 Basophils % (0.0 - 2.0 %) 0.3 0.1 Absolute Granulocytes (1.4 - 6.5 /CUMM) 2.9 2.7 Segmented Neutrophils (42.2 - 75.2 %) 85 H Band Neutrophils (0.0 - 5.0 %) 2 Absolute Lymphocytes (1.2 - 3.4 /CUMM) 0.5 L 0.4 L Lymphocytes (20.5 - 51.1 %) 9 L Monocytes (1.7 - 9.3 %) 1 L Absolute Monocytes (0.10 - 0.60 /CUMM) 0.3 0.2 Eosinophils (0 - 5.0 %) 1 Absolute Eosinophils (0.0 - 0.7 /CUMM) 0 0 Basophils (0.0 - 2.0 %) 2 Absolute Basophils (0.0 - 0.2 /CUMM) 0 0 Platelet Estimate (ADEQUATE) DECREASED Polychromasia 1+ Poikilocytosis 1+ Basophilic Stippling 1+ Ovalocytes 1+ Elliptocytes FEW Other Body Source Fld Total RBCs Counted (%) 100 02/15 1937 Chemistry Sodium (137 - 145 mmol/L) 129 L Potassium (3.5 - 5.1 mmol/L) 4.3 Chloride (98 - 107 mmol/L) 98 Carbon Dioxide (22 - 30 mmol/L) 22 Anion Gap (5 - 16) 9 BUN (9 - 20 mg/dL) 20 Creatinine (0.7 - 1.2 mg/dL) 1.0 Estimated GFR (>60 ml/min) > 60 BUN/Creatinine Ratio (7 - 25 %) 20.0 Glucose (65 - 99 mg/dL) 235 H Calcium (8.4 - 10.2 mg/dL) 7.6 L Total Bilirubin (0.2 - 1.3 mg/dL) 1.6 H AST (17 - 59 U/L) 49 ALT (21 - 72 U/L) 20 L Alkaline Phosphatase (< 127 U/L) 123 Ammonia (9 - 30 umol/L) 22 Total Protein (6.3 - 8.2 g/dL) 5.7 L Albumin (3.5 - 5.0 g/dL) 2.7 L Globulin (1.9 - 4.2 gm/dL) 3.0 Albumin/Globulin Ratio (1.1 - 2.2 %) 0.9 L Toxicology Serum Alcohol (<10 MG/DL) < 10.0
--- NOTE | 2018-02-18 17:05 | PN- Psychiatry ---
Assessment/Plan Impression: Jerad is a 32-year-old male with a longstanding hx of alcohol use disorder and opioid/cannabis use disorder who has extensive medical history significant for esophageal varices, hepatitis C, and cirrhosis on liver transplant waiting list, type 1 diabetes, hypothyroidism, pancreatitis. The patient presented to the ED after he was found unresponsive by his mother following methadone overdose in an attempt to "get high". In the ED the patient had gross hematemesis, he was scoped and found to have bleeding esophageal varices which were banded. Psychiatry consulted for capacity evaluation and agitation/aggression intervention. The patient was deemed incapacitated to sign AMA. He appears calm and cooperative after the initiation of Olanzapine 2.5 mg PRN. No further episodes of agitation/aggression. He remains on clear liquid diet per GI. Remains medically unclear. Suggestion: - continue Olanzapine 2.5 mg IV/IM/PO Q4-6hr PRN for agitation/aggression - hold for low BP, excessive sedation and/or elevated QTC - monitor QTc periodically Subjective Subjective: I saw Jerad this morning in the ICU lying on bed. He appeared sleepy but alert, able to open his eyes when called his name. He was calm and cooperative. His breakfast try was untouched. He reported feeling "better" denies sucidal/ homicidal thoughts/inten/plans at the time of interview. Objective Last 24 Hrs of Vital Signs/I&O Vital Signs Date Time Temp Pulse Resp B/P B/P Pulse O2 O2 Flow FiO2 Mean Ox Delivery Rate 07/ 1600 98.1 67 15 114/68 07/01 1600 98.1 67 15 114/68 97 Room Air 07/ 1200 98.6 63 16 112/64 07/01 1200 99 Room Air 07/01 1000 65 15 103/65 07/01 0800 Room Air 07/01 0800 97.7 61 16 102/52 07/01 0800 97.7 61 16 102/52 99 Room Air 07/01 0746 55 102/66 07/01 0600 97.1 57 16 104/64 07/01 0400 97.9 63 18 85/47 07/01 0200 97.9 63 16 87/55 07/01 0000 97.9 64 18 104/57 07/01 0000 97.9 64 18 104/57 95 Room Air 02/17 2200 98.6 64 18 125/71 02/18 2000 98.6 70 20 112/64 Intake & Output 02/18 1600 02/18 0800 02/18 0000 Intake Total 1287 1100 820 Output Total 1250 700 Balance 37 400 820 Intake, IV 1167 1000 820 Intake, Oral 120 100 Output, Urine 1250 700 Patient 89.925 kg Weight Weight Bed scale Measurement Method Mental Status Examination Appearance: appears stated age, lying in bed, connected to monitor, vitals WNL, he appears sleepy but alert and awake when called his name. Sitter at the bedside Behavior: calm, cooperative A&Ox2, alert, oriented to place, person not to time, situation Eye contact: appropriate when he open his eyes Speech: clear, soft and slow Motor Activity: no abnormal movements Mood: "good" Affect: constricted to dysphoric with minimal reactivity Perceptual disturbances: denies hallucinations Thought Process: organized, Thought Content: denies sucidal/homciidal ideations at present, no delusions elicited/verbalized at the time of interview Insight/Judgment: limited/limited Attention/Concentration: distractible
[2018-02-18 19:07] LABS: ABSOLUTE BASOPHIL COUNT 0 /CUMM (0.0-0.2); ABSOLUTE EOSINOPHIL COUNT 0.1 /CUMM (0.0-0.7); ABSOLUTE MONOCYTE COUNT 0.2 /CUMM (0.10-0.60); BASOPHIL % 0.5 % (0.0-2.0); HEMATOCRIT 25.9 % (42-52); PLATELET COUNT 49 /CUMM (130-400)
[2018-02-18 19:20] LABS: ABSOLUTE GRANULOCYTE CT 1.1 /CUMM (1.4-6.5); ABSOLUTE LYMPH COUNT 0.6 /CUMM (1.2-3.4); EOSINOPHIL % 4.1 % (0-5); GRANULOCYTE % 52.6 % (42.2-75.2); MEAN CORPUSCULAR HGB 29.1 PG (27.0-31.0); MEAN CORPUSCULAR HGB CONC 33.1 G/DL (33.0-37.0); MEAN CORPUSCULAR VOLUME 87.9 FL (80.0-94.0); MEAN PLATELET VOLUME 9.7 FL (7.4-10.4); RBC DISTRIBUTION WIDTH 16.9 % (11.5-14.5); RED BLOOD CELL CT 2.94 /CUMM (4.70-6.10)
[2018-02-19] VITALS (8 sets, daily range): BP systolic 94–120; BP diastolic 58–78
--- NOTE | 2018-02-19 06:32 | PN- Housestaff ---
See Addendum Subjective Follow-up For: METHADONE OVERDOSE Complaints: pain scale (0-10) (05/30) Subjective: Patient states he is in 'excruciating pain' from laying in the hospital bed. He wants to go home and refuses to answer other questions about symptoms. Denies fever, chills, n/v/d, chest pain, SOB however he says it 'doesn't matter anyway' . He became tearful repeating he just wants to go home. Review of Systems Constitutional: Reports: no symptoms. EENTM: Reports: no symptoms. Cardiovascular: Reports: no symptoms. Respiratory: Reports: no symptoms. Gastrointestinal: Reports: no symptoms. Genitourinary: Reports: no symptoms. Musculoskeletal: Reports: no symptoms. Skin: Reports: no symptoms. Neurological/Psychological: Reports: no symptoms. Hematologic/Endocrine: Reports: no symptoms. Immunologic/Allergic: Reports: no symptoms. Objective Last 24 Hrs of Vital Signs/I&O Vital Signs Date Time Temp Pulse Resp B/P B/P Pulse O2 O2 Flow FiO2 Mean Ox Delivery Rate 02/19 0200 98.1 72 16 100/62 94 Room Air 07/ 0000 Room Air 07/ 2340 98.0 67 18 110/72 95 07/01 1900 98.6 68 18 118/72 07/01 1600 98.1 67 15 114/68 07/01 1600 98.1 67 15 114/68 97 Room Air 07/01 1200 98.6 63 16 112/64 07/01 1200 99 Room Air 07/01 1000 65 15 103/65 07/01 0800 Room Air 07/ 0800 97.7 61 16 102/52 07/01 0800 97.7 61 16 102/52 99 Room Air 07/01 0746 55 102/66 Intake & Output 07/02 0800 07/02 0000 07/01 1600 Intake Total 450 1287 Output Total 1250 Balance 450 37 Intake, IV 200 1167 Intake, Oral 250 120 Output, Urine 1250 Patient 198 lb Weight Weight Bed scale Measurement Method Physical Exam General Appearance: Alert, Oriented X3, Difficult to examine as he does not comply. Skin: No obvious rashes or skin breakdown. Unable to visualize trunk or lower extremities Skin Temp/Moisture Exam: Warm/Dry HEENT: Atraumatic Neck: Supple Cardiovascular: Regular Rate, Normal S1, Normal S2, No Murmurs Lungs: Clear to Auscultation, Limited exam with patient in right lateral position and unwilling to move. Poor inspiratory effort, but no overt wheezing appreciated. Abdomen: Soft, No Tenderness Extremities: No Edema, Limited to upper extremities only. Assessment/Plan Assessment: 32 year old male with PMH significant for T1DM, hypothyroidism, alcoholic liver cirrhosis, polysubstance abuse admitted for methadone overdose and found to have pneumonia and GI bleed. The patient was transferred from the ICU on 02/18/18 to the general medicine floor. He was transferred on IV octreotide and clear liquid diet. Patient has been frustrated and desires to go home. Discussion at bedside the morning with Dr. Mcfarland explaining the need for GI follow up and advancement of diet before discharge. Patient later refused meals and states he wants to go home. #Methadone overdose -tylenol for pain -IV hydration #PNA -changed IV Unasyn to PO Augmentin #GI bleed -octreotide continued until able to discuss with GI Problem List: 1. Substance abuse Pain Ratin Pain Location: back Pain Goal: Pain 4 or less Pain Plan: see a/p Tomorrow's Labs & Rationales: cbc, bep, mg
[2018-02-19 08:34] LABS: ABSOLUTE BASOPHIL COUNT 0 /CUMM (0.0-0.2); ABSOLUTE EOSINOPHIL COUNT 0.1 /CUMM (0.0-0.7); ABSOLUTE GRANULOCYTE CT 0.9 /CUMM (1.4-6.5); ABSOLUTE LYMPH COUNT 0.8 /CUMM (1.2-3.4); ABSOLUTE MONOCYTE COUNT 0.2 /CUMM (0.10-0.60); EOSINOPHIL % 4.2 % (0-5); HEMATOCRIT 24.8 % (42-52); MEAN CORPUSCULAR HGB 29.6 PG (27.0-31.0); MEAN CORPUSCULAR HGB CONC 33.2 G/DL (33.0-37.0); MEAN CORPUSCULAR VOLUME 89.2 FL (80.0-94.0); RBC DISTRIBUTION WIDTH 17.3 % (11.5-14.5); RED BLOOD CELL CT 2.78 /CUMM (4.70-6.10); WHITE BLOOD CELL COUNT 2.1 /CUMM (4.8-10.8)
[2018-02-19 09:13] LABS: GRANULOCYTE % 44.7 % (42.2-75.2); PLATELET COUNT 48 /CUMM (130-400)
--- NOTE | 2018-02-19 17:57 | PN- Gastroenterology ---
Assessment/Plan GI Assessment/Recommendations: 1. Variceal bleed status post esophageal variceal band ligation, without rebleeding. 2. Alcoholic cirrhosis with mild ascites, and without encephalopathy or azotemia. There is a mild coagulopathy, thrombocytopenia/leukopenia. Recommendations * Discontinue octreotide * Propranolol twice a day; aim for resting heart rate of approximately 55 * Regular diet * Follow-up CBC in the morning * Repeat EGD/band ligation in approximately 10 days (outpatient) Subjective Subjective: No nausea, vomiting, pain, blood per rectum, melena. Objective Vital Signs and I&Os Vital Signs Date Time Temp Pulse Resp B/P B/P Pulse O2 O2 Flow FiO2 Mean Ox Delivery Rate 02/19 1351 97.6 58 22 112/78 95 / 1010 62 20 100/60 96 Room Air / 0800 Room Air 02/19 0600 98.0 60 16 98/58 98 Room Air 07/ 0200 98.1 72 16 100/62 94 Room Air 07/ 0000 Room Air 02/18 2340 98.0 67 18 110/72 95 /01 1900 98.6 68 18 118/72 Intake & Output 02/19 1600 02/19 0400 02/18 1600 02/18 0400 02/17 1600 02/17 0400 Intake Total 0390 817 8279 820 2187 790 Output Total 1950 0 Balance 1040 450 354 462 4232 790 Intake, Blood 350 Product Intake, IV 679 419 1311 820 1117 470 Intake, Oral 340 250 220 720 320 Number 1 2 Bowel Movements Output, Urine 1950 0 Patient 198 lb 200 lb Weight Weight Bed scale Bed scale Measurement Method Physical Exam: Alert and oriented. Sclera anicteric. Abdomen benign. Current Medications: Current Medications Sig/Jose Martin Start time Last Medication Dose Route Stop Time Status Admin Acetaminophen 1,000 MG ONCE ONE 02/19 0400 DC 02/19 N/A 1 UNIT IV 02/19 0414 0451 Amoxicillin/ 875 MG Q12 02/19 2100 AC Clavulanate Potassium PO Ampicillin Sodium/ 1,500 MG Q6 02/16 0142 DC 02/19 Sulbactam Sodium IV 1129 Sodium Chloride 100 ML Dicyclomine HCl 20 MG 4 TIMES/DAY PRN 02/15 2330 AC 02/18 PO 2000 Ferrous Sulfate 325 MG DAILY 02/18 1434 AC 02/19 PO 0955 Folic Acid 1 MG DAILY 02/15 193 AC 02/19 PO 0955 Insulin Aspart 0 TIDAC/HS 02/19 1700 AC 02/19 SC 1732 Insulin Aspart 0 Q6 02/17 1800 DC 02/19 SC 0611 Insulin Detemir 10 UNITS BID 02/16 09 DC 02/17 SC 2038 Levothyroxine Sodium 0.025 MG DAILY AC 02/16 0700 AC 02/19 PO 0610 Magnesium Chloride 64 MG ONCE ONE 02/19 1130 DC 02/19 PO 02/19 1131 1303 Multivitamins 1 TAB DAILY 02/15 193 AC 02/19 Therapeutic PO 0954 Naloxone HCl 0.4 MG ONCE PRN 02/16 0215 AC IV Octreotide Acetate 500 MCG Q10H 02/16 0045 DC 02/18 Sodium Chloride 500 ML IV 2335 Olanzapine 2.5 MG Q6PRN PRN 02/17 1400 AC 02/17 IM 1835 Ondansetron HCl 4 MG Q6 PRN 02/15 1945 AC 02/15 PO 1940 Pantoprazole Sodium 40 MG BID 02/16 09 AC 02/19 IV 0954 Patient Medication 1 ED ONE ONE 02/19 1100 DC 02/19 Teaching ED 02/19 1101 1231 Phytonadione 10 MG DAILY 02/17 1130 DC 02/19 PO 02/19 0901 0954 Propranolol HCl 80 MG DAILY 02/15 1935 AC 02/19 PO 0955 Thiamine HCl 100 MG DAILY 02/15 1935 AC 02/19 PO 0955 Results Pertinent Lab Results: Laboratory Tests 02/19 02/18 0808 1809 Chemistry Sodium (137 - 145 mmol/L) 138 Potassium (3.5 - 5.1 mmol/L) 3.7 Chloride (98 - 107 mmol/L) 106 Carbon Dioxide (22 - 30 mmol/L) 26 Anion Gap (5 - 16) 7 BUN (9 - 20 mg/dL) 10 Creatinine (0.7 - 1.2 mg/dL) 0.9 Estimated GFR (>60 ml/min) > 60 Glucose (65 - 99 mg/dL) 108 H Calcium (8.4 - 10.2 mg/dL) 7.7 L Phosphorus (2.5 - 4.5 mg/dL) 3.0 Magnesium (1.6 - 2.3 mg/dL) 1.5 L Total Bilirubin (0.2 - 1.3 mg/dL) 1.2 AST (17 - 59 U/L) 44 ALT (21 - 72 U/L) 22 Albumin (3.5 - 5.0 g/dL) 2.0 L Hematology CBC w Diff NO MAN DIFF REQ NO MAN DIFF REQ WBC (4.8 - 10.8 /CUMM) 2.1 L 2.0 L RBC (4.70 - 6.10 /CUMM) 2.78 L 2.94 L Hgb (14.0 - 18.0 G/DL) 8.2 L 8.6 L Hct (42 - 52 %) 24.8 L 25.9 L MCV (80.0 - 94.0 FL) 89.2 87.9 MCH (27.0 - 31.0 PG) 29.6 29.1 MCHC (33.0 - 37.0 G/DL) 33.2 33.1 RDW (11.5 - 14.5 %) 17.3 H 16.9 H Plt Count (130 - 400 /CUMM) 48 L 49 L MPV (7.4 - 10.4 FL) 9.0 9.7 Gran % (42.2 - 75.2 %) 44.7 52.6 Lymphocytes % (20.5 - 51.1 %) 39.0 31.8 Monocytes % (1.7 - 9.3 %) 11.1 H 11.0 H Eosinophils % (0 - 5 %) 4.2 4.1 Basophils % (0.0 - 2.0 %) 1.0 0.5 Absolute Granulocytes (1.4 - 6.5 /CUMM) 0.9 L 1.1 L Absolute Lymphocytes (1.2 - 3.4 /CUMM) 0.8 L 0.6 L Absolute Monocytes (0.10 - 0.60 /CUMM) 0.2 0.2 Absolute Eosinophils (0.0 - 0.7 /CUMM) 0.1 0.1 Absolute Basophils (0.0 - 0.2 /CUMM) 0 0 07/01 02/17 0500 2014 Chemistry Sodium (137 - 145 mmol/L) 137 Potassium (3.5 - 5.1 mmol/L) 3.8 Chloride (98 - 107 mmol/L) 106 Carbon Dioxide (22 - 30 mmol/L) 26 Anion Gap (5 - 16) 5 BUN (9 - 20 mg/dL) 15 Creatinine (0.7 - 1.2 mg/dL) 0.8 Estimated GFR (>60 ml/min) > 60 Glucose (65 - 99 mg/dL) 36 *L Calcium (8.4 - 10.2 mg/dL) 8.1 L Phosphorus (2.5 - 4.5 mg/dL) 2.2 L Magnesium (1.6 - 2.3 mg/dL) 1.8 Total Bilirubin (0.2 - 1.3 mg/dL) 1.5 H AST (17 - 59 U/L) 47 ALT (21 - 72 U/L) 21 Albumin (3.5 - 5.0 g/dL) 2.3 L Coagulation PT (9.4 - 12.5 SEC) 17.3 H INR (0.90 - 1.17) 1.58 H Hematology CBC w Diff NO MAN DIFF REQ NO MAN DIFF REQ WBC (4.8 - 10.8 /CUMM) 4.4 L 2.2 L RBC (4.70 - 6.10 /CUMM) 3.20 L 2.72 L Hgb (14.0 - 18.0 G/DL) 9.4 L 7.9 L Hct (42 - 52 %) 28.5 L 24.3 L MCV (80.0 - 94.0 FL) 89.0 89.3 MCH (27.0 - 31.0 PG) 29.3 29.1 MCHC (33.0 - 37.0 G/DL) 32.9 L 32.5 L RDW (11.5 - 14.5 %) 17.8 H 17.2 H Plt Count (130 - 400 /CUMM) 76 L 47 L MPV (7.4 - 10.4 FL) 9.4 8.9 Gran % (42.2 - 75.2 %) 50.3 53.6 Lymphocytes % (20.5 - 51.1 %) 36.5 33.9 Monocytes % (1.7 - 9.3 %) 8.4 8.2 Eosinophils % (0 - 5 %) 3.6 3.6 Basophils % (0.0 - 2.0 %) 1.2 0.7 Absolute Granulocytes (1.4 - 6.5 /CUMM) 2.2 1.2 L Absolute Lymphocytes (1.2 - 3.4 /CUMM) 1.6 0.7 L Absolute Monocytes (0.10 - 0.60 /CUMM) 0.4 0.2 Absolute Eosinophils (0.0 - 0.7 /CUMM) 0.2 0.1 Absolute Basophils (0.0 - 0.2 /CUMM) 0.1 0 02/17 02/17 1000 0850 Chemistry Lactic Acid (0.7 - 2.1 mmol/L) 1.0 Hematology CBC w Diff Cancelled NO MAN DIFF REQ WBC (4.8 - 10.8 /CUMM) Cancelled 1.7 L RBC (4.70 - 6.10 /CUMM) Cancelled 2.36 L Hgb (14.0 - 18.0 G/DL) Cancelled 6.9 *L Hct (42 - 52 %) Cancelled 20.8 L MCV (80.0 - 94.0 FL) Cancelled 88.3 MCH (27.0 - 31.0 PG) Cancelled 29.4 MCHC (33.0 - 37.0 G/DL) Cancelled 33.3 RDW (11.5 - 14.5 %) Cancelled 17.4 H Plt Count (130 - 400 /CUMM) Cancelled 46 L MPV (7.4 - 10.4 FL) Cancelled 9.2 Gran % (42.2 - 75.2 %) 53.5 Lymphocytes % (20.5 - 51.1 %) 32.6 Monocytes % (1.7 - 9.3 %) 12.7 H Eosinophils % (0 - 5 %) 1.2 Basophils % (0.0 - 2.0 %) 0 Absolute Granulocytes (1.4 - 6.5 /CUMM) 0.9 L Absolute Lymphocytes (1.2 - 3.4 /CUMM) 0.6 L Absolute Monocytes (0.10 - 0.60 /CUMM) 0.2 Absolute Eosinophils (0.0 - 0.7 /CUMM) 0 Absolute Basophils (0.0 - 0.2 /CUMM) 0 02/17 02/16 0522 2259 Chemistry Sodium (137 - 145 mmol/L) 135 L Potassium (3.5 - 5.1 mmol/L) 4.4 Chloride (98 - 107 mmol/L) 105 Carbon Dioxide (22 - 30 mmol/L) 26 Anion Gap (5 - 16) 4 L BUN (9 - 20 mg/dL) 19 Creatinine (0.7 - 1.2 mg/dL) 0.9 Estimated GFR (>60 ml/min) > 60 Glucose (65 - 99 mg/dL) 107 H Calcium (8.4 - 10.2 mg/dL) 7.7 L Phosphorus (2.5 - 4.5 mg/dL) 2.9 Magnesium (1.6 - 2.3 mg/dL) 1.8 Total Bilirubin (0.2 - 1.3 mg/dL) 1.6 H AST (17 - 59 U/L) 44 ALT (21 - 72 U/L) 27 Albumin (3.5 - 5.0 g/dL) 2.3 L Hematology CBC w Diff MAN DIFF ORDERED NO MAN DIFF REQ WBC (4.8 - 10.8 /CUMM) 1.8 L 3.8 L RBC (4.70 - 6.10 /CUMM) 2.41 L 2.85 L Hgb (14.0 - 18.0 G/DL) 7.0 *L 8.3 L Hct (42 - 52 %) 21.4 L 25.3 L MCV (80.0 - 94.0 FL) 88.7 88.7 MCH (27.0 - 31.0 PG) 29.0 29.1 MCHC (33.0 - 37.0 G/DL) 32.6 L 32.8 L RDW (11.5 - 14.5 %) 17.9 H 18.2 H Plt Count (130 - 400 /CUMM) 46 L 58 L MPV (7.4 - 10.4 FL) 9.4 9.0 Gran % (42.2 - 75.2 %) 67.5 79.5 H Lymphocytes % (20.5 - 51.1 %) 21.4 11.9 L Monocytes % (1.7 - 9.3 %) 10.3 H 7.8 Eosinophils % (0 - 5 %) 0.5 0.8 Basophils % (0.0 - 2.0 %) 0.3 0 Absolute Granulocytes (1.4 - 6.5 /CUMM) 1.2 L 3.0 Segmented Neutrophils (42.2 - 75.2 %) 62 Band Neutrophils (0.0 - 5.0 %) 10 H Absolute Lymphocytes (1.2 - 3.4 /CUMM) 0.4 L 0.5 L Lymphocytes (20.5 - 51.1 %) 20 L Monocytes (1.7 - 9.3 %) 6 Absolute Monocytes (0.10 - 0.60 /CUMM) 0.2 0.3 Eosinophils (0 - 5.0 %) 2 Absolute Eosinophils (0.0 - 0.7 /CUMM) 0 0 Absolute Basophils (0.0 - 0.2 /CUMM) 0 0 Platelet Estimate (ADEQUATE) DECREASED Polychromasia 1+ Hypochromic-Microcytic 1+ Poikilocytosis 1+
[2018-02-20] VITALS: BP 120/78
[2018-02-20 02:00] VITALS: BP 120/78
[2018-02-20 04:00] VITALS: BP 100/64
[2018-02-20 04:09] VITALS: BP 100/64
[2018-02-20 06:00] VITALS: BP 100/64
[2018-02-20] MEDS ORDERED: PANTOPRAZOLE SO40 M1 PO ×2 (07:23→09:55)
[2018-02-20] MEDS ORDERED: INDERAL LA60 M1 PO (07:23)
[2018-02-20] MEDS ORDERED: FERROUS SULFAT325 M2 PO ×2 (07:23→09:55)
--- NOTE | 2018-02-20 07:26 | Patient Discharge Instructions ---
Discharge Instructions General Discharge Information You were seen/treated for: Esophageal varices, methadone overdose. Watch for these problems: Fever, chest pain, shortness of breath Special Instructions: Please take all medications as directed. Please follow up with primary care and GI next week. You will need a repeat EGD on 03/02/18. Please do not take non- prescribed drugs or recreational drugs. Diet Continue normal diet: Yes Activity Full Activity/No Limits: Yes Acute Coronary Syndrome Inclusion Criteria At DC or during hospital stay patient has or had the following: ACS DIAGNOSIS No Discharge Core Measures Meds if any: Prescribed or Continued at Discharge Meds if any: NOT Prescribed or Continued at Discharge Congestive Heart Failure Inclusion Criteria At DC or during hospital stay patient has or had the following: CHF DIAGNOSIS No Discharge Core Measures Meds if any: Prescribed or Continued at Discharge Meds if any: NOT Prescribed or Continued at Discharge Cerebrovascular accident Inclusion Criteria At DC or during hospital stay patient has or had the following: CVA/TIA Diagnosis No Discharge Core Measures Meds if any: Prescribed or Continued at Discharge Meds if any: NOT Prescribed or Continued at Discharge Venous thromboembolism Inclusion Criteria VTE Diagnosis No VTE Type NONE VTE Confirmed by (Test) NONE Discharge Core Measures - Per Current guidelines, there needs to be overlap - treatment for the first 5 days of Warfarin therapy. - If discharged on Warfarin prior to 5 days of - overlap therapy, the patient will need to be - assessed for post discharge needs including - *Post discharge parental anticoagulation - *Warfarin and/or parental anticoagulation education - *Follow up date to check INR post discharge At least 5 days overlap therapy as Inpatient No Meds if any: Prescribed or Continued at Discharge Note: Overlap Therapy is Warfarin and Anticoagulant Meds if any: NOT Prescribed or Continued at Discharge
[2018-02-20 08:02] VITALS: BP 138/72
[2018-02-20 08:02] LABS: ABSOLUTE BASOPHIL COUNT 0 /CUMM (0.0-0.2); ABSOLUTE EOSINOPHIL COUNT 0.1 /CUMM (0.0-0.7); ABSOLUTE GRANULOCYTE CT 0.9 /CUMM (1.4-6.5); ABSOLUTE LYMPH COUNT 0.7 /CUMM (1.2-3.4); ABSOLUTE MONOCYTE COUNT 0.2 /CUMM (0.10-0.60); BASOPHIL % 0.6 % (0.0-2.0); EOSINOPHIL % 2.7 % (0-5); GRANULOCYTE % 48.9 % (42.2-75.2); MEAN CORPUSCULAR HGB 29.2 PG (27.0-31.0); MEAN CORPUSCULAR HGB CONC 32.9 G/DL (33.0-37.0); MEAN CORPUSCULAR VOLUME 88.8 FL (80.0-94.0); MEAN PLATELET VOLUME 9.8 FL (7.4-10.4); RBC DISTRIBUTION WIDTH 17.3 % (11.5-14.5); RED BLOOD CELL CT 2.81 /CUMM (4.70-6.10); WHITE BLOOD CELL COUNT 1.9 /CUMM (4.8-10.8)
[2018-02-20] MEDS ORDERED: PROPRANOLOL HC120 M1 PO (09:55)
[2018-02-20 10:10] LABS: PLATELET COUNT 49 /CUMM (130-400)
--- NOTE | 2018-02-20 10:42 | PN- Housestaff ---
See Addendum Subjective Follow-up For: methadone overdose Complaints: pain scale (0-10) Subjective: Patient states he felt better overnight and was able to have a bowel movement. He reports abdominal bloating, but feels better after BM. He states his back pain has resolved and he would like to go home. He states he has occasional abdominal cramping that he attributes to the banding procedure done by GI. Denies fever, chills, n/v/d, chest pain, SOB. Review of Systems Constitutional: Reports: see HPI. Objective Last 24 Hrs of Vital Signs/I&O Vital Signs Date Time Temp Pulse Resp B/P B/P Pulse O2 O2 Flow FiO2 Mean Ox Delivery Rate / 0802 97.6 70 20 138/72 97 Room Air 07/03 0600 98.5 92 20 100/64 07/03 0409 98.5 66 20 100/64 92 Room Air 07/03 0400 98.5 64 20 100/64 07/03 0200 98.1 62 20 120/78 07/03 0000 98.1 62 20 120/78 07/02 2346 98.1 62 20 120/78 97 Room Air 07/02 2000 97.9 67 18 100/64 07/02 2000 97.9 67 18 100/64 95 07/02 1801 98.1 65 18 100/60 100 07/02 1600 97.5 57 18 94/60 07/02 1600 97.5 57 18 94/60 100 07/02 1351 97.6 58 22 112/78 95 Intake & Output 07/03 1600 07/03 0800 07/03 0000 Intake Total 500 630 Output Total 1350 Balance 500 -720 Intake, IV 30 Intake, Oral 500 600 Number 2 2 Bowel Movements Output, Urine 1350 Physical Exam General Appearance: Alert, Oriented X3, Cooperative, No Acute Distress Skin: No Rashes Skin Temp/Moisture Exam: Warm/Dry HEENT: Atraumatic, PERRLA Neck: Supple Cardiovascular: Regular Rate, Normal S1, Normal S2 Lungs: Clear to Auscultation, Normal Air Movement Abdomen: Normal Bowel Sounds, Soft, No Tenderness, distended Extremities: No Edema, Normal Pulses Assessment/Plan Assessment: 32 year old male with PMH T1DM, hypothyroidism, alcoholic liver cirrhosis, polysubstance abuse admitted for methadone overdose and found to have PNA and esophageal varices. Patient was treated with IV unasyn and PO Augmentin for PNA and underwent esophageal varices banding and was one an octreotide drip. He was initially cared for in the ICU and then transferred to the general medicine service on 02/18/18. He continued to improve and request discharge from the hospital. GI recommended propranolol daily with a target heart rate of 55. He will also need outpatient follow up in about 10 days for EGD/banding. #Pneumonia -resolved with abx treatment: IV unasyn and PO augmentin #Esphogeal variceal bleed -EGD with banding -octreotide drip-discontinued #Chronic illnesses -continue home meds as prescribed Plan for discharge home with self care today and outpatient followup with GI in 10 days for EGD/banding. Problem List: 1. Alcoholic cirrhosis 2. Polysubstance abuse 3. Pneumonia Pain Ratin Pain Location: none Pain Goal: Remain pain free Pain Plan: see a/p Tomorrow's Labs & Rationales: none
--- NOTE | 2018-02-20 10:42 | Discharge Summary ---
Visit Information Visit Dates Admission Date: 02/15/18 Discharge Date: 02/20/18 Hospital Course Course Attending Physician: Jose Manuel Mcfarland MD Primary Care Physician: Johnny Espitia MD Hospital Course: Mr. Carolina is a 32 year old male with PMH significant for poly substance abuse , T1DM, h/o delirium tremens, alcoholic liver cirrhosis, Hep C, hypothyroidism who was brought in by EMS after being found unresponsive at home on the couch. Patient was given Narcan and dextrose en route and revived. In the ED he had an episode of hematemesis and admitted he had been having similar episodes at home. Admission data: In the ED, temperature 90.8 which increased to 101.0, heart rate 97 which increased to 101, respiratory rate 20, blood pressure 130/79 which decreased to 94/55 lowest, 97% oxygen saturation on room air. EKG showed normal sinus rhythm rate of 92 with a QTc of 411 down from previous QTC of 508 Labs showed WBC 2.7 down from baseline of 3-4, hemoglobin 8.3 down from baseline of 11, SUBSEQUENT HB 5.9, platelets 62 SUBSEQUENT 44, baseline 60-100, sodium 135 which dropped to 129 on subsequent drop, potassium 5.1, BUN 23, creatinine 1.5 with baseline of 1.0, glucose 235, calcium normal, bilirubin 1.6, ammonia level 22, INR 1.94, tox screen showing methadone and cannabis. Chest x-ray showed moderate right lung opacity new sense his last admission on . In the ED, the patient received Fortaz 1 g, azithromycin 500 mg, normal saline 2 bags, Zofran, PPI He was admitted to the ICU for treatment of the following problems: 1. aspiration pneumonia 2.acute blood loss anemia 2/2 hematemesis 3.methadone overdose. While in the ICU he was started on octreotide drip and propranolol. He was also started on a four day course of Unasyn for aspiration pneumonia followed by two days of augmentin once transferred to the floor. GI was consulted and he subsequently underwent EGD for esophogeal variceal banding. He also received 2 units PRBC transfusion for acute blood loss anemia with Hgb 5.9. During his time in the ICU he was seen by psychiatry who deemed him to have poor insight. It was recommended he not be allowed to sign out AMA. He was started on olanzapine 2.5mg for agitation/aggression. He responded well to these interventions and was transferred to the general medicine floor for further care on February 18, 2018. While on the general medicine floor he transitioned to PO medications and vital signs/labs remained stable. He was found clear for discharge home/self care on 02/20/2018. He was instructed to follow up with GI as an outpatient in 10 days for EGD/banding reassessment. He was educated about the dangers of recreational drug use. Allergies: Coded Allergies: No Known Allergies (01/29/18) Disposition Summary Disposition Principal Diagnosis: Methadone overdose Additional Diagnosis: esophageal variceal bleed aspiration pneumonia Discharge Disposition: home or self care Discharge Instructions General Discharge Information Code Status: Full Code Patient's Diet: regular Patient's Activity: as tolerated Follow-Up Instructions/Appts: Please take all medications as directed Please follow up with your PCP within 10 days of being discharged Please follow up with GI in 10 days after discharge from the hospital Medications at Discharge Discharge Medications: Stop taking the following medications: Pantoprazole Sodium (Pantoprazole Sodium) 40 MG TABLET.DR ORAL DAILY Qty = 30 Furosemide (Furosemide) 20 MG TABLET ORAL DAILY Propranolol HCl (Propranolol HCl ER) 80 MG CAP.SA.24H ORAL DAILY Qty = 90 Sulfamethoxazole/Trimethoprim (Bactrim Ds Tablet) 800 MG-160 MG TABLET ORAL TWICE DAILY Qty = 10 Oxycodone HCl (Oxycodone HCl) 5 MG TABLET ORAL EVERY SIX HOURS NEEDED as needed for PAIN Qty = 10 Continue taking these medications: Ergocalciferol (Vitamin D2) (Vitamin D2) 50,000 UNIT CAPSULE 1 Capsule ORAL EVERY 2 WEEKS Comments: NOT GIVEN IN HOSPITAL Levothyroxine Sodium (Levothyroxine Sodium) 25 MCG TABLET 1 Tablet ORAL DAILY BEFORE BREAKFAST Comments: Last Taken: 02/20/18 Time: 0600 AM Trazodone HCl (Trazodone HCl) 100 MG TABLET 2 Tablet ORAL Every night as needed for SLEEP Comments: Last Taken: 02/20/18 Time: 01:47 AM Multivitamin (Daily Value) 1 EACH TABLET 1 Tablet ORAL DAILY Qty = 30 Comments: Last Taken: 02/19/18 Time: 0900 AM Folic Acid (Folic Acid) 1 MG TABLET 1 Tablet ORAL DAILY Qty = 30 Comments: Last Taken: 02/20/18 Time: 0900 AM Thiamine HCl (Thiamine HCl) 100 MG TABLET 1 Tablet ORAL DAILY Qty = 30 Comments: Last Taken: 03/02/18 Time: 0900 AM Gabapentin (Gabapentin) (Unknown Strength) CAPSULE 2 Capsule ORAL TWICE DAILY Qty = 180 Comments: DID NOT TAKE IN THE HOSPITAL Insulin Lispro (Humalog) (Unknown Strength) VIAL Unknown Dose Inject into fatty tissue SEE SLIDING SCALE Instructions: 80-150=8 units 151-200=10 units 201-250=12 units 251-300=14 units 301-350=16 units 351-400=18 units 401+ = 20 units Comments: NOT GIVEN IN HOSPITAL Lactulose (Lactulose) 10 GRAM/15 ML SOLUTION 30 Milliliters ORAL THREE TIMES DAILY as needed for GI Qty = 473 Comments: NOT GIVEN IN HOSPITAL Vit B Cmplx 3/FA/Vit C/Biotin (Rebecca-Kate Rx Tablet) 1 MG-60 MG-300 MCG TABLET 1 Tablet ORAL DAILY Comments: NOT GIVEN IN HOSPITAL Ursodiol (Ursodiol) 300 MG CAPSULE 1 Capsule ORAL THREE TIMES DAILY Qty = 42 Comments: NOT GIVEN IN HOSPITAL Ondansetron HCl (Ondansetron HCl) 4 MG TABLET 1 Tablet ORAL as needed for N/V Qty = 12 Comments: Last Taken:02/15/18 Time:730 PM Hydroxyzine Hydrochloride (Atarax) 50 MG TAB 1 Tablet ORAL Every night as needed for anxiety Qty = 15 Comments: DID NOT TAKE IN THE HOSPITAL Pregabalin (Lyrica) 150 MG CAPSULE 1 Capsule ORAL TWICE DAILY Qty = 60 Comments: DID NOT TAKE IN THE HOSPITAL Insulin Glargine,Hum.rec.anlog (Lantus Solostar) 100 UNIT/ML (3 ML) INSULN.PEN 30 Unit Inject into fatty tissue Every night Qty = 1 Comments: NOT GIVEN IN HOSPITAL INSULIN LEVEMIR GIVEN Last Taken: 02/05/18 Time: 0845 AM Spironolactone (Aldactone) 25 MG TABLET 1 Tablet ORAL DAILY Qty = 30 Instructions: . Comments: DID NOT TAKE IN THE HOSPITAL Start taking the following new medications: Ferrous Sulfate (Ferrous Sulfate) 325 MG (65 MG IRON) TABLET.DR 325 Milligram ORAL DAILY Qty = 30 No Refills Instructions: . Comments: Last Taken:02/20/18 Time:0900 AM Pantoprazole Sodium (Pantoprazole Sodium) 40 MG TABLET.DR 1 Tablet ORAL TWICE DAILY Qty = 60 No Refills Instructions: . Comments: Last Taken:02/20/18 Time:0900 AM Propranolol HCl (Propranolol HCl ER) 120 MG CAP.SA.24H 1 Capsule ORAL DAILY Qty = 30 No Refills Comments: Last Taken:02/20/18 Time:1000 AM Copies To: Sakshi NERI,Mayco; Debby NERI,Olegario Nava; Nupur NERI,Johnny Silver Attending MD Review Statement Documenting Attending: Jose Manuel Mcfarland MD Other Findings: The patient was seen and discussed with house staff. Agree with plan of care to discharge to home today on increased dose of Propranolol with plans for follow- up with GI and repeat banding of varices.
== END 2018-02-20 10:47 | DRG 817 ==
LOC: ERH 03:49 → CRI 22:33 → ERH 22:33 → ERHI 22:33 → EDBEDREQ 23:14 → CANRESERV 23:51 → ENRESERV 23:51 → EDBEDREQ 02-16 00:37 → ENRESERV 02-16 00:42 → ERHI 02-16 00:42 → CRI 02-16 01:32 → ENTRNSPT 02-18 18:11 → EDTRNSPT 02-18 18:24 → EDTRNSPTSTS 02-18 18:24 → 2NA 02-18 18:40 → CMPTRNSPT 02-18 18:48 → 2NA 02-19 08:21 → ENPENDDIS 02-20 10:07 → ENTRNSPT 02-20 10:37 → 2NA 02-20 10:47 → EDTRNSPTSTS 02-20 10:49 → CMPTRNSPT 02-20 11:06
PROVIDERS: Emergency Medicine; Internal Medicine; Student in an Organized Health Care Education/Training Program
PROC: 30233N1 Transfusion of Nonautologous Red Blood Cells into Peripheral Vein, Percutaneous Approach (ICD-10-PCS; principal; 2018-02-16)
PROC: 06L38CZ Occlusion of Esophageal Vein with Extraluminal Device, Via Natural or Artificial Opening Endoscopic (ICD-10-PCS; 2018-02-16)
DX: T40.3X2A Poisoning by methadone, intentional self-harm, initial encounter (principal); J69.0 Pneumonitis due to inhalation of food and vomit; D62 Acute posthemorrhagic anemia; I85.11 Secondary esophageal varices with bleeding; E03.9 Hypothyroidism, unspecified; F41.9 Anxiety disorder, unspecified; F32.9 Major depressive disorder, single episode, unspecified; F19.10 Other psychoactive substance abuse, uncomplicated; Y92.009 Unspecified place in unspecified non-institutional (private) residence as the place of occurrence of the external cause; E10.21 Type 1 diabetes mellitus with diabetic nephropathy; E10.649 Type 1 diabetes mellitus with hypoglycemia without coma; Z79.4 Long term (current) use of insulin; K92.0 Hematemesis; R79.89 Other specified abnormal findings of blood chemistry; K70.30 Alcoholic cirrhosis of liver without ascites; R45.851 Suicidal ideations; F12.20 Cannabis dependence, uncomplicated; F11.20 Opioid dependence, uncomplicated; F10.20 Alcohol dependence, uncomplicated; D61.818 Other pancytopenia; K76.6 Portal hypertension; K31.89 Other diseases of stomach and duodenum; E87.1 Hypo-osmolality and hyponatremia; D68.9 Coagulation defect, unspecified; D72.819 Decreased white blood cell count, unspecified; B18.2 Chronic viral hepatitis C; F17.210 Nicotine dependence, cigarettes, uncomplicated
CPT/HCPCS: 2NAP; CCU; ERO; 36415; 36592; 71045; 80307; 81003; 82436; 86920; 87040; 87070; 93005; 93010; 96360; 96361; 96372; 99291; G0463; G0480; J0131; J0456; J0713; J1630; J2354; J2405; J3101; J3370; J3490; J7040; P9016

== ENCOUNTER 2018-02-24 05:50 | Inpatient (IN) | payer OTHER ==
[~2018-02-24] VITALS: Ht 185.4 cm; Wt 85.0 kg
[~2018-02-24 05:50] MED LIST changes: +FERROUS SULFAT325 M2 PO; +PROPRANOLOL HC120 M1 PO
--- NOTE | 2018-02-24 06:37 | ED GI/GU/ABDOMINAL COMPLAINT ---
History of Present Illness General Chief Complaint: General Adult Stated Complaint: "SPIT UP BLOOD S/P SURGERY" Source: patient Exam Limitations: no limitations Vital Signs & Intake/Output Vital Signs & Intake/Output Vital Signs Date Time Temp Pulse Resp B/P B/P Pulse O2 O2 Flow FiO2 Mean Ox Delivery Rate 02/24 0950 78 97/54 02/24 0944 80 100/59 02/24 0937 80 88/54 02/24 0928 90 77/48 02/24 0924 97.8 90 18 80/47 100 Nasal 2.0L Cannula 02/24 913 70/40 02/24 0616 98 Room Air 02/25 612 97.1 93 18 100/65 99 Room Air Allergies Coded Allergies: No Known Allergies (01/29/18) Reconcile Medications Ergocalciferol (Vitamin D2) (Vitamin D2) 50,000 UNIT CAPSULE 1 CAP PO Q 2 WEEKS VITAMIN SUPPORT (Reported) Ferrous Sulfate 325 MG (65 MG IRON) TABLET.DR 325 MG PO DAILY Iron . Folic Acid 1 MG TABLET 1 TAB PO DAILY ALCOHOL USE Gabapentin (Unknown Strength) CAPSULE 2 CAP PO BID NEUROPATHY (Reported) Hydroxyzine Hydrochloride (Atarax) 50 MG TAB 1 TAB PO QPM PRN anxiety Insulin Glargine,Hum.rec.anlog (Lantus Solostar) 100 UNIT/ML (3 ML) INSULN.PEN 30 UNIT SC QPM DIABETES Insulin Lispro (Humalog) (Unknown Strength) VIAL (Unknown Dose) SC SEE SLIDING SCALE DIABETES (Reported) 80-150=8 units 151-200=10 units 201-250=12 units 251-300=14 units 301-350=16 units 351-400=18 units 401+ = 20 units Lactulose 10 GRAM/15 ML SOLUTION 30 ML PO TID PRN GI (Reported) Levothyroxine Sodium 25 MCG TABLET 1 TAB PO DAILY AC THYROID (Reported) Multivitamin (Daily Value) 1 EACH TABLET 1 TAB PO DAILY OTHER Ondansetron HCl 4 MG TABLET 1 TAB PO PRN N/V (Reported) Pantoprazole Sodium 40 MG TABLET.DR 1 TAB PO BID GI . Pregabalin (Lyrica) 150 MG CAPSULE 1 CAP PO BID neuropathy (Reported) Propranolol HCl (Propranolol HCl ER) 120 MG CAP.SA.24H 1 CAP PO DAILY gi Spironolactone (Aldactone) 25 MG TABLET 1 TAB PO DAILY cirrhosis . Thiamine HCl 100 MG TABLET 1 TAB PO DAILY OTHER Trazodone HCl 100 MG TABLET 2 TAB PO QPM PRN SLEEP (Reported) Ursodiol 300 MG CAPSULE 1 CAP PO TID UNKNOWN (Reported) Vit B Cmplx 3/FA/Vit C/Biotin (Rebecca-Kate Rx Tablet) 1 MG-60 MG-300 MCG TABLET 1 TAB PO DAILY VITAMIN SUPPORT (Reported) Triage Note: PT FROM HOME C/O SPITTING UP BLOOD POST SX OF CAUTERIZTION OF THROAT. PT STATES BRIGHT RED BLOOD THIS MORNING WHEN HE WAS TRYING TO CLEAR HIS THROAT X6 EPISODES. PTS BP LOW 100/65. PT A&0X3. Triage Nurses Notes Reviewed? yes Onset: Abrupt Duration: hour(s): Timing: recent history Quality/Severity: burning Location: epigastric Radiation: no radiation Activities at Onset: "VARICEAL BANDING" A FEW DAYS AGO. Modifying Factors: Worsens With: vomiting. Associated Symptoms: abdominal pain, nausea/vomiting HPI: 32-year-old gentleman with history of cirrhosis and esophageal varices presents with spitting up dark clots of blood for the past 1-2 hours which awoke him. He states that last week he had a seal banding performed on his esophagus. "The doctor said that if I ever had bleeding should come right to the emergency room. " He notes no dizziness chest pain shortness of breath fever. He is otherwise well. (David NERI,Fracisco Peter) Past History Travel History Traveled to [place] past 21 day No Medical History Any Pertinent Medical History? see below for history Neurological: delerium tremens EENT: allergies Cardiovascular: NONE Respiratory: NONE Gastrointestinal: L INGUINAL HERNIA REPAIR PANCREATITIS Hepatic: cholelithiasis, hepatitis C, hepatic encephalopathy (previously), jaundice, alcoholic liver disease Renal: NONE Musculoskeletal: 03/20/2014: L WRIST FX Psychiatric: alcohol dependence, anxiety, depression, substance abuse Endocrine: hypothyroidism, type 1 diabetes Blood Disorders: coagulopathy, pancytopenia Cancer(s): NONE PRINT CONTROLLER/Reproductive: NONE History of MRSA: Yes History of VRE: No History of CDIFF: No Tetanus Vaccine: 10/20/19 Surgical History Surgical History: hernia repair-inguinal (03/12/2007: Lap LIH with mesh), 2013: L wrist surgery Psychosocial History Who do you live with Family Services at Home None What is your primary language Kyrgyz Tobacco Use: Current Daily Use Daily Tobacco Use Amount/Type: =< 4 Cigarettes daily ETOH Use: denies use Illicit Drug Use: marijuana Family History Family History, If Any: FATHER (Stroke at the age of 47HTN). MOTHER (HTN). FH: alcoholism Hx Contributory? No (Fracisco Hernandez MD) Review of Systems Review of Systems Constitutional: Reports: no symptoms. EENTM: Reports: no symptoms. Respiratory: Reports: no symptoms. Cardiovascular: Reports: no symptoms. GI: Reports: no symptoms. Genitourinary: Reports: no symptoms. Musculoskeletal: Reports: no symptoms. Skin: Reports: no symptoms. Neurological/Psychological: Reports: no symptoms. Hematologic/Endocrine: Reports: no symptoms. Immunologic/Allergic: Reports: no symptoms. All Other Systems: Reviewed and Negative (Fracisco Hernandez MD) Physical Exam Physical Exam Gastrointestinal: MILD DISTENTION WITHOUT TENDERNESS Comments: Review of Systems - except as otherwise noted in HPI Review of Systems Constitutional:no symptoms. EENTM:no symptoms. Respiratory:no symptoms. Cardiovascular:no symptoms. GI:no symptoms. Genitourinary:no symptoms. Musculoskeletal:no symptoms. Skin:no symptoms. Neurological/Psychological:no symptoms. Hematologic/Endocrine:no symptoms. Immunologic/Allergic:no symptoms. All Other Systems: Reviewed and Negative Physical Exam Physical Exam General Appearance: well developed/nourished, no apparent distress Head: atraumatic, normal appearance Eyes: Bilateral: normal appearance. Ears, Nose, Throat: normal pharynx, normal ENT inspection Neck: normal inspection, supple, full range of motion Respiratory: normal breath sounds, chest non-tender, no respiratory distress, quiet respiration, lungs clear Cardiovascular: regular rate/rhythm Gastrointestinal: normal bowel sounds, soft, non-tender, no organomegaly, small amt of ascites. Back: normal inspection, normal range of motion Extremities: normal inspection, normal capillary refill, normal range of motion, no edema Neurologic/Psych: no motor/sensory deficits, awake, alert, oriented x 3 Skin: intact, normal color, warm/dry Core Measures ACS in differential dx? No Sepsis Present: No Sepsis Focused Exam Completed? No (Fracisco Hernandez MD) Progress Differential Diagnosis: variceal bleeding Plan of Care: Orders Procedure Date/time Status Nothing by Mouth 02/24 L Active ARTERIAL BLOOD GAS (GEN) 02/24 1232 Complete PARTIAL THROMBOPLASTIN TIME 02/24 1231 Active PROTHROMBIN TIME 02/24 1229 Active LACTIC ACID 02/24 1229 Active ICU LAB BUNDLE 02/24 1229 Active CBC WITHOUT DIFFERENTIAL 02/24 1229 Active VRE ACTIVE SURVIELLANCE 02/24 1100 Active ACTIVE SURVEILLANCE NARES 02/24 1100 Active CULTURE,URINE 02/24 1050 Active URINE DRUGS OF ABUSE 02/24 1050 Active URINALYSIS 02/24 1050 Active ICU LAB BUNDLE 02/24 1030 Active CBC WITHOUT DIFFERENTIAL 02/24 1030 Active Pathway - chart 02/24 0959 Active Code Status 02/24 0959 Active RAPID TRANSFUSION PROTOCOL 02/24 0929 Active BLOOD PRODUCT PICKUP 02/24 0927 Active Patient Data 02/24 0912 Active BLOOD PRODUCT PICKUP 02/24 0907 Active LEUKOCYTE POOR (PACKED CELLS) 02/24 0858 Active Admit to inpatient 02/24 0857 Active FRESH FROZEN PLASMA 02/24 0656 Active MISTAKE 02/24 0649 Active EKG 02/24 0648 Active PARTIAL THROMBOPLASTIN TIME 02/24 0638 Complete PROTHROMBIN TIME 02/24 0638 Complete LIPASE 02/24 0638 Complete HEPATIC FUNCTION PANEL 02/24 0638 Complete CBC WITHOUT DIFFERENTIAL 02/24 0638 Complete BASIC METABOLIC PANEL 02/24 0638 Complete AMYLASE 02/24 0638 Complete TYPE & SCREEN (NOT X-MATCH) 02/24 0638 Active Intake & Output 02/24 0616 Active VENTILATOR PARAMETERS 02/24 UNK Complete VTE Mechanical Prophylaxis 02/24 UNK Active Vital Signs 02/24 UNK Active Hemoccult 02/24 UNK Active FingerStick- Glucose 02/24 UNK Active Garcia, Insertion/Removal/Asses 02/24 UNK Active Current Medications Sig/Jose Martin Start time Last Medication Dose Stop Time Status Admin Phenylephrine HCl 80 MG Q24H 02/24 1130 AC (Neosynephrine Double Concentrated Drip) Sodium Chloride 250 ML (Normal Saline 0.9%) Pantoprazole Sodium 40 MG Q5H 02/24 1000 AC 02/24 (Protonix) 1001 Sodium Chloride 100 ML (Normal Saline 0.9%) Sodium Chloride 1,000 ML .Q6H40M 02/24 1000 AC (Normal Saline 0.9%) Ceftriaxone Sodium 1,000 MG DAILY 02/24 0937 AC 07/07 (Rocephin) 1001 Octreotide Acetate 500 MCG Q10H 02/24 0900 AC 02/24 (Sandostatin Drip) 0948 Dextrose/Water 500 ML (D5W) Laboratory Tests 02/24/18 1250: pH 7.39, pCO2 28 L, pO2 328 H, HCO3 17 L, ABG O2 Sat (Measured) 98.0, Carboxyhemoglobin 0.8 L, O2 Concentration % 100%, Respiration Rate 20, O2 Delivery Method VENT, Vent Mode VC-AC, Expiratory Pressure 5, Tidal Volume 500, Phlebotomy Draw Site A-LINE 02/24/18 1237: Sodium Pending, Potassium Pending, Chloride Pending, Carbon Dioxide Pending, Anion Gap Pending, BUN Pending, Creatinine Pending, Glucose Pending, Lactic Acid Pending, Calcium Pending, Phosphorus Pending, Magnesium Pending, Total Bilirubin Pending, AST Pending, ALT Pending, Albumin Pending, PT Pending, INR Pending, CBC w Diff Pending, WBC Pending, RBC Pending, Hgb Pending, Hct Pending, MCV Pending, MCH Pending, MCHC Pending, RDW Pending, Plt Count Pending, MPV Pending 02/24/18 1237: Sodium Pending, Potassium Pending, Chloride Pending, Carbon Dioxide Pending, Anion Gap Pending, BUN Pending, Creatinine Pending, Glucose Pending, Calcium Pending, Phosphorus Pending, Magnesium Pending, Total Bilirubin Pending, AST Pending, ALT Pending, Albumin Pending, APTT Pending, CBC w Diff Pending, WBC Pending, RBC Pending, Hgb Pending, Hct Pending, MCV Pending, MCH Pending, MCHC Pending, RDW Pending, Plt Count Pending, MPV Pending, Methadone Screen Pending, Barbiturate Screen Pending, Ur Phencyclidine Scrn Pending, Amphetamines Screen Pending, U Benzodiazepines Scrn Pending, Urine Cocaine Screen Pending, Urine Cannabis Screen Pending, Urine Color Pending, Urine Clarity Pending, Urine pH Pending, Ur Specific [place] Pending, Urine Protein Pending, Urine Ketones Pending, Urine Nitrite Pending, Urine Bilirubin Pending, Urine Urobilinogen Pending, Ur Leukocyte Esterase Pending, Ur Microscopic SEDIMENT EXAMINED, Urine RBC Pending, Urine Hemoglobin Pending, Urine Glucose Pending 02/24/18 0656: Anion Gap 8, Estimated GFR > 60, BUN/Creatinine Ratio 15.6, Glucose 361 H, Calcium 7.7 L, Total Bilirubin 0.9, Direct Bilirubin 0.5 H, AST 42, ALT 20 L, Alkaline Phosphatase 92, Total Protein 4.6 L, Albumin 2.0 L, Amylase < 30 L, Lipase 54, PT 18.9 H, INR 1.72 H, APTT 31, CBC w Diff NO MAN DIFF REQ, RBC 2.71 L, MCV 87.5, MCH 28.5, MCHC 32.5 L, RDW 17.7 H, MPV 10.2, Gran % 55.2, Lymphocytes % 33.2, Monocytes % 9.5 H, Eosinophils % 1.8, Basophils % 0.3, Absolute Granulocytes 1.0 L, Absolute Lymphocytes 0.6 L, Absolute Monocytes 0.2, Absolute Eosinophils 0, Absolute Basophils 0 Microbiology 02/24 1237 URINE ROUT: Urine Culture - RECD 02/24 1100 UPPER RESP: Surveillance Culture - RECD 02/24 1100 GI: Surveillance Culture - COLB Initial ED EKG: pending Hand-Off Endorsed To: Elijah Garcia MD Endorsed Time: 07 Pending: labs (David NERI,Fracisco Peter) Comments: GI paged. Octreotide and PRBC ordered. N/V with hematemesis of estimated 7 liters by nursing. (Elijah Garcia MD) Departure Departure Referrals: Johnny Espitia MD (PCP/Family) Departure Forms: Customer Survey General Discharge Information (Fracisco Hernandez MD) Departure Disposition: STILL A PATIENT Condition: Critical Clinical Impression Primary Impression: GI bleed Secondary Impressions: Opiate overdose Admission Note Spoke With: Rob Caceres MD Documentation of Exam: Documentation of any treatments & extenuating circumstances including Concerns Regarding Discharge (functional status, medication knowledge or non-compliance, living conditions, etc.) that warrant an admission rather than observation: GI evaluation transfusion packed with blood cell serial lab exam medication adjustment psychiatry evaluation ICU monitoring continuing care discharge planning (Elijah Garcia MD) Critical Care Note Critical Care Note Critical Care Time: 75-104 min (80) (Elijah Garcia MD)
[2018-02-24 07:04] LABS: ABSOLUTE BASOPHIL COUNT 0 /CUMM (0.0-0.2); ABSOLUTE EOSINOPHIL COUNT 0 /CUMM (0.0-0.7); ABSOLUTE LYMPH COUNT 0.6 /CUMM (1.2-3.4); ABSOLUTE MONOCYTE COUNT 0.2 /CUMM (0.10-0.60); BASOPHIL % 0.3 % (0.0-2.0); EOSINOPHIL % 1.8 % (0-5); GRANULOCYTE % 55.2 % (42.2-75.2); HEMATOCRIT 23.7 % (42-52); MEAN CORPUSCULAR HGB 28.5 PG (27.0-31.0); MEAN CORPUSCULAR HGB CONC 32.5 G/DL (33.0-37.0); MEAN CORPUSCULAR VOLUME 87.5 FL (80.0-94.0); MEAN PLATELET VOLUME 10.2 FL (7.4-10.4); RBC DISTRIBUTION WIDTH 17.7 % (11.5-14.5); RED BLOOD CELL CT 2.71 /CUMM (4.70-6.10); WHITE BLOOD CELL COUNT 1.8 /CUMM (4.8-10.8)
[2018-02-24 07:14] LABS: PT 18.9 SEC (9.4-12.5); PTT 31 SEC (25-37)
[2018-02-24 07:19] LABS: PLATELET COUNT 50 /CUMM (130-400)
--- NOTE | 2018-02-24 09:23 | History & Physical ---
Te Guevara MD 02/24/18 0923: General Information and HPI MD Statement: I have seen and personally examined EDY AVILES III and documented this H&P. The patient is a 32 year old M who presented with a patient stated chief complaint of GI bleed. Source of Information: patient, old records Exam Limitations: no limitations History of Present Illness: 32 year old male with a past medical history significant for diabetes mellitus type 1, diabetic neuropathy, hypothyroidism, alcoholic liver cirrhosis and esophageal varices, and history of polysubstance abuse who was recently admitted in January after a methadone overdose, complicated by aspiration pneumonia and esophageal variceal bleed. The patient underwent EGD with esophageal variceal banding with Dr. Knott at that time and required a blood transfusion. Since that time he had been well other than complained of throat pain, "like a chicken bone stuck post procedure, and melena. He denies any recent drinking but has smoked marijuana. He has been on a PPI and propanolol at home. His main complaints were abdominal and throat pain, especially with eating. He has had melena, not had any hematochezia. This morning started coughing up blood initially and clots but then progressed to vomiting bright red blood. His hemoglobin was 7.7 on arrival and then he vomited an additional 1-2L of bright red blood with clots in the emergency department and became hypotensive to an SBP in the 70s. Gastroenterology was called and the patient was moved to ICU. He continued to mentate well until induction of anesthesia for EGD. Labs were notable for coagulopathy, anemia, and thrombocytopenia. Crystalloid boluses and massive transfusion protocol was initiated in addition to obtaining peripheral IV access which was difficult because of his history of IVDA. The patient was intubated for emergent EGD with Dr. Knott. Allergies/Medications Allergies: Coded Allergies: No Known Allergies (01/29/18) Home Med list Ergocalciferol (Vitamin D2) (Vitamin D2) 50,000 UNIT CAPSULE 1 CAP PO Q 2 WEEKS VITAMIN SUPPORT (Reported) Ferrous Sulfate 325 MG (65 MG IRON) TABLET. 325 MG PO DAILY Iron . Folic Acid 1 MG TABLET 1 TAB PO DAILY ALCOHOL USE Gabapentin (Unknown Strength) CAPSULE 2 CAP PO BID NEUROPATHY (Reported) Hydroxyzine Hydrochloride (Atarax) 50 MG TAB 1 TAB PO QPM PRN anxiety Insulin Glargine,Hum.rec.anlog (Lantus Solostar) 100 UNIT/ML (3 ML) INSULN.PEN 30 UNIT SC QPM DIABETES Insulin Lispro (Humalog) (Unknown Strength) VIAL (Unknown Dose) SC SEE SLIDING SCALE DIABETES (Reported) 80-150=8 units 151-200=10 units 201-250=12 units 251-300=14 units 301-350=16 units 351-400=18 units 401+ = 20 units Lactulose 10 GRAM/15 ML SOLUTION 30 ML PO TID PRN GI (Reported) Levothyroxine Sodium 25 MCG TABLET 1 TAB PO DAILY AC THYROID (Reported) Multivitamin (Daily Value) 1 EACH TABLET 1 TAB PO DAILY OTHER Ondansetron HCl 4 MG TABLET 1 TAB PO PRN N/V (Reported) Pantoprazole Sodium 40 MG TABLET.DR 1 TAB PO BID GI . Pregabalin (Lyrica) 150 MG CAPSULE 1 CAP PO BID neuropathy (Reported) Propranolol HCl (Propranolol HCl ER) 120 MG CAP.SA.24H 1 CAP PO DAILY gi Spironolactone (Aldactone) 25 MG TABLET 1 TAB PO DAILY cirrhosis . Thiamine HCl 100 MG TABLET 1 TAB PO DAILY OTHER Trazodone HCl 100 MG TABLET 2 TAB PO QPM PRN SLEEP (Reported) Ursodiol 300 MG CAPSULE 1 CAP PO TID UNKNOWN (Reported) Vit B Cmplx 3/FA/Vit C/Biotin (Rebecca-Kate Rx Tablet) 1 MG-60 MG-300 MCG TABLET 1 TAB PO DAILY VITAMIN SUPPORT (Reported) Compliance With Home Meds: FAIR Past History Travel History Traveled to [place] past 21 day No Medical History Neurological: delerium tremens EENT: allergies Cardiovascular: NONE Respiratory: NONE Gastrointestinal: L INGUINAL HERNIA REPAIR PANCREATITIS Hepatic: cholelithiasis, hepatitis C, hepatic encephalopathy (previously), jaundice, alcoholic liver disease Renal: NONE Musculoskeletal: 03/20/2014: L WRIST FX Psychiatric: alcohol dependence, anxiety, depression, substance abuse Endocrine: hypothyroidism, type 1 diabetes Blood Disorders: coagulopathy, pancytopenia Cancer(s): NONE 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 MOTHER (HTN). FH: alcoholism Psychosocial History Who Do You Live With? parent Services at Home: None Primary Language: Romanian ETOH Use: denies use Illicit Drug Use: marijuana Living Will? unknown Power of Consumer Affairs Director/HCP? unknown Functional Ability ADLs Independent: dressing, eating, toileting, bathing. Ambulation: independent IADLs Independent: shopping, housework, finances, food prep, telephone, transportation , medication admin. Review of Systems Review of Systems Constitutional: Reports: no symptoms. EENTM: Reports: no symptoms. Cardiovascular: Reports: no symptoms. Respiratory: Reports: cough, hemoptysis. GI: Reports: abdominal pain, melena, vomiting. Genitourinary: Reports: no symptoms. Musculoskeletal: Reports: no symptoms. Skin: Reports: no symptoms. Neurological/Psychological: Reports: no symptoms. Hematologic/Endocrine: Reports: no symptoms. Immunologic/Allergic: Reports: no symptoms. All Other Systems: Reviewed and Negative Comments ascites, abdominal pain, throat pain Exam & Diagnostic Data Last 24 Hrs of Vital Signs/I&O Vital Signs Date Time Temp Pulse Resp B/P B/P Pulse O2 O2 Flow FiO2 Mean Ox Delivery Rate 02/24 0950 78 97/54 02/24 0944 80 100/59 02/24 0937 80 88/54 02/24 0928 90 77/48 02/24 0924 97.8 90 18 80/47 100 Nasal 2.0L Cannula 02/24 0913 70/40 02/24 0616 98 Room Air 02/24 0612 97.1 93 18 100/65 99 Room Air Intake & Output 02/24 1600 02/24 0800 02/24 0000 Intake Total Output Total 7000 Balance -7000 Output, 7000 Emesis Patient 79.379 kg Weight Weight Reported by Patient Measurement Method Physical Exam General Appearance Alert, Oriented X3, Cooperative, Moderate Distress Cardiovascular Normal S1, Normal S2, No Murmurs, tachycardic sinus tachy at 100 Lungs Clear to Auscultation, Normal Air Movement Abdomen Normal Bowel Sounds, distended, hypertympanic, diffuse tenderness to palpation Extremities No Clubbing, No Cyanosis, No Edema, Normal Pulses Last 24 Hrs of Labs/Tray: Laboratory Tests 02/24/18 0656: Anion Gap 8, Estimated GFR > 60, BUN/Creatinine Ratio 15.6, Glucose 361 H, Calcium 7.7 L, Total Bilirubin 0.9, Direct Bilirubin 0.5 H, AST 42, ALT 20 L, Alkaline Phosphatase 92, Total Protein 4.6 L, Albumin 2.0 L, Amylase < 30 L, Lipase 54, PT 18.9 H, INR 1.72 H, APTT 31, CBC w Diff NO MAN DIFF REQ, RBC 2.71 L, MCV 87.5, MCH 28.5, MCHC 32.5 L, RDW 17.7 H, MPV 10.2, Gran % 55.2, Lymphocytes % 33.2, Monocytes % 9.5 H, Eosinophils % 1.8, Basophils % 0.3, Absolute Granulocytes 1.0 L, Absolute Lymphocytes 0.6 L, Absolute Monocytes 0.2, Absolute Eosinophils 0, Absolute Basophils 0 Diagnostic Data EKG Results sinus rhythm 84, t wave flattening/inv v1-v3 Assessment/Plan Assessment: 32 year old male with a past medical history significant for diabetes mellitus type 1, diabetic neuropathy, hypothyroidism, alcoholic liver cirrhosis and esophageal varices, and history of polysubstance abuse who was recently admitted in January after a methadone overdose, complicated by aspiration pneumonia and esophageal variceal bleed s/p banding on 02/16/18 presented with massive hematemesis resulting in cardiac arrest during therapeutic EGD in the ICU. Upper GI bleed (variceal) s/p EGD w/ 5 bands on 02/16/18 for hematemesis/variceal bleed EGD showed Grade 3 esophageal varices and mild portal hypertensive gastropathy H+H 7.7/23.7 on presentation, resented with massive hematemesis received 2 unit prbcs and 1L crystalloid in the ED, difficult peripheral IV access Obtained 20g peripheral IV x 2, consider central line placement Rapid transfusion protocol, may need FFP depending on transfusion requirement NPO for EGD and possible repeat banding with gastroenterology Octreotide gtt IV PPI Serial CBCs q8h, maintain hemoglobin > 7 Ceftriaxone 1g daily No NSAIDs secondary to alcohol abuse Reportedly abstinent currently Hold lasix, aldactone and propanolol Type 1 diabetes mellitus: Levemir on hold for now Regular insulin sliding scale insulin Accuchecks Q6H Hypothyroidism: Continue synthroid History of substance abuse: Check urine toxicology Hepatitis panel and HIV negative NPO for EGD DVT ppx-ALPs only Full code Addendum 1202PM 1044 start procedure 1052 induction 140 succ, 200mg propofol, infusion started total 200mg Hypotension and bleeding during case calcium gluconate 1g iv and 480mcg phenylephrine total given until 1121 PEA arrest, code 3 called Chest compressions started total 4 minutes, epinephrine 1 mg x 2 given ROSC 1125 EBL 2L minimum Left femoral central line placed Right radial arterial line placed Dr. Knott deployed 5+ bands in the setting of hemodynamically significant bleeding. Total 10 units pRBCs and 1 FFP transfused, 2 more FFP pending, platelets en route Started levophed at 20mcg/kg/min started, blood pressure improved to 110-120 systolic CBC, ICU bundle, lactic acid, coags pending, vitamin K given Transfer to [place] initiated Isrrael bharati started Blood sugars 200-300s pre and post procedure, insulin not administered at this time Transfer to [place] for possible TIPS procedure NPO hold all home medications May need additional blood products Propofol 25mcg/kg/min, octreotide 50mcg/hr, protoxin 8mg/hr, levophed 20mcg/kg/ min, isrrael hugger L femoral TLC, right radial arterial line 20g, 20g PIV L AC and L foot Will likely need an insulin drip for hyperglycemia and DM1 Dilaudid 2mg IVP given for analgesia, will need medications for analgesia given chest compressions Chest x-ray pending As Ranked By This Provider Problem List: 1. GI bleed Core Measures/Misc (05/07) Acute Coronary Syndrome ACS Diagnosis: No Congestive Heart Failure Congestive Heart Failure Diagnosis No Cerebrovascular Accident CVA/TIA Diagnosis: No VTE (View Protocol) VTE Risk Factors Age>40 No Mechanical VTE Prophylaxis d/t N/A MechProphylax Ordered No VTE Pharm Prophylaxis d/t NA PharmProphylax ordered Sepsis (View protocol) Sepsis Present: No If YES complete Sepsis Event Note If YES complete Sepsis Event Note Kassie NERI,[facility] 02/24/18 1412: Core Measures/Misc (05/07) Sepsis (View protocol) If YES complete Sepsis Event Note If YES complete Sepsis Event Note Attending Review Statement Attending Statement Attending MD Statement: examined this patient, discuss w/resident/PA/ASSOCIATE MUSIC PROFESSOR, agreed w/resident/PA/ASSOCIATE MUSIC PROFESSOR, discussed with family, reviewed EMR data (avail), discussed with nursing, discussed with case mgmt, reviewed images, amended to note Attending Assessment/Plan: Seen and examined Spent more than 90 mins at the bedside Full details as above Pt with cirrhosis with massive variceal bleed - banding, then issues as noted above Pt has been agg resusitated and now relatively stable Needs tips if he rebleeds Cont mech vent, iv prbc, massive transfusion protocol, Pressors Has a tlc, ernie and now intubated Discussed with Dr. Leger at [facility] and pt will go to [facility] now Discussed with pt's parents in detail Discussed with multiple attendings at the bedside Pt is critically ill tts more than 120 mins
--- NOTE | 2018-02-24 10:09 | Cons- Gastroenterology ---
General Information and HPI Consulting Request Date of Consult: 02/24/18 Requested By: Rachel Bishop MD Reason for Consult: Hematemesis in a patient with a history of cirrhosis and esophageal banding one week ago. Source of Information: patient, family, old records Exam Limitations: no limitations History of Present Illness: Mr. Carolina is a 32 year old male with a history of PSA, and etoh cirrhosis who presented to today with complaints of coughing up/vomiting blood which began early this morning. He was last in the hospital about a week ago for an inadvertant methadone overdose at which point he developed hematemesis secondary to a varceal bleeding which was treated with banding and he was discharged shortly thereafter on propanolol. He had been doing reasonably well at home albeit he notes that ever since the endoscopy he has had upper abdominal/chest pain which he feels is from the bands that were placed. He has been on a ppi at home which isn't helping the pain and he also notes that he is reluctant to have additional banding if his pain is not adequately treated. He denies any significant pain with eating. He notes his bowel movements have been dark at home, but he has not had any hematochezia. This morning he states that he started bringing up blood which he notes was more of being coughed up then vomiting. He came to the ER after this started where he was initially hemodynamically stable and his hgb was 7.7 on arrival, but he then proceeded to vomit up a profuse amount of bright red blood with clots associated with a fall in his BP which improved with a unit of PRBCs that was started. He has been mentating normally througout his time in the ER and he has not had any melena or hematochezia. He admits to some recent marijuana use, but he denies any etoh use. Allergies/Medications Allergies: Coded Allergies: No Known Allergies (01/29/18) Home Med List: Ergocalciferol (Vitamin D2) (Vitamin D2) 50,000 UNIT CAPSULE 1 CAP PO Q 2 WEEKS VITAMIN SUPPORT (Reported) Ferrous Sulfate 325 MG (65 MG IRON) TABLET. 325 MG PO DAILY Iron . Folic Acid 1 MG TABLET 1 TAB PO DAILY ALCOHOL USE Gabapentin (Unknown Strength) CAPSULE 2 CAP PO BID NEUROPATHY (Reported) Hydroxyzine Hydrochloride (Atarax) 50 MG TAB 1 TAB PO QPM PRN anxiety Insulin Glargine,Hum.rec.anlog (Lantus Solostar) 100 UNIT/ML (3 ML) INSULN.PEN 30 UNIT SC QPM DIABETES Insulin Lispro (Humalog) (Unknown Strength) VIAL (Unknown Dose) SC SEE SLIDING SCALE DIABETES (Reported) 80-150=8 units 151-200=10 units 201-250=12 units 251-300=14 units 301-350=16 units 351-400=18 units 401+ = 20 units Lactulose 10 GRAM/15 ML SOLUTION 30 ML PO TID PRN GI (Reported) Levothyroxine Sodium 25 MCG TABLET 1 TAB PO DAILY AC THYROID (Reported) Multivitamin (Daily Value) 1 EACH TABLET 1 TAB PO DAILY OTHER Ondansetron HCl 4 MG TABLET 1 TAB PO PRN N/V (Reported) Pantoprazole Sodium 40 MG TABLET.DR 1 TAB PO BID GI . Pregabalin (Lyrica) 150 MG CAPSULE 1 CAP PO BID neuropathy (Reported) Propranolol HCl (Propranolol HCl ER) 120 MG CAP.SA.24H 1 CAP PO DAILY gi Spironolactone (Aldactone) 25 MG TABLET 1 TAB PO DAILY cirrhosis . Thiamine HCl 100 MG TABLET 1 TAB PO DAILY OTHER Trazodone HCl 100 MG TABLET 2 TAB PO QPM PRN SLEEP (Reported) Ursodiol 300 MG CAPSULE 1 CAP PO TID UNKNOWN (Reported) Vit B Cmplx 3/FA/Vit C/Biotin (Rebecca-Kate Rx Tablet) 1 MG-60 MG-300 MCG TABLET 1 TAB PO DAILY VITAMIN SUPPORT (Reported) Current Medications: Current Medications Sig/Jose Martin Start time Last Medication Dose Route Stop Time Status Admin Ceftriaxone Sodium 0 .STK-MED ONE 02/24 955 DC .ROUTE Ceftriaxone Sodium 1,000 MG DAILY 02/24 937 UNVr IV Metoclopramide HCl 10 MG ONCE ONE 02/24 900 DC 02/24 IV 02/24 Metoclopramide HCl 0 .STK-MED ONE 02/25 856 DC .ROUTE Octreotide Acetate 50 MCG ONCE ONE 02/24 900 DC 02/24 IV 02/24 901 0947 Octreotide Acetate 500 MCG Q10H 02/24 900 UNVr 02/24 Dextrose/Water 500 ML IV 0948 Pantoprazole Sodium 40 MG Q5H 02/24 1000 UNVr Sodium Chloride 100 ML IV Pantoprazole Sodium 0 .STK-MED ONE 02/24 0955 DC IV Sodium Chloride 1,000 ML BOLUS ONE 02/24 0645 DC 02/24 IV 02/24 0744 0707 Past History Travel History Traveled to [place] past 21 day No Medical History Neurological: delerium tremens EENT: allergies Cardiovascular: NONE Respiratory: NONE Gastrointestinal: L INGUINAL HERNIA REPAIR PANCREATITIS Hepatic: cholelithiasis, hepatitis C, hepatic encephalopathy (previously), jaundice, alcoholic liver disease Renal: NONE Musculoskeletal: 03/20/2014: L WRIST FX Psychiatric: alcohol dependence, anxiety, depression, substance abuse Endocrine: hypothyroidism, type 1 diabetes Blood Disorders: coagulopathy, pancytopenia Cancer(s): NONE 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 MOTHER (HTN). FH: alcoholism Psychosocial History Who Do You Live With? parent Services at Home: None Primary Language: Kiswahili ETOH Use: denies use Illicit Drug Use: marijuana Living Will? unknown Power of Plane Runner/HCP? unknown Functional Ability ADLs Independent: dressing, eating, toileting, bathing. Ambulation: independent IADLs Independent: shopping, housework, finances, food prep, telephone, transportation , medication admin. Review of Systems Review of Systems Constitutional: Reports: malaise, weakness. Denies: chills, diaphoresis, fever. EENTM: Denies: no symptoms. Cardiovascular: Reports: chest pain. Respiratory: Reports: short of breath. Denies: cough, hemoptysis, orthopnea. GI: Reports: see HPI. Genitourinary: Denies: no symptoms. Musculoskeletal: Denies: no symptoms. Skin: Denies: no symptoms. Neurological/Psychological: Denies: no symptoms. Hematologic/Endocrine: Denies: no symptoms. Immunologic/Allergic: Denies: no symptoms. All Other Systems: Reviewed and Negative Exam & Diagnostic Data Vital Signs and I&O Vital Signs Date Time Temp Pulse Resp B/P B/P Pulse O2 O2 Flow FiO2 Mean Ox Delivery Rate 02/24 0913 70/40 02/24 0616 98 Room Air 02/24 0612 97.1 93 18 100/65 99 Room Air Intake & Output 0702/24 040 Intake Total Output Total 1999 Balance -1999 Output, 1999 Emesis Patient 175 lb Weight Weight Reported by Patient Measurement Method Physical Exam General Appearance: well developed/nourished, mild distress Head: atraumatic Eyes: Bilateral: pale conjunctivae. Ears, Nose, Throat: normal pharynx, dried blood around mouth Neck: normal inspection, supple, full range of motion Respiratory: normal breath sounds, chest non-tender, no respiratory distress Cardiovascular: regular rate/rhythm Gastrointestinal: normal bowel sounds, soft, distention, tenderness Rectal: deferred Back: normal inspection, normal range of motion Extremities: normal inspection, no edema, slow capillary refill Neurologic/Psych: no motor/sensory deficits, awake, alert, oriented x 3 Skin: intact, pallor Results Pertinent Lab Results: Laboratory Tests 02/25 656 Chemistry Sodium (137 - 145 mmol/L) 133 L Potassium (3.5 - 5.1 mmol/L) 3.7 Chloride (98 - 107 mmol/L) 101 Carbon Dioxide (22 - 30 mmol/L) 24 Anion Gap (5 - 16) 8 BUN (9 - 20 mg/dL) 14 Creatinine (0.7 - 1.2 mg/dL) 0.9 Estimated GFR (>60 ml/min) > 60 BUN/Creatinine Ratio (7 - 25 %) 15.6 Glucose (65 - 99 mg/dL) 361 H Calcium (8.4 - 10.2 mg/dL) 7.7 L Total Bilirubin (0.2 - 1.3 mg/dL) 0.9 Direct Bilirubin (< 0.4 mg/dL) 0.5 H AST (17 - 59 U/L) 42 ALT (21 - 72 U/L) 20 L Alkaline Phosphatase (< 127 U/L) 92 Total Protein (6.3 - 8.2 g/dL) 4.6 L Albumin (3.5 - 5.0 g/dL) 2.0 L Amylase (30 - 110 U/L) < 30 L Lipase (23 - 300 U/L) 54 Coagulation PT (9.4 - 12.5 SEC) 18.9 H INR (0.90 - 1.17) 1.72 H APTT (25 - 37 SEC) 31 Hematology CBC w Diff NO MAN DIFF REQ WBC (4.8 - 10.8 /CUMM) 1.8 L RBC (4.70 - 6.10 /CUMM) 2.71 L Hgb (14.0 - 18.0 G/DL) 7.7 L Hct (42 - 52 %) 23.7 L MCV (80.0 - 94.0 FL) 87.5 MCH (27.0 - 31.0 PG) 28.5 MCHC (33.0 - 37.0 G/DL) 32.5 L RDW (11.5 - 14.5 %) 17.7 H Plt Count (130 - 400 /CUMM) 50 L MPV (7.4 - 10.4 FL) 10.2 Gran % (42.2 - 75.2 %) 55.2 Lymphocytes % (20.5 - 51.1 %) 33.2 Monocytes % (1.7 - 9.3 %) 9.5 H Eosinophils % (0 - 5 %) 1.8 Basophils % (0.0 - 2.0 %) 0.3 Absolute Granulocytes (1.4 - 6.5 /CUMM) 1.0 L Absolute Lymphocytes (1.2 - 3.4 /CUMM) 0.6 L Absolute Monocytes (0.10 - 0.60 /CUMM) 0.2 Absolute Eosinophils (0.0 - 0.7 /CUMM) 0 Absolute Basophils (0.0 - 0.2 /CUMM) 0 Assessment/Plan Assessment/Recommendations: Assessment: Mr. Carolina is a 32 year old male with a history of etoh cirrhosis and varices s/p banding about one week ago who presents today with recurrent variceal bleeding. He is currently maintaining his BP with transfusion and IV fluids. Considering the current clinical picture I will arrange for a repeat EGD now to assess for any residual varices that may require additional banding or any other source of his hematemesis. Recommendations: 1. Keep NPO and admit to ICU 2. Continue IV octreotide drip 3. Follow CBC and transfuse as needed to maintain hgb around 7-8 with care not to over transfuse 4. Maintain 2 large bore IVs at all times. 5. IV Ceftriaxone 1 gm QD for 3 days after bleeding has clinically stopped. 6. Will arrange for an EGD now to reassess varices and place additional bands if appropriate. If the bleeding is not able to be controlled endoscopically would then give consideration for a flaco tube and a TIPSs which may necessitate transfer based on IR capabilities here. I will continue to follow this patient and make further recommendations based on his clinical course and the results of the endoscopy. Consult Acknowledgment - Thank you for your consult request.
[2018-02-24 10:30] VITALS: BP 110/74
--- NOTE | 2018-02-24 11:47 | Proc Note Endoscopy ---
Endoscopy Procedure Medical History: unchanged (see meditech consult) Mental Status: alert/oriented Heart/Lung Eval Prior to Sedation: within normal limits Candidate for Sedation? Yes Procedure Date: 02/24/18 Procedure Type: EGD with banding Motor Coach Driver: Norberto Knott MD ASA Classification: III Indications: Hematemesis in a pt with etoh cirrhosis and a history s/p banding approximately 10 days ago. Instrument: diagnostic gastroscope Meds Received: MAC Patient's Tolerance: good Complications: Asystolic arrest responded to epi/cpr & control of bleeding with banding Extent Reached: second part of duodenum Procedure: After getting written informed consent the patient was kept in the supine position and was prophylactically intubated. He was then placed in the left lateral decubitus position with pulse oximetry, cardiac monitoring, and supplemental oxygen given. A bite block was inserted and IV sedation was given until the desired effect was achieved. A high definition upper Olympus endoscope was then inserted into the mouth and advanced to the second portion of the duodenum with little difficulty. Retroflexed views and photodocumentation was obtained. After inspection of the upper GI tract as described above the scope was removed from the patient and a 7 shooter banding device was applied to the end of the scope which was then reintroduced into the patient's mouth and advanced to the lower esophagus. After placement of the first band significant bleeding ensued and this was ultimately controlled with placement of 3 additional bands. Findings: Esophagus: There were prominent esophageal varices starting in the midesophagus at approximately 25 cm which extended to the hiatal narrowing about 40 cm from the incisors. In the lower esophagus there were several ulcerations corresponding to where the bands were previously placed and there was one engorged varix next to an ulceration that still had a band on it. As stated in the procedure section of this report there was significant bleeding with placement of the first band which was ultimately controlled with placement of 3 additional bands. Stomach: The underlying gastric mucosa was grossly normal in appearance. There was a moderate amount of blood leftover from the fundus which could not be completely cleared through the colonoscope, but limited views of the fundus were negative for evidence of portal hypertensive gastropathy or gastric varices. There were no gastric ulcers or erosions appreciated Duodenum: There was some fresh blood appreciated within the duodenal bulb and the second portion of the duodenum, but there were no duodenal ulcerations or erosions appreciated. Impression: 1. Active variceal bleeding status post placement for additional bands with adequate hemostasis being achieved. 2. Asystolic arrest with resumption of cardiac activity with epi and CPR. Recommendations: 1. Continue IV octreotide drip. 2. Follow CBC and transfuse to maintain hgb around 7-8. 3. Continue IV cefrtiaxone. 4. IV pressors for BP support as tolerated. 5. If he rebleeds consideration will be given to repeat the endoscopy for additional banding or sclerotherapy vs TIPSs.
--- NOTE | 2018-02-24 12:57 | Discharge Summary ---
Visit Information Visit Dates Admission Date: 02/24/18 Discharge Date: 02/24/18 Hospital Course Course Attending Physician: Rob Caceres MD Primary Care Physician: Johnny Espitia MD Hospital Course: 32 year old male with a past medical history significant for diabetes mellitus type 1, diabetic neuropathy, hypothyroidism, alcoholic liver cirrhosis and esophageal varices, and history of polysubstance abuse who was recently admitted in January after a methadone overdose, complicated by aspiration pneumonia and esophageal variceal bleed. The patient underwent EGD with esophageal variceal banding with Dr. Knott at that time and required a blood transfusion. Since that time he had been well other than complained of throat pain, "like a chicken bone stuck post procedure, and melena. He denies any recent drinking but has smoked marijuana. He has been on a PPI and propanolol at home. His main complaints were abdominal and throat pain, especially with eating. He has had melena, not had any hematochezia. This morning started coughing up blood initially and clots but then progressed to vomiting bright red blood. His hemoglobin was 7.7 on arrival and then he vomited an additional 1-2L of bright red blood with clots in the emergency department and became hypotensive to an SBP in the 70s. Gastroenterology was called and the patient was moved to ICU. He continued to mentate well until induction of anesthesia for EGD. Labs were notable for coagulopathy, anemia, and thrombocytopenia. Crystalloid boluses and massive transfusion protocol was initiated in addition to obtaining peripheral IV access which was difficult because of his history of IVDA. The patient was intubated for emergent EGD with Dr. Knott. 1044 start procedure 1052 induction 140 succ, 200mg propofol and infusion started additional 200mg Hypotension and bleeding during case calcium gluconate 1g iv and 480mcg phenylephrine total given including additional pRBCS until 1121 PEA arrest, code 3 called Chest compressions started total 4 minutes, epinephrine 1 mg x 2 given ROSC 1125 Left femoral central line placed Right radial arterial line placed Dr. Knott deployed 5+ bands into the bleeding site, see endoscopy report. Total 10 units pRBCs and 1 FFP transfused, 3 more FFP pending, platelets en route Started levophed at 20mcg/kg/min started, blood pressure improved to 110-120 systolic CBC, ICU bundle, lactic acid, coags pending, ABG 7.39/28/328/17 Transfer to [facility] initiated Blood sugars 200-300s pre and post procedure Transfer to [facility] for possible TIPS procedure NPO hold all home medications May need additional blood products Propofol 15mcg/kg/min, octreotide 50mcg/hr, protoxin 8mg/hr, levophed 20mcg/kg/ min, isrrael hugger L femoral TLC, right radial arterial line 20g, 20g PIV L AC and L foot Will likely need an insulin drip for hyperglycemia and DM1 Allergies: Coded Allergies: No Known Allergies (01/29/18) Significant Procedures: PATIENT CARE UNIT CONFIDENTIAL COPY Endoscopy Procedure Medical History: unchanged (see meditech consult) Mental Status: alert/oriented Heart/Lung Eval Prior to Sedation: within normal limits Candidate for Sedation? Yes Procedure Date: 02/24/18 Procedure Type: EGD with banding Melter Supervisor: Norberto Knott MD ASA Classification: III Indications: Hematemesis in a pt with etoh cirrhosis and a history s/p banding approximately 10 days ago. Instrument: diagnostic gastroscope Meds Received: MAC Patient's Tolerance: good Complications: Asystolic arrest responded to epi/cpr & control of bleeding with banding Extent Reached: second part of duodenum Procedure: After getting written informed consent the patient was kept in the supine position and was prophylactically intubated. He was then placed in the left lateral decubitus position with pulse oximetry, cardiac monitoring, and supplemental oxygen given. A bite block was inserted and IV sedation was given until the desired effect was achieved. A high definition upper Olympus endoscope was then inserted into the mouth and advanced to the second portion of the duodenum with little difficulty. Retroflexed views and photodocumentation was obtained. After inspection of the upper GI tract as described above the scope was removed from the patient and a 7 shooter banding device was applied to the end of the scope which was then reintroduced into the patient's mouth and advanced to the lower esophagus. After placement of the first band significant bleeding ensued and this was ultimately controlled with placement of 3 additional bands. Findings: Esophagus: There were prominent esophageal varices starting in the midesophagus at approximately 25 cm which extended to the hiatal narrowing about 40 cm from the incisors. In the lower esophagus there were several ulcerations corresponding to where the bands were previously placed and there was one engorged varix next to an ulceration that still had a band on it. As stated in the procedure section of this report there was significant bleeding with placement of the first band which was ultimately controlled with placement of 3 additional bands. Stomach: The underlying gastric mucosa was grossly normal in appearance. There was a moderate amount of blood leftover from the fundus which could not be completely cleared through the colonoscope, but limited views of the fundus were negative for evidence of portal hypertensive gastropathy or gastric varices. There were no gastric ulcers or erosions appreciated Duodenum: There was some fresh blood appreciated within the duodenal bulb and the second portion of the duodenum, but there were no duodenal ulcerations or erosions appreciated. Impression: 1. Active variceal bleeding status post placement for additional bands with adequate hemostasis being achieved. 2. Asystolic arrest with resumption of cardiac activity with epi and CPR. Recommendations: 1. Continue IV octreotide drip. 2. Follow CBC and transfuse to maintain hgb around 7-8. 3. Continue IV cefrtiaxone. 4. IV pressors for BP support as tolerated. 5. If he rebleeds consideration will be given to repeat the endoscopy for additional banding or sclerotherapy vs TIPSs. Consulting Request Date of Consult: 02/24/18 Requested By: Rachel Bishop MD Reason for Consult: Hematemesis in a patient with a history of cirrhosis and esophageal banding one week ago. Source of Information: patient, family, old records Exam Limitations: no limitations History of Present Illness: Mr. Carolina is a 32 year old male with a history of PSA, and etoh cirrhosis who presented to today with complaints of coughing up/vomiting blood which began early this morning. He was last in the hospital about a week ago for an inadvertant methadone overdose at which point he developed hematemesis secondary to a varceal bleeding which was treated with banding and he was discharged shortly thereafter on propanolol. He had been doing reasonably well at home albeit he notes that ever since the endoscopy he has had upper abdominal/chest pain which he feels is from the bands that were placed. He has been on a ppi at home which isn't helping the pain and he also notes that he is reluctant to have additional banding if his pain is not adequately treated. He denies any significant pain with eating. He notes his bowel movements have been dark at home, but he has not had any hematochezia. This morning he states that he started bringing up blood which he notes was more of being coughed up then vomiting. He came to the ER after this started where he was initially hemodynamically stable and his hgb was 7.7 on arrival, but he then proceeded to vomit up a profuse amount of bright red blood with clots associated with a fall in his BP which improved with a unit of PRBCs that was started. He has been mentating normally througout his time in the ER and he has not had any melena or hematochezia. He admits to some recent marijuana use, but he denies any etoh use. Assessment: Mr. Carolina is a 32 year old male with a history of etoh cirrhosis and varices s/p banding about one week ago who presents today with recurrent variceal bleeding. He is currently maintaining his BP with transfusion and IV fluids. Considering the current clinical picture I will arrange for a repeat EGD now to assess for any residual varices that may require additional banding or any other source of his hematemesis. Recommendations: 1. Keep NPO and admit to ICU 2. Continue IV octreotide drip 3. Follow CBC and transfuse as needed to maintain hgb around 7-8 with care not to over transfuse 4. Maintain 2 large bore IVs at all times. 5. IV Ceftriaxone 1 gm QD for 3 days after bleeding has clinically stopped. 6. Will arrange for an EGD now to reassess varices and place additional bands if appropriate. If the bleeding is not able to be controlled endoscopically would then give consideration for a flaco tube and a TIPSs which may necessitate transfer based on IR capabilities here. I will continue to follow this patient and make further recommendations based on his clinical course and the results of the endoscopy. Disposition Summary Disposition Principal Diagnosis: Upper GI bleed secondary to esophageal varices and cirrhosis requiring endoscopic intervention Acute blood loss anemia leading to cardiac arrest Additional Diagnosis: Type I DM Pancytopenia Polysubstance abuse Hypothyroidism Discharge Disposition: other general hospital Discharge Instructions General Discharge Information Code Status: Full Code Patient's Diet: NPO Patient's Activity: N/A Follow-Up Instructions/Appts: Follow up with your physicians Medications at Discharge Discharge Medications: Continue taking these medications: Ergocalciferol (Vitamin D2) (Vitamin D2) 50,000 UNIT CAPSULE 1 Capsule ORAL EVERY 2 WEEKS Comments: NOT GIVEN IN HOSPITAL Levothyroxine Sodium (Levothyroxine Sodium) 25 MCG TABLET 1 Tablet ORAL DAILY BEFORE BREAKFAST Comments: Last Taken: 02/20/18 Time: 0600 AM Trazodone HCl (Trazodone HCl) 100 MG TABLET 2 Tablet ORAL Every night as needed for SLEEP Comments: Last Taken: 02/20/18 Time: 01:47 AM Multivitamin (Daily Value) 1 EACH TABLET 1 Tablet ORAL DAILY Qty = 30 Comments: Last Taken: 02/19/18 Time: 0900 AM Folic Acid (Folic Acid) 1 MG TABLET 1 Tablet ORAL DAILY Qty = 30 Comments: Last Taken: 02/20/18 Time: 0900 AM Thiamine HCl (Thiamine HCl) 100 MG TABLET 1 Tablet ORAL DAILY Qty = 30 Comments: Last Taken: 03/02/18 Time: 0900 AM Gabapentin (Gabapentin) (Unknown Strength) CAPSULE 2 Capsule ORAL TWICE DAILY Qty = 180 Comments: DID NOT TAKE IN THE HOSPITAL Insulin Lispro (Humalog) (Unknown Strength) VIAL Unknown Dose Inject into fatty tissue SEE SLIDING SCALE Instructions: 80-150=8 units 151-200=10 units 201-250=12 units 251-300=14 units 301-350=16 units 351-400=18 units 401+ = 20 units Comments: NOT GIVEN IN HOSPITAL Lactulose (Lactulose) 10 GRAM/15 ML SOLUTION 30 Milliliters ORAL THREE TIMES DAILY as needed for GI Qty = 473 Comments: NOT GIVEN IN HOSPITAL Vit B Cmplx 3/FA/Vit C/Biotin (Rebecca-Kate Rx Tablet) 1 MG-60 MG-300 MCG TABLET 1 Tablet ORAL DAILY Comments: NOT GIVEN IN HOSPITAL Ursodiol (Ursodiol) 300 MG CAPSULE 1 Capsule ORAL THREE TIMES DAILY Qty = 42 Comments: NOT GIVEN IN HOSPITAL Ondansetron HCl (Ondansetron HCl) 4 MG TABLET 1 Tablet ORAL as needed for N/V Qty = 12 Comments: Last Taken:02/15/18 Time:730 PM Hydroxyzine Hydrochloride (Atarax) 50 MG TAB 1 Tablet ORAL Every night as needed for anxiety Qty = 15 Comments: DID NOT TAKE IN THE HOSPITAL Pregabalin (Lyrica) 150 MG CAPSULE 1 Capsule ORAL TWICE DAILY Qty = 60 Comments: DID NOT TAKE IN THE HOSPITAL Insulin Glargine,Hum.rec.anlog (Lantus Solostar) 100 UNIT/ML (3 ML) INSULN.PEN 30 Unit Inject into fatty tissue Every night Qty = 1 Comments: NOT GIVEN IN HOSPITAL INSULIN LEVEMIR GIVEN Last Taken: 02/05/18 Time: 0845 AM Spironolactone (Aldactone) 25 MG TABLET 1 Tablet ORAL DAILY Qty = 30 Instructions: . Comments: DID NOT TAKE IN THE HOSPITAL Ferrous Sulfate (Ferrous Sulfate) 325 MG (65 MG IRON) TABLET.DR 325 Milligram ORAL DAILY Qty = 30 Instructions: . Comments: Last Taken:02/20/18 Time:0900 AM Pantoprazole Sodium (Pantoprazole Sodium) 40 MG TABLET.DR 1 Tablet ORAL TWICE DAILY Qty = 60 Instructions: . Comments: Last Taken:02/20/18 Time:0900 AM Propranolol HCl (Propranolol HCl ER) 120 MG CAP.SA.24H 1 Capsule ORAL DAILY Qty = 30 Comments: Last Taken:02/20/18 Time:1000 AM Copies To: Kassie NERI,Bry Silver; Indy Knott MD, MD,Johnny Silver Attending MD Review Statement Documenting Attending: Bry Fernando MD
--- NOTE | 2018-02-24 13:01 | Patient Discharge Instructions ---
Discharge Instructions General Discharge Information You were seen/treated for: acute blood loss anemia variceal bleed cirrhosis cardiac arrest Special Instructions: Transfer to [facility], may need TIPS with IR Massive transfusion Acute Coronary Syndrome Inclusion Criteria At DC or during hospital stay patient has or had the following: ACS DIAGNOSIS No Discharge Core Measures Meds if any: Prescribed or Continued at Discharge Meds if any: NOT Prescribed or Continued at Discharge Congestive Heart Failure Inclusion Criteria At DC or during hospital stay patient has or had the following: CHF DIAGNOSIS No Discharge Core Measures Meds if any: Prescribed or Continued at Discharge Meds if any: NOT Prescribed or Continued at Discharge Cerebrovascular accident Inclusion Criteria At DC or during hospital stay patient has or had the following: CVA/TIA Diagnosis No Discharge Core Measures Meds if any: Prescribed or Continued at Discharge Meds if any: NOT Prescribed or Continued at Discharge Venous thromboembolism Inclusion Criteria VTE Diagnosis No VTE Type NONE VTE Confirmed by (Test) NONE Discharge Core Measures - Per Current guidelines, there needs to be overlap - treatment for the first 5 days of Warfarin therapy. - If discharged on Warfarin prior to 5 days of - overlap therapy, the patient will need to be - assessed for post discharge needs including - *Post discharge parental anticoagulation - *Warfarin and/or parental anticoagulation education - *Follow up date to check INR post discharge At least 5 days overlap therapy as Inpatient No Meds if any: Prescribed or Continued at Discharge Note: Overlap Therapy is Warfarin and Anticoagulant Meds if any: NOT Prescribed or Continued at Discharge
[2018-02-24 13:43] LABS: ABSOLUTE BASOPHIL COUNT 0 /CUMM (0.0-0.2); ABSOLUTE EOSINOPHIL COUNT 0 /CUMM (0.0-0.7); ABSOLUTE GRANULOCYTE CT 6.7 /CUMM (1.4-6.5)
[2018-02-24 13:47] LABS: ABSOLUTE LYMPH COUNT 1.3 /CUMM (1.2-3.4); ABSOLUTE MONOCYTE COUNT 0.6 /CUMM (0.10-0.60); BASOPHIL % 0.2 % (0.0-2.0); EOSINOPHIL % 0.4 % (0-5); GRANULOCYTE % 77.3 % (42.2-75.2); MEAN CORPUSCULAR HGB 29.9 PG (27.0-31.0); MEAN CORPUSCULAR HGB CONC 33.7 G/DL (33.0-37.0); MEAN CORPUSCULAR VOLUME 88.6 FL (80.0-94.0); MEAN PLATELET VOLUME 9.5 FL (7.4-10.4); RBC DISTRIBUTION WIDTH 15.8 % (11.5-14.5)
[2018-02-24 13:51] LABS: PT 21.8 SEC (9.4-12.5)
[2018-02-24 14:07] LABS: HEMATOCRIT 35.9 % (42-52); PLATELET COUNT 105 /CUMM (130-400); RED BLOOD CELL CT 4.05 /CUMM (4.70-6.10); WHITE BLOOD CELL COUNT 8.7 /CUMM (4.8-10.8)
[2018-02-24 14:19] LABS: PTT 42 SEC (25-37)
--- NOTE | 2018-02-24 15:18 | RADIOLOGY REPORT ---
EXAMINATION: XR PORTABLE CHEST CLINICAL INFORMATION: Intubation. COMPARISON: 02/07/2018 TECHNIQUE: AP portable supine view of the chest FINDINGS: Endotracheal tube terminates in the right mainstem bronchus. Retraction by 3.5 cm is advised. Lung volumes are low. There is bibasilar atelectasis. Retrocardiac opacification is likely due to atelectasis. No pneumothorax or pleural effusion. Cardiac and mediastinal contours are within normal limits allowing for differences in inspiration. Previously seen opacity in the right midlung is not present on the current study, though may be partially obscured by overlying EKG leads. No acute osseous findings. IMPRESSION: 1. Endotracheal tube terminates in the right mainstem bronchus. Recommend retraction by 3.5 cm. 2. Low lung volumes with bibasilar atelectasis. Airspace opacity seen in the right midlung on the prior study is not apparent on the current study, possibly obscured. This critical result was discussed by telephone with Dr. Alexander at 3:15 PM on 02/24/2018 .
== END 2018-02-24 15:05 | disposition short-term general hospital (02) | DRG 280 ==
LOC: ERH 05:50 → ERHI 08:57 → CRI 10:16
PROVIDERS: Pediatrics; Preventive Medicine Public Health & General Preventive Medicine; Student in an Organized Health Care Education/Training Program
PROC: 06L38CZ Occlusion of Esophageal Vein with Extraluminal Device, Via Natural or Artificial Opening Endoscopic (ICD-10-PCS; principal; 2018-02-24)
PROC: 0BH17EZ Insertion of Endotracheal Airway into Trachea, Via Natural or Artificial Opening (ICD-10-PCS; 2018-02-24)
PROC: 5A1935Z Respiratory Ventilation, Less than 24 Consecutive Hours (ICD-10-PCS; 2018-02-24)
PROC: 30233K1 Transfusion of Nonautologous Frozen Plasma into Peripheral Vein, Percutaneous Approach (ICD-10-PCS; 2018-02-24)
PROC: 30233N1 Transfusion of Nonautologous Red Blood Cells into Peripheral Vein, Percutaneous Approach (ICD-10-PCS; 2018-02-24)
PROC: 30233R1 Transfusion of Nonautologous Platelets into Peripheral Vein, Percutaneous Approach (ICD-10-PCS; 2018-02-24)
DX: K70.30 Alcoholic cirrhosis of liver without ascites (principal); I85.11 Secondary esophageal varices with bleeding; D61.818 Other pancytopenia; I95.9 Hypotension, unspecified; E10.40 Type 1 diabetes mellitus with diabetic neuropathy, unspecified; E10.65 Type 1 diabetes mellitus with hyperglycemia; D62 Acute posthemorrhagic anemia; I46.8 Cardiac arrest due to other underlying condition; F19.10 Other psychoactive substance abuse, uncomplicated; E03.9 Hypothyroidism, unspecified; F12.90 Cannabis use, unspecified, uncomplicated; Z79.4 Long term (current) use of insulin
CPT/HCPCS: CCU; 71045; 80307; 81001; 82436; 86920; 87086; 93005; 93010; J0610; J0696; J2354; J2765; J3010; J7040; J7060; P9016; P9031